=== PATIENT | male | born 1955 | race Caucasian/White ===

== ENCOUNTER 2023-12-28 18:17 | Inpatient (IN) | payer MEDICARE, MEDICAID, SELFPAY ==
[2023-12-28] VITALS (21 sets, daily range): BP systolic 104–121; BP diastolic 70–82; PULSE 76–136; TEMP 36.5–37.1; O2SAT 90–97; BMI 27.4
--- NOTE | 2023-12-28 18:20 | XR_ITS ---
The [address] [address] Patient Name: CARL REINOSO MRN: [id number] date: 1955 Sex: M Assigned Patient Location: ER Current Patient Location: ED.MAIN Accession/Order Number: [id number] Exam Date: 12/28/2023 18:35 Report Date: 12/28/2023 19:19 At the request of: VICKY PEREZ Procedure: XR chest 1V Exam: Radiographs: XR chest 1V Reason for exam: weakness Comparison: None XR/XR chest 1V IMPRESSION: Probable atelectasis and/or infiltrate in the lower lungs bilaterally. Interstitial opacities in the lower lungs bilaterally that likely represent edema. Pulmonary venous hypertension. Remainder of the chest is unremarkable. Electronically authenticated by: SELVIN CHUNG Date: 12/28/2023 19:19
--- NOTE | 2023-12-28 18:20 | ECG_ITS ---
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1955 Requested By: CALIN CLANCY Order Number: [id number] Reading MD: GURVINDER MONTANO Measurements Intervals [place] Rate: 137 P: -[id number] MS: -[id number] QRS: 185 QRSD: 94 T: -37 QT: 328 QTc: 408 Interpretive Statements 32333 Atrial fibrillation with rapid ventricular response with aberrant conduction, or ventricular premature complexes 2440 Incomplete right bundle branch block 3634 Inferior myocardial infarction, age undetermined 5120 Possible right ventricular hypertrophy 8003 Consistent with pulmonary disease 9150 abnormal ECG No previous ECG available for comparison Electronically Signed On 12-29-2023 13:01:14 EDT by GURVINDER MONTANO
--- NOTE | 2023-12-28 18:25 | ED.GENADUL1 ---
Documented by User: KENDRA Turpin 12/28/23 19:58 HPI HPI - General Adult General Chief complaint: Weakness Stated complaint: Weakness Time Seen by Provider: 12/28/23 18:19 Source: caregiver Mode of arrival: ambulance Limitations: altered mental status History of Present Illness HPI narrative: Patient is a 68-year-old male [facility] for concerns of weakness and change in skin color. Patient has a history of traumatic brain injury, decreased mentation. Patient was ambulating to dinner and required extra assistance, upon return he became hill in color and what they described as near syncopal but did not lose consciousness. Patient presents via EMS with no complaints. His personal history is limited by his mentation. His medical history review Notes he is on Eliquis ( for PE) and seizure medication. No report of head injury or trauma. EMS noting patient in A-fib with RVR. Related Data Home Medications ?Medication ?Instructions ?Recorded ?Confirmed apixaban 5 mg tablet (Eliquis) 5 mg PO BID 12/28/23 12/28/23 buspirone 5 mg tablet 5 mg PO BID 12/28/23 12/28/23 divalproex 250 mg tablet,delayed 250 mg PO Q12H 12/28/23 12/28/23 release (Depakote) lamotrigine 100 mg tablet 100 mg PO BID 12/28/23 12/28/23 (Lamictal) levetiracetam 750 mg tablet 750 mg PO BID 12/28/23 12/28/23 pantoprazole 40 mg tablet,delayed 40 mg PO DAILY 12/28/23 12/28/23 release sertraline 50 mg tablet (Zoloft) 50 mg PO DAILY 12/28/23 12/28/23 tamsulosin 0.4 mg capsule (Flomax) 0.4 mg PO DAILY 12/28/23 12/28/23 trazodone 50 mg tablet 25 mg PO BID PRN agitation 12/28/23 12/28/23 Allergies Allergy/AdvReac Type Severity Reaction Status Date / Time No Known Drug Allergies Allergy Verified 12/28/23 18:20 Opioid HPI Opioid Management Most Recent Opioid Data: Last Pain Assessment 12/28/23 22:05 Last ORT Total Score 2 12/28/23 20:56 Last ORT Risk Category Low Risk 12/28/23 20:56 Review of Systems ROS Status of ROS unobtainable due to mental status PFSH PFSH Social History Highest level of school completed/degree received: high school graduate Exam Narrative Exam Narrative: Nurses notes and vital signs reviewed and patient is not hypoxic. General: The patient appears well and in no apparent distress. Patient is resting comfortably on cart. Skin: Warm, dry, no pallor noted. Head: Normocephalic, atraumatic, remote scar to scalp noted. Neck: Supple, trachea mid-line, no tenderness, no lymphadenopathy Eye: Pupils are equal, round and reactive to light, EOMI Ears, Nose, Mouth, and Throat: TM are clear, normal light reflex, oral mucosa is moist, no posterior oropharynx erythema or hypertrophy, uvula is mid-line Cardiovascular: Irregularly irregular with tachycardia Respiratory: Patient is in no distress, no accessory muscle use, lungs are clear to auscultation, no wheezing, rales or rhonchi. Chest Wall: no tenderness Back: non-tender, no CVA tenderness Musculoskeletal: normal ROM, no tenderness, no swelling GI: Normal bowel sounds, no tenderness to palpation, no masses appreciated. No rebound, guarding, or rigidity noted. Neurological: A&O person. Psychiatric: Cooperative ( Staff reports pt can have bouts of violence/ excitability. ) Constitutional Vital Signs, click to edit/add: Last Vital Signs Temp 97.7 F 12/28/23 20:56 Pulse 94 H 12/28/23 22:00 Resp 20 12/28/23 20:56 BP 112/72 12/28/23 20:56 Pulse Ox 94 L 12/28/23 20:56 O2 Del Method Room Air 12/28/23 20:56 Course Vital Signs Vital signs: Vital Signs Temperature 98.7 F 12/28/23 18:20 Pulse Rate 136 H 12/28/23 18:20 Respiratory Rate 18 12/28/23 18:20 Blood Pressure 104/81 12/28/23 18:20 Pulse Oximetry 94 L 12/28/23 18:20 Oxygen Delivery Method Room Air 12/28/23 18:20 Temperature 97.7 F 12/28/23 20:56 Pulse Rate 94 H 12/28/23 22:00 Respiratory Rate 20 12/28/23 20:56 Blood Pressure 112/72 12/28/23 20:56 Pulse Oximetry 94 L 12/28/23 20:56 Oxygen Delivery Method Room Air 12/28/23 20:56 Medical Decision Making MDM Narrative Medical decision making narrative: Patient is Full Code presents in A-fib with RVR, he is currently on Eliquis but we do not see any prior history of A-fib and has medical diagnosis. Patient will be hydrated with 1 L IV fluids, 10 mg Iv Cardizem. Improved to mid 70s, remains in atrial fibrillation. Chest x-ray showing some pulmonary edema, however there is appearance of infiltrate in the bilateral lung bases, his white blood cell count was noted to be elevated with toxic granulation, Cultures are pending, will treat with Rocephin and Zithromax for Possible pneumonia pending reevaluation. Patient's blood pressure improved with fluid bolus and slowing of his heart rate from initial A-fib RVR. Patient has family at bedside. They report no further concerns or questions. I will speak with the hospitalist regarding need for admission. Patient resting comfortably with family, case was discussed with Trung hospitalist,Agreeable to admission, request [facility] telemetry inpatient. Lab Data Lab results reviewed: Yes I reviewed the patient's lab results Labs: Lab Results 12/28/23 Range/Units 18:29 WBC 12.1 H (4.0-11.0) 10^3/uL RBC 4.69 L (4.70-6.10) 10^6/uL Hgb 14.3 (14.0-18.0) g/dL Hct 43.0 (42.0-54.0) % MCV 91.7 (80.0-94.0) fL MCH 30.5 (25.9-34.0) pg MCHC 33.3 (29.9-35.2) g/dL RDW 13.4 (11.0-15.0) % Plt Count 295 (150-450) 10^3/uL MPV 9.2 L (9.5-13.5) fL Seg Neuts % (Manual) 60.0 Lymphocytes % (Manual) 15.0 L (20.5-60.0) % Atypical Lymphs % (Man) 16.0 % Monocytes % (Manual) 3.0 (1.7-12.0) % Eosinophils % (Manual) 4.0 (0.9-7.0) % Basophils % (Manual) 1.0 (0.2-2.0) % Neutrophils # (Manual) 7.26 H (1.4-6.5) 10^3/uL Lymphocytes # (Manual) 1.81 (1.20-3.80) 10^3/uL Abs Atypical Lymphs Man 1.93 Monocytes # (Manual) 0.36 (0.30-0.80) 10^3/uL Eosinophils # (Manual) 0.48 (0.00-0.70) 10^3/uL Basophils # (Manual) 0.12 H (0.00-0.10) 10^3/uL Toxic Granulation 4+ PT 10.8 (9.0-11.6) sec INR 1.02 APTT 28.2 (22.3-36.2) sec Sodium 140 (136-145) mmol/L Potassium 4.0 (3.5-5.1) mmol/L Chloride 104 (98-107) mmol/L Carbon Dioxide 28.3 (21.0-32.0) mmol/L Anion Gap 11.7 BUN 18.0 (7.0-18.0) mg/dL Creatinine 1.46 H (0.70-1.30) mg/dL Est GFR ( Amer) 58 L (>=60) Est GFR (Non-Af Amer) 48 L (>=60) BUN/Creatinine Ratio 12.3 Glucose 123 H (74-106) mg/dL Lactate 1.9 (0.4-2.0) mmol/L Calcium 9.2 (8.5-10.1) mg/dL Total Bilirubin 0.4 (0.2-1.0) mg/dL AST 8 L (15-37) U/L ALT 18 (16-63) U/L Alkaline Phosphatase 77 (46-116) U/L Troponin I High Sens 15.2 (4.0-76.1) pg/mL NT-Pro-B Natriuret Pep 2028.0 H* (<=900.0) pg/mL Total Protein 7.2 (6.4-8.2) g/dL Albumin 3.8 (3.4-5.0) g/dL Globulin 3.4 g/dL Albumin/Globulin Ratio 1.1 Procalcitonin <0.05 (0.00-0.50) ng/mL Valproic Acid 25.9 L (50.0-100.0) ug/mL Imaging Data Chest x-ray: Radiologist's impression: ITS Impressions Chest X-Ray 12/28/23 18:20 IMPRESSION: Probable atelectasis and/or infiltrate in the lower lungs bilaterally. Interstitial opacities in the lower lungs bilaterally that likely represent edema. Pulmonary venous hypertension. Remainder of the chest is unremarkable. Electronically authenticated by: SELVIN CHUNG Date: 12/28/2023 19:19 ECG Data Attestation: I personally reviewed and interpreted this ECG as follows: Interpretation: First EKG shows atrial fibrillation RVR at 1820 heart rate of 137 bpm, no ST elevation. Second EKG shows heart rate of 93 bpm at 1845 post Cardizem remains in atrial fibrillation, no acute ischemic changes noted. Discharge Plan Discharge Chief Complaint: Weakness Clinical Impression: Atrial fibrillation with rapid ventricular response, Pneumonia Patient Disposition: Admitted As Inpatient Time of Disposition Decision: 19:58 Condition: Good Discharge Date/Time: 12/28/23 20:42 Documented by User: Hao Landry MD 12/28/23 22:07 HPI HPI - General Adult General Chief complaint: Weakness Stated complaint: Weakness Time Seen by Provider: 12/28/23 18:19 Related Data Home Medications ?Medication ?Instructions ?Recorded ?Confirmed apixaban 5 mg tablet (Eliquis) 5 mg PO BID 12/28/23 12/28/23 buspirone 5 mg tablet 5 mg PO BID 12/28/23 12/28/23 divalproex 250 mg tablet,delayed 250 mg PO Q12H 12/28/23 12/28/23 release (Depakote) lamotrigine 100 mg tablet 100 mg PO BID 12/28/23 12/28/23 (Lamictal) levetiracetam 750 mg tablet 750 mg PO BID 12/28/23 12/28/23 pantoprazole 40 mg tablet,delayed 40 mg PO DAILY 12/28/23 12/28/23 release sertraline 50 mg tablet (Zoloft) 50 mg PO DAILY 12/28/23 12/28/23 tamsulosin 0.4 mg capsule (Flomax) 0.4 mg PO DAILY 12/28/23 12/28/23 trazodone 50 mg tablet 25 mg PO BID PRN agitation 12/28/23 12/28/23 Allergies Allergy/AdvReac Type Severity Reaction Status Date / Time No Known Drug Allergies Allergy Verified 12/28/23 18:20 Opioid HPI Opioid Management Most Recent Opioid Data: Last Pain Assessment 12/28/23 22:05 Last ORT Total Score 2 12/28/23 20:56 Last ORT Risk Category Low Risk 12/28/23 20:56 PFSH PFSH Social History Highest level of school completed/degree received: high school graduate Exam Constitutional Vital Signs, click to edit/add: Last Vital Signs Temp 97.7 F 12/28/23 20:56 Pulse 94 H 12/28/23 22:00 Resp 20 12/28/23 20:56 BP 112/72 12/28/23 20:56 Pulse Ox 94 L 12/28/23 20:56 O2 Del Method Room Air 12/28/23 20:56 Course Vital Signs Vital signs: Vital Signs Temperature 98.7 F 12/28/23 18:20 Pulse Rate 136 H 12/28/23 18:20 Respiratory Rate 18 12/28/23 18:20 Blood Pressure 104/81 12/28/23 18:20 Pulse Oximetry 94 L 12/28/23 18:20 Oxygen Delivery Method Room Air 12/28/23 18:20 Temperature 97.7 F 12/28/23 20:56 Pulse Rate 94 H 12/28/23 22:00 Respiratory Rate 20 12/28/23 20:56 Blood Pressure 112/72 12/28/23 20:56 Pulse Oximetry 94 L 12/28/23 20:56 Oxygen Delivery Method Room Air 12/28/23 20:56 Medical Decision Making [facility] Narrative Medical decision making narrative: Patient is Full Code presents in A-fib with RVR, he is currently on Eliquis but we do not see any prior history of A-fib and has medical diagnosis. Patient will be hydrated with 1 L IV fluids, 10 mg Iv Cardizem. Improved to mid 70s, remains in atrial fibrillation. Chest x-ray showing some pulmonary edema, however there is appearance of infiltrate in the bilateral lung bases, his white blood cell count was noted to be elevated with toxic granulation, Cultures are pending, will treat with Rocephin and Zithromax for Possible pneumonia pending reevaluation. Patient's blood pressure improved with fluid bolus and slowing of his heart rate from initial A-fib RVR. Patient has family at bedside. They report no further concerns or questions. I will speak with the hospitalist regarding need for admission. Patient resting comfortably with family, case was discussed with Trung hospitalist,Agreeable to admission, request [facility] telemetry inpatient. I, Dr Landry, have reviewed the above progress note and course of action in the ER; agree with the above. I have gone over history and physical, and discussed disposition and treatment plan with the patient. Lab Data Labs: Lab Results 12/28/23 Range/Units 18:29 WBC 12.1 H (4.0-11.0) 10^3/uL RBC 4.69 L (4.70-6.10) 10^6/uL Hgb 14.3 (14.0-18.0) g/dL Hct 43.0 (42.0-54.0) % MCV 91.7 (80.0-94.0) fL MCH 30.5 (25.9-34.0) pg MCHC 33.3 (29.9-35.2) g/dL RDW 13.4 (11.0-15.0) % Plt Count 295 (150-450) 10^3/uL MPV 9.2 L (9.5-13.5) fL Seg Neuts % (Manual) 60.0 Lymphocytes % (Manual) 15.0 L (20.5-60.0) % Atypical Lymphs % (Man) 16.0 % Monocytes % (Manual) 3.0 (1.7-12.0) % Eosinophils % (Manual) 4.0 (0.9-7.0) % Basophils % (Manual) 1.0 (0.2-2.0) % Neutrophils # (Manual) 7.26 H (1.4-6.5) 10^3/uL Lymphocytes # (Manual) 1.81 (1.20-3.80) 10^3/uL Abs Atypical Lymphs Man 1.93 Monocytes # (Manual) 0.36 (0.30-0.80) 10^3/uL Eosinophils # (Manual) 0.48 (0.00-0.70) 10^3/uL Basophils # (Manual) 0.12 H (0.00-0.10) 10^3/uL Toxic Granulation 4+ PT 10.8 (9.0-11.6) sec INR 1.02 APTT 28.2 (22.3-36.2) sec Sodium 140 (136-145) mmol/L Potassium 4.0 (3.5-5.1) mmol/L Chloride 104 (98-107) mmol/L Carbon Dioxide 28.3 (21.0-32.0) mmol/L Anion Gap 11.7 BUN 18.0 (7.0-18.0) mg/dL Creatinine 1.46 H (0.70-1.30) mg/dL Est GFR ( Amer) 58 L (>=60) Est GFR (Non-Af Amer) 48 L (>=60) BUN/Creatinine Ratio 12.3 Glucose 123 H (74-106) mg/dL Lactate 1.9 (0.4-2.0) mmol/L Calcium 9.2 (8.5-10.1) mg/dL Total Bilirubin 0.4 (0.2-1.0) mg/dL AST 8 L (15-37) U/L ALT 18 (16-63) U/L Alkaline Phosphatase 77 (46-116) U/L Troponin I High Sens 15.2 (4.0-76.1) pg/mL NT-Pro-B Natriuret Pep 2028.0 H* (<=900.0) pg/mL Total Protein 7.2 (6.4-8.2) g/dL Albumin 3.8 (3.4-5.0) g/dL Globulin 3.4 g/dL Albumin/Globulin Ratio 1.1 Procalcitonin <0.05 (0.00-0.50) ng/mL Valproic Acid 25.9 L (50.0-100.0) ug/mL Imaging Data Chest x-ray: Radiologist's impression: ITS Impressions Chest X-Ray 12/28/23 18:20 IMPRESSION: Probable atelectasis and/or infiltrate in the lower lungs bilaterally. Interstitial opacities in the lower lungs bilaterally that likely represent edema. Pulmonary venous hypertension. Remainder of the chest is unremarkable. Electronically authenticated by: SELVIN CHUNG Date: 12/28/2023 19:19 Discharge Plan Discharge Chief Complaint: Weakness Clinical Impression: Atrial fibrillation with rapid ventricular response, Pneumonia Patient Disposition: Admitted As Inpatient Time of Disposition Decision: 19:58 Condition: Good Discharge Date/Time: 12/28/23 20:42
[2023-12-28] MEDS: 0.9 % SODIUM CHLORIDE 1,000 ML 999 ML IV (18:37)
[2023-12-28 18:38] LABS: Hemoglobin 14.3 g/dL (14.0-18.0); Mean Corpuscular HGB Conc 33.3 g/dL (29.9-35.2); Mean Corpuscular Hemoglobin 30.5 pg (25.9-34.0); Mean Corpuscular Volume 91.7 fL (80.0-94.0); Mean Platelet Volume 9.2 fL (9.5-13.5); Platelet Count 295 10^3/uL (150-450); Red Blood Count 4.69 10^6/uL (4.70-6.10); Red Cell Distribution Width 13.4 % (11.0-15.0); White Blood Count 12.1 10^3/uL (4.0-11.0)
[2023-12-28] MEDS: ASPIRIN 81 MG TAB.CHEW 162 MG PO (18:38)
[2023-12-28] MEDS: DILTIAZEM HCL 25 MG/5 ML VIAL 10 MG IV (18:42)
--- NOTE | 2023-12-28 18:46 | ECG_ITS ---
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1955 Requested By: CALIN CLANCY Order Number: [id number] Reading MD: GURVINDER MONTANO Measurements Intervals [place] Rate: 93 P: -[id number] MD: -[id number] QRS: 186 QRSD: 92 T: -20 QT: 354 QTc: 405 Interpretive Statements 28108 Atrial fibrillation with aberrant conduction, or ventricular premature complexes 2440 Incomplete right bundle branch block 3634 Inferior myocardial infarction, age undetermined 5120 Possible right ventricular hypertrophy 8003 Consistent with pulmonary disease 9150 abnormal ECG Compared to ECG 12/28/2023 18:20:10 No significant changes Electronically Signed On 12-29-2023 13:01:36 EDT by GURVINDER MONTANO
[2023-12-28 18:55] LABS: INR 1.02; Partial Thromboplastin Time 28.2 sec (22.3-36.2); Prothrombin Time 10.8 sec (9.0-11.6)
[2023-12-28 18:57] LABS: Valproic Acid 25.9 ug/mL (50.0-100.0)
[2023-12-28 19:04] LABS: Segmented Neut Absolute Manual 7.26 10^3/uL (1.4-6.5)
[2023-12-28 19:05] LABS: Alanine Aminotransferase 18 U/L (16-63); Albumin Globulin Ratio 1.1; Albumin Level 3.8 g/dL (3.4-5.0); Alkaline Phosphatase 77 U/L (46-116); Anion Gap 11.7; Aspartate Amino Transferase 8 U/L (15-37); Atypical Lymphocytes Abs Man 1.93; BUN Creatinine Ratio 12.3; Basophils Abs Manual 0.12 10^3/uL (0.00-0.10); Bilirubin Total 0.4 mg/dL (0.2-1.0); Calcium 9.2 mg/dL (8.5-10.1); Carbon Dioxide 28.3 mmol/L (21.0-32.0); Chloride 104 mmol/L (98-107); Eosinophils Absolute Manual 0.48 10^3/uL (0.00-0.70); Estimated GFR (African America 58 (>=60); Estimated GFR (Non-African Ame 48 (>=60); Globulin 3.4 g/dL; Glucose 123 mg/dL (74-106); Lymphocytes Absolute Manual 1.81 10^3/uL (1.20-3.80); Monocytes Absolute Manual 0.36 10^3/uL (0.30-0.80); Sodium 140 mmol/L (136-145); Total Protein 7.2 g/dL (6.4-8.2); Toxic Granulation 4+; Troponin I High Sensitivity 15.2 pg/mL (4.0-76.1)
[2023-12-28] MEDS: CEFTRIAXONE 1,000 MG in 0.9 % SODIUM CHLORIDE 50 ML 100 MG IV (19:44)
[2023-12-28 19:53] LABS: Lactate/Lactic Acid 1.9 mmol/L (0.4-2.0)
[2023-12-28 20:02] LABS: PROCALCITONIN <0.05 ng/mL (0.00-0.50)
[2023-12-28] MEDS: AZITHROMYCIN 500 MG in 0.9 % SODIUM CHLORIDE 250 ML 250 MG IV (20:25)
[2023-12-28] MEDS: 0.9 % SODIUM CHLORIDE 1,000 ML 100 ML IV (21:57)
[2023-12-28] MEDS: LEVETIRACETAM 250 MG TABLET 750 MG PO (21:57)
[2023-12-28] MEDS: LAMOTRIGINE 100 MG TABLET PO (21:57)
[2023-12-28] MEDS: DIVALPROEX SODIUM 250 MG TABLET.DR PO (21:57)
[2023-12-28] MEDS: GUAIFENESIN 600 MG TAB.ER.12H PO (21:57)
[2023-12-28] MEDS: APIXABAN 5 MG TABLET PO (21:57)
[2023-12-28] MEDS: BUSPIRONE HCL 10 MG TABLET 5 MG PO (21:57)
[2023-12-29] VITALS (16 sets, daily range): BP systolic 110–123; BP diastolic 68–81; PULSE 64–124; TEMP 36.7–36.9; O2SAT 91–94
[2023-12-29 05:44] LABS: Basophils Absolute Auto 0.1 10^3/uL (0.0-0.1); Basophils Percent Auto 0.5 % (0.2-2.0); Eosinophils Absolute Auto 0.6 10^3/uL (0.0-0.7); Eosinophils Percent Auto 4.6 % (0.9-7.0); Hematocrit 37.9 % (42.0-54.0); Hemoglobin 12.2 g/dL (14.0-18.0); Immature Granulocytes Abs Auto 0.04 10^3/uL (0.00-0.03); Immature Granulocytes Pct Auto 0.3 % (0.0-0.5); Lymphocytes Absolute Auto 5.9 10^3/uL (1.2-3.8); Lymphocytes Percent Auto 49.9 % (20.5-60.0); Mean Corpuscular HGB Conc 32.2 g/dL (29.9-35.2); Mean Corpuscular Hemoglobin 30.3 pg (25.9-34.0); Mean Platelet Volume 9.8 fL (9.5-13.5); Monocytes Absolute Auto 0.8 10^3/uL (0.3-0.8); Monocytes Percent Auto 6.7 % (1.7-12.0); Neutrophils Absolute Auto 4.5 10^3/uL (1.4-6.5); Platelet Count 259 10^3/uL (150-450); Red Blood Count 4.03 10^6/uL (4.70-6.10); Red Cell Distribution Width 13.4 % (11.0-15.0); White Blood Count 11.9 10^3/uL (4.0-11.0)
[2023-12-29 05:56] LABS: INR 1.08; Prothrombin Time 11.4 sec (9.0-11.6)
[2023-12-29 06:11] LABS: Alanine Aminotransferase 11 U/L (16-63); Albumin Globulin Ratio 1.1; Albumin Level 3.1 g/dL (3.4-5.0); Alkaline Phosphatase 52 U/L (46-116); Anion Gap 11.5; Aspartate Amino Transferase 9 U/L (15-37); BUN Creatinine Ratio 15.3; Bilirubin Total 0.4 mg/dL (0.2-1.0); Calcium 8.3 mg/dL (8.5-10.1); Carbon Dioxide 24.5 mmol/L (21.0-32.0); Chloride 109 mmol/L (98-107); Estimated GFR (African America >60 (>=60); Estimated GFR (Non-African Ame 58 (>=60); Globulin 2.7 g/dL; Glucose 93 mg/dL (74-106); Sodium 141 mmol/L (136-145); Total Protein 5.8 g/dL (6.4-8.2)
--- NOTE | 2023-12-29 06:17 | ECG_ITS ---
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
[2023-12-29] MEDS: 0.9 % SODIUM CHLORIDE 1,000 ML 100 ML IV ×2 (06:52→15:32)
[2023-12-29] MEDS: LEVETIRACETAM 250 MG TABLET 750 MG PO ×2 (09:01→20:15)
[2023-12-29] MEDS: APIXABAN 5 MG TABLET PO ×2 (09:01→20:16)
[2023-12-29] MEDS: LAMOTRIGINE 100 MG TABLET PO ×2 (09:01→20:16)
[2023-12-29] MEDS: OMEPRAZOLE 40 MG CAPSULE.DR PO (09:01)
[2023-12-29] MEDS: BUSPIRONE HCL 10 MG TABLET 5 MG PO ×2 (09:01→20:16)
[2023-12-29] MEDS: TAMSULOSIN HCL 0.4 MG CAPSULE 0.400000000000000022 MG PO (09:01)
[2023-12-29] MEDS: GUAIFENESIN 600 MG TAB.ER.12H PO ×2 (09:01→20:16)
[2023-12-29] MEDS: DIVALPROEX SODIUM 250 MG TABLET.DR PO ×2 (09:01→20:16)
[2023-12-29] MEDS: SERTRALINE HCL 50 MG TABLET PO (09:02)
[2023-12-29] MEDS: METOPROLOL TARTRATE 25 MG TABLET PO ×2 (10:37→20:16)
--- NOTE | 2023-12-29 14:09 | P.HP_ITS ---
HPI H&P: HPI History of Present Illness Chief complaint: Weakness A fib c RVR Pneumonia Narrative: 68 y/o male from [place] with weakness. History of TBI causing decreased mentation and limited communication. Walking to dinner and staff noticed increased weakness. Thought color off and had near syncopal episode. To ER and found rapid afib. Gave IV cardizem and pulse improved. No history of afib in records. Chest x-ray showed pneumonia and admitted. Started zithromax and rocephin. Feels well this am and denies SOB or cough. Denies chest pain or palpitations. Remains in afib. Opioid HPI Opioid Management Most Recent Opioid Data: Last Pain Assessment 12/29/23 13:54 Last ORT Total Score 2 12/28/23 20:56 Last ORT Risk Category Low Risk 12/28/23 20:56 Review of Systems ROS Constitutional Reports: fatigue; Denies: fever or chills Cardiovascular Denies: chest pain, palpitations or edema Respiratory Denies: shortness of breath, cough or wheezing Gastrointestinal Denies: abdominal pain, nausea, vomiting or diarrhea Genitourinary Denies: painful urination PFSH PFS Medical History (Updated 12/29/23 @ 10:24 by Kiran Myles MD) Pulmonary embolus ?I26.99 - Other pulmonary embolism without acute cor pulmonale (ICD-10) Altered mental status ?R41.82 - Altered mental status, unspecified (ICD-10) UTI (urinary tract infection) ?N39.0 - Urinary tract infection, site not specified (ICD-10) New onset a-fib ?I48.91 - Unspecified atrial fibrillation (ICD-10) Epilepsy ?G40.909 - Epilepsy, unspecified, not intractable, without status epilepticus (ICD-10) Family History (Updated 12/28/23 @ 22:19 by Monica Galloway) Other Family history of myocardial infarction Social History (Updated 12/28/23 @ 22:20 by Monica Galloway) Within the past year, how often did you have a drink containing alcohol: never Score interpretation: A score less than 4 is consistent with normal alcohol consumption. Smoking status: Former smoker Non-prescribed substance use: denies use Previous occupational history: na Highest level of school completed/degree received: high school graduate Are you now , , , , never or living with a partner: don't know In a typical week, how many times do you talk on the telephone with family, friends, or neighbors: twice per week How often do you get together with friends or relatives: twice per week How often do you attend denominational or presybeterian services: never Little interest or pleasure in doing things: not at all Feeling down, depressed, or hopeless: not at all Feel stressed/tense/nervous/anxious/difficulty sleeping: not at all Do you think of yourself as: straight/heterosexual Gender Identity: male Meds Home Medications and Allergies Home Medications ?Medication ?Instructions ?Recorded ?Confirmed ?Type apixaban 5 mg tablet (Eliquis) 5 mg PO BID 12/28/23 12/28/23 History buspirone 5 mg tablet 5 mg PO BID 12/28/23 12/28/23 History divalproex 250 mg tablet,delayed 250 mg PO Q12H 12/28/23 12/28/23 History release (Depakote) lamotrigine 100 mg tablet 100 mg PO BID 12/28/23 12/28/23 History (Lamictal) levetiracetam 750 mg tablet 750 mg PO BID 12/28/23 12/28/23 History pantoprazole 40 mg tablet,delayed 40 mg PO DAILY 12/28/23 12/28/23 History release sertraline 50 mg tablet (Zoloft) 50 mg PO DAILY 12/28/23 12/28/23 History tamsulosin 0.4 mg capsule (Flomax) 0.4 mg PO DAILY 12/28/23 12/28/23 History trazodone 50 mg tablet 12.5 mg PO BID PRN agitation 12/28/23 12/29/23 History Allergies Allergy/AdvReac Type Severity Reaction Status Date / Time No Known Drug Allergies Allergy Verified 12/28/23 18:20 Exam Constitutional Vital Signs, click to edit/add: Last Vital Signs Temp 98.2 F 12/29/23 12:55 Pulse 92 H 12/29/23 12:55 Resp 18 12/29/23 12:55 BP 110/68 12/29/23 12:55 Pulse Ox 94 L 12/29/23 12:55 O2 Del Method Room Air 12/29/23 12:55 Documenting provider has reviewed patient's vital signs: yes Common normals: no apparent distress, oriented x3 and alert HENMT Common normals: normocephalic Eye Common normals: PERRL and EOMs intact bilaterally Respiratory Common normals: normal respiratory effort and clear to auscultation bilaterally Cardio Common normals: no gallops, no murmurs and no rub Rhythm: abnormal rhythm irregularly irregular GI Common normals: Normal to inspection, nondistended, normoactive bowel sounds present and non-tender Extremity Common normals: no pedal edema Results Labs Labs: Short CBC 12/28/23 12/29/23 Range/Units 18:29 04:21 WBC 12.1 H 11.9 H (4.0-11.0) 10^3/uL Hgb 14.3 12.2 L (14.0-18.0) g/dL Hct 43.0 37.9 L (42.0-54.0) % Plt Count 295 259 (150-450) 10^3/uL BMP 12/28/23 12/29/23 18:29 04:21 Sodium 140 141 Potassium 4.0 4.0 Chloride 104 109 H Carbon Dioxide 28.3 24.5 BUN 18.0 19.0 H Creatinine 1.46 H 1.24 Glucose 123 H 93 Calcium 9.2 8.3 L Liver Function 12/28/23 12/29/23 Range/Units 18:29 04:21 Total Bilirubin 0.4 0.4 (0.2-1.0) mg/dL AST 8 L 9 L (15-37) U/L ALT 18 11 L (16-63) U/L Alkaline Phosphatase 77 52 (46-116) U/L Albumin 3.8 3.1 L (3.4-5.0) g/dL Assessment and Plan Assessment and Plan (1) Atrial fibrillation with rapid ventricular response: (2) Pneumonia: (3) Traumatic brain injury: (4) History of pulmonary embolism: (5) Seizure disorder: Plan Remains in afib but rate controlled. Add oral metoprolol. Continue zithromax and rocephin for pneumonia. Resume home medication. Start PT. Monitor labs and vitals. Plan on at least a 2 midnight stay for inpatient medically necessary services.
[2023-12-29] MEDS: AZITHROMYCIN 500 MG in 0.9 % SODIUM CHLORIDE 250 ML 200 MG IV (19:27)
[2023-12-29] MEDS: CEFTRIAXONE 1,000 MG in 0.9 % SODIUM CHLORIDE 50 ML 100 MG IV (20:49)
[2023-12-30] VITALS (7 sets, daily range): BP systolic 106; BP diastolic 70; PULSE 71–83; TEMP 36.4; O2SAT 94
[2023-12-30] MEDS: 0.9 % SODIUM CHLORIDE 1,000 ML 100 ML IV (02:33)
[2023-12-30 05:47] LABS: Basophils Absolute Auto 0.1 10^3/uL (0.0-0.1); Basophils Percent Auto 0.6 % (0.2-2.0); Eosinophils Absolute Auto 0.5 10^3/uL (0.0-0.7); Eosinophils Percent Auto 4.2 % (0.9-7.0); Hematocrit 40.7 % (42.0-54.0); Hemoglobin 12.8 g/dL (14.0-18.0); Immature Granulocytes Abs Auto 0.03 10^3/uL (0.00-0.03); Immature Granulocytes Pct Auto 0.2 % (0.0-0.5); Lymphocytes Percent Auto 41.7 % (20.5-60.0); Mean Corpuscular HGB Conc 31.4 g/dL (29.9-35.2); Mean Corpuscular Hemoglobin 29.8 pg (25.9-34.0); Mean Corpuscular Volume 94.7 fL (80.0-94.0); Mean Platelet Volume 9.4 fL (9.5-13.5); Monocytes Absolute Auto 0.8 10^3/uL (0.3-0.8); Monocytes Percent Auto 6.4 % (1.7-12.0); Neutrophils Absolute Auto 5.7 10^3/uL (1.4-6.5); Neutrophils Percent Auto 46.9 % (43.0-75.0); Platelet Count 255 10^3/uL (150-450); Red Cell Distribution Width 13.7 % (11.0-15.0); White Blood Count 12.1 10^3/uL (4.0-11.0)
[2023-12-30 06:09] LABS: Alanine Aminotransferase 17 U/L (16-63); Albumin Globulin Ratio 1.1; Albumin Level 3.2 g/dL (3.4-5.0); Alkaline Phosphatase 49 U/L (46-116); Anion Gap 12.8; Aspartate Amino Transferase 11 U/L (15-37); BUN Creatinine Ratio 13.7; Bilirubin Total 0.5 mg/dL (0.2-1.0); Calcium 8.4 mg/dL (8.5-10.1); Carbon Dioxide 23.6 mmol/L (21.0-32.0); Chloride 109 mmol/L (98-107); Estimated GFR (African America >60 (>=60); Estimated GFR (Non-African Ame >60 (>=60); Globulin 2.9 g/dL; Glucose 98 mg/dL (74-106); Potassium 4.4 mmol/L (3.5-5.1); Sodium 141 mmol/L (136-145); Total Protein 6.1 g/dL (6.4-8.2)
[2023-12-30] MEDS: OMEPRAZOLE 40 MG CAPSULE.DR PO (09:21)
[2023-12-30] MEDS: APIXABAN 5 MG TABLET PO (09:21)
[2023-12-30] MEDS: BUSPIRONE HCL 10 MG TABLET 5 MG PO (09:21)
[2023-12-30] MEDS: GUAIFENESIN 600 MG TAB.ER.12H PO (09:21)
[2023-12-30] MEDS: TAMSULOSIN HCL 0.4 MG CAPSULE 0.400000000000000022 MG PO (09:22)
[2023-12-30] MEDS: LAMOTRIGINE 100 MG TABLET PO (09:22)
[2023-12-30] MEDS: LEVETIRACETAM 250 MG TABLET 750 MG PO (09:22)
[2023-12-30] MEDS: METOPROLOL TARTRATE 25 MG TABLET PO (09:22)
[2023-12-30] MEDS: SERTRALINE HCL 50 MG TABLET PO (09:22)
[2023-12-30] MEDS: DIVALPROEX SODIUM 250 MG TABLET.DR PO (09:24)
--- NOTE | 2023-12-30 11:51 | P.DS_ITS ---
DS: Providers Provider Date of admission: 12/28/23 20:42 Primary care physician: CALIN CLANCY DO Consults: 12/28/23 20:22 Occupational Therapy Eval and Treat Routine Reason for consultation: weakness Has provider been notified: No Physical Therapy Eval and Treat Routine Reason for consultation: weakness Has provider been notified: No DS: Diagnosis Discharge Diagnosis (1) Atrial fibrillation with rapid ventricular response: (2) Pneumonia: (3) Traumatic brain injury: (4) History of pulmonary embolism: (5) Seizure disorder: DS: Summary Hospital Course Hospital Course: Reason for admission: See H&P for details. 68 y/o male from [facility] with weakness. History of TBI causing decreased mentation and limited communication. Walking to dinner and staff noticed increased weakness. Thought color off and had near syncopal episode. To ER and found rapid afib. Gave IV cardizem and pulse improved. No history of afib in records. Chest x-ray showed pneumonia and admitted. Hospital course: Started zithromax and rocephin. Remained in afib and added metoprolol. Denies SOB or cough. No chest pain for palpitations. Did well in hospital. Afebrile. Normal SpO2 on room air. Pulse controlled. Discharged home in stable condition. Will take zithromax x 4 days and cefdinir x 10 days. Continue metoprolol and already on Eliquis. Resume other home medication as directed. Time Spent with Patient Time attestation: Total time spent providing and/or coordinating discharge services: Time spent: less than 30 minutes Exam Constitutional Vital Signs, click to edit/add: Last Vital Signs Temp 97.5 F L 12/30/23 05:00 Pulse 82 12/30/23 09:57 Resp 20 12/30/23 05:00 BP 106/70 12/30/23 05:00 Pulse Ox 94 L 12/30/23 05:00 O2 Del Method Room Air 12/30/23 05:00 Documenting provider has reviewed patient's vital signs: yes Common normals: no apparent distress and alert HENMT Common normals: normocephalic Eye Common normals: PERRL and EOMs intact bilaterally Respiratory Common normals: normal respiratory effort and clear to auscultation bilaterally Cardio Common normals: no gallops, no murmurs and no rub Rhythm: abnormal rhythm irregularly irregular GI Common normals: Normal to inspection, nondistended, normoactive bowel sounds present and non-tender Extremity Common normals: no pedal edema DS: Data Data Completed and Pending Labs on day of discharge: Labs from last 24 hours 12/30/23 05:31 WBC 12.1 H RBC 4.30 L Hgb 12.8 L Hct 40.7 L MCV 94.7 H MCH 29.8 MCHC 31.4 RDW 13.7 Plt Count 255 MPV 9.4 L Neut % (Auto) 46.9 Lymph % (Auto) 41.7 [place] % (Auto) 6.4 Eos % (Auto) 4.2 Baso % (Auto) 0.6 Neut # (Auto) 5.7 Lymph # (Auto) 5.0 H [place] # (Auto) 0.8 Eos # (Auto) 0.5 Baso # (Auto) 0.1 Abs Immat Gran (auto) 0.03 Imm/Tot Granulo (auto) 0.2 Sodium 141 Potassium 4.4 Chloride 109 H Carbon Dioxide 23.6 Anion Gap 12.8 BUN 16.0 Creatinine 1.17 Est GFR ( Amer) >60 Est GFR (Non-Af Amer) >60 BUN/Creatinine Ratio 13.7 Glucose 98 Calcium 8.4 L Total Bilirubin 0.5 AST 11 L ALT 17 Alkaline Phosphatase 49 Total Protein 6.1 L Albumin 3.2 L Globulin 2.9 Albumin/Globulin Ratio 1.1 Preliminary micro results at discharge 12/28/23 19:41 - Preliminary Blood NO GROWTH AT 36-48 HOURS. FINAL TO FOLLOW. 12/28/23 18:29 Blood Culture Result 1 - Preliminary Blood NO GROWTH AT 36-48 HOURS. FINAL TO FOLLOW. Discharge Plan Discharge Disposition: Home, Self-Care Condition: Good Discharge Medications: New metoprolol tartrate 25 mg Tablet 25 mg PO BID Qty: 60 0RF azithromycin [Zithromax] 250 mg tablet 250 mg PO DAILY 4 Days Qty: 4 0RF Rx Instructions: start on day 2 of therapy cefdinir 300 mg capsule 300 mg PO BID 10 Days Qty: 20 0RF Continued buspirone 5 mg tablet 5 mg PO BID divalproex [Depakote] 250 mg tablet,delayed release (DR/EC) 250 mg PO Q12H Eliquis 5 mg tablet 5 mg PO BID tamsulosin [Flomax] 0.4 mg capsule 0.4 mg PO DAILY lamotrigine [Lamictal] 100 mg tablet 100 mg PO BID levetiracetam 750 mg tablet 750 mg PO BID pantoprazole 40 mg tablet,delayed release (DR/EC) 40 mg PO DAILY trazodone 50 mg tablet 12.5 mg PO BID PRN (Reason: agitation) sertraline [Zoloft] 50 mg tablet 50 mg PO DAILY Activity: increase activity as tolerated Diet: advance to your usual diet Print Language: Korean Forms: Portal Instructions Follow Up Appointments: [place] staff doctor to follow
--- NOTE | 2023-12-30 12:14 | PC.NURSE ---
Report called to angélica sullivan
[2023-12-31 17:10] LABS: Levetiracetam (Keppra), S 25.3 ug/mL (10.0-40.0)
[2024-01-01 17:07] LABS: Lamotrigine (Lamictal), Serum 10.7 ug/mL (2.0-20.0)
== END 2023-12-30 12:21 | DRG 195 ==
LOC: ER 19:58 → MS 12-30 11:02
PROVIDERS: Nurse Practitioner Acute Care; Personal Emergency Response Attendant; Admitting Provider Family Medicine; Emergency Provider Internal Medicine; PCP Family Medicine; Visit Provider Family Medicine
DX: J18.9 Pneumonia, unspecified organism (principal); I48.91 Unspecified atrial fibrillation; Z79.01 Long term (current) use of anticoagulants; Z86.711 Personal history of pulmonary embolism; Z87.820 Personal history of traumatic brain injury; Z87.440 Personal history of urinary (tract) infections; G40.909 Epilepsy, unspecified, not intractable, without status epilepticus; Z87.891 Personal history of nicotine dependence
CPT/HCPCS: 36415; 71045; 80053; 80164; 80175; 80177; 83605; 83880; 84145; 84484; 85007; 85025; 85027; 85610; 85730; 87040; 93005; 96361; 96365; 96366; 96367; 96375; 97161; 99285; J0456

== ENCOUNTER 2025-06-05 12:43 | Emergency (ER) | payer MEDICARE, MEDICAID, SELFPAY ==
[2025-06-05] VITALS (43 sets, daily range): BP systolic 85–123; BP diastolic 49–97; PULSE 68–137; TEMP 37.1; O2SAT 87–97; BMI 26.6
--- NOTE | 2025-06-05 12:49 | ECG_ITS ---
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: : 1955 Requested By: [id number] Order Number: [id number] Reading MD: STAN WHATLEY Measurements Intervals [place] Rate: 130 P: -99327 FL: -14301 QRS: -81 QRSD: 140 T: 96 QT: 376 QTc: 453 Interpretive Statements 34912 Atrial fibrillation with rapid ventricular response 2450 Right bundle branch block 2630 Left anterior fascicular block 3114 Cannot rule out anterior myocardial infarction, age undetermined 9150 abnormal ECG Compared to ECG 12/29/2023 05:43:17 Right bundle-branch block now present Incomplete right bundle-branch block no longer present Myocardial infarct finding still present Electronically Signed On 06-05-2025 14:23:45 EST by STAN WHATLEY
--- NOTE | 2025-06-05 12:50 | XR_ITS ---
The [address] [address] Patient Name: CARL REINOSO MRN: [id number] date: 1955 Sex: M Assigned Patient Location: ED.MAIN Current Patient Location: ED.MAIN Accession/Order Number: [id number] Exam Date: 06/05/2025 13:12 Report Date: 06/05/2025 13:36 At the request of: ALEJANDRO CHILDRESS MD Procedure: XR chest 1V XR chest 1V 06/05/2025 1:17 PM SIGNS AND SYMPTOMS: ^sob PROTOCOL: Frontal radiograph of the chest COMPARISON: 12/28/2023 FINDINGS: The trachea is midline. There is cardiomegaly. Hazy perihilar airspace opacities are noted with vascular prominence. There is a small left-sided pleural effusion. Degenerative changes are noted in the shoulders. The bony thorax is intact. XR/XR chest 1V IMPRESSION: Findings suggest congestive heart failure, similar to the prior exam. Impression dictated by: Filemon Melendez M.D. 06/05/2025 1:36 PM Dictation Location: [place] [address] Electronically authenticated by: [id number] Y Date: 06/05/2025 13:36
--- OUTSIDE RECORDS SUMMARY | 2025-06-05 13:04 | XMS_ITS | CCD ---
Author Organization [facility] Care Team Providers Care Communications Intern Name Role Phone MD Sylvia Glover Primary Care Provider SIM Mathew Emergency Provider MD Mayelin Valera Admit Provider MD Mayelin Valera Attending Provider DO Emmett Aly Other Provider ANGEL Garcia Other Provider [phone] MD Phoenix Grant Attending Provider [phone] LUZ MARIA ROMERO Attending Unavailable Mayelin Valera Admitting Unavailable Sylvia Glover Primary Care Unavailable mEmett Aly Consulting Unavailable Phoenix Grant Attending Unavailable Lorraine Garcia Consulting Unavailable Unavailable Primary Care Provider UnavailSanto Martin MD Primary Care Provider SANTO VIERA Primary Care Unavailable JIAN POLLOCK Admitting Unavailable JIAN POLLOCK Attending Unavailable JOSE NICOLE Consulting Unavailable VLADIMIR THORNTON Consulting Unavailable Santo Viera DO Primary Care Provider JACOB GARCIA Attending Unavailable SANTO VIERA Primary Care Unavailab KYLE Chi Attending Unavailable DALLIN STRAZIOTA, MEREDITH Referring Unavail able YUNADEMIBRIANE Attending Unavailable DALLIN STRAZIOTA, MEREDITH Referring Unavail able JANEMIKYLE Attending Unavailable YUNADEMI, KYLE Admitting Unavailable DALLIN STRAZIOTA, MEREDITH Referring Unavail able DALLIN STRAZIOTA, MEREDITH Attending Unavail able DALLIN STRAZIOTA, MEREDITH Referring Unavail able KYLE BRADLEY Attending Unavailable KYLE BRADLEY Attending Unavailable Sylvia Glover MD Unavailable Unallocated , [place] Provider Primary Care Marci la Sylvia Glover MD Unavailable [phone] Unavailable Unavailable Unavailable Allergies Allergy ClassificationReported Allergen(s)Allergy TypeDate of OnsetReaction(s) Facility (1 source)ALLERGIES NOT ON FILE; Translations: [ALLERGIES NOT ON FILE]Propensity to adverse reactions (disorder)RUST 3 Repository Medications Current Medications MedicationDrug Class(es)DatesSig (Normalized)Sig (Original)Acetaminophen (1 source)Start: 16-52-6740telkuwjdrdrqz (TYLENOL) tablet 650 mgARIPiprazole 5 mg oral tablet (1 source)Atypical AntipsychoticStart: 0815mals 1 tablet by mouth once dailyARIPiprazole (Abilify) 5 MG tablet Take 5 mg by mouth Daily 08/15/2023 Activebenoxinate hydrochloride 4 mg/ml / fluorescein sodium 3 mg/ml ophthalmic solution (3 sources)Diagnostic DyeStart: 02-19-2025 End: 65-82-6282rhjpxrhctsu-benoxinate 0.3-0.4 % 1 drop (FLURESS)Start: 01-08-2025 End: 66-33-7965opelapfuoko-benoxinate 0.3-0.4 % 1 drop (FLURESS)Start: 01-08-2025 End: drop, BOTH EYES, DIRECTED, Starting on Kathy 01/08/25 at 1230, Until Sun01/09/25 at 0029, Administer for applanation tonometry. In the event of a Fluress shortage, administer Jade-Fluor 1 drop intoboth eyes as directed for applanation tonometrycefTRIAXone (ROCEPHIN) 1,000 mg in sterile water 10 mL IV syringe (1 source)Start: 07-30-2024 End: 19-85-9041xfhl 100 mg intravenously every twenty-four hours1,000 mg, IntraVENous, EVERY 24 HOURS, First dose (after last reorder) on Sun07/30/24 at 1800, For 4doses, Administer as slow IV Push over 5 mins Reconstitute 1 g vials with 9.6 mL of designated diluent to produce a 100 mg/mL solution.cephalexin 500 mg oral capsule (4 sources)Cephalosporin AntibacterialStart: 07-31-2024 End: 84-92-8078qdeu 1 capsule by mouth twice dailycephALEXin (KEFLEX) 500 MG capsule Take 1 capsule by mouth 2 times daily for 3 days 07/31/2024 08/03/2024 ActiveStart: 97-63-4530dfcq 1000 mg by mouth twice dailyCephalexin Active 1000 MG Oral Twice daily 16 02August 14, 2018 8:08pmStart: 08-14-2018 End: 10-03-2110jgdw 2 capsules by mouth twice dailyCephalexin (Keflex) 500 mg capsule Discontinued 1000 MG PO Twice daily 16 02August 14, 2018 1:00am September 09, 2021 1:39pmdifluprednate 0.5 mg/ml ophthalmic suspension (3 sources)Start: 09-51-4367igqe 1 drop(s) into the eye(s) four times daily difluprednate (DUREZOL) 0.05 % ophthalmic suspension Use 1 drop in both eyes four times daily. 5 mL4 02/05/2025 ActivehydrOXYzine pamoate 25 mg oral capsule (1 source)AntihistamineStart: 50-14-7918vska 1 capsule by mouth every eight hours as neededhydrOXYzine pamoate (Vistaril) 25 MG capsule Take 25 mg by mouth every 8 (eight) hours if needed 08/28/2023 Niutlo71 ml magnesium sulfate 40 mg/ml injection (2 sources)Start: ,000 mg, IntraVENous, at 25 mL/hr, Administer over 2 Hours, PRN, Other, Magnesium Replacement, Starting on Sun07/29/24 at 1901, Mag Lab Replacement Action 1.4-1.6 mg/dL 2,000 mg Total Dose Given as 1,000 mg IVPB x 2 doses or 2,000 mg IVPB x 1 dose 1.0-1.3 mg/dL 4,000 mg Total Dose Given as 1,000 mgIVPB x 4 doses or 2,000 mg IVPB x 2 doses Less than 1.0 mg/dL CALL PHYSICIAN and give 4,000 mg Total Dose Given as 1,000 mg IVPB x 4 doses or 2,000 mg IVPB x 2 doses Infuse at 1,000 mg/hr Repeat Mag level 1 hour after final administration Protocol not for use in Patients with CrCl less than 30ml/min Start: 07-29-2024 End: ,000 mg, IntraVENous, at 50 mL/hr, Administer over 1 Hours, ONCE, On Sun07/29/24 at 1425, For 1 dose, Recommended infusion rate not to exceed 1,000 mg (milligrams) per hour.24 hr metoprolol succinate 25 mg extended release oral tablet (19 sources)beta-Adrenergic BlockerStart: 53-91-2941rzhd 0.5 tablet by mouth twice dailymetoprolol succinate XL (Toprol-XL) 25 mg 24 hr tablet Take 0.5 tablets (12.5 mg) by mouth twice a day. 07/31/2024 ActiveStart: 96-72-3939dbes 1 tablet by mouth at bedtimemetoprolol succinate (TOPROL XL) 25 MG extended release tablet Take 1 tablet by mouth in the morning and at bedtime 07/31/2024 ActiveStart: 07-29-2024 End: 95-44-2759iert 25 mg by mouth once daily25 mg, Oral, DAILY, First dose on Sun07/29/24 at 2130, Until Discontinued, Hold for systolic BPStart: 07-21-2024 take 0.5 tablet by mouth twice dailymetoprolol tartrate, short acting, (LOPRESSOR) 50 mg tablet Take 0.5 tablets by mouth two times a day. 07/21/2024 Active End: 52-09-3204bdud 0.5 tablet by mouth twice dailymetoprolol tartrate (LOPRESSOR) 25 MG tablet Take 0.5 tablets by mouth 2 times daily 07/31/2024 Disc ontinued (Stop Taking at Discharge)moxifloxacin 5 mg/ml ophthalmic solution (4 sources)Quinolone AntimicrobialStart: 02-04-2025 End: 27-04-4144gqdn 1 drop(s) into the eye(s) four times dailymoxifloxacin (VIGAMOX) 0.5 % ophthalmic solution Use 1 drop in both eyes four times daily. 3 mL 2 02/04/2025 02/19/2025 Discontinued (Course of therapy completed)omeprazole 20 mg delayed release oral capsule (2 sources)Proton Pump InhibitorStart: 93-04-9609meuo 20 mg by mouth once daily Omeprazole Active 20 MG PO Daily September 09, 2021 1:00amondansetron (ZOFRAN-ODT) disintegrating tablet 4 mg (1 source)Start: 06-48-0199ojhklpgrqba (ZOFRAN-ODT) disintegrating tablet 4 mg pantoprazole 40 mg delayed release oral tablet (18 sources)Proton Pump InhibitorStart: 41-38-9505pqtn 1 tablet by mouth before mealtimepantoprazole (ProtoNix) 40 MG EC tablet Take 40 mg by mouth in the morning. Take before meals. 09/06/2023 Activephenylephrine hydrochloride 25 mg/ml ophthalmic solution (2 sources)alpha-1 Adrenergic AgonistStart: 01-08-2025 End: 91-10-2764CSIHDQkthlrrf 2.5 % 1 drop (AK-DILATE, IRAM-SYNEPHRINE)Start: 01-08-2025 End: drop, BOTH EYES, DIRECTED, Starting on Sun01/08/25 at 1230, Until Sun01/09/25 at 0029, Administer for dilation PROTECT FROM LIGHTPotassium Chloride (1 source)Start: 34-96-1634vmzczhacj chloride (KLOR-CON M) extended release tablet 40 mEqprednisoLONE acetate 10 mg/ml ophthalmic suspension (18 sources)CorticosteroidStart: 02-04-2025 End: 01-81-2638unhkuztrGTOR acetate (PRED FORTE) 1 % ophthalmic suspension Use 1 drop in both eyes every 2 hours while awake. 15 mL 5 02/04/2025 02/19/2025 Discontinued (Course of therapy completed)Start: 05-15-2024 End: 34-20-3551rbeslnwuKMEX acetate (PRED FORTE) 1 % ophthalmic suspension Apply one drop in surgical eye four times a day for 2 weeks, then twice a day for 2 weeks, then discontinue 10 mL 1 10/23/2024 02/05/2025 Discontinuedsacubitril 24 mg / valsartan 26 mg oral tablet (12 sources)Angiotensin 2 Receptor BlockerStart: 49-97-9374losy 24-26 mg by mouth oncesacubitril-valsartan (ENTRESTO) 24-26 MG per tablet Take 1 tablet by mouth 2 times daily 07/31/2024tiveStart: 29-56-6606rdfb 1 tablet by mouth twice dailysacubitriL-valsartan (Entresto) 24-26 mg tablet Take 1 tablet by mouth 2 times a day. 07/31/2024 Activesennosides, long-term 8.6 mg oral capsule (10 sources)Sennosides (SENNA) 8.6 mg cap Take by mouth two times a day. Active take 1 tablet by mouth once dailysennosides (Senokot) 8.6 mg tablet Take 1 tablet (8.6 mg) by mouth once daily. Activesertraline 50 mg oral tablet (18 sources)Serotonin Reuptake InhibitorStart: 64-57-1005pudh 1 tablet by mouth once dailysertraline (Zoloft) 50 MG tablet Take 50 mg by mouth Daily 08/28/2023 Activespironolactone 25 mg oral tablet (12 sources)Aldosterone AntagonistStart: 72-33-9480nolf 1 tablet by mouth once dailyspironolactone (ALDACTONE) 25 mg tablet Take 1 tablet by mouth once daily. 08/01/2024 Activetamsulosin hydrochloride 0.4 mg oral capsule (20 sources)alpha-Adrenergic BlockerStart: 60-30-7446rvkq 1 capsule by mouth once dailytamsulosin (Flomax) 0.4 MG 24 hr capsule Take 0.4 mg by mouth Daily 09/03/2023 Activetropicamide 10 mg/ml ophthalmic solution (2 sources)AnticholinergicStart: 01-08-2025 End: 16-41-3971svyosdgulth 1 % 1 drop (MYDRIACYL)Start: 01-08-2025 End: drop, BOTH EYES, DIRECTED, Starting on Sun01/08/25 at 1230, Until Sun01/09/25 at 0029, Administer for dilation Completed/Discontinued Medications MedicationDrug Class(es)DatesSig (Normalized)Sig (Original)apixaban 5 mg oral tablet (20 sources)Factor Xa InhibitorStart: 09-09-2021 End: 43-43-0735haax 5 mg by mouth twice daily5 mg, Oral, 2 TIMES DAILY, First dose on Sun07/30/24 at 0900, Until Discontinued, Indication of Use:A Fib/A Flutter, ANTICOAGULANTStart: 09-09-2021 End: 18-49-7186lpxh 2 tablets by mouth twice dailyApixaban (Eliquis) 5 mg Tablet Discontinued 10 MG PO Twice daily September 09, 2021 1:00am January 09, 2023 2:11pmtake 1 tablet by mouth once dailyEliquis 5 MG tablet Take 5 mg by mouth Daily ActivebusPIRone hydrochloride 10 mg oral tablet (18 sources)Start: 65-31-9720hakr 5 mg by mouth twice daily5 mg, Oral, 2 TIMES DAILY, First dose on Sun07/30/24 at 0930, Until DiscontinuedStart: 99-38-5631mapc 1 tablet by mouth in the morningbusPIRone (Buspar) 5 MG tablet Take 5 mg by mouth in the morning and 5 mg before bedtime. 09/01/2023 ActivecefTRIAXone (ROCEPHIN) 1,000 mg in sodium chloride 0.9 % 50 mL IVPB (mini-bag) (1 source)Start: 07-29-2024 End: ,000 mg, IntraVENous, at 100 mL/hr, Administer over 30 Minutes, ONCE, On Sun07/29/24 at 1822, For 1dose0.8 ml enoxaparin sodium 100 mg/ml prefilled syringe (2 sources)Low Molecular Weight HeparinStart: 07-29-2024 End: 79-01-252559 mg (rounded from 80.7 mg = 1 mg/kg 80.7 kg), SubCUTAneous, 2 TIMES DAILY, First dose on Sun07/30/24 at 2100, Until Discontinued, Indication of Use: A Fib/A Flutter, Administer by deep subCUTAneous injection with pt lying down. Alternate injection sites on abdominal wall. Do not rub site after inje ction. Check with provider prior to any invasive procedure.2 ml furosemide 10 mg/ml injection (1 source)Loop DiureticStart: 07-30-2024 End: 92-92-934015 mg, IntraVENous, ONCE, 1 dose, On Sun07/30/24 at 0700Start: 07-30-2024 End: 95-79-650708 mg, IntraVENous, ONCE, 1 dose, On Sun07/30/24 at 0700 lamoTRIgine 100 mg oral tablet (20 sources)Mood Stabilizer, Anti-epileptic AgentStart: 41-26-2092uogx 100 mg by mouth twice fsjxy818 mg, Oral, 2 TIMES DAILY, First dose on Sun07/30/24 at 0930, Until DiscontinuedlevETIRAcetam 750 mg oral tablet (20 sources)Start: 17-12-0285fkcr 750 mg by mouth twice idbpp401 mg, Oral, 2 TIMES DAILY, First dose on Sun07/30/24 at 0930, Until Discontinued, Do not crush or chew.Start: 65-98-4140cble 750 mg by mouth twice dailyLevetiracetam Active 750 MG PO Twice daily 60 September 09, 2021 1:00amStart: 08-30-2021 End: 83-29-9251pjhn 1000 mg by mouth three times dailyLevetiracetam Discontinued 1000 MG PO Three times daily August 30, 2021 1:00am September 09, 2021 1:39pmStart: 08-14-2018 End: 26-07-4172jhvj 1 tablet by mouth three times dailyLevetiracetam (Keppra) 250 mg Tablet Discontinued 250 MG PO Three times daily August 14, 2018 1:00am August 30, 2021 7:49pmmelatonin 3 mg oral tablet (1 source)Start: 64-95-3212ozco 3 mg by mouth once daily3 mg, Oral, NIGHTLY, First dose on Sun07/29/24 at 2100, Until Discontinuedpolyethylene glycol 3350 70739 mg powder for oral solution (1 source)Osmotic LaxativeStart: 37-34-051276 g, Oral, DAILY PRN, Starting on Sun07/29/24 at 1901, Until Discontinued, Constipation, First linetherapy for constipationprimidone 50 mg oral tablet (17 sources)Anti-epileptic AgentStart: 33-36-3214uptq 50 mg by mouth once daily 50 mg, Oral, NIGHTLY, First dose on Sun07/30/24 at 2100, Until Discontinuedsodium bicarbonate 650 mg oral tablet (2 sources)Start: 09-09-2021 End: 93-66-9412itqn 650 mg by mouth twice dailySodium Bicarbonate Discontinued 650 MG PO Twice daily 60 September 09, 2021 1:00am January 09:11pm5 ml sodium chloride 9 mg/ml injection (4 sources)Start: -40 mL, IntraVENous, EVERY 12 HOURS SCHEDULED (2 times per day), First dose on Sun07/29/24 at 2100,Until Discontinued, For Line Patency: Peripheral IV = 5 mL; Midline or Central Line = 10 mL/lumen. If following IV push medication, administer flush at same rate as the IV push. Flush volume is determined by type of infusion therapy being given. For non- viscous solutions use: Peripheral IV = 5 mL Midline or Central Line = 10 mL/lumen For viscous solutions (i.e. blood components, parenteral nutrition, contrast media, or after obtaining blood sample) use: Peripheral IV = 10 mL Midline or Central Line = 20 mL/lumenStart: 83-02-2018BtkqgGHLklj, at 5-250 mL/hr, PRN, if patient receiving piggyback infusions and maintenance fluids are not ordered, Starting on Sun07/29/24 at 1901, For piggyback infusion, administer at same rate as piggyback for a total of 25 mL. Enter 25 mL into dose field and piggyback rate into rate field of order. If piggyback is infusing at a rate less than 100 mL/hr, enter 25 mL into dose field and 100 mL/hr into rate field of order.Start: -40 mL, IntraVENous, PRN, Starting on Sun07/29/24 at 1901, Until Discontinued, Line Care, After every IV line use, For Line Patency: Peripheral IV = 5 mL; Midline or Central Line = 10 mL/lumen. If following IV push medication, administer flush at same rate as the IV push. Flush volume is determinedby type of infusion therapy being given. For non-viscous solutions use: Peripheral IV = 5 mL Midline or Central Line = 10 mL/lumen For viscous solutions (i.e. blood components, parenteral nutrition, contrast media, or after obtaining blood sample) use: Peripheral IV = 10 mL Midline or Central Line = 20 mL/lumenStart: 07-29-2024 End: 71-47-0228109 mL (6.2 mL/kg), IntraVENous, at 491.8 mL/hr, Administer over 61 Minutes, ONCE, On Sun07/29/24 [id number], For 1 dosetraZODone hydrochloride 50 mg oral tablet (18 sources)Serotonin Reuptake InhibitorStart: 28-51-3277dhzo 12.5 mg by mouth twice daily12.5 mg, Oral, 2 times daily, First dose on Sun07/30/24 at 0930, Until DiscontinuedStart: 65-55-0356ryeMQAwqd (DESYREL) 50 mg tablet 03/24/2024 Active take 0.25 tablet by mouth at bedtimetraZODone (DESYREL) 50 MG tablet Take 0.25 tablets by mouth in the morning and at bedtime Activedivalproex sodium 125 mg delayed release oral tablet (18 sources)Mood Stabilizer, Anti-epileptic AgentStart: 83-20-3788jopr 250 mg by mouth twice bqocj739 mg, Oral, 2 times daily, First dose on Sun07/30/24 at 0930, Until Discontinued, Do not crush or break.Start: 17-85-4553pfecjtuvhu DR (DEPAKOTE) 250 mg EC tablet 03/24/2024 Active Problems Active Problems Problem ClassificationProblemDateDocumented DateEpisodic/ChronicAcute and unspecified renal failure (3 sources)Acute renal failure syndrome; Translations: [Acute kidney failure, unspecified]Onset: 383128-12-9385UsqlihmuDkmejoi disorders (11 sources)Anxiety; Translations: [Anxiety disorder, unspecified]Onset: 763159-15-4030XzraadnHfugxkw dysrhythmias (20 sources)Supraventricular tachycardia; Translations: [Supraventricular tachycardia]Onset: 606091-75-6710NjytgqkZvulcmks (10 sources)Total, mature senile cataract; Translations: [Other age-related cataract]Onset: 068392-60-5776ZzxyqkbMnivatrclv heart failure; nonhypertensive (14 sources)Acute congestive heart failure; Translations: [Heart failure, unspecified]Onset: 387365-80-9802BbphhfwWhnmkvvk; convulsions (2 sources)Epilepsy; Translations: [Epilepsy, unspecified, not intractable, without status epilepticus]Onset: 680149-64-7895AelypolPcazaijfra disorders (11 sources)Gastroesophageal reflux disease without esophagitis; Translations: [Gastro-esophageal reflux disease without esophagitis]Onset: 11-26-2024 44-45-0406AcwejekRnqfvoadlvzqn symptoms and ill-defined conditions (2 sources)Hematuria, unspecified; Translations: [Hematuria, unspecified]Onset: 16-57-2181BljsxvafNhobk valve disorders (12 sources)Mitral valve regurgitation; Translations: [Nonrheumatic mitral (valve) insufficiency]Onset: 907561-36-0058EuvuggjEskwtzgvdwp of prostate (11 sources)Benign prostatic hyperplasia; Translations: [Benign prostatic hyperplasia without lower urinary tract symptoms]Onset: ChronicOther aftercare (3 sources)Long-term current use of anticoagulant; Translations: [terminal makeup operator (current) use of anticoagulants]Onset: 237308-23-9638FkmogadvWkfyd aftercare (1 source)terminal makeup operator (current) use of anticoagulants; Translations: [terminal makeup operator (current) use of anticoagulants]Onset: 76-13-6078VkfrmwghGibjw nervous system disorders (1 source)Disorder of brain; Translations: [Encephalopathy, unspecified]Onset: 312964-34-9515ZhohygaOywdh nutritional; endocrine; and metabolic disorders (2 sources)Developmental delay; Translations: [Unspecified lack of expected normal physiological development in childhood]Onset: EpisodicOther nutritional; endocrine; and metabolic disorders (2 sources)Unspecified lack of expected normal physiological development in childhood; Translations: [Unspecified lack of expected normal physiological development in childhood]Onset: 81-74-5257MaqqpmngEbzt-; endo-; and myocarditis; cardiomyopathy (except that caused by tuberculosis or sexually transmitted disease) (5 sources)Dilated cardiomyopathy; Translations: [Dilated cardiomyopathy]Onset: 710976-16-8749NngdxodFzlhyeqq codes; unclassified (2 sources)Dependence on wheelchair; Translations: [Dependence on wheelchair] Onset: 468649-52-4735JkzugucVaslarne codes; unclassified (2 sources)Dependence on wheelchair; Translations: [Dependence on wheelchair] Onset: 49-62-5537BhnzpbcFwuchinz codes; unclassified (1 source)Preoperative flxye95-97-1039PizldgqeItxkbryv codes; unclassified (2 sources)Lives in a chcf; Translations: [Other specified health status]Onset: 896223-86-3291EdfjkpwwWdikjgyg codes; unclassified (2 sources)Other specified health status; Translations: [Other specified health status]Onset: 44-38-4159QkzhfyrwNfjybtqpfvzn (2 sources)Permanent atrial fibrillation; Translations: [Permanent atrial fibrillation (Multi)]Onset: 36-66-8868Gzfrfxb tract infections (11 sources)Urinary tract infectious disease; Translations: [Urinary tract infection, site not specified]Onset: 559955-64-0679AoxlxaulVatfj infection (2 sources)Disease caused by 2019-nCoV; Translations: [COVID-19]08-31-2021 Episodic Past or Other Problems Problem ClassificationProblemDateDocumented DateEpisodic/Chronic Administrative/social admission (11 sources)Reduced mobility; Translations: [Other reduced mobility]Onset: 406614-86-6187BugpsmhkSjzictyq; convulsions (20 sources)Seizure; Translations: [Unspecified convulsions]Onset: 01-04-2023 95-74-7179EjgmjendGisgvex (1 source)Tinea unguium; Translations: [Tinea unguium]Onset: 53-63-2554Bmgoqctj Other circulatory disease (16 sources)History of cerebrovascular accident due to ischemia; Translations: [Personal history of transient ischemic attack (TIA), and cerebral infarction without residual deficits]Onset: 823622-90-5163FkjinplzJpzti circulatory disease (11 sources)Other specified symptoms and signs involving the circulatory and respiratory systems; Translations:[Other symptoms involving cardiovascular system]Onset: 606920-36-2125LszbzeayQmhkx circulatory disease (1 source)Personal history of transient ischemic attack (TIA), and cerebral infarction without residual deficits; Translations: [History of ischemic stroke] Onset: 07-26-2706AgfcsabkCslkl connective tissue disease (1 source)Pain in right foot; Translations: [Pain in right foot]Onset: 96-32-8616UwgaklhsAnruh connective tissue disease (1 source)Pain in left foot; Translations: [Pain in left foot]Onset: 01-04-2023 EpisodicPulmonary heart disease (20 sources)Pulmonary embolism; Translations: [Other pulmonary embolism without acute cor pulmonale]Onset: 896998-51-9750CayqowppSmvyboqm codes; unclassified (3 sources)Altered mental status; Translations: [Altered mental status, unspecified]Onset: 104280-16-4633LvlsevgiGdlvhkis codes; unclassified (3 sources)Altered mental status, unspecified; Translations: [Altered mental status]Onset: 477139-49-0702Ctkxgtov Results Test NameValueInterpretationReference RangeFacilityCNPNon 52-31-7604QKZT Telephone (OPHTCR) CARL REINOSO ([id number]) 1955 M Date Time Provider Department 02/17/25 KYLE BRADLEY [facility] During your visit today, we recorded the following information about you: David Busby 02/17/2025 1:14 PM Signed Received call from Jess at [facility] [place] to verify a stop date for the Moxifloxacin and Difluprednate medications. Please advise nursing facility at [phone] and ask for Jess. Thank you Kyle Bradley MD 02/17/2025 4:09 PM Signed Called the [facility] and verified the patient's drops. He is to continue durezol and moxifloxacin 4x/day in both eyes until he sees me this for his follow-up. Kyle Bradley MD [facility] [place] Allergies As of Date: 02/17/2025 (No Known Allergies) Date Reviewed: 02/05/2025 Reviewed by: Moncho Higuera OA - Fully Assessed Reason for Visit: Patient Question [2867] Prescriptions as of 02/24/2025 - difluprednate (DUREZOL) 0.05 % ophthalmic suspension Use 1 drop in both eyes four times daily. - sacubitril-valsartan (ENTRESTO) 24-26 mg tablet Take 1 tablet by mouth two times a day. - Sennosides (SENNA) 8.6 mg cap Take by mouth two times a day. - spironolactone (ALDACTONE) 25 mg tablet Take 1 tablet by mouth once daily. - pantoprazole DR (PROTONIX) 40 mg tablet Take 40 mg by mouth once daily. - busPIRone (BUSPAR) 5 mg tablet Take 5 mg by mouth two times a day. - LAMOTRIGINE ORAL Take 100 mg by mouth. - PRIMIDONE ORAL Take 50 mg by mouth daily at bedtime. - sertraline (ZOLOFT) 50 mg tablet Take 1 tablet by mouth once daily. - metoprolol tartrate, short acting, (LOPRESSOR) 50 mg tablet Take 0.5 tablets by mouth two times a day. - divalproex DR (DEPAKOTE) 250 mg EC tablet - ELIQUIS 5 mg tab(s) Take 5 mg by mouth. - levETIRAcetam (KEPPRA) 750 mg tablet Take 750 mg by mouth. - tamsulosin (FLOMAX) 0.4 mg Take 0.4 mg by mouth. - traZODone (DESYREL) 50 mg tablet Meds Comments as of 05/15/2024: Unsure of medications Problem List As Of Date 02/17/2025 Noted Resolved Seizures (HCC) [R56.9] 07/21/2024 History of ischemic stroke [Z86.73] 07/21/2024 Pulmonary embolism (HCC) [I26.99] 07/21/2024 Atrial fibrillation with rapid ventricular resp*07/29/2024 CHF (congestive heart failure) (HCC) [I50.9] 11/26/2024 Mitral regurgitation [I34.0] 11/26/2024 Suspected pulmonary hypertension [R09.89] 11/26/2024 GERD (gastroesophageal reflux disease) [K21.9] 11/26/2024 Limited mobility [Z74.09] 11/26/2024 Anxiety [F41.9] 11/26/2024 BPH (benign prostatic hyperplasia) [N40.0] 11/26/2024 Encounter Status:Closed by [facility]25[facility] 11-26-1277LMFOYizkzuvxf (OPHTCR) ARLETHCARL Brown ([id number]) 1955 M Date Time Provider Department 02/05/25 KYLE BRADLEY [facility] During your visit today, we recorded the following information about you: Sofía Mathew 02/05/2025 11:49 AM Signed AM spoke w/[facility] AND they would like to know if the patient should be using difluprednate AND prednisolone, since both of these are steroids ??? Please call [facility] AND advise their ph # [phone] Thanks Kyle Bradley MD 02/05/2025 12:46 PM Signed Spoke with pharmacist and explained the situation with the patient having difficulty getting their prednisolone drops as frequently as necessary, which is why we sent in the Durezol 4x/day instead to replace it. Pharmacist stated the Durezol is covered at no additional cost and stated they will hold off giving more prednisolone at this time and only use Durezol. Kyle Bradley MD [facility] [place] Allergies As of Date: 02/05/2025 (No Known Allergies) Date Reviewed: 02/05/2025 Reviewed by: Moncho Higuera, OA - Fully Assessed Reason for Visit: Medication Problem [65] Prescriptions as of 02/05/2025 - difluprednate (DUREZOL) 0.05 % ophthalmic suspension Use 1 drop in both eyes four times daily. - prednisoLONE acetate (PRED FORTE) 1 % ophthalmic suspension Use 1 drop in both eyes every 2 hours while awake. - moxifloxacin (VIGAMOX) 0.5 % ophthalmic solution Use 1 drop in both eyes four times daily. - sacubitril-valsartan (ENTRESTO) 24-26 mg tablet Take 1 tablet by mouth two times a day. - Sennosides (SENNA) 8.6 mg cap Take by mouth two times a day. - spironolactone (ALDACTONE) 25 mg tablet Take 1 tablet by mouth once daily. - pantoprazole DR (PROTONIX) 40 mg tablet Take 40 mg by mouth once daily. - busPIRone (BUSPAR) 5 mg tablet Take 5 mg by mouth two times a day. - LAMOTRIGINE ORAL Take 100 mg by mouth. - PRIMIDONE ORAL Take 50 mg by mouth daily at bedtime. - sertraline (ZOLOFT) 50 mg tablet Take 1 tablet by mouth once daily. - metoprolol tartrate, short acting, (LOPRESSOR) 50 mg tablet Take 0.5 tablets by mouth two times a day. - divalproex DR (DEPAKOTE) 250 mg EC tablet - ELIQUIS 5 mg tab(s) Take 5 mg by mouth. - levETIRAcetam (KEPPRA) 750 mg tablet Take 750 mg by mouth. - tamsulosin (FLOMAX) 0.4 mg Take 0.4 mg by mouth. - traZODone (DESYREL) 50 mg tablet Meds Comments as of 05/15/2024: Unsure of medications Problem List As Of Date 02/05/2025 Noted Resolved Seizures (HCC) [R56.9] 07/21/2024 History of ischemic stroke [Z86.73] 07/21/2024 Pulmonary embolism (HCC) [I26.99] 07/21/2024 Atrial fibrillation with rapid ventricular resp*07/29/2024 CHF (congestive heart failure) (HCC) [I50.9] 11/26/2024 Mitral regurgitation [I34.0] 11/26/2024 Suspected pulmonary hypertension [R09.89] 11/26/2024 GERD (gastroesophageal reflux disease) [K21.9] 11/26/2024 Limited mobility [Z74.09] 11/26/2024 Anxiety [F41.9] 11/26/2024 BPH (benign prostatic hyperplasia) [N40.0] 11/26/2024 Encounter Status:Closed by SOF[facility]A MATHEW [facility] EVALon [id number] POSTPROC EVALHNO ID: [id number] Author: VERO HERNANDES MD Service: ? Author Type: Anesthesiologist Type: Anesthesia Postprocedure Evaluation Filed: 02/04/2025 15:36 Note Text: POST ANESTHESIA EVALUATION NOTE : 1955 Procedure Summary Date: 02/04/25 Room / Location: [address] Anesthesia Start: 937 Anesthesia Stop: 120 Procedures: PHACOEMULSIFICATION CATARACT IMPLANT INTRAOCULAR LENS W/O ENDOSCOPIC CYCLOPHOTOCOAGULATION (Bilateral: Eye) OPHTHALMIC BIOMETRY BY PARTIAL COHERENCE INTERFEROMETRY W/INTRAOCULAR LENS POWER CALCULATION (Bilateral: Eye) Diagnosis: Total, mature senile cataract (Total, mature senile cataract [H25.89]) Surgeons: Kyle Bradley MD Responsible Provider: Vero Hernandes MD Anesthesia Type: general ASA Status: 4 Anesthesia Type: general Airway Type: LMA Last Vitals Vitals Value Taken Time BP 86/51 02/04/25 1301 Temp 36.5 ?C (97.7 ?F) 02/04/25 1233 Pulse 119 02/04/25 1305 Resp 23 02/04/25 1305 SpO2 96 % 02/04/25 1305 Vitals shown include unfiled device data. Post Anesthesia Patient Status Patient Evaluation: bedside. Anticipated Disposition: phase 2 then home. Neurological Status: aware and responsive. Pulmonary Status: breathing comfortably on room air Airway Control: returned to baseline unsupported. Cardiovascular Status: stable. Pain Management: satisfactory to patient - multimodal analgesia pain management approach Postoperative Hydration: acceptable. Intraoperative Events: no significant anesthesia events Post Operative Nausea/Vomiting Status: no significant post operative nausea or vomiting Recommendation: continue current plan of care. Anesthesia Observations No notable events were associated with this procedure. Documented by Luisa Garcia APRN.POLISHER HAND 02/04/2025 12:08 PM EDT SIGNATURE: Vero Hernandes MD PATIENT NAME: Carl Reinoso DATE: February 04, 2025 TIME: 3:36 PM CSN: [id number] PRE-OPon [id number] PRE-OPHNO ID: [id number] Author: VERO HERNANDES MD Service: ? Author Type: Anesthesiologist Type: Anesthesia Preprocedure Evaluation Filed: 02/04/2025 10:32 Note Text: ANESTHESIOLOGY DAY OF SURGERY NOTE : 1955 Procedure Information Date/Time: 02/04/25 0930 Procedures: PHACOEMULSIFICATION CATARACT IMPLANT INTRAOCULAR LENS W/O ENDOSCOPIC CYCLOPHOTOCOAGULATION (Bilateral: Eye) OPHTHALMIC BIOMETRY BY PARTIAL COHERENCE INTERFEROMETRY W/INTRAOCULAR LENS POWER CALCULATION (Bilateral: Eye) Location: [address] [facility] Surgeons: Kyle Bradley MD Estimated body mass index is 26.43 kg/m? as calculated from the following: Height as of 11/26/24: 175.3 cm (5' 9 ). Weight as of 11/26/24: 81.2 kg (179 lb). Most recent hematocrit and potassium results: No results found for this basename: HCT,HEMATOCRIT,K,POTASSIUM Relevant Problems CARDIO (+) Atrial fibrillation with rapid ventricular response (HCC) (+) CHF (congestive heart failure) (HCC) (+) Mitral regurgitation (+) Pulmonary embolism (HCC) GI (+) GERD (gastroesophageal reflux disease) NEURO-PSYCH (+) History of ischemic stroke (+) Seizures (HCC) I - PHYSICAL EVALUATION AIRWAY Patient intubated: No. Tracheostomy tube not present Mallampati: unable to assess. TM distance: >3 FB. Neck ROM: full ROM without neurological symptoms. Mouth opening: adequate. Short neck: no. Thick neck: no II - ANESTHESIA PLAN ASA Score: 4 Anesthetic Plan: general Airway type: LMA NPO Status: adequate Anesthetic plan additional comments: LVEF 20-25% moderate pulmonary htn, severe MR, guardian and family do not want invasive cardiac interventions done for his cardiac issues. Discussed with his legal guardian significant risks associated with GA including even Also, expressed that we would rescind DNR orders during anesthesia given anethesisa's likelihood of causing respiratory and hemodynamic perturbations, They agree and desire to proceed. . Beta Angelina Monitoring Plan Monitoring plan: standard ASA. Post Procedure Analgesic Plan Postoperative analgesic plan: multimodal analgesia. Informed Consent Anesthetic risks, benefits, alternatives, personnel and consent discussed: yes. Patient / Responsible Constitution Party agrees to proceed: yes Patient / Surrogate agrees to blood products: blood products not planned Significant changes in the patient condition since the History and Physical, not otherwise documented in primary service progress note: no. Potential Anesthesia issues that may suggest increased risk of complications or contraindication to planned procedure: none. Discussed the possibility of lip / dental damage: yes No vitals data found for the desired time range. No current facility-administered medications on file as of 02/04/2025. Outpatient Medications as of 02/04/2025 Medication Sig sacubitril-valsartan (ENTRESTO) 24-26 mg tablet Take 1 tablet by mouth two times a day. Sennosides (SENNA) 8.6 mg cap Take by mouth two times a day. spironolactone (ALDACTONE) 25 mg tablet Take 1 tablet by mouth once daily. prednisoLONE acetate (PRED FORTE) 1 % ophthalmic suspension Apply one drop in surgical eye four times a day for 2 weeks, then twice a day for 2 weeks, then discontinue (Patient not taking: Reported on 01/08/2025) pantoprazole DR (PROTONIX) 40 mg tablet Take 40 mg by mouth once daily. busPIRone (BUSPAR) 5 mg tablet Take 5 mg by mouth two times a day. LAMOTRIGINE ORAL Take 100 mg by mouth. PRIMIDONE ORAL Take 50 mg by mouth daily at bedtime. sertraline (ZOLOFT) 50 mg tablet Take 1 tablet by mouth once daily. metoprolol tartrate, short acting, (LOPRESSOR) 50 mg tablet Take 0.5 tablets by mouth two times a day. divalproex DR (DEPAKOTE) 250 mg EC tablet ELIQUIS 5 mg tab(s) Take 5 mg by mouth. levETIRAcetam (KEPPRA) 750 mg tablet Take 750 mg by mouth. tamsulosin (FLOMAX) 0.4 mg Take 0.4 mg by mouth. traZODone (DESYREL) 50 mg tablet I have interviewed and examined the patient. I have reviewed the medical record and/or the pre-anesthesia evaluation, pertinent labs, and test results. This contains updated information obtained within 48 hours of Surgery/Procedure. SIGNATURE: Vero Hernandes MD PATIENT NAME: Carl Reinoso DATE: February 04, 2025 TIME: 8:18 AM CSN: [id number] CNPNTelephone [facility] CARL REINOSO ([id number]) 1955 M Date Time Provider Department 02/04/25 KYLE BRADLEYLuis During your visit today, we recorded the following information about you: Rupal Davis 02/04/2025 12:50 PM Signed Pt pharmacy called and stated the Vigamox RX was given at 4 drops daily. Pharmacist shared that only 3 drops are to be used daily. I spoke with Anthony and she suggested to keep the RX at the given dosage. That is the information relayed to the pharmacy. The additional information given to the pharmacy was that if the dosage is to be adjusted we would reach out to the patient personally, either Anthony Bright or myself to make the adjustments. After review by Dr Naylor. Thank you. Allergies As of Date: 02/04/2025 (No Known Allergies) Date Reviewed: 02/04/2025 Reviewed by: Gauri Cordova, CATRINA - Fully Assessed Reason for Visit: Patient Update [1234] Medication Problem [65] Prescriptions as of 02/11/2025 - difluprednate (DUREZOL) 0.05 % ophthalmic suspension Use 1 drop in both eyes four times daily. - prednisoLONE acetate (PRED FORTE) 1 % ophthalmic suspension Use 1 drop in both eyes every 2 hours while awake. - moxifloxacin (VIGAMOX) 0.5 % ophthalmic solution Use 1 drop in both eyes four times daily. - sacubitril-valsartan (ENTRESTO) 24-26 mg tablet Take 1 tablet by mouth two times a day. - Sennosides (SENNA) 8.6 mg cap Take by mouth two times a day. - spironolactone (ALDACTONE) 25 mg tablet Take 1 tablet by mouth once daily. - pantoprazole DR (PROTONIX) 40 mg tablet Take 40 mg by mouth once daily. - busPIRone (BUSPAR) 5 mg tablet Take 5 mg by mouth two times a day. - LAMOTRIGINE ORAL Take 100 mg by mouth. - PRIMIDONE ORAL Take 50 mg by mouth daily at bedtime. - sertraline (ZOLOFT) 50 mg tablet Take 1 tablet by mouth once daily. - metoprolol tartrate, short acting, (LOPRESSOR) 50 mg tablet Take 0.5 tablets by mouth two times a day. - divalproex DR (DEPAKOTE) 250 mg EC tablet - ELIQUIS 5 mg tab(s) Take 5 mg by mouth. - levETIRAcetam (KEPPRA) 750 mg tablet Take 750 mg by mouth. - tamsulosin (FLOMAX) 0.4 mg Take 0.4 mg by mouth. - traZODone (DESYREL) 50 mg tablet Meds Comments as of 05/15/2024: Unsure of medications Problem List As Of Date 02/04/2025 Noted Resolved Seizures (HCC) [R56.9] 07/21/2024 History of ischemic stroke [Z86.73] 07/21/2024 Pulmonary embolism (HCC) [I26.99] 07/21/2024 Atrial fibrillation with rapid ventricular resp*07/29/2024 CHF (congestive heart failure) (HCC) [I50.9] 11/26/2024 Mitral regurgitation [I34.0] 11/26/2024 Suspected pulmonary hypertension [R09.89] 11/26/2024 GERD (gastroesophageal reflux disease) [K21.9] 11/26/2024 Limited mobility [Z74.09] 11/26/2024 Anxiety [F41.9] 11/26/2024 BPH (benign prostatic hyperplasia) [N40.0] 11/26/2024 Encounter Status:Closed by RUPAL DAVIS on 02/11/25NormalCst. anthony[facility] hospitaland [facility]IOL [facility] W/ IOL CALC OU (BOTH EYES)Ordered By: Magalys Beasley on [id number] [facility]/ IOL CALC OU (BOTH EYES)on 02-04-2025 Radiology Study observation (narrative)[facility]2025 OPERATIVE NOHNO ID: [id number] Author: KYLE BRADLEY MD Service: Ophthalmology Author Type: Physician Type: Operative Report Filed: 02/04/2025 11:58 Note Text: OPERATIVE REPORT NAME: Carl Reinoso LOG ID: [id number] SURGERY DATE: 02/04/2025 INCISION/PROCEDURE START TIME: 10:19 AM INCISION CLOSE/PROCEDURE END TIME: 11:52 AM Surgeons and Role: * Kyle Bradley MD - Primary OPERATION: 1) Complex phacoemulsification and intraocular lens implantation requiring trypan blue and malyugin ring for pupillary dilation, both eyes. ANESTHESIA: General anesthesia and intracameral filtered lidocaine PREOPERATIVE DIAGNOSIS: 1) Mature brunescent visually significant cataract, both eyes 2) Miosis, both eyes POSTOPERATIVE DIAGNOSIS: Same. OPERATIVE INDICATIONS: The patient has mature brunescent visually significant cataract in both eyes. Given the need for general anesthesia with the patient's psychiatric history, after long discussion with the patient and patient's power of state attorney, the decision was made to continue with bilateral cataract extraction at one time under general anesthesia. The risks, benefits, and alternatives of cataract extraction with intraocular lens implantation were discussed with the patient and patient's power of state attorney who agreed to have the procedures done. OPERATIVE FINDINGS: mature brunescent visually significant cataract in the both eyes; miosis, both eyes OPERATIVE PROCEDURE: The patient was identified in the preoperative area. The patient was taken to the operating room where general anesthesia was administered and the patient intubated. The left eye was first prepped with povidone-iodine and sterilely draped. Under the operating microscope, a paracentesis was created and the anterior chamber was injected with intracameral filtered lidocaine. The capsule could not be visualized in retroillumination, so trypan blue was injected into the anterior chamber for a poor red reflex to help safely perform the capsulorrhexis. Trypan was rinsed out moments later with BSS and the Anterior chamber was then deepened with Healon 5. A temporal biplanar clear corneal incision was created with a 2.4mm keratome. The pupil was not dilated well enough to allow safe phacoemulsification, so a 7mm Malyugin ring was injected into the anterior segment and each scroll was engaged at the pupillary margin to achieve dilation. A 27-gauge needle was used to first decompress the lens through the anterior capsule, and liquefied cortex was aspirated. A cystitome and Utrata forceps were used to fashion a continuous curvilinear capsulorrhexis. Balanced salt solution was used to hydrodissect and hydrodelineate the nucleus. Phacoemulsification was performed in a divide and conquer fashion with the Anderson spatula as the second instrument. CDE was 63.07. Irrigation and aspiration was used to remove residual cortex. The capsular bag was noted to be intact. The anterior chamber was deepened with Provisc, and the lens was injected into the capsular bag. The malyugin ring was removed from the eye. BSS was used to hydrate the incisions. The incisions were found to be water-tight and anterior chamber holding pressure, but to ensure the main incision stayed closed postoperatively, 10-0 vicryl suture was placed in the main incision. However, despite multiple attempts, the suture kept breaking and was unable to be successfully placed. Therefore, the incisions were further hydrated, and since they were all water-tight, no further suture attempt was made. Cefuroxime 1mg in 0.1ml was instilled into the anterior chamber, and the incisions were re-examined to ensure they were water-tight. The drapes were removed, and a shield placed over the left eye. The surgical equipment was then turned over to a new sterile set, and then attention was turned to the right eye which was then prepped with povidone-iodine and sterilely draped. Under the operating microscope, a paracentesis was created and the anterior chamber was injected with intracameral filtered lidocaine. The capsule could not be visualized in retroillumination, so trypan blue was injected into the anterior chamber for a poor red reflex to help safely perform the capsulorrhexis. Trypan was rinsed out moments later with BSS and the Anterior chamber was then deepened with Healon 5. A temporal biplanar clear corneal incision was created with a 2.4mm keratome. The pupil was not dilated well enough to allow safe phacoemulsification, so a 7mm Mayugin ring was injected into the anterior segment and each scroll was engaged at the pupillary margin to achieve dilation. A 27-gauge needle was used to first decompress the lens through the anterior capsule. A cystitome and Utrata forceps were used to fashion a continuous curvilinear capsulorrhexis. Balanced salt solution was used to hydrodissect and hydrodelineate the nucleus. Phacoemulsification (more content not included)...NormalCherrington HospitalCNPNon [id number] Telephone ([facility]) ARLETHCARL Kevin ([id number]) 1955 M Date Time Provider Department 12/01/24 JACINDA LEMONS [facility] During your visit today, we recorded the following information about you: Jacinda Leomns PA 12/01/2024 7:33 AM Signed Good morning Dr. Dallin Saenz, Patient was seen in [facility] for his upcoming cataract procedures at [facility]. I discussed his cardiac history with the anesthesiologist, Dr. Rodney, at [facility], and he states he is not a candidate for surgery at the [facility]. Thank you, KENDRA Herrera December 01, 2024 7:31 AM Allergies As of Date: 12/01/2024 (No Known Allergies) Date Reviewed: 11/26/2024 Reviewed by: Jacinda Lemons PA - Fully Assessed Reason for Visit: Pre-Op Exam [87] Prescriptions as of 12/01/2024 - sacubitril-valsartan (ENTRESTO) 24-26 mg tablet Take 1 tablet by mouth two times a day. - Sennosides (SENNA) 8.6 mg cap Take by mouth two times a day. - spironolactone (ALDACTONE) 25 mg tablet Take 1 tablet by mouth once daily. - prednisoLONE acetate (PRED FORTE) 1 % ophthalmic suspension Apply one drop in surgical eye four times a day for 2 weeks, then twice a day for 2 weeks, then discontinue - pantoprazole DR (PROTONIX) 40 mg tablet Take 40 mg by mouth once daily. - busPIRone (BUSPAR) 5 mg tablet Take 5 mg by mouth two times a day. - LAMOTRIGINE ORAL Take 100 mg by mouth. - PRIMIDONE ORAL Take 50 mg by mouth daily at bedtime. - sertraline (ZOLOFT) 50 mg tablet Take 1 tablet by mouth once daily. - metoprolol tartrate, short acting, (LOPRESSOR) 50 mg tablet Take 0.5 tablets by mouth two times a day. - divalproex DR (DEPAKOTE) 250 mg EC tablet - ELIQUIS 5 mg tab(s) Take 5 mg by mouth. - levETIRAcetam (KEPPRA) 750 mg tablet Take 750 mg by mouth. - tamsulosin (FLOMAX) 0.4 mg Take 0.4 mg by mouth. - traZODone (DESYREL) 50 mg tablet Meds Comments as of 05/15/2024: Unsure of medications Problem List As Of Date 12/01/2024 Noted Resolved Seizures (HCC) [R56.9] 07/21/2024 History of ischemic stroke [Z86.73] 07/21/2024 Pulmonary embolism (HCC) [I26.99] 07/21/2024 Atrial fibrillation with rapid ventricular resp*07/29/2024 CHF (congestive heart failure) (HCC) [I50.9] 11/26/2024 Mitral regurgitation [I34.0] 11/26/2024 Suspected pulmonary hypertension [R09.89] 11/26/2024 GERD (gastroesophageal reflux disease) [K21.9] 11/26/2024 Limited mobility [Z74.09] 11/26/2024 Anxiety [F41.9] 11/26/2024 BPH (benign prostatic hyperplasia) [N40.0] 11/26/2024 Encounter Status:Closed by JACINDA LEMONS on 12/01/24[facility] CARL REINOSO ([id number]) 1955 M Date Time Provider Department 12/01/24 MEREDITH GRIJALVA [facility] During your visit today, we recorded the following information about you: Mabel Cesar 12/01/2024 10:45 AM Signed Spoke with [facility] and the patient's brother an sister in law. in regards to Mr Reinoso Cataract /surgery for 5-27 and 6-3 has been cancelled Anesthesia feels due to comorbidity he will be a better candidate for a hospital setting. I will be in contact with the patient's family and the facility with further information in regards to rescheduling the patient. Maria E Cesar Allergies As of Date: 12/01/2024 (No Known Allergies) Date Reviewed: 11/26/2024 Reviewed by: Jacinda Lemons PA - Fully Assessed Reason for Visit: Cancel Cataract Surgery [Other] Prescriptions as of 12/01/2024 - sacubitril-valsartan (ENTRESTO) 24-26 mg tablet Take 1 tablet by mouth two times a day. - Sennosides (SENNA) 8.6 mg cap Take by mouth two times a day. - spironolactone (ALDACTONE) 25 mg tablet Take 1 tablet by mouth once daily. - prednisoLONE acetate (PRED FORTE) 1 % ophthalmic suspension Apply one drop in surgical eye four times a day for 2 weeks, then twice a day for 2 weeks, then discontinue - pantoprazole DR (PROTONIX) 40 mg tablet Take 40 mg by mouth once daily. - busPIRone (BUSPAR) 5 mg tablet Take 5 mg by mouth two times a day. - LAMOTRIGINE ORAL Take 100 mg by mouth. - PRIMIDONE ORAL Take 50 mg by mouth daily at bedtime. - sertraline (ZOLOFT) 50 mg tablet Take 1 tablet by mouth once daily. - metoprolol tartrate, short acting, (LOPRESSOR) 50 mg tablet Take 0.5 tablets by mouth two times a day. - divalproex DR (DEPAKOTE) 250 mg EC tablet - ELIQUIS 5 mg tab(s) Take 5 mg by mouth. - levETIRAcetam (KEPPRA) 750 mg tablet Take 750 mg by mouth. - tamsulosin (FLOMAX) 0.4 mg Take 0.4 mg by mouth. - traZODone (DESYREL) 50 mg tablet Meds Comments as of 05/15/2024: Unsure of medications Problem List As Of Date 12/01/2024 Noted Resolved Seizures (HCC) [R56.9] 07/21/2024 History of ischemic stroke [Z86.73] 07/21/2024 Pulmonary embolism (HCC) [I26.99] 07/21/2024 Atrial fibrillation with rapid ventricular resp*07/29/2024 CHF (congestive heart failure) (HCC) [I50.9] 11/26/2024 Mitral regurgitation [I34.0] 11/26/2024 Suspected pulmonary hypertension [R09.89] 11/26/2024 GERD (gastroesophageal reflux disease) [K21.9] 11/26/2024 Limited mobility [Z74.09] 11/26/2024 Anxiety [F41.9] 11/26/2024 BPH (benign prostatic hyperplasia) [N40.0] 11/26/2024 Encounter Status:Closed by MABEL CESAR on 12/01/24[facility] PHYSICALon [id number] PHYSICALHNO ID: [id number] Author: JACINDA LEMONS PA Service: ? Author Type: Physician Special Assets Officer Type: H&P Filed: 12/01/2024 12:59 Note Text: [facility] HISTORY AND PHYSICAL EXAMINATION SERVICE DATE: 11/26/2024 SERVICE TIME: 12:59 PM PRIMARY CARE PHYSICIAN: No primary care provider on file. Assessment Patient has the following medical conditions which may affect paula-operative course: Seizures (HCC) Assessment: Takes Keppra and Lamictal. 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 Patient's sister in law reports his last seizure was about 7-8 yrs ago. Follows with neurology, [facility] 12/04/23, and per note: 1. Routine EEG 09/2019 was normal. 2. 2 hour EEG 12/11/19 was normal. 3. Bill MRI 12/2022 was nonacute but did reveal diffuse atrophy and chronic small vessel ischemic changes. There is focal right frontal gliosis and encephalomalacia consistent with remote infarct or insult. 4. Chest CTA 12/2022 revealed large pulmonary embolus and mild right ventricular strain. Patient is on Eliquis. 5. MRA of the head was negative for focal stenosis, occlusion, or aneurysmal dilatation. 6. BMP 09/3033 was normal History of ischemic stroke Assessment: Follows with neurology, [facility] 12/04/23, and per note: Head CT from 07/10/2019 revealed suspected developing small lacunar infarct right basal ganglia but likely beyond hyperacute phase. CT scan of the brain 12/2022 was non acute. It again showed bifrontal and temporal lobe encephalomalacia. Pulmonary embolism (HCC) Assessment: h/o PE in 12/2022. Takes Eliquis. Atrial fibrillation with rapid ventricular response (HCC) Assessment: Hospitalized from 07/29-07/31/24 for afib. Takes Eliquis and metoprolol. Denies CP, SOB, palpitations, or lightheadedness. EKG 07/29/24: ATRIAL FLUTTER WITH VARIABLE A-V BLOCK LEFT AXIS DEVIATION COMPLETE RIGHT BUNDLE BRANCH BLOCK ABNORMAL ECG CHF (congestive heart failure) ([facility]) Assessment: Hospitalized from 07/29- with afib and mild CHF exacerbation. Does not follow with cardiology. I advised them to establish with cardiology. Takes Eliquis, Entresto, metoprolol, and spironolactone. Denies CP, SOB, palpitations, or lightheadedness. Euvolemic on exam. Echo 07/30/24: Left Ventricle: Severely reduced left ventricular systolic function with a visually estimated EF of 20 - 25%. Left ventricle is severely dilated. Normal wall thickness. Severe global hypokinesis present. Abnormal diastolic function. Right Ventricle: Normal systolic function. Left Atrium: Left atrium is severely dilated. Mitral regurgitation Assessment: severe MR on 07/2024 echo. 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 Severely thickened leaflets. The posterior leaflet of the mitral valve has abnormal mobility. Severe regurgitation with an anterior directed jet. No stenosis noted. Suspected pulmonary hypertension Assessment: Denies CP or SOB. Echo 07/30/24: Tricuspid Valve: Mild regurgitation. Moderately elevated RVSP, consistent with moderate pulmonary hypertension. GERD (gastroesophageal reflux disease) Assessment: Controlled with Protonix. Limited mobility Assessment: Lives in assisted living at [facility]. Uses a wheelchair mostly, but can walk to the bathroom with assistance. He is accompanied by his brother and selwsi-gw-ljl. Anxiety Assessment: Takes Buspar, Zoloft, and trazodone. H/o mild MRDD. BPH (benign prostatic hyperplasia) Assessment: Takes Flomax. ANESTHESIA FINDINGS: Intubation History: No history of difficult intubation Significant Anesthesia Considerations: none Airway History: No history of difficult airway Louis Activity Status Index: METS: Walk indoors, such as around the house (1.75 METs) Do light work around the house, such as dusting or washing dishes (2.70 METs) Take care of self; that is eating, dressing, bathing, using the toilet (2.75 METs) DASI Score: 7.2 Patient denies any chest pain or undue shortness of breath with the above physical activity. Patient is partially dependent. STOP-Bang Score: Has or is being treated for high blood pressure Patient over 50 years old Has a large neck Male patient Denies snoring loudly Denies feeling tired, fatigued, or sleepy during the daytime Has not been observed to stop breathing or choking/gasping during sleep BMI less than or equal to 35 kg/m2 STOP-Bang Score: 4 I - PHYSICAL EVALUATION AIRWAY Patient intubated: No. Tracheostomy tube not present Mallampati: IV. TM distance: >3 FB. Neck ROM: full ROM without neurological symptoms. Short neck: no. Additional comments: Small mouth opening. Thick neck: yes Peace present: no Lip Bite Test: II Microretrognathia/Micronagthia/Recessed Chin: No DENTAL Dental findings: missing tooth/teeth. II - ANESTHESIA (more content not included)...[facility]Park[facility] [id number] (OPHTCR) CARL REINOSO ([id number]) 1955 M Date Time Provider Department 10/28/24 MEREDITH GRIJALVA OPHTCR During your visit today, we recorded the following information about you: David Busby 10/28/2024 3:31 PM Signed Patient is currently in a nursing facility and will be having cataract surgery on 12/16. He states the facility needs authorization from Dr. Zamarripa in able for them to administer the eyedrops after surgery. Please advise, thank you. Allergies As of Date: 10/28/2024 (No Known Allergies) Date Reviewed: 10/23/2024 Reviewed by: Patricia Gomez COT - Fully Assessed Reason for Visit: Patient Question [7804] Prescriptions as of 11/10/2024 - prednisoLONE acetate (PRED FORTE) 1 % ophthalmic suspension Apply one drop in surgical eye four times a day for 2 weeks, then twice a day for 2 weeks, then discontinue - pantoprazole DR (PROTONIX) 40 mg tablet Take 40 mg by mouth once daily. - busPIRone (BUSPAR) 5 mg tablet Take 5 mg by mouth two times a day. - LAMOTRIGINE ORAL Take 100 mg by mouth. - PRIMIDONE ORAL Take 50 mg by mouth daily at bedtime. - sertraline (ZOLOFT) 50 mg tablet Take 1 tablet by mouth once daily. - metoprolol tartrate, short acting, (LOPRESSOR) 50 mg tablet Take 0.5 tablets by mouth two times a day. - divalproex DR (DEPAKOTE) 250 mg EC tablet - ELIQUIS 5 mg tab(s) Take 5 mg by mouth. - levETIRAcetam (KEPPRA) 750 mg tablet Take 750 mg by mouth. - tamsulosin (FLOMAX) 0.4 mg Take 0.4 mg by mouth. - traZODone (DESYREL) 50 mg tablet Meds Comments as of 05/15/2024: Unsure of medications Problem List As Of Date 10/28/2024 Noted Resolved Seizures (HCC) [R56.9] 07/21/2024 History of ischemic stroke [Z86.73] 07/21/2024 Pulmonary embolism (HCC) [I26.99] 07/21/2024 Encounter Status:Closed by DAVID BUSBY on 11/10/24NoSt[facility] Reflex Mgon [id number] gap [Moles/Vol]11 mmol/LNormal9-15[facility] DistrictComment on above:Performed By: #### TRP5 #### [facility] [address] [place] [address] Ktvmjmu [Mass/Vol]8.8 mg/dLNormal8.5-9.9[facility] DistrictComment on above:Performed By: #### TRP5 #### [facility] [address] [place] [address] Rnfgsffs [Moles/Vol]101 mmol/AQqqjxu50-493DbcnySt. Vincent General Hospital DistrictComment on above:Performed By: #### TRP5 #### [facility] [address] [place] [address] OT0 [Moles/Vol]27 mmol/RMnlhhx27-29HijgmSt. [facility] Comment on above:Performed By: #### TRP5 #### [facility] [address] [place] [address] Berzipwtwc [Mass/Vol]1.28 mg/dLCritically high0.70-1.20[facility] DistrictComment on above:Performed By: #### TRP5 #### [facility] [address] [place] [address] IXQ60.6Normal>60[facility] DistrictComment on above:Result Comment: Pediatric calculator link https://www.kidney.org/professionals/kdoqi/gfr_calculatorped Effective Apr 24, 2022 These results are not intended for use in patients <18 years of age. eGFR results are calculated without a race factor using the 2020 CKD-EPI equation. Careful clinical correlation is recommended, particularly when comparing to results calculated using previous equations. The CKD-EPI equation is less accurate in patients with extremes of muscle mass, extra-renal metabolism of creatinine, excessive creatinine ingestion, or following therapy that affects renal tubular secretion.Performed By: #### TRP5 #### [facility] [address] [place] [address] Exkayso [Mass/Vol]80 mg/rFMvgzli55-62UdoevHaxtun Hospital District Comment on above:Performed By: #### TRP5 #### [facility] [address] [place] [address] Koeotzfpx [Moles/Vol]4.1 mmol/LNormal3.4-4.9[facility] DistrictComment on above:Performed By: #### TRP5 #### [facility] [address] [place] [address] Vekypa [Moles/Vol]139 mmol/WAqnniw845-738NvpxkSt. [facility] General Hospital DistrictComment on above:Performed By: #### TRP5 #### [facility] [address] [place] [address] Eoex nitrogen [Mass/Vol]29 mg/dLCritically high8-23[facility] DistrictComment on above:Performed By: #### TRP5 #### [facility] [address] [place] [address] Xeyhh metabolic 2000 panelon [id number] gap [Moles/Vol]11 mmol/LBon Secours Mercy HealthCalcium [Mass/Vol]8.8 mg/dL8.5 - 9.9 mg/dLBon Secours Mercy HealthChloride [Moles/Vol]101 mmol/LBon Secours Mercy HealthCO2 [Moles/Vol]27 mmol/LBon Secours Mercy HealthCreatinine [Mass/Vol]1.28 mg/dLHigh 0.70 - 1.20 mg/dLBon Secours Mercy HealthGFR/1.73 sq M.predicted among non- blacks MDRD (S/P/Bld) [Vol rate/Area]60.6 mL/min/{1.73_m2}60 - PINFBon Secours Marietta Memorial Hospitaly HealthComment on above:Pediatric calculator link https://www.kidney.org/professionals/kdoqi/gfr_calculatorped Effective Apr 24, 2022 These results are not intended for use in patients <18 years of age. eGFR results are calculated without a race factor using the 2020 CKD-EPI equation. Careful clinical correlation is recommended, particularly when comparing to results calculated using previous equations. The CKD-EPI equation is less accurate in patients with extremes of muscle mass, extra-renal metabolism of creatinine, excessive creatinine ingestion, or following therapy that affects renal tubular secretion. Glucose [Mass/Vol]80 mg/dL70 - 99 mg/dLBon Brown Memorial HospitalInterpretation and review of laboratory resultsAbnormalBon Secours St. Francis Medical CenterPotassium [Moles/Vol]4.1 mmol/LBon SecTrumbull Memorial HospitalSodium [Moles/Vol]139 mmol/LBon Brown Memorial HospitalUrea nitrogen [Mass/Vol]29 mg/dLHigh8 - 23 mg/dLBon Secours Hospital [facility] HospitalCBC W Auto Differential panel (Bld)on [id number] (Bld) [#/Vol]0.1 10*3/uL0.0 - 0.2 K/uLBon Brown Memorial HospitalBasophils/100 WBC (Bld)0.4 %[facility] Medical CenterEosinophils (Bld) [#/Vol]0.4 10*3/uL0.0 - 0.7 K/uLBon [facility] Centerours Galion HospitalEosinophils/100 WBC (Bld)3.6 %[facility] Francis Medical CenterErythrocyte distribution width (RBC) [Ratio] 12.6 %11.5 - 14.5 %[facility] Francis Medical CenterHematocrit (Bld) [Volume fraction] 39.4 %Low42.0 - 52.0 %[facility] Medical CenterHemoglobin (Bld) [Mass/Vol]13.6 g/dLLow14.0 - 18.0 g/dLBon Brown Memorial HospitalInterpretation and review of laboratory resultsAbnormalBon Brown Memorial HospitalLymphocytes (Bld) [#/Vol]6.0 10*3/uLHigh1.0 - 4.8 K/uLBon Brown Memorial HospitalLymphocytes/100 WBC (Bld)49.3 % Bon [facility] Gal[facility] HospitalH (RBC) [Entitic mass]32.2 qyPoto34.0 - 31.3 pgBon [facility] Health System Galion HospitalHC (RBC) [Mass/Vol]34.5 %33.0 - 37.0 %Bon [facility] Gal[facility] HospitalV (RBC) [Entitic vol]93.1 yBTyns57.0 - 92.2 fLBon [facility] Monocytes (Bld) [#/Vol]0.9 10*3/uLHigh0.2 - 0.8 K/uLBon [facility] Health Monocytes/100 WBC (Bld)7.6 %Bon SecTrumbull Memorial HospitalNeutrophils (Bld) [#/Vol]4.7 10*3/uL1.4 - 6.5 K/uLBon Secours [facility] HealthPlatelets (Bld) [#/Vol]341 10*3/uL 130 - 400 K/uLBon Secours Marietta Memorial Hospitaly HealthPlatelets LM Ql (Bld)AdequateBon Secours [facility] HealthRBC (Bld) [#/Vol]4.23 10*6/uLLowBon Brown Memorial HospitalSegmented neutrophils/100 WBC (Bld)38.6 %Bon [facility] Memorial HospitalWBC (Bld) [#/Vol]12.1 10*3/uLHigh4.8 - 10.8 K/uLBon Secours [facility] HealthBon SecWillis-Knight[facility] & the Center for Women’s Health HealthCBC With Platelet and Differentialon 15-10-5391Qvgdaufs Slide ReviewAdequateNoChildren's Hospital Colorado, Colorado SpringsComment on above:Performed By: #### CBCWD #### [facility] [address] [facility] [address] ZYSXU REVIEWsee belowNormCarilion Stonewall Jackson HospitalComment on above: Slide review agrees with reported resultsResult Comment: Slide review agrees with reported resultsPerformed By: #### CBCWD #### [facility] [address] [address] Lcqgeovjw (Bld) [#/Vol]0.1 10*3/uLNormal0.0-0.2MHaxtun Hospital DistrictComment on above:Performed By: #### CBCWD #### [facility] [address] [place] [address] Fwapfnfio/100 WBC (Bld)0.4 %[facility] Comment on above:Performed By: #### CBCWD #### [facility] [address] [place] [address] Pwezqtzwojg (Bld) [#/Vol]0.4 10*3/uLNormal0.0-0.7St. [facility] DistrictComment on above:Performed By: #### CBCWD #### [facility] [address] [place] [address] Nmcwofacdtm/100 WBC (Bld)3.6 %[facility] Comment on above:Performed By: #### CBCWD #### [facility] [address] [place] [address] Visxcwwdoih distribution width (RBC) [Ratio]12.6 %Bsxduk31.5-14.5 [facility] DistrictComment on above:Performed By: #### CBCWD #### [facility] [address] [place] [address] Utvoawcape (Bld) [Volume fraction]39.4 %Low42.0-52.0[facility] DistrictComment on above:Performed By: #### CBCWD #### [facility] [address] [place] [address] Acitvmlafh (Bld) [Mass/Vol]13.6 g/dLLow14.0-18.0[facility] DistrictComment on above:Performed By: #### CBCWD #### [facility] [address] [place] [address] Qfiwhhyvymu (Bld) [#/Vol]6.0 10*3/uLCritically high1.0-4.8[facility] DistrictComment on above:Performed By: #### CBCWD #### [facility] [address] [place] [address] Lndhnsnyqei/100 WBC (Bld)49.3 %[facility] Comment on above:Performed By: #### CBCWD #### [facility] [address] [place] [address] RFX (RBC) [Entitic mass]32.2 pgCritically high27.0-31.3MHaxtun Hospital DistrictComment on above:Performed By: #### CBCWD #### [facility] [address] [place] [address] TWSI75.5 %Uivque19.0-37.0[facility] DistrictComment on above:Performed By: #### CBCWD #### [facility] [address] [place] [address] BGY (RBC) [Entitic vol]93.1 fLCritically high79.0-92.2MHaxtun Hospital DistrictComment on above:Performed By: #### CBCWD #### [facility] [address] [place] [address] Irrtsktjz (Bld) [#/Vol]0.9 10*3/uLCritically high0.2-0.8[facility] DistrictComment on above:Performed By: #### CBCWD #### [facility] [address] [place] [address] Kxzexduwy/100 WBC (Bld)7.6 %[facility] Comment on above:Performed By: #### CBCWD #### [facility] [address] [place] [address] Avgwfqjaily (Bld) [#/Vol]4.7 10*3/uLNormal1.4-6.5[facility] DistrictComment on above:Performed By: #### CBCWD #### [facility] [address] [place] [address] Pxjvhzknasa/100 WBC (Bld)38.6 %[facility] Comment on above:Performed By: #### CBCWD #### [facility] [address] [place] [address] Dmyftgwpf (Bld) [#/Vol]341 10*3/lQVsgtcz340-465LevrtSt. [facility] General Hospital DistrictComment on above:Performed By: #### CBCWD #### [facility] [address] [place] [address] JGH (Bld) [#/Vol]4.23 10*6/uLLow4.70-6.10[facility] DistrictComment on above:Performed By: #### CBCWD #### [facility] [address] [place] [address] JTH (Bld) [#/Vol]12.1 10*3/uLCritically high4.8-10.8[facility] DistrictComment on above:Performed By: #### CBCWD #### [facility] [address] [place] [address] UOLPnn 05-12-9209JOBOFbfywbiov (OPHTCR) CARL REINOSO ([id number]) 1955 M Date Time Provider Department 07/31/24 MEREDITH GRIJALVA During your visit today, we recorded the following information about you: Mabel Cesar 07/31/2024 1:10 PM Signed Spoke with Patient;s sister to check on jjhis status after Tao left the surgery center on 07-29 he went to the ER and was diagnosed with an enlarged heart with a leaky valve, The nursing consultant felt he was not strong enough to go through with Cataract surgery. He was transferred back to the [facility] and is scheduled for an ablation . His sister stated the nursing consultant is not sure if he is healthy enough for the procedure he has signed a DNR and is being kept comfortable with medication. She will call with updates. 08-19-24 Surgery has been cancelled Maria E Kezia Cardona 08/05/2024 3:35 PM Signed Nurse from [facility] was calling to ask why surgery had been cancelled Relayed below information No further questions or concerns Phone-[phone] Allergies As of Date: 07/31/2024 (No Known Allergies) Date Reviewed: 07/29/2024 Reviewed by: Marsha Carballo RN - Fully Assessed Reason for Visit: Appointment [186] Prescriptions as of 08/05/2024 - prednisoLONE acetate (PRED FORTE) 1 % ophthalmic suspension Apply one drop in surgical eye four times a day for 2 weeks, then twice a day for 2 weeks, then discontinue - pantoprazole DR (PROTONIX) 40 mg tablet Take 40 mg by mouth once daily. - busPIRone (BUSPAR) 5 mg tablet Take 5 mg by mouth two times a day. - LAMOTRIGINE ORAL Take 100 mg by mouth. - PRIMIDONE ORAL Take 50 mg by mouth daily at bedtime. - sertraline (ZOLOFT) 50 mg tablet Take 1 tablet by mouth once daily. - metoprolol tartrate, short acting, (LOPRESSOR) 50 mg tablet Take 0.5 tablets by mouth two times a day. - divalproex DR (DEPAKOTE) 250 mg EC tablet - ELIQUIS 5 mg tab(s) Take 5 mg by mouth. - levETIRAcetam (KEPPRA) 750 mg tablet Take 750 mg by mouth. - tamsulosin (FLOMAX) 0.4 mg Take 0.4 mg by mouth. - traZODone (DESYREL) 50 mg tablet Meds Comments as of 05/15/2024: Unsure of medications Problem List As Of Date 07/31/2024 Noted Resolved Seizures (HCC) [R56.9] 07/21/2024 History of ischemic stroke [Z86.73] 07/21/2024 Pulmonary embolism (HCC) [I26.99] 07/21/2024 Encounter Status:Closed by MABEL CESAR on 07/31/24NoSt. [facility] Rhythm Stripon [id number] [facility] Metabolic Panel Reflex Mgon [id number] gap [Moles/Vol]13 mmol/LNormal9-15[facility] DistrictComment on above: Performed By: #### TRP5 #### [facility] [address] [facility] [address] Wvbbsex [Mass/Vol]9.1 mg/dLNormal8.5-9.9[facility] DistrictComment on above:Performed By: #### TRP5 #### [facility] [address] [place] [address] Wplwouqb [Moles/Vol]104 mmol/EBgupxk21-193EfcnqSt. Vincent General Hospital DistrictComment on above:Performed By: #### TRP5 #### [facility] [address] [place] [address] TH0 [Moles/Vol]26 mmol/EXtbiuo99-56CjyhcSt. [facility] Comment on above:Performed By: #### TRP5 #### [facility] [address] [place] [address] Bohaiqicjs [Mass/Vol]1.22 mg/dLCritically high0.70-1.20[facility] DistrictComment on above:Performed By: #### TRP5 #### [facility] [address] [place] [address] CDG41.2Normal>60[facility] DistrictComment on above:Result Comment: Pediatric calculator link https://www.kidney.org/professionals/kdoqi/gfr_calculatorped Effective Apr 24, 2022 These results are not intended for use in patients <18 years of age. eGFR results are calculated without a race factor using the 2020 CKD-EPI equation. Careful clinical correlation is recommended, particularly when comparing to results calculated using previous equations. The CKD-EPI equation is less accurate in patients with extremes of muscle mass, extra-renal metabolism of creatinine, excessive creatinine ingestion, or following therapy that affects renal tubular secretion.Performed By: #### TRP5 #### [facility] [address] [place] [address] Gqepqco [Mass/Vol]85 mg/tWPabplo06-56BbnboHaxtun Hospital District Comment on above:Performed By: #### TRP5 #### [facility] [address] [place] [address] Qxgvxfkff [Moles/Vol]4.8 mmol/LNormal3.4-4.9[facility] DistrictComment on above:Performed By: #### TRP5 #### [facility] [address] [place] [address] Fxvzle [Moles/Vol]143 mmol/WTppidr506-785KaiwkSt. Vincent General Hospital DistrictComment on above:Performed By: #### TRP5 #### [facility] [address] [place] [address] Otoz nitrogen [Mass/Vol]24 mg/dLCritically high8-23[facility] DistrictComment on above:Performed By: #### TRP5 #### [facility] [address] [place] [address] Uricq metabolic 2000 panelon 72-98-8870Ldnbp gap [Moles/Vol]13 mmol/LBon Secours Mercy HealthCalcium [Mass/Vol]9.1 mg/dL8.5 - 9.9 mg/dLBon Secours Mercy HealthChloride [Moles/Vol]104 mmol/LBon Secours Mercy HealthCO2 [Moles/Vol]26 mmol/LBon Secours Mercy HealthCreatinine [Mass/Vol]1.22 mg/dLHigh 0.70 - 1.20 mg/dLBon Secours Mercy HealthGFR/1.73 sq M.predicted among non- blacks MDRD (S/P/Bld) [Vol rate/Area]64.2 mL/min/{1.73_m2}60 - PINFBon Secours YuMingley HealthComment on above:Pediatric calculator link https://www.kidney.org/professionals/kdoqi/gfr_calculatorped Effective Apr 24, 2022 These results are not intended for use in patients <18 years of age. eGFR results are calculated without a race factor using the 2020 CKD-EPI equation. Careful clinical correlation is recommended, particularly when comparing to results calculated using previous equations. The CKD-EPI equation is less accurate in patients with extremes of muscle mass, extra-renal metabolism of creatinine, excessive creatinine ingestion, or following therapy that affects renal tubular secretion. Glucose [Mass/Vol]85 mg/dL70 - 99 mg/dLBon SecHumagade HealthInterpretation and review of laboratory resultsAbnormalBon Secours St. Francis Medical CenterPotassium [Moles/Vol]4.8 mmol/LBon Brown Memorial HospitalSodium [Moles/Vol]143 mmol/LBon [facility] Memorial HospitalUrea nitrogen [Mass/Vol]24 mg/dLHigh8 - 23 mg/dLBon [facility] HospitalC W Auto Differential panel (Bld)on 26-33-0922Pnwtqndrknobsp and review of laboratory resultsAbnormalBon Secours St. Francis Medical CenterMCHC (RBC) [Mass/Vol]33.7 %33.0 - 37.0 %[facility] Segmented neutrophils/100 WBC (Bld)57.4 %[facility] With Platelet and Differentialon 36-30-5103Hzuuyizbg (Bld) [#/Vol]0.0 10*3/uLNormal0.0-0.2Bon [facility] on above: Performed By: #### CBCWD #### [facility] [address] [facility] [address] Zyejghcfo/100 WBC (Bld)0.3 %NormalBon [facility] on above:Performed By: #### CBCWD #### [facility] [address] [place] [address] Lxfjxqhqtyn (Bld) [#/Vol]0.2 10*3/uLNormal0.0-0.7Bon [facility] on above:Performed By: #### CBCWD #### [facility] [address] [place] [address] Oknlllzbxpw/100 WBC (Bld)1.5 %NormalBon [facility] on above:Performed By: #### CBCWD #### [facility] [address] [place] [address] Kgndcurltaa distribution width (RBC) [Ratio]12.9 %Yjcwpt98.5-14.5Bon [facility] on above:Performed By: #### CBCWD #### [facility] [address] [place] [address] Giowhcusgw (Bld) [Volume fraction]40.7 %Low42.0-52.0Bon SecTrumbull Memorial HospitalComment on above:Performed By: #### CBCWD #### [facility] [address] [place] [address] Xwcvgbcvkx (Bld) [Mass/Vol]13.7 g/dLLow14.0-18.0[facility] HealthComment on above:Performed By: #### CBCWD #### [facility] [address] [place] [address] Xwbgwvicieq (Bld) [#/Vol]4.0 10*3/uLNormal1.0-4.8Bon SecTrumbull Memorial HospitalComment on above:Performed By: #### CBCWD #### [facility] [address] [place] [address] Wcuigygsarh/100 WBC (Bld)32.9 %NormalBon SecTrumbull Memorial HospitalComment on above:Performed By: #### CBCWD #### [facility] [address] [place] [address] QVI (RBC) [Entitic mass]32.2 pgCritically high27.0-31.3Bon [facility] Galion HospitalComment on above:Performed By: #### CBCWD #### [facility] [address] [place] [address] SLFP13.7 %Xurxwt37.0-37.0[facility] DistrictComment on above:Performed By: #### CBCWD #### [facility] [facility] [address] [place] [address] NOC (RBC) [Entitic vol]95.8 fLCritically high79.0-92.2[facility] Galion HospitalComment on above:Performed By: #### CBCWD #### [facility] [address] [place] [address] Tuexpmogf (Bld) [#/Vol]0.9 10*3/uLCritically high0.2-0.8[facility] HospitalComment on above:Performed By: #### CBCWD #### [facility] [address] [place] [address] Wrtloammc/100 WBC (Bld)7.3 %NormalBon Martin Memorial Hospitalment on above:Performed By: #### CBCWD #### [facility] [address] [place] [address] Kjbxdpeniiw (Bld) [#/Vol]7.0 10*3/uLCritically high1.4-6.5Bon SecTrumbull Memorial HospitalComment on above:Performed By: #### CBCWD #### [facility] [address] [place] [address] Llpxowscxsg/100 WBC (Bld)57.4 %[facility] Comment on above:Performed By: #### CBCWD #### [facility] [address] [place] [address] Usgdditph (Bld) [#/Vol]370 10*3/uPYpmllo897-980Pxy Martin Memorial Hospitalment on above:Performed By: #### CBCWD #### [facility] [address] [place] [address] MAU (Bld) [#/Vol]4.25 10*6/uLLow4.70-6.10[facility] Comment on above:Performed By: #### CBCWD #### [facility] [address] [place] [address] UJM (Bld) [#/Vol]12.2 10*3/uLCritically high4.8-10.8Bon SecMercy Healthment on above:Performed By: #### CBCWD #### [facility] [address] [place] [address] Cuqraqc echo study Procedureon 39-52-9525MR Area by Peak Velocity1.9 cm2Bon [facility] Mercy HealthAV Area by VTI2.0 cm2Bon [facility] HealthAV Cusp Mmode1.5 cmBon Secours Mercy HealthAV Mean Xhacygnm2ndXrKhc [facility] HealthAV Mean Velocity0.8 m/sBon Secours Mercy HealthAV Peak Nmkuzthh0wuVeIfr [facility] HealthAV Peak Velocity1.4 m/sBon Secours Mercy HealthAV Peak Velocity1.3 m/sBon Secours Mercy HealthAV VTI22.5 cmBon [facility] Health NICOLE/BSA VTI1.0 cm2/m2[facility] HealthBody surface area Derived from formula1.97 m2[facility] Mercy HealthE/E' Katexsu27.68[facility] E/E' Ratio (Averaged)33.62[facility] HealthE/E' Bzorks05.57Bon [facility] Mercy HealthEF BP57 %55 - 100 %[facility] Mercy HealthEst. RA Xsprcshz5stVePtt [facility] Mercy HealthFractional Shortening 2D11 %28 - 44 %[facility] HealthInterpretation and review of laboratory resultsAbnormalBon Secours Mercy HealthIVSd1.2 cmAbnormal0.6 - 1.0 cmBon Secours Mercy HealthIVSs1.2 cmBon Secours Mercy HealthLA Diameter4.7 cmBon Secours Mercy HealthLA Size Index2.42 cm/m2Bon [facility] Mercy HealthLA Volume A-L A4C86 aQJkieqosq68 - 58 mLBon Secours Mercy HealthLA Volume A-L A4C79 qWUzqinjso53 - 58 mLBon Secours Mercy HealthLA Volume A/L88 mLBon Secours Mercy HealthLA Volume Index A-L A2C44 mL/j2Puktzmcy95 - 34 mL/m2Bon [facility] Mercy HealthLA Volume Index A-L A4C41 mL/l2Zxqgazay91 - 34 mL/m2Bon [facility] Mercy HealthLA Volume Index A/L45 mL/m216 - 34 mL/m2[facility] Mer[facility] HealthLA Volume Index MOD A2C43 ml/t8Qycsyxkt89 - 34 ml/m2[facility] Mercy HealthLA Volume Index MOD A4C40 ml/e4Whdzdhhr58 - 34 ml/m2[facility] Mer[facility] HealthLA Volume MOD A2C83 rKDnczzutg00 - 58 mLBon Secours Mercy HealthLA Volume MOD A4C77 kVUieqkjos24 - 58 mLBon Secours Mercy HealthLV E' Lateral Velocity5.90 cm/sBon Secours Mercy HealthLV E' Septal Velocity4.95 cm/s [facility] Mer[facility] HealthLV EDV A2C88 mLBon Secours Mercy HealthLV EDV A4C77 mL [facility] HealthLV EDV BP83 mL67 - 155 mLBon Secours Mercy HealthLV EDV Index A2C45 mL/m2Bon [facility] Mer[facility] HealthLV EDV Index A4C40 mL/m2Bon [facility] HealthLV EDV Index BP43 mL/m2Bon [facility] HealthLV Ejection Fraction A2C58 %[facility] HealthLV Ejection Fraction A4C55 %[facility] HealthLV ESV A2C37 mLBon Secours Mercy HealthLV ESV A4C35 mLBon Secours Mercy HealthLV ESV BP36 mL22 - 58 mLBon Secours Mercy HealthLV ESV Index A2C19 mL/m2 [facility] HealthLV ESV Index A4C18 mL/m2Bon [facility] HealthLV ESV Index BP19 mL/m2Bon [facility] Mer[facility] HealthLV Mass 2D222.6 g88 - 224 gBon Secours Mercy HealthLV Mass 2D Wilqz250.7 g/m249 - 115 g/m2Bon [facility] Mer[facility] HealthLV RWT Ratio0.62Bon [facility] Mer[facility] HealthLVIDd4.5 cm4.2 - 5.9 cmBon Secours Mercy HealthLVIDd Index2.32 cm/m2Bon [facility] Mercy HealthLVIDs4.0 cmBon Secours Mercy HealthLVIDs Index2.06 cm/m2[facility] HealthLVOT Area3.1 cm2Bon [facility] Mer[facility] HealthLVOT Diameter2.0 cmBon Secours Mercy HealthLVOT Mean Qfkgscjw6nqNe [facility] Mer[facility] HealthLVOT Peak Vhchkrcs0wkTfQme [facility]ours Mercy HealthLVOT Peak Vywwcuwj8xwUtFlo [facility] Mercy HealthLVOT Peak Velocity0.8 m/sBon Secours Mercy HealthLVOT Stroke Volume Index23.0 mL/m2[facility] HealthLVOT SV44.6 ml [facility] Hospitaly HealthLVOT VTI14.2 cmPhoenix [facility] Hospital Secours [facility] Hospitaly HealthLVOT:AV VTI Index 0.63[facility] Hospitaly HealthLVPWd1.4 cmAbnormal0.6 - 1.0 cmPhoenix [facility] Hospital Secours [facility] Hospitaly HealthLVPWs1.2 cmP[facility] Secours [facility] HospitalMR Radius PISA0.44 cmP[facility] SecTrumbull Memorial HospitalMR Regurg Volume PISA10.10 mLPhoenix Memorial Hospital Secours [facility] HospitalMR QBF550.6 cmP[facility] Secours [facility] HospitalFluxome Community Memorial HospitalMV A Velocity0.75 m/sBon Secours [facility] Hospitaly Community Memorial HospitalMV Area by PHT 2.4 cm2[facility] Secours [facility] HospitalFluxome Community Memorial HospitalMV Area by VTI1.0 cm2[facility] SecDoctors HospitalFluxome Community Memorial HospitalMV E Velocity1.81 m/sBon Secours [facility] Memorial HospitalFluxome Community Memorial HospitalMV E Wave Deceleration Dkrv988.7 msBon Secours Mary Immaculate HospitalFluxome Community Memorial HospitalMV E/A2.41[facility] SecDoctors HospitalFluxome Community Memorial HospitalMV EROA PISA0.1 cm2[facility] SecSagent Pharmaceuticals [facility] HospitalFluxome Community Memorial HospitalMV Max Velocity2.0 m/sBon Secours [facility] Memorial HospitalFluxome Community Memorial HospitalMV Mean Owznuvuz3xvUbFlg [facility] HospitalFluxome Community Memorial HospitalMV Mean Velocity1.2 m/sBon [facility]ours [facility] HospitalFluxome Community Memorial HospitalMV Nyquist Pglrjfud09 cm/sBon Secours [facility] Memorial HospitalFluxome Community Memorial HospitalMV Peak Cbpgwoiw18xqKx [facility] Secours [facility] HospitalFluxome Community Memorial HospitalMV PHT89.9 msPhoenix [facility] Hospital SecDoctors HospitalFluxome Community Memorial HospitalMV Regurg Velocity PISA4.5 m/sBon Secours [facility] HospitalFluxome Community Memorial HospitalMV VTI42.9 cmPho[facility] SecDoctors HospitalFluxome Community Memorial HospitalMV:LVOT VTI Index3.02[facility] Secours SOLO HealthPV Max Velocity0.8 m/sBon Secours [facility] Hospitaly HealthPV Peak Krhbqraf7ucZgOpp Secours SOLO HealthRVIDd2.9 cmPhoenix Memorial Hospital Secours [facility] HospitalFluxome LfdbrqVJJX37ajIzXdc Secours [facility] HospitalFluxome HealthTAPSE2.1 cm1.7 cmPhoenix Memorial Hospital Secours [facility] HospitalFluxome Community Memorial HospitalTR Max Velocity3.29 m/sBon Secours [facility] Hospitaly Community Memorial HospitalTR Peak Qfulxscx43woVvEcf Sec[facility] HospitalFluxome Community Memorial HospitalLeft Ventricle: Severely reduced left ventricular systolic function with a visually estimated EF of 20 - 25%. Left ventricle is severely dilated. Normal wall thickness. Severe global hypokinesis present. Abnormal diastolic function. Right Ventricle: Normal systolic function. 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 Severely thickened leaflets. Severe regurgitation with an anterior directed jet. Tricuspid Valve: Mild regurgitation. Moderately elevated RVSP, consistent with moderate pulmonary hypertension. Left Atrium: Left atrium is severely dilated. Pericardium: No pericardial effusion. Image quality is adequate. Left Ventricle Severely reduced left ventricular systolic function with a visually estimated EF of 20 - 25%. Left ventricle is severely dilated. Normal wall thickness. Severe global hypokinesis present. Abnormal diastolic function. Right Ventricle Right ventricle size is normal. Normal systolic function. Left Atrium Left atrium is severely dilated. Right Atrium Right atrium size is normal. IVC/SVC IVC diameter is less than or equal to 21 mm and decreases greater than 50% during inspiration; therefore the estimated right atrial pressure is normal (~3 mmHg). IVC size is normal. Mitral Valve Findings consistent with myxomatous degeneration. Severely thickened leaflets. The posterior leaflet of the mitral valve has abnormal mobility. Severe regurgitation with an anterior directed jet. No stenosis noted. Tricuspid Valve Valve structure is normal. Mild regurgitation. No stenosis noted. Moderately elevated RVSP, consistent with moderate pulmonary hypertension. Aortic Valve Trileaflet valve. Thickened cusps. Calcified cusps. No regurgitation. No stenosis. Pulmonic Valve The pulmonic valve visualization is suboptimal but appears to be functioning normally. Physiologically normal regurgitation. No stenosis noted. Ascending Aorta Normal sized aortic root and ascending aorta. Pericardium No pericardial effusion. Study Details Image quality: adequate. No contrast was given.[facility] CV [facility] WingzRadiology Study observation (narrative)[facility] WingzNOVANT [facility] 12 Lead Ordered By: on 24-66-9724Xxnxxd [id number] Whim Phone: P [id number] Whim Phone: Q-T [id number] [facility] Whim Phone: QRS [id number] [employer] Phone: QTc Calculation ([place])541 [facility] Whim Phone: R [place]-74degrinspira medical center mullica hillBitPass Phone: T Ybtd08tdxdypgIzvM_SOLUTION Phone: Ventricular [id number] [facility] Work Phone: [facility] Work Phone: ekg 12 Leadon 02-85-6274Fppdcy flutter with variable AV block Left axis deviation Right bundle branch block Abnormal ECG No previous ECGs available Confirmed by Vladimir Thornton ([id number]) on 07/30/2024 11:08:10 AMVladimir Rick, - 07/30/2024 Atrial flutter with variable AV block Left axis deviation Right bundle branch block Abnormal ECG No previous ECGs available Confirmed by Vladimir Thornton ([id number]) on 07/30/2024 11:08:10 AM Bon [facility] Memorial HospitalEK Rhythm Stripon 51-95-8637ZQOMVQOEast [facility] Regional HospitalMS - Premier HealthBacterial susceptibility panel by PARK SANITARIUMon 76-93-6376Faiqtojgc susceptibility panel LYNN (Isol)ORDER#: [id number] ORDERED BY: SOURCE: Urine Clean Catch COLLECTED: 07/29/24 18:13 ANTIBIOTICS AT DEBBIE.: RECEIVED : 07/29/24 18:13 Culture, Urine FINAL 08/01/24 09:03 Performed at [employer] [address] [place], [place] [address] ([phone] Pseudomonas aeruginosa >100,000 CFU/ML Ps. aerug ANTIBIOTICS LYNN Interp Cefepime 2 S Levofloxacin 1 S Meropenem 0.5 S Piperacillin/Tazobactam 8 S Tobramycin <=1 S S=SUSCEPTIBLE I=INTERMEDIATE R=RESISTANT NormalSt. Vincent General Hospital DistrictComment on above:Performed By: #### [id number] #### [facility] [address] [place] [address] Oerqk Natriuretic Peptideon 08-23-1773Mpjghmcqzka peptide B (Bld) [Mass/Vol]5037 pg/mLBon Secours St. Francis Medical CenterComment on above:NT-pro BNP ACUTE Interpretive Guidelines: Age Cutoff for Heart Failure Less than 50 yrs 450 pg/mL 50-75 yrs 900 pg/mL Greater than 75 yrs 1800 pg/mL NT-pro BNP NON-ACUTE Interpretive Guidelines: Age Reference Range Less than 74 yrs 0-125 pg/mL Greater than 74 yrs 0-450 pg/mL Other possible causes of an elevated NT-proBNP include: cardiac ischemia, acute coronary syndrome, COPD, pneumonia, atrial fibrillation, pulmonary emboli, pulmonary hypertension, pericarditis Reference: Mauri Mesa, et al. NT-proBNP testing for diagnosis and short-term prognosis in acute destabilized HF: an international pooled analysis of 1256 patients. Heart Journal. 2006;27:330-337 CBC W Auto Differential panel (Bld)on 32-66-4005Hcwxslbshvwywn and review of laboratory resultsAbnormalBon Secours St. Francis Medical CenterMCHC (RBC) [Mass/Vol]32.0 %Low 33.0 - 37.0 %[facility] Hospitalented neutrophils/100 WBC (Bld)56.1 % [facility] HealthBon Secours Galion HospitalCB With Platelet and Differentialon 40-95-1879Kwsayaqzx (Bld) [#/Vol]0.1 10*3/uLNormal0.0-0.2[facility] HospitalComment on above:Performed By: #### TRP5 #### [facility] [address] [place] [address] Akvdrurki/100 WBC (Bld)0.5 %NormalBon SecTrumbull Memorial HospitalComment on above:Performed By: #### TRP5 #### [facility] [address] [place] [address] Fjazxunsekn (Bld) [#/Vol]0.4 10*3/uLNormal0.0-0.7Bon SecTrumbull Memorial HospitalComment on above:Performed By: #### TRP5 #### [facility] [address] [place] [address] Rsvvdnqcdkv/100 WBC (Bld)3.3 %NormalBon SecTrumbull Memorial HospitalComment on above:Performed By: #### TRP5 #### [facility] [address] [place] [address] Wndjltryjuz distribution width (RBC) [Ratio]13.0 %Jqekvy19.5-14.5Bon [facility] Memorial HospitalComment on above:Performed By: #### TRP5 #### [facility] [address] [place] [address] Vlbvfpgcws (Bld) [Volume fraction]42.5 %Grsuns83.0-52.0Bon SecTrumbull Memorial HospitalComment on above:Performed By: #### TRP5 #### [facility] [address] [place] [address] Vmyhtuuhpp (Bld) [Mass/Vol]13.6 g/dLLow14.0-18.0Bon [facility] Memorial HospitalComment on above:Performed By: #### TRP5 #### [facility] [address] [place] [address] Qiyycuzsqvw (Bld) [#/Vol]3.8 10*3/uLNormal1.0-4.8[facility] HospitalComment on above:Performed By: #### TRP5 #### [facility] [address] [place] [address] Dsjoreexvnk/100 WBC (Bld)33.4 %NormalBon Secours Galion HospitalComment on above:Performed By: #### TRP5 #### [facility] [address] [place] [address] RZZ (RBC) [Entitic mass]30.8 aoBrkgqq74.0-31.3Bon [facility] Gal[facility] HospitalComment on above:Performed By: #### TRP5 #### [facility] [address] [place] [address] AEVG29.0 %Low33.0-37.0[facility] DistrictComment on above: Performed By: #### TRP5 #### [facility] [address] [place] [address] VJW (RBC) [Entitic vol]96.2 fLCritically high79.0-92.2[facility] HospitalComment on above:Performed By: #### TRP5 #### [facility] [address] [place] [address] Efadjbkre (Bld) [#/Vol]0.7 10*3/uLNormal0.2-0.8[facility] HospitalComment on above:Performed By: #### TRP5 #### [facility] [address] [place] [address] Ijuuqewde/100 WBC (Bld)6.2 %NormalBon Secours Galion HospitalComment on above:Performed By: #### TRP5 #### [facility] [address] [place] [address] Wmkdqqqabku (Bld) [#/Vol]6.3 10*3/uLNormal1.4-6.5Bon [facility] Memorial HospitalComment on above:Performed By: #### TRP5 #### [facility] [address] [place] [address] Fqgprwdvkyg/100 WBC (Bld)56.1 %NormalSt. [facility] General Hospital [facility] Comment on above:Performed By: #### TRP5 #### [facility] [address] [place] [address] Wyecppjov (Bld) [#/Vol]364 10*3/nOHkyoiy594-873All [facility] Memorial HospitalComment on above:Performed By: #### TRP5 #### [facility] [address] [place] [address] GLV (Bld) [#/Vol]4.42 10*6/uLLow4.70-6.10[facility] Comment on above:Performed By: #### TRP5 #### [facility] [address] [place] [address] XNY (Bld) [#/Vol]11.3 10*3/uLCritically high4.8-10.8Bon [facility] HospitalComment on above:Performed By: #### TRP5 #### [facility] [address] [place] [address] Chuitizonamtc Metabolic Panelon 42-12-9669Ixfqmmo [Mass/Vol]4.7 g/dL Critically high3.5-4.6MHaxtun Hospital DistrictComment on above:Performed By: #### CMP #### [facility] [address] [place] [address] ZLP [Catalytic activity/Vol]64 U/AXecbjy83-529OaawfSt. Vincent General Hospital DistrictComment on above:Performed By: #### CMP #### [facility] [address] [place] [address] PVJ [Catalytic activity/Vol]7 U/LNormal0-41St. [facility] DistrictComment on above:Performed By: #### CMP #### [facility] [address] [place] [address] Epdbm gap [Moles/Vol]12 mmol/LNormal9-15St. [facility] DistrictComment on above:Performed By: #### CMP #### [facility] [address] [place] [address] ZQW [Catalytic activity/Vol]9 U/LNormal0-40St[facility] DistrictComment on above:Performed By: #### CMP #### [facility] [address] [place] [address] Oiqcxshph [Mass/Vol]0.4 mg/dLNormal0.2-0.7St[facility] DistrictComment on above:Performed By: #### CMP #### [facility] [address] [place] [address] Zqmxykn [Mass/Vol]9.5 mg/dLNormal8.5-9.9St[facility] DistrictComment on above:Performed By: #### CMP #### [facility] [address] [place] [address] Hwkdbevk [Moles/Vol]100 mmol/JUdeqst06-356KhxsmSt. Vincent General Hospital DistrictComment on above:Performed By: #### CMP #### [facility] [address] [place] [address] MG0 [Moles/Vol]28 mmol/GSaapth42-59BszdgSt. [facility] General Hospital [facility] Comment on above:Performed By: #### CMP #### [facility] [address] [place] [address] Ntoezpkpyh [Mass/Vol]1.32 mg/dLCritically high0.70-1.20[facility] DistrictComment on above:Performed By: #### CMP #### [facility] [address] [place] [address] OUR66.4Low>60St[facility] Hospital DistrictComment on above:Result Comment: Pediatric calculator link https://www.kidney.org/professionals/kdoqi/gfr_calculatorped Effective Apr 24, 2022 These results are not intended for use in patients <18 years of age. eGFR results are calculated without a race factor using the 2020 CKD-EPI equation. Careful clinical correlation is recommended, particularly when comparing to results calculated using previous equations. The CKD-EPI equation is less accurate in patients with extremes of muscle mass, extra-renal metabolism of creatinine, excessive creatinine ingestion, or following therapy that affects renal tubular secretion.Performed By: #### CMP #### [facility] [address] [place] [address] Wexjxvcw (S) [Mass/Vol]2.4 g/dLNormal2.3-3.5St. [facility] DistrictComment on above:Performed By: #### CMP #### [facility] [address] [place] [address] Rwnukxv [Mass/Vol]103 mg/dLCritically unil11-86BkvvwHaxtun Hospital DistrictComment on above:Performed By: #### CMP #### [facility] [address] [place] [address] Tgjtfzrhi [Moles/Vol]5.5 mmol/LCritically high3.4-4.9St[facility] DistrictComment on above:Performed By: #### CMP #### [facility] [address] [place] [address] Trmwhos [Mass/Vol]7.1 g/dLNormal6.3-8.0[facility] Comment on above:Performed By: #### CMP #### [facility] [address] [place] [address] Tlzelr [Moles/Vol]140 mmol/WOrbcxo866-181VkedaSt. Vincent General Hospital DistrictComment on above:Performed By: #### CMP #### [facility] [address] [place] [address] Npeu nitrogen [Mass/Vol]22 mg/dLNormal8-23St. [facility] DistrictComment on above:Performed By: #### CMP #### [facility] [address] [place] [address] Vuzhrnytghurt metabolic 2000 panelon 88-79-7246Najyjaz [Mass/Vol]4.7 g/dLHigh3.5 - 4.6 g/dLBon Secours Mercy HealthALP [Catalytic activity/Vol]64 U/L35 - 104 U/LBon Secours Mercy HealthALT [Catalytic activity/Vol]7 U/L0 - 41 U/LBon Secours Mercy HealthAnion gap [Moles/Vol]12 mmol/LBon Secours Mercy HealthAST [Catalytic activity/Vol]9 U/L0 - 40 U/LBon Secours Mercy Health Bilirubin [Mass/Vol]0.4 mg/dL0.2 - 0.7 mg/dLBon Secours Mercy HealthCalcium [Mass/Vol]9.5 mg/dL8.5 - 9.9 mg/dLBon Secours Mercy HealthChloride [Moles/Vol] 100 mmol/LBon Secours Mercy HealthCO2 [Moles/Vol]28 mmol/LBon Secours Mercy HealthCreatinine [Mass/Vol]1.32 mg/dLHigh0.70 - 1.20 mg/dLBon Secours Mercy HealthGFR/1.73 sq M.predicted among non-blacks MDRD (S/P/Bld) [Vol rate/Area] 58.4 mL/min/{1.73_m2}Low60 - PINFBon Secours Galion HospitalComment on above: Pediatric calculator link https://www.kidney.org/professionals/kdoqi/gfr_calculatorped Effective Apr 24, 2022 These results are not intended for use in patients <18 years of age. eGFR results are calculated without a race factor using the 2020 CKD-EPI equation. Careful clinical correlation is recommended, particularly when comparing to results calculated using previous equations. The CKD-EPI equation is less accurate in patients with extremes of muscle mass, extra-renal metabolism of creatinine, excessive creatinine ingestion, or following therapy that affects renal tubular secretion. Globulin (S) [Mass/Vol]2.4 g/dL2.3 - 3.5 g/dLBon Secours Mercy HealthGlucose [Mass/Vol]103 mg/aNDmlf31 - 99 mg/dLBon Secours Mercy HealthPotassium [Moles/Vol]5.5 mmol/LHighBon Secours Mercy HealthProtein [Mass/Vol]7.1 g/dL6.3 - 8.0 g/dLBon Brown Memorial HospitalSodium [Moles/Vol]140 mmol/LBon Brown Memorial HospitalUrea nitrogen [Mass/Vol]22 mg/dL8 - 23 mg/dLBon [facility] Hospital Culture, Bloodon [id number] examination of blood, cultureORDER#: [id number] ORDERED BY: SOURCE: Blood COLLECTED: 07/29/24 14:41 ANTIBIOTICS AT DEBBIE.: RECEIVED : 07/29/24 14:41 Culture, Blood FINAL 08/03/24 18:15 No growth after 5 days of incubation.[facility] County Memorial HospitalComment on above:Performed By: #### TRP5 #### [facility] [address] [place] [address] Xmincoh, Blood 2on [id number], Blood 2ORDER#: [id number] ORDERED BY: SOURCE: Blood COLLECTED: 07/29/24 15:15 ANTIBIOTICS AT DEBBIE.: RECEIVED : 07/29/24 15:19 Culture, Blood 2 FINAL 08/03/24 18:15 No growth after 5 days of incubation.[facility] County Memorial HospitalComment on above:Performed By: #### CXBL2 #### [facility] [address] [place] [address] Cskdz[place], Urineon [id number], UrineORDER#: [id number] ORDERED BY: SOURCE: Urine Clean Catch COLLECTED: 07/29/24 18:13 ANTIBIOTICS AT DEBBIE.: RECEIVED : 07/29/24 18:13 Culture, Urine PRELIM 07/31/24 12:44 Cult,Urine: GRAM NEGATIVE RODS Cult,Urine: >100,000 CFU/ML Performed at [address] [address] ([phone] Health Community Hospital - NorthglennComment on above:Performed By: #### CXURN #### [facility] [address] [place] [address] RCP70pk [id number] Rate : 120 BPM Atrial Rate : 300 BPM QRS Duration : 138 ms Q-T Interval : 368 ms QTC Calculation(Bazett) : 520 ms Calculated R [place] : -80 degrees Calculated T [place] : 72 degrees ATRIAL FLUTTER WITH VARIABLE A-V BLOCK LEFT AXIS DEVIATION COMPLETE RIGHT BUNDLE BRANCH BLOCK ABNORMAL ECG Confirmed by LEANN PECK MD ([id number]) on 07/29/2024 4:51:22 PM NAME : CARL REINOSO PID : [id number] : 1955 Gender : Male Race : ORD : Procedure Date : Jul 29 2024 13:38:18 Edit Date : Jul 29 2024 16:51:23 Diagnosis: ATRIAL FLUTTER WITH VARIABLE A-V BLOCK LEFT AXIS DEVIATION COMPLETE RIGHT BUNDLE BRANCH BLOCK ABNORMAL ECG Confirmed by LEANN PECK MD ([id number]) on 07/29/2024 4:51:22 PM Test Reason : Location : 145 : [place] [address] Overread By : LEANN PECK MD Edited By : LEANN PECK MD Referred By : MEREDITH GRIJALVA Acquired by : ,NormalCherrington HospitalHigh Sensitivity Troponin Ton 41-47-0179Nwty Sensitivity Troponin T15 ng/LNormal0-19[facility] DistrictComment on above:Result Comment: High Sensitivity Troponin values cannot be compared with other Troponin methodologies.Performed By: #### TRP5 #### [facility] [address] [facility] [address] Ykfs Sensitivity Troponin T13 ng/LNormal0-19[facility] DistrictComment on above:Result Comment: High Sensitivity Troponin values cannot be compared with other Troponin methodologies.Performed By: #### PT #### [facility] [address] [place] [address] Lzgw Sensitivity Troponin T16 ng/LNormal0-19[facility] DistrictComment on above:Result Comment: High Sensitivity Troponin values cannot be compared with other Troponin methodologies.Performed By: #### TRP5 #### [facility] [address] [place] [address] Trdqjyw, Sepsison 37-27-8785Dsgbcvwwevirew and review of laboratory resultsAbnormalBon Secours [facility] HealthLactic Acid, Sepsis2.1 mmol/LHigh0.5 - 1.9 mmol/LBon Secours [facility] Secours Galion HospitalLactate, Sepsis2.1 mmol/LCritically high0.5-1.9[facility] DistrictComment on above: Performed By: #### PT #### [facility] [address] [place] [address] Fcukre Acid, Sepsis1.8 mmol/L0.5 - 1.9 mmol/LBon Secours St. [facility] Secours Galion HospitalLactate, Sepsis1.8 mmol/LNormal0.5-1.9[facility] DistrictComment on above:Performed By: #### TRP5 #### [facility] [address] [facility] [address] Lvarokkg 81-80-3393Wymaku [Catalytic activity/Vol]15 U/L12 - 95 U/L Bon SecTrumbull Memorial HospitalLipase [Catalytic activity/Vol]15 U/KTdwqos33-35GthhrSt. Vincent General Hospital DistrictComment on above:Performed By: #### LIPAS #### [facility] [address] [facility] [address] Woigynkvdmh 79-47-0219Desmuuxut [Mass/Vol]2.6 mg/dLHigh1.7 - 2.4 mg/dLBon Brown Memorial HospitalMagnesium [Mass/Vol]2.6 mg/dLCritically high1.7-2.4 [facility] DistrictComment on above:Performed By: #### MG #### [facility] [address] [facility] [address] Vkggjqvhopr Urinalysison 80-87-2442Rxkcbmle LM Ql (Urine sed)RARE AbnormalNegative /HPFBon Secours Galion HospitalEpithelial cells Auto (Urine sed) [#/Area]0-2[facility] HospitalHyaline casts Auto (Urine sed) [#/Area]0-1[facility] Gal[facility] HospitalRBC Auto (Urine sed) [#/Area]3-5AbnormalBon Secours Galion HospitalWBC Auto (Urine sed) [#/Area]>100HighBon Secours [facility] HealthNatriuretic peptide B (Bld) [Mass/Vol]on 37-63-2154O[facility] Memorial HospitalNo Panel Informationon 29-42-1758Lneksmrbqkcwsz and review of laboratory resultsAbnormal Carilion ClinicInterpretation and review of laboratory resultsAbnormalBon [facility] Portable XR Chest AP single viewon 03-63-0577Ndsesytiajag. I cannot exclude mild pulmonary vascular congestion There are no findings to suggest pneumonia. JOHANNY PRIETO RADIOLOGYEXAMINATION: ONE XRAY VIEW OF THE CHEST 07/29/2024 2:32 pm COMPARISON: None. HISTORY: ORDERING SYSTEM PROVIDED HISTORY: tachycardia TECHNOLOGIST PROVIDED HISTORY: Reason for exam:->tachycardia What reading provider will be dictating this exam?->CRC FINDINGS: The heart is enlarged. There is no mediastinal widening. There is no focal consolidation seen within the right or left lungs to suggest pneumonia. No gross pleural effusion is noted. Mild vascular congestion cannot be completely excluded. Vinicio Avilez MD - 07/29/2024 EXAMINATION: ONE XRAY VIEW OF THE CHEST 07/29/2024 2:32 pm COMPARISON: None. HISTORY: ORDERING SYSTEM PROVIDED HISTORY: tachycardia TECHNOLOGIST PROVIDED HISTORY: Reason for exam:->tachycardia What reading provider will be dictating this exam?->CRC FINDINGS: The heart is enlarged. There is no mediastinal widening. There is no focal consolidation seen within the right or left lungs to suggest pneumonia. No gross pleural effusion is noted. Mild vascular congestion cannot be completely excluded. IMPRESSION: Cardiomegaly. I cannot exclude mild pulmonary vascular congestion There are no findings to suggest pneumonia. [facility] Medical CenterRadiology Study observation (narrative)[facility] Francis Medical CenterPortable XR Chest AP single viewOrdered By: Vinicio Maldonado on 75-34-5311RmcBuchanan General Hospital Work Phone: Prothrombin Timeon 27-60-4483OAJ Coag (PPP) [Relative time]1.2 {INR}[facility] County Memorial HospitalComment on above:Performed By: #### PT #### [facility] [address] [place] [address] QJ Coag (PPP) [Time]15.8 sCritically high12.3-14.9St[facility] DistrictComment on above:Performed By: #### PT #### [facility] [address] [place] [address] Ctsretj-INRon 12-16-4279XDD Coag (PPP) [Relative time]1.2 {INR}Bon SecSagent Pharmaceuticals [facility] Memorial Hospitaly HealthInterpretation and review of laboratory resultsAbnormalBon Secours [facility] Memorial Hospitaly HealthPT Coag (PPP) [Time]15.8 sHighBon Secours Marietta Memorial Hospitaly HealthBon Secours [facility] Hospitaly HealthTroponinon 80-01-6468Zevihmsv, High Qjjdljsfdyf93 ng/L0 - 19 ng/LBon SecSagent Pharmaceuticals Marietta Memorial HospitalFluxome Community Memorial HospitalComment on above:High Sensitivity Troponin values cannot be compared with other Troponin methodologies. [facility] HealthTroponin Now and Q 1 Hour x 2on 89-88-6380Djufcknf, High Uxkpfztpgze09 ng/L0 - 19 ng/LBon Ka[facility] Delta Medical CenterFluxome Community Memorial HospitalComment on above:High Sensitivity Troponin values cannot be compared with other Troponin methodologies. [facility] YuMingley HealthTroponin, High Bgdzxkojdge01 ng/L0 - 19 ng/LBon SecSagent Pharmaceuticals Marietta Memorial HospitalFluxome Community Memorial HospitalComment on above:High Sensitivity Troponin values cannot be compared with other Troponin methodologies. [facility] HealthUrinalysis with Reflex to Cultureon 42-60-4659Puxqcdohi Ql (U)NegativeNegativeBon Secours Mercy HealthClarity (U)CLOUDYAbnormalClearBon Secours Mercy HealthColor (U)YellowStraw/YellowBon Secours Mercy HealthGlucose Test strip (U) [Mass/Vol]NegativeNegative mg/dLBon Secours [facility] Health Hemoglobin Ql (U)TRACEAbnormalNegativeBon Secours Mercy HealthKetones (U) [Mass/Vol]NegativeNegative mg/dLBon Secours Mercy HealthLeukocyte esterase Test strip Ql (U)LARGEAbnormalNegativeBon Secours Mercy HealthNitrite Ql (U)Positive AbnormalNegativeBon Secours Mercy HealthpH (U)6.0 [pH]5.0 - 9.0Bon [facility] Memorial HospitalProtein (U) [Mass/Vol]TRACEAbnormalNegative mg/dLBon SecTrumbull Memorial Hospital Specific gravity (U) [Rel density]1.0161.005 - 1.030[facility] Urine Reflex to CultureYesBon Secours St. Francis Medical CenterUrobilinogen Qn (U)0.2NINFBon SecTrumbull Memorial HospitalUrinalysis, reflex to cultureon 12-30-9519Tpqyj Reflexed to Memorial Hospital NorthComment on above:Performed By: #### TRP5 #### [facility] [address] [address] Vusimivez Ql (U)[facility] Comment on above:Performed By: #### TRP5 #### [facility] [address] [place] [address] Vdasevo (U)CLOUDYAbnormalClearMHaxtun Hospital DistrictComment on above:Performed By: #### TRP5 #### [facility] [address] [place] [address] Grugk (U)YellowNoalSmountain states health alliancew/YellSt. Vincent General Hospital DistrictComment on above:Performed By: #### TRP5 #### [facility] [address] [place] [address] Hfuxnat Ql (U)[facility] Comment on above:Performed By: #### TRP5 #### [facility] [address] [place] [address] Nszdrstrec Ql (U)TRACEAbnoPeak View Behavioral Health Comment on above:Performed By: #### TRP5 #### [facility] [address] [place] [address] Ihfdank Ql (U)NegativeStrong Memorial Hospital Comment on above:Performed By: #### TRP5 #### [facility] [address] [place] [address] Ipstrglfd esterase Test strip Ql (U)LARGEAbnormalNegativeSt. Vincent General Hospital DistrictComment on above:Performed By: #### TRP5 #### [facility] [address] [place] [address] Upzvnsu Ql (U)PositiveAbnormalNegativeSt. [facility] Comment on above:Performed By: #### TRP5 #### [facility] [address] [place] [address] sG (U)6.0 [pH]Normal5.0-9.0[facility] DistrictComment on above:Performed By: #### TRP5 #### [facility] [address] [place] [address] Bexykax Ql (U)TRACEAbnormalNegativeSt. [facility] Comment on above:Performed By: #### TRP5 #### [facility] [address] [place] [address] Dugpvjnd gravity (U) [Rel density]1.368Ubwpls4.005-1.03[facility] DistrictComment on above:Performed By: #### TRP5 #### [facility] [address] [place] [address] Czhfdhuqxybu Qn (U)0.2 {Adrianna'U}/dLNormal< 2.0St[facility] DistrictComment on above:Performed By: #### TRP5 #### [facility] [address] [place] [address] Hbslr Microscopicon 59-64-5859Kajxn BacteriaRAREAbnormalNegative St. [facility] Hospital DistrictComment on above:Performed By: #### TRP5 #### [facility] [address] [place] [address] Bwslz Epithelial Cells Fqts2-5Hppbjq6-5Kgqor[address] Comment on above:Performed By: #### TRP5 #### [facility] [address] [place] [address] Sygxe Hyaline Casts Isfj3-1Yzlpoi1-8Gmmft[address] Comment on above:Performed By: #### TRP5 #### [facility] [address] [place] [address] Ocviz RBC Pyvu2-9Iibhlaay5-8Fkv[address] [place], [place] [address]Comment on above:Performed By: #### TRP5 #### [facility] [address] [place] [address] Oheiz WBC Auto>100Critically high[address] Comment on above:Performed By: #### TRP5 #### [facility] [address] [place] [address] RF CHEST PORTABLEon 04-60-7853FJ CHEST PORTABLEEXAMINATION: ONE XRAY VIEW OF THE CHEST 07/29/2024 2:32 pm COMPARISON: None. HISTORY: ORDERING SYSTEM PROVIDED HISTORY: tachycardia TECHNOLOGIST PROVIDED HISTORY: Reason for exam:->tachycardia What reading provider will be dictating this exam?->CRC FINDINGS: The heart is enlarged. There is no mediastinal widening. There is no focal consolidation seen within the right or left lungs to suggest pneumonia. No gross pleural effusion is noted. Mild vascular congestion cannot be completely excluded. IMPRESSION: Cardiomegaly. I cannot exclude mild pulmonary vascular congestion There are no findings to suggest pneumonia. Interpreted by: Vinicio Maldonado MD Signed by: Vinicio Maldonado MD 07/29/24 Final resultNoSCL Health Community Hospital - NorthglennproBNPon 83-48-8706Zuondnqsbzm peptide B (Bld) [Mass/Vol]5037 pg/mLNSt. Francis HospitalComment on above:Result Comment: NT-pro BNP ACUTE Interpretive Guidelines: Age Cutoff for Heart Failure Less than 50 yrs 450 pg/mL 50-75 yrs 900 pg/mL Greater than 75 yrs 1800 pg/mL NT-pro BNP NON-ACUTE Interpretive Guidelines: Age Reference Range Less than 74 yrs 0-125 pg/mL Greater than 74 yrs 0-450 pg/mL Other possible causes of an elevated NT-proBNP include: cardiac ischemia, acute coronary syndrome, COPD, pneumonia, atrial fibrillation, pulmonary emboli, pulmonary hypertension, pericarditis Reference: Mauri Mesa et al. NT-proBNP testing for diagnosis and short-term prognosis in acute destabilized HF: an international pooled analysis of 1256 patients. Heart Journal. 2006;27:330-337Performed By: #### TRP5 #### [facility] [address] [place] [address] CJRTbj 38-09-2621CNOASnlatpeur (OPHTCR) CARL REINOSO ([id number]) 1955 M Date Time Provider Department 07/28/24 MEREDITH GRIJALVA [facility] During your visit today, we recorded the following information about you: Mabel Cesar 07/28/2024 9:17 AM Signed Patient's sister called and requested the Prednisolone acetate drop be sent to [facility] on [address], Cataract Surgery is 07-29-24 at [place] [facility] Meredith Ivan MD 07/29/2024 10:51 AM Signed Sent Allergies As of Date: 07/28/2024 (No Known Allergies) Date Reviewed: 07/21/2024 Reviewed by: Odette Amezcua APRN.PROGRAM RESEARCH SPECIALIST - Fully Assessed Reason for Visit: Catararact Surgery drop RX [Other] Order(s):prednisoLONE acetate (PRED FORTE) 1 % ophthalmic suspensionApply one drop in surgical eye four times a day for 2 weeks, then twice a day for 2 weeks, then discontinueDisp: 10 mLRfl: 1 Prescriptions as of 07/29/2024 - prednisoLONE acetate (PRED FORTE) 1 % ophthalmic suspension Apply one drop in surgical eye four times a day for 2 weeks, then twice a day for 2 weeks, then discontinue - pantoprazole DR (PROTONIX) 40 mg tablet Take 40 mg by mouth once daily. - busPIRone (BUSPAR) 5 mg tablet Take 5 mg by mouth two times a day. - LAMOTRIGINE ORAL Take 100 mg by mouth. - PRIMIDONE ORAL Take 50 mg by mouth daily at bedtime. - sertraline (ZOLOFT) 50 mg tablet Take 1 tablet by mouth once daily. - metoprolol tartrate, short acting, (LOPRESSOR) 50 mg tablet Take 0.5 tablets by mouth two times a day. - divalproex DR (DEPAKOTE) 250 mg EC tablet - ELIQUIS 5 mg tab(s) Take 5 mg by mouth. - levETIRAcetam (KEPPRA) 750 mg tablet Take 750 mg by mouth. - tamsulosin (FLOMAX) 0.4 mg Take 0.4 mg by mouth. - traZODone (DESYREL) 50 mg tablet Meds Comments as of 05/15/2024: Unsure of medications Problem List As Of Date 07/28/2024 Noted Resolved Seizures (HCC) [R56.9] 07/21/2024 History of ischemic stroke [Z86.73] 07/21/2024 Pulmonary embolism (HCC) [I26.99] 07/21/2024 Prescriptions ordered this encounter Disp Refills Start End PREDNISOLONE ACETATE 1 % EYE DROPS,S* 10 mL 1 07/29/2024 Sig: Apply one drop in surgical eye four times a day for 2 weeks, then twice a day for 2 weeks, then discontinue Medications Discontinued During This Encounter Prescriptions - prednisoLONE acetate (PRED FORTE) 1 % ophthalmic suspension (Discontinued) Apply one drop in surgical eye four times a day for 2 weeks, then twice a day for 2 weeks, then discontinue Encounter Status:Closed by MEREDITH GRIJALVA on 07/29/24NoSheltering Arms HospitalTORY PHYSICALon 57-19-7114LOCPBZB PHYSICALHNO ID: [id number] Author: ODETTE AMEZCUA APRN.PROGRAM RESEARCH SPECIALIST Service: ? Author Type: Nurse Practitioner Type: H&P Filed: 07/21/2024 17:18 Note Text: [facility] HISTORY AND PHYSICAL EXAMINATION SERVICE DATE: 07/21/2024 SERVICE TIME: 4:00 PM PRIMARY CARE PHYSICIAN: No primary care provider on file. 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 Brother reports last seizure 2 years ago. History of ischemic stroke Assessment: Per Neurology Office visit (Care Everywhere) : Head CT from 07/10/2019 revealed suspected developing small lacunar infarct right basal ganglia but likely beyond hyperacute phase. CT scan of the brain 12/2022 was non acute. It again showed bifrontal and temporal lobe encephalomalacia. No residual motor deficits, ambulates with a walker Pulmonary embolism (HCC) Assessment: Per neurology office visit (Care Everywhere) : Chest CTA in 12/2022 revealed large pulmonary embolus and mild right ventricular strain. Patient is on Eliquis. Follows with PCP. Currently denies any CP, SOB RA 07/21/24 1603 SpO2: 98% Louis Activity Status Index: METS: Walk indoors, such as around the house (1.75 METs) Take care of self; that is eating, dressing, bathing, using the toilet (2.75 METs) DASI Score: 4.5 Patient denies any chest pain or undue shortness of breath with the above physical activity. Patient is partially dependent. Clinical Frailty Scale: 4. Apparently vulnerable STOP-Bang Score: Has or is being treated for high blood pressure Patient over 50 years old Male patient Denies snoring loudly Denies feeling tired, fatigued, or sleepy during the daytime Has not been observed to stop breathing or choking/gasping during sleep BMI less than or equal to 35 kg/m2 Does not have a large neck STOP-Bang Score: 3 ANESTHESIA FINDINGS: Intubation History: No history of difficult intubation Significant Anesthesia Considerations: none Airway History: No history of difficult airway I - PHYSICAL EVALUATION AIRWAY Patient intubated: No. Mallampati: III. TM distance: >3 FB. Neck ROM: full ROM without neurological symptoms. Mouth opening: adequate. Short neck: no. Thick neck: no Peace present: yes (mustache/peace) Lip Bite Test: II Microretrognathia/Micronagthia/Recessed Chin: No DENTAL Dental findings: teeth intact. II - ANESTHESIA PLAN Anesthetic plan additional comments: *PACC/TCI - anesthesia choice. Beta Angelina Monitoring Plan Post Procedure Analgesic Plan Prepared for Surgery: optimally prepared for surgery. CONSULTS: Patient does not require consults for optimization at this time Planned Anesthetic: anesthesia choice The Following Tests/Procedures Have Been Initiated: Labs not indicated per PACC protocol, EKG not indicated per PACC protocol Cataract Protocol REASON FOR VISIT: Carl Reinoso is a 69 year old male who is scheduled for PHACOEMULSIFICATION CATARACT IMPLANT INTRAOCULAR LENS W/O ENDOSCOPIC CYCLOPHOTOCOAGULATION at the request of Dr. Meredith Saenz for consultation. My final recommendation will be communicated back to the requesting physician by way of shared medical record or letter. Subjective COVID-19 Immunization Status Overdue - Covid-19 Vaccine ( season) Never done No completion, postpone, frequency change, or communication history exists for this topic. CHIEF COMPLAINT: surgery HPI: Patient is a 69 year old male with bilateral cataracts that is recommended for surgery. Pt. currently denies any pain or is in any apparent distress. Hx TBI, mild MRDD; oriented to self , facility for place, 2025 . He is a resident at [facility]. His Brother and Ryormj-hu-wqn are present. They report Pt. is able to lay supine 30 minutes without any difficulty. REVIEW OF SYSTEMS: General: No weight loss, malaise or fevers. Neurological: (+) mild MRDD Positive for: seizures and strokes. Patient's stroke is without residual deficits. Negative for: dementia, Parkinson's disease, quadriplegia and TIA. Respiratory: Positive for: tobacco use (former cigar smoker). Negative for: asthma, current cough, bronchodilator used daily for the last 3 months, dyspnea, home oxygen, orthopnea, pneumonia within 6 weeks, URI < 2 weeks and obstructive sleep apnea. Cardiovascular: Positive for: anticoagulation therapy, atrial fibrillation (? Pt. and family poor historian, noted on EKG in CareEverywhere) and DVT/PE (Hx PE 2022, Eliquis) Negative for: AICD/PPM, angina, CAD, chest pain, CHF, hyperlipidemia, hypertension and murmur/valvular heart disease. GI: No history of GI symptoms or problems. No history of e (more content not included)...NormalGalion HospitalvelandIOL BIOMETRY W/ IOL CALC OU (BOTH EYES)on 98-58-2034Babgphgtt ClinicRadiology Study observation (narrative) Summa HealthIOL BIOMETRY W/ IOL CALC OU (BOTH EYES)Ordered By: Sierra Pimentel on 69-25-6552Iyzrzqdme ClinicBLOOD CULTURE 1on 37-69-2612RQJIA CULTURE 1 Blood Culture 1 NG5D NO GROWTH AT 5 DAYS.^NO GROWTH AT 5 DAYS. NOM[facility] HealthcareBLOOD CULTURE 2on 33-03-5531JBNFV CULTURE 2 Blood Culture 2 NG5D NO GROWTH AT 5 DAYS.^NO GROWTH AT 5 DAYS. [facility] HealthcareNo Panel Informationon 75-06-2669APUWPTEEPSXAL HealthcareTBH LAMOTRIGINEon 74-15-0443VJNZMOWQRVF (LAMICTAL), SERUM10.7 ug/mL2.0 - 20.0 ug/mL [facility] HealthcareComment on above:Detection Limit = 1.0 Performed at: [facility] Lab[address] [id number] Senior Copywriter: Avinash Funk MD, Phone: [phone] CLINMetropolitan Saint Louis Psychiatric CenterCC LEVETIRACETAMon 41-32-9780CLHWZYZSDYVYY (KEPPRA), S 25.3 ug/mL10.0 - 40.0 ug/mLNCURAHEALTH HOSPITAL [place] [facility] [place] HealthcareComment on above:Performed at: [facility] [id number] Senior Copywriter: Avinash Funk MD, Phone: [phone] [facility] CenterECG 12-LEADon 00-51-8759PdqWilson, [place] [address] Electrocardiograph Report Signed Patient: CARL REINOSO MR#: [id number] : 1955 Acct:[id number] Age/Sex: 68 / M ADM Date: 12/28/23 Loc: MS 232-[address]: Shaikh Salvatore Merino Ordering Physician: Martir Antonio Date of Service: 12/28/23 Procedure(s): ECG 12 lead Accession Number(s): [id number] cc: [facility] Test Date: 2023-12-28 Pat Name: CARL REINOSO Department: Room: - 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1955 Requested By: SANTO VIERA Order Number: [id number] Erica MD: ADDISON MONTANO Measurements Intervals [place] Rate: 137 P: -51646 NM: -[id number] QRS: 185 QRSD: 94 T: -37 QT: 328 QTc: 408 Interpretive Statements 89867 Atrial fibrillation with rapid ventricular response with aberrant conduction, or ventricular premature complexes 2440 Incomplete right bundle branch block 3634 Inferior myocardial infarction, age undetermined 5120 Possible right ventricular hypertrophy 8003 Consistent with pulmonary disease 9150 abnormal ECG No previous ECG available for comparison Electronically Signed On 12-29-2023 13:01:14 EDT by ADDISON MONTANO Dictated By: Addison Montano D.O. 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1955 Requested By: SANTO VIERA Order Number: [id number] Reading MD: ADDISON MONTANO Measurements Intervals [place] Rate: 137 P: -43046 NM: -[id number] QRS: 185 QRSD: 94 T: -37 QT: 328 QTc: 408 Interpretive Statements 56737 Atrial fibrillation with rapid ventricular response with aberrant conduction, or ventricular premature complexes 2440 Incomplete right bundle branch block 3634 Inferior myocardial infarction, age undetermined 5120 Possible right ventricular hypertrophy 8003 Consistent with pulmonary disease 9150 abnormal ECG No previous ECG available for comparison Electronically Signed On 12-29-2023 13:01:14 EDT by ADDISON MONTANO Dictated By: Addison Montano D.O. Signed By: 12/29/23 1301 DD/ 1820 TD/TT: Wet End Operator: YURI Fuentes 12-LEADOrdered By: Radiologist Radiology on 96-21-7017Z[facility] Work Phone: ECG 12-LEADon 12-00-0082Wflnwbrwm Study observation (narrative)YURI HealthcareCalcium [Mass/volume] in Serum or PlasmaOrdered By: Mayelin Valera on 75-55-6111Ydlxzpp [Mass/Vol]8.8 mg/dL8.6-10.3FPeoples HospitalCarbon dioxide, total [Moles/volume] in Serum or Plasma Ordered By: Mayelin Valera on 97-56-6866SC8 [Moles/Vol]27.3 mmol/L21.0-31.0 Cherrington HospitalChloride [Moles/volume] in Serum or Plasma Ordered By: Mayelin Valera on 92-94-8547Yfnuxhnp [Moles/Vol]105 mmol/L98-107 [facility] HospitalCreatinine [Mass/volume] in Serum or Plasma Ordered By: Mayelin Valera on 72-54-1704Aojjurfmav [Mass/Vol]1.27 mg/dL0.70-1.30 [facility] HospitalErythrocyte distribution width Auto (RBC) [Ratio]Ordered By: Mayelin Valera on 89-65-8096Yimnbcrrepv distribution width (RBC) [Ratio]13.6 %12.0-14.8[facility] HospitalGlucose [Mass/volume] in Serum or PlasmaOrdered By: Mayelin Valera on 21-44-3126Cykodlt [Mass/Vol]87 mg/rS59-200SekiircxcCherrington HospitalComment on above:ADA recommended reference rangeRandom Glucose Reference Range is dependent on time and content of last meal. Glucose of more than 200 mg/dL in a nonstressed, ambulatory subject supports the diagnosisof Diabetes Mellitus.Hematocrit Auto (Bld) [Volume fraction]Ordered By: Mayelin Valera on 00-76-8116Ecxxjlommk (Bld) [Volume fraction]31.3 %38.8-50.0[facility] HospitalHemoglobin [Mass/volume] in BloodOrdered By: Mayelin Valera on 00-04-7925Hrtjxfnsve (Bld) [Mass/Vol]10.8 g/dL13.0-17.0[facility] HospitalLeukocytes [#/volume] corrected for nucleated erythrocytes in Blood by Automated coun Ordered By: Mayelin Tiffanymick on 91-33-7512RGY corrected for nucl RBC Auto (Bld) [#/Vol]7.4 10*3/uL4.1-10.5FPeoples HospitalMCH Auto (RBC) [Entitic mass]Ordered By: Mayelin Tiffanymick on 04-68-1741ZTW (RBC) [Entitic mass] 31.2 pg27.5-35.2FPeoples HospitalMCHC Auto (RBC) [Mass/Vol] Ordered By: Mayelin Valera on 69-41-7159PDWJ (RBC) [Mass/Vol]34.5 g/dL32.5-35.6 [facility] HospitalMCV Auto (RBC) [Entitic vol]Ordered By: Mayelin Valera on 95-60-0864UTC (RBC) [Entitic vol]90.4 fL83.5-101[facility] HospitalNo Panel InformationOrdered By: Mayelin Valera on 01-08-2023 Estimated GFR (CKD-EPI)> 60.0 mL/MinCherrington HospitalPharmacy Creatinine Clearance (Chem51.89[facility] HospitalPlatelet mean volume Auto (Bld) [Entitic vol]Ordered By: Mayelin Tiffanymick on 41-78-6563Ebekqsmx mean volume (Bld) [Entitic vol]8.3 fL6.6-10.1FPeoples Hospital Platelets Auto (Bld) [#/Vol]Ordered By: Mayelin Valera on 09-97-5996Jrxzirsxc (Bld) [#/Vol]238 10*3/wA069-783KwhfxggzcCherrington HospitalPotassium [Moles/volume] in Serum or PlasmaOrdered By: Mayelin Valera on 01-08-2023 Potassium [Moles/Vol]4.0 mmol/L3.5-5.1FPeoples HospitalRBC Auto (Bld) [#/Vol]Ordered By: Mayelin Valera on 25-57-5932APR (Bld) [#/Vol]3.46 10*6/uL3.90-5.60[facility] Centererum or plasma anion gap determinationOrdered By: Mayelin Valera on 74-65-0681Tmfqy gap [Moles/Vol]9.7 mmol/L6.0-15.0[facility] Centerodium [Moles/volume] in Serum or PlasmaOrdered By: Mayelin Valera on 15-10-5867Huipek [Moles/Vol]138 mmol/L 136-145[facility] HospitalUrea nitrogen [Mass/volume] in Serum or PlasmaOrdered By: Mayelin Valera on 72-44-2677Amej nitrogen [Mass/Vol]12 mg/dL 7-25C[facility] HospitalActivated partial thromboplastin time (aPTT) in platelet poor plasma by coagulation aOrdered By: Misael Mathew on 31-73-0672fCVM Coag (PPP) [Time]27.1 s25.1-36.5FPeoples Hospital Alanine aminotransferase [Enzymatic activity/volume] in Serum or PlasmaOrdered By: Misael Mathew on 24-09-7154KHF [Catalytic activity/Vol]16 U/L7-52C[facility] HospitalAlbumin [Mass/volume] in Serum or Plasma by Bromocresol green (BCG) dye binding methoOrdered By: Misael Mathew on 08-50-1544Neuudur BCG dye [Mass/Vol]4.1 g/dL3.5-5.7FPeoples HospitalAlkaline phosphatase [Enzymatic activity/volume] in Serum or PlasmaOrdered By: Misael Mathew on 07-17-5798LJY [Catalytic activity/Vol]62 U/Y25-217ZesrajjljCherrington HospitalAmmonia [Moles/volume] in PlasmaOrdered By: Misael Mathew on 72-74-6174Qlzgvsc (P) [Moles/Vol]20 umol/E11-60OhwbdakinCherrington Hospital Amphetamine Screen Ql (U)Ordered By: Misael Mathew on 32-44-9193Flbaghczidsh Ql (U)NegativeNegativeCherrington HospitalAspartate aminotransferase [Enzymatic activity/volume] in Serum or PlasmaOrdered By: Misael Mathew on 13-09-3752TRY [Catalytic activity/Vol]22 U/I88-92GucsipidmCherrington HospitalAutomated erythrocytes count in urine sediment (number/area)Ordered By: Misael Mathew on 79-98-3281RXI Auto (Urine sed) [#/Area]1-2 [HPF]0-4FPeoples HospitalAutomated leukocytes count in urine sediment (number/area)Ordered By: Misael Mathew on 99-14-3762BAS Auto (Urine sed) [#/Area] 50-100 [HPF]0-4FPeoples HospitalBarbiturates [Presence] in Urine by Screen methodOrdered By: Misael Mathew on 53-78-1313Jpokwbycwhqj Screen Ql (U)NegativeNegAshtabula County Medical CenterBasophils Auto (Bld) [#/Vol] Ordered By: Misael Mathew on 20-85-8305Tpcidarev (Bld) [#/Vol]0.1 10*3/uL0.0-0.2 [facility] HospitalBasophils/100 WBC Auto (Bld)Ordered By: Misael Mathew on 37-54-7059Ueqtlwobx/100 WBC (Bld)0.6 %.[facility] HospitalBenzodiazepines Screen Ql (U)Ordered By: Misael Mathew on 01-04-2023 Benzodiazepines Ql (U)NegativeNegAshtabula County Medical Center Benzoylecgonine [Presence] in Urine by Screen methodOrdered By: Misael Mathew on 19-39-3854Aishhaxfzpwpcsl Screen Ql (U)NegativeNegAshtabula County Medical CenterBilirubin Test strip Ql (U)Ordered By: Misael Mathew on 01-04-2023 Bilirubin Ql (U)NegativeNegAshtabula County Medical CenterBilirubin.total [Mass/volume] in Serum or PlasmaOrdered By: Misael Mathew on 87-55-6402Pasvfzmre [Mass/Vol]1.0 mg/dL0.3-1.0[facility] HospitalBlood thiamine measurement (moles/volume)Ordered By: Mayelin Valera on 79-58-1670Eeqwhthz (Bld) [Moles/Vol]127.4 nmol/L66.5-200.0[facility] HospitalComment on above:This test was developed and its performance characteristicsdetermined by [facility]. It has not been cleared orapproved by the Food and Drug Administration.Performed at: [address] [id number] Director: Avinash Funk MD, Phone: [phone] [Mass/volume] in Serum or PlasmaOrdered By: Misael Mathew on 12-51-8387Qamwoly [Mass/Vol]9.0 mg/dL8.6-10.3FPeoples HospitalCannabinoids [Presence] in Urine by Screen methodOrdered By: Misael Mathew on 01-04-2023 Cannabinoids Screen Ql (U)NegativeNegativeCherrington Hospital Comment on above:These are unconfirmed results and should not be used for legal purposes. Drug Cut-Off Concentration: AMPH 1000 ng/mL THOM 200 ng/mL LOLIS 200 ng/mL COCM 300 ng/mL OP 300 ng/mL PCP 25 ng/mL THC 20 ng/mLCarbon dioxide, total [Moles/volume] in Serum or PlasmaOrdered By: Misael Mathew 70-84-3467FN1 [Moles/Vol]23.1 mmol/L21.0-31.0[facility] HospitalChloride [Moles/volume] in Serum or PlasmaOrdered By: Misael Mathew 65-52-5849Ipqwopsi [Moles/Vol]104 mmol/M10-766AlddxkjueCherrington HospitalColor Auto (U) Ordered By: Misael Mathew 44-50-1473Qeged (U)YellowYellowCherrington HospitalCreatine kinase [Enzymatic activity/volume] in Serum or Plasma Ordered By: Misael Mathew 00-79-0323VK [Catalytic activity/Vol]208 U/L30-223 [facility] HospitalCreatinine [Mass/volume] in Serum or Plasma Ordered By: Misael Mathew 16-69-7420Aqdweiwrtj [Mass/Vol]1.12 mg/dL0.70-1.30 [facility] HospitalEosinophils Auto (Bld) [#/Vol]Ordered By: Misael Mathew on 00-33-1201Xokllvtfeis (Bld) [#/Vol]0.0 10*3/uL0.0-0.45[facility] HospitalEosinophils/100 WBC Auto (Bld)Ordered By: Misael Mathew on 00-12-0988Qxdlncdmfwb/100 WBC (Bld)0.1 %.[facility] Erythrocyte distribution width Auto (RBC) [Ratio]Ordered By: Misael Mathew on 45-32-0733Hqhpzwnsbqw distribution width (RBC) [Ratio]13.5 %12.0-14.8[facility] HospitalEthanol [Mass/volume] in Serum or PlasmaOrdered By: Misael Mathew on 02-13-4399Wacnoir [Mass/Vol]mg/dLCherrington HospitalEthanol [Mass/Vol]TNPCherrington HospitalComment on above: Test not performedFolate [Mass/volume] in Serum or PlasmaOrdered By: Mayelin Valera on 93-96-3121Mtvxxp [Mass/Vol]20.6 ng/mL>5.9[facility] HospitalComment on above:Folate reference range: >5.9 ng/mlThe WHO technical consultation on folate and vitamin x15mtwnzxbsoaid has determined that folate concentrations lessthan 4 ng/ml are considered deficient.Globulin Calc (S) [Mass/Vol]Ordered By: Misael Mathew on 04-90-2774Czwoyykq (S) [Mass/Vol]2.1 g/dL [facility] HospitalGlucose [Mass/volume] in Serum or PlasmaOrdered By: Misael Mathew on 76-91-8996Bbhtxsk [Mass/Vol]116 mg/uF97-957BtmgaafkwCherrington HospitalComment on above:ADA recommended reference rangeRandom Glucose Reference Range is dependent on time and content of last meal. Glucose of more than 200 mg/dL in a nonstressed, ambulatory subject supports the diagnosisof Diabetes Mellitus.Glucose mean value [Mass/volume] in Blood Estimated from glycated hemoglobinOrdered By: Mayelin Valera on 01-04-2023 Average glucose Estimated from glycated hemoglobin (Bld) [Mass/Vol]111 mg/dL [facility] HospitalHematocrit Auto (Bld) [Volume fraction]Ordered By: Misael Mathew on 92-25-8672Qmskhunary (Bld) [Volume fraction]35.9 %38.8-50.0 [facility] HospitalHemoglobin A1c percentageOrdered By: Mayelin Valera on 24-15-6254DzZ5f (Bld) [Mass fraction]5.5 %4.3-5.6FPeoples HospitalComment on above:Increased risk for diabetes: 5.7 - 6.4diabetes: >6.4glycemic control for adults with diabetes: <7.0Hemoglobin [Mass/volume] in BloodOrdered By: Misael Mathew on 79-86-8502Ujhqkfjmsm (Bld) [Mass/Vol]12.1 g/dL13.0-17.0[facility] HospitalKetones Auto test strip (U) [Mass/Vol]Ordered By: Misael Mathew on 95-33-8100Qcqdiye (U) [Mass/Vol]Negative NegativeCherrington HospitalLaboratory - CoagulationOrdered By: Misael Mathew on 35-69-4364XK Coag (PPP) [Time]12.0 s9.0-12.9[facility] HospitalLaboratory - UrinalysisOrdered By: Misael aMthew on 01-04-2023 Hyaline casts LM Ql (Urine sed)0-8 [LPF]0-8[facility] Leukocytes [#/volume] corrected for nucleated erythrocytes in Blood by Automated counOrdered By: Misael Mathew on 77-83-0294DXA corrected for nucl RBC Auto (Bld) [#/Vol]10.2 10*3/uL4.1-10.5FPeoples HospitalLymphocytes Auto (Bld) [#/Vol]Ordered By: Misael Mathew on 82-21-6676Bubbhlmmxzh (Bld) [#/Vol]1.4 10*3/uL1.00-4.8[facility] HospitalLymphocytes/100 WBC Auto (Bld) Ordered By: Misael Mathew on 75-61-3269Vohtfoowwfo/100 WBC (Bld)13.6 %.[facility] HospitalMCH Auto (RBC) [Entitic mass]Ordered By: Misael Mathew on 51-53-9589CLY (RBC) [Entitic mass]30.8 pg27.5-35.2FPeoples HospitalMCHC Auto (RBC) [Mass/Vol]Ordered By: Misael Mathew on 24-06-0205IWLI (RBC) [Mass/Vol]33.8 g/dL32.5-35.6FPeoples HospitalMCV Auto (RBC) [Entitic vol]Ordered By: Misael Mathew on 10-73-6795FIZ (RBC) [Entitic vol]91.4 fL83.5-101[facility] HospitalMonocyte distribution width [Entitic volume] in Blood by AutomatedOrdered By: Misael Mathew on 48-46-1179Uckckhsf distribution width Auto (Bld) [Entitic vol]22.30 %0.00-20.00[facility] HospitalComment on above:For adults in ED, MDW > 20.0 may be associated with a higher risk of sepsis during the first 12 hrs of hospital admission Monocytes Auto (Bld) [#/Vol]Ordered By: Misael Mathew on 62-60-5109Cczlioktk (Bld) [#/Vol]0.9 10*3/uL0.0-0.8[facility] HospitalMonocytes/100 WBC Auto (Bld)Ordered By: Misael Mathew on 21-06-5234Foielwpcj/100 WBC (Bld)8.9 % .[facility] HospitalNeutrophils Auto (Bld) [#/Vol]Ordered By: Misael Mathew on 65-22-1028Rbddzzeyueb (Bld) [#/Vol]7.8 10*3/uL1.8-7.7FPeoples HospitalNeutrophils/100 WBC Auto (Bld)Ordered By: Misael Mathew on 63-71-6467Oxnygiosbjx/100 WBC (Bld)76.8 %.[facility] Nitrite Test strip Ql (U)Ordered By: Misael Mathew on 16-04-4170Xfavmmm Ql (U) NegativeNegativeCherrington HospitalNo Panel InformationOrdered By: Misael Mathew on 59-61-3302Yclbbromy GFR (CKD-EPI)> 60.0 mL/MinCherrington HospitalPharmacy Creatinine Clearance (Chem58.66[facility] HospitalNucleated erythrocytes [Presence] in Blood by Automated countOrdered By: Misael Mathew on 22-15-4058Uxsnwsxya RBC Auto Ql (Bld)0.1 /100{WBC}0-0.5FPeoples HospitalOpiates [Presence] in Urine by Screen methodOrdered By: Misael Mathew on 55-32-5151Mqlowwb Screen Ql (U)Negative NegativeCherrington HospitalPhencyclidine Screen Ql (U)Ordered By: Misael Mathew on 35-43-3047Gubemjmbocizx Ql (U)NegativeNegativeCherrington HospitalPlatelet mean volume Auto (Bld) [Entitic vol]Ordered By: Misael Mathew on 82-54-9638Pvndaupn mean volume (Bld) [Entitic vol]9.1 fL6.6-10.1 [facility] HospitalPlatelet poor plasma international normalized ratio (INR) by coagulation assay (relatOrdered By: Misael Mathew on 86-05-1048SEP Coag (PPP) [Relative time]1.0 {INR}[facility] HospitalComment on above:INR Therapeutic Range A) Pre- and Peroperative OAT started two weeks before surgery. NOT HIP SURGERY: 1.5 - 2.5 HIP SURGERY: 2 - 3B) Primary and secondary prevention of venous THROMBOSIS: 2 - 3C) Active venous thrombosis, pulmonary embolismand prevention of recurrent venous thrombosis: 2 - 3D) Preve ntion of arterial thromboembolismincluding patients with mechanical heart valves: 3 - 4.5Platelets Auto (Bld) [#/Vol]Ordered By: Misael Mathew on 24-78-1958Gmljkaajn (Bld) [#/Vol]242 10*3/yY961-877MwmlmpjrlCherrington HospitalPotassium [Moles/volume] in Serum or PlasmaOrdered By: Misael Mathew on 77-82-2037Xsrgcojxc [Moles/Vol]3.9 mmol/L3.5-5.1FPeoples HospitalComment on above:Hemolysis is present at a level that could interfere with the result.Protein Auto test strip (U) [Mass/Vol]Ordered By: Misael Mathew on 45-59-6994Exnaqxk (U) [Mass/Vol]NegativeNegativeCherrington HospitalProtein [Mass/volume] in Serum or PlasmaOrdered By: Misael Mathew on 29-39-6837Hvnpsbo [Mass/Vol]6.2 g/dL6.4-8.9[facility] HospitalRBC Auto (Bld) [#/Vol]Ordered By: Misael Mathew on 96-79-7068BWG (Bld) [#/Vol]3.93 10*6/uL3.90-5.60[facility] Centererum or plasma albumin/globulin mass ratioOrdered By: Misael Mathew on 01-04-2023 Albumin/Globulin [Mass ratio]2.0 {ratio}[facility] Centererum or plasma anion gap determinationOrdered By: Misael Mathew on 88-73-4905Dypyr gap [Moles/Vol]15.8 mmol/L6.0-15.0[facility] Centerodium [Moles/volume] in Serum or PlasmaOrdered By: Misael Mathew on 17-64-4775Qxkxnh [Moles/Vol]139 mmol/L381-571GdfrweqlnCoshocton Regional Medical Centerpecific gravity Auto test strip (U) [Rel density]Ordered By: Misael Mathew on 14-58-0822Oabbwgkl gravity (U) [Rel density]1.0061.001-1.030[facility] Squamous epithelial cells detection in urine sediment by light microscopyOrdered By: Misael Mathew on 12-81-7690Sgthgkgvay cells.squamous LM Ql (Urine sed)None seen [HPF]0-2FPeoples HospitalThyrotropin [Units/volume] in Serum or PlasmaOrdered By: Mayelin Valera on 98-54-4212CYO Qn2.52 m[IU]/L 0.45-5.33[facility] HospitalTroponin I.cardiac [Mass/volume] in Serum or Plasma by Detection limit <= 0.01 ng/Ordered By: Misael Mathew on 47-55-8960Vtvjqclh I.cardiac DL <= 0.01 ng/mL [Mass/Vol]12.3 pg/mL0.0-20.0 [facility] HospitalUrea nitrogen [Mass/volume] in Serum or Plasma Ordered By: Misael Mathew on 57-80-9531Xqzi nitrogen [Mass/Vol]11 mg/dL7-25 [facility] HospitalUrine bacteria detection by automated method Ordered By: Misael Mathew on 15-53-5481Hyzhspjp Auto Ql (U)1+None SeenCherrington HospitalUrine clarity by refractometry automatedOrdered By: Misael Mathew on 07-35-8904Qngcbbx Refractometry automated (U)CloudyClear [facility] HospitalUrine culture routineOrdered By: Misael Mathew on 18-00-0103Irbvmplt identified Cx Nom (U)Enterobacter cloacae complexCherrington HospitalUrine glucose measurement by automated test strip (mass/volume)Ordered By: Misael Mathew on 76-06-6590Dofvwhr Auto test strip (U) [Mass/Vol]Normal mg/dLNoSalem Regional Medical CenterUrine hemoglobin detection by automated test stripOrdered By: Misael Mathew on 01-04-2023 Hemoglobin Auto test strip Ql (U)TraceNegativeC[facility] Hospital Urine leukocyte esterase detection by automated test stripOrdered By: Misael Mathew on 80-83-6093Fkmsxmqek esterase Auto test strip Ql (U)4+NegativeCherrington HospitalUrobilinogen Auto test strip (U) [Mass/Vol]Ordered By: Misael Mathew on 68-57-4981Mpkzixpvgqnb (U) [Mass/Vol]Normal mg/dLNoSalem Regional Medical CenterVitamin B12 ser/plasOrdered By: Mayelin Valera on 98-86-9715Cjgzotvev (Vitamin B12) [Mass/Vol]319 pg/uI173-221KlpbktughCherrington HospitalWBC Auto (Bld) [#/Vol]Ordered By: Misael Mathew on 49-32-3438XSZ (Bld) [#/Vol]10.2 10*3/uL4.1-10.5FPeoples HospitalpH Auto test strip (U)Ordered By: Misael Mathew on 80-74-5915zJ (U)6.5 [pH]5.0-9.0[facility] HospitalCoding Summary.on 32-28-9972Oarkgj Summary.CODING DATE: 09/06/2018 FINAL [facility] STATUS: Home (Routine DC) PAYOR: Medicare APC DESCRIPTION 5372 Level 2 Urology and Related Services ADMIT DX: REASON FOR VISIT DX: N40.1 Benign prostatic hyperplasia with lower urinary tract symptoms FINAL DX: PRINCIPAL: N40.1 Benign prostatic hyperplasia with lower urinary tract symptoms SECONDARY: R33.9 Retention of urine, unspecified R35.0 Frequency of micturition R39.15 Urgency of urination N32.0 Bladder-neck obstruction 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 However, the narrative phrase printed from the coding software may appear abbreviated, or result in slightly different terminology. Coded By: Emily Auguste Date Saved: 09/06/2018 09:11 [facility] Recordon 87-38-0597Kkhq OR Intraoperative RecordIntraOp Document Type FTURO Summary Primary Physician: Jose Garcia Jr., MD Finalized Date/Time: 09/05/18 16:25:49 Pt. Name: CARL REINOSO/Sex: 1955 Male Med Rec #: [id number] Physician: Jose Garcia Jr., MD Financial #: [id number] Pt. Type: O Room/Bed: / Admit/Disch: 09/05/18 15:20:22 - Institution: Case Times FTURO Entry 1 Patient Times In Room 09/05/18 16:14:00 Out Room 09/05/18 16:20:00 Procedure Times Start 09/05/18 16:15:00 Stop 09/05/18 16:17:00 Anesthesia Times Last Modified By: Madiha CALDWELL, Antoinette FRITZ 09/05/18 16:24:04 Case Attendance FTURO Entry 1 Entry 2 Entry 3 Case Attendee Jose Younger MD, Jose CALDWELL, RN, Valerie GILLIAM, Sabrina Curry Role Performed Surgeon - Primary Drop Press Hand - Primary Scrub - Primary Time In 09/05/18 16:14:00 09/05/18 16:14:00 09/05/18 16:14:00 Time Out 09/05/18 16:20:00 09/05/18 16:20:00 09/05/18 16:20:00 Procedure CYSTOSCOPY LOCAL(.) CYSTOSCOPY LOCAL(.) CYSTOSCOPY LOCAL(.) Comments Last Modified By: Madiha CALDWELL, CATRINA, Madiha CALDWELL, RN, Madiha CALDWELL, RN, Antoinette 09/05/18 16:24:07 Antoinette 09/05/18 16:24:07 Antoinette 09/05/18 16:24:07 Surgical Procedures FTURO Entry 1 Procedure Description Procedure CYSTOSCOPY LOCAL Modifiers . Surgeon Description CYSTO Primary Procedure Yes Primary Surgeon Jose Garcia Jr., MD Start 09/05/18 16:15:00 Stop 09/05/18 16:17:00 Anesthesia Type Local Surgical Service Urology Wound Class 2 - Clean-Contaminated Last Modified By: Madiha CALDWELL, CATRINA, Antoinette 09/05/18 16:24:11 General Case Data FTURO Pre-Care Text: Classifies surgical wound, implements aseptic technique, initiates traffic control Entry 1 Case Information OR URO 1 FT Case Level None Wound Class 2 - Clean-Contaminated Specialty Urology Preop Diagnosis URINARY RETENTION , BPH Postop Same As Preop Yes Postop Diagnosis URINARY RETENTION , BPH Outcomes Met? Yes Last Modified By: Madiha CALDWELL, CATRINA, Antoinette 09/05/18 16:13:55 Post-Care Text: The patient is free from signs and symptoms of infection EU IntraOp - FTURO Pre-Care Text: Implements protective measures prior to operative or invasive procedure, confirms identity before the operative or invasive procedure, verifies operative procedure, surgical site, and laterality Entry 1 EU Perioperative Protocols Procedure(s) CYSTOSCOPY LOCAL(.) Patient Identity Birthday, ID Band Verified (select at Check, Patient least 2): Participation Consents / H and P HandP, Surgery/Procedure Operative Site N/A Verified Consent Marking Verified Surgical Site Yes Laterality Verified n/a Verified Procedure Verified Yes Correct Patient Yes Position Verified Availability Equipment, Medication Time Out Jose Younger MD, Jose Mckeon, Verified (If Participants Madiha CALDWELL, CATRINA, Applicable) Valerie Curry CST, Amber Time Out Complete 09/05/18 16:14:00 Allergies Reviewed? Yes Allergies Reviewed Self/Patient With Body Position Supine Prep Area penis Prep Agents Betadine Solution Skin. Condition Unable to Visualize Additional None Specimens Collected Vitals - EU Blood Pressure 117/77 Pulse 87 bpm Respirations 16 br/min SPO2 96 % EBL 0 IandO - EU Total Intake 0 mL Total Output 0 mL Outcomes Met? Yes Last Modified By: Madiha CALDWELL RN, Kelly 09/05/18 16:25:21 Post-Care Text: The patient is free from signs and symptoms of injury caused by extraneous objects Case Comments Finalized By: Madiha CALDWELL RN, Kelly Document Signatures Signed By: Madiha CALDWELL RN, Kelly 09/05/18 16:25[facility]Main OR Preoperative Recordon 10-60-7908Mtwl OR Preoperative RecordHolding Area Document Type FTURO Summary Primary Physician: Jose Garcia Jr., MD Finalized Date/Time: 09/05/18 16:26:13 Pt. Name: CARL REINOSO/Sex: 1955 Male Med Rec #: [id number] Physician: Jose Garcia Jr., MD Financial #: [id number] Pt. Type: O Room/Bed: / Admit/Disch: 09/05/18 15:20:22 - Institution: Case Times Holding FTURO Pre-Care Text: Verifies consent for planned procedure, identifies individual values and wishes concerning care, includes family members in perioperative teaching Secures patient's records' belongings, and valuables, maintains patient's dignity and privacy, and maintains patient confidentiality Entry 1 In Holding 09/05/18 15:38:00 Outcomes Met? Yes Last Modified By: Sabrina Colon 09/05/18 15:38:32 Post-Care Text: The patient participates in decisions affecting his or her perioperative plan of care The patient'sright to privacy is maintained Surgery Checklist FTURO Entry 1 Patient Birthday, ID Band Check Procedure Surgical Consent, With Identification: Verification: Patient Complaints of Pain: No Skin Integrity Intact, [place], Warm, & Dry Vitals - EU Blood Pressure 120/82 Pulse 81 bpm Respirations 16 br/min SPO2 RN Reviewed Yes Last Modified By: Madiha CALDWELL RN, Kelly 09/05/18 16:12:56 Finalized By: Madiha CALDWELL RN, Kelly Document Signatures Signed By: Sabrina Colon 09/05/18 15:42 Madiha CALDWELL RN, Kelly 09/05/18 16:13 Madiha CALDWELL RN, Kelly 09/05/18 16:26NormPrem[facility] Operative Reporton [id number] ReportPatient: CARL REINOSO Age: 63 years Sex: Male : 1955 Associated Diagnoses: None Author: Jose Garcia Jr., MD Procedure Operative Information Details: Date/ Time: 09/05/18 16:24:00. Pre-Op Dx: BPH w/ LUTS - N40.1, Urinary Retention - R33.9, Frequency - R35.0, Urgency - R39.15. Post-Op Dx: Same. Anesthesia Type: Local. Procedure: Local Cystoscopy. Complications: None. Risks/Benefits/Informed Consent: Surgical risks, benefits, details of the procedure have been explained to the patient, Full informed consent has been obtained. Intraoperative Information Prepped: Patient is brought back to the endoscopy suite, Patient is placed in supine position, Patient prepped in the usual fashion with Betadine solution, 2% Xylocaine Jelly is placed per Urethra, After waiting several minutes the Cystoscope is introduced. The Urethra is: Normal. The Prostatic Urethra is: Obstructed. The Bladder is: Abnormal, Trabeculated Severe (3), Large bladder diverticulum noted on the left side.. The ureteral orifices: Show efflux of clear urine. Devices Implanted: None. Removal: Cystoscope is removed, The patient tolerated it well, We'll discuss further treatment of his prostatic hyperplasia and bladder outlet obstruction in the office. He'll likely require surgicalmanagement. Outlet obstruction. The large bladder diverticulum was unremarkable but large.. Postoperative Information Discharge: Patient is discharged home with antibiotic coverage, Follow up arranged.[facility] HospitalComment on above:Result Comment: Electronically Signed By: Jose Garcia Jr., MD\.br\Date and Time Signed: 09/05/1915:32 EST Vital Signs Date TimeVital SignValuePerforming HxbrnlcubEavewztv97-30-4117 09:05-0400 Diastolic blood mm[Hg]Jacob Garcia SCREENER PERFUMER-PROGRAM RESEARCH SPECIALIST Work Phone: [facility]05-14-2025 09:05-0400 Systolic blood uekzhkxe475 mm[Hg]Jacob Garcia SCREENER PERFUMER-PROGRAM RESEARCH SPECIALIST Work Phone: [facility]05-14-2025 09:04-0400 Heart rate85 /minDcarmela Garcia SCREENER PERFUMER-PROGRAM RESEARCH SPECIALIST Work Phone: [facility]05-07-2025 11:08-0400 Body kunsdg622.3 cmPacc 1 Work Phone: [facility]05-07-2025 11:08-0400Body mass index (BMI) [Ratio]26.43 kg/m2Pacc 1 Work Phone: [facility]05-07-2025 11:08-0400Body temperature 73.99 [degF]Pacc 1 Work Phone: [facility]05-07-2025 11:08-0400Body bbbone68.19 kgPacc 1 Work Phone: [facility]05-07-2025 11:08-0400Diastolic blood fqsgomwy77 mm[Hg]Pacc 1 Work Phone: [facility]05-07-2025 11:08-0400Heart rate52 /min Pacc 1 Work Phone: [facility]05-07-2025 11:08-0400Respiratory rate 16 /minPacc 1 Work Phone: [facility]05-07-2025 11:08-3582GzU5% (BldA) [Mass fraction]97 %Pacc 1 Work Phone: [facility]05-07-2025 11:08-0400Systolic blood ihhzbvzi269 mm[Hg]Pacc 1 Work Phone: [facility]01-09-2025 20:42-0500Body temperature 97.81 [degF]Ned Maurer MD Work Phone: [facility]01-09-2025 20:42-0500Diastolic blood mm[Hg]Ned Maurer MD Work Phone: [facility]01-09-2025 20:42-0500Heart rate88 /Tomy Maurer MD Work Phone: [facility]01-09-2025 20:42-0500 Respiratory rate16 /Tomy Maurer MD Work Phone: [facility]01-09-2025 20:42-0278FfZ0% (BldA) [Mass fraction]95 %Ned Maurer MD Work Phone: [facility]01-09-2025 20:42-0500Systolic blood okeqdglx535 mm[Hg]Ned Maurer MD Work Phone: [facility]01-08-2025 10:11-0500Body usljdq361.7 cmNed Maurer MD Work Phone: [facility]01-08-2025 10:11-0500Body mass index (BMI) [Ratio]27.07 kg/p8AznaiNed Maurer MD Work Phone: [facility]01-08-2025 10:11-0500Body xselqt30.74 kgNed Maurer MD Work Phone: [facility]12-30-2024 16:31-0500Diastolic blood mm[Hg]Pacc 4 Work Phone: [facility]12-30-2024 16:31-0500Systolic blood rugmtvbr644 mm[Hg]Pacc 4 Work Phone: [facility]12-30-2024 16:03-0500Body lpjyio098.3 cmPacc 4 Work Phone: [phone]12-30-2024 16:03-0500Body mass index (BMI) [Ratio]25.84 kg/m2Pacc 4 Work Phone: [phone]12-30-2024 16:03-0500Body temperature 97.7 [degF]Pacc 4 Work Phone: [phone]12-30-2024 16:03-0500Body vhhvka27.38 kgPacc 4 Work Phone: [phone]12-30-2024 16:03-0500Heart rate49 /min Pacc 4 Work Phone: [phone]12-30-2024 16:03-0500Respiratory rate 17 /minMdcc 4 Work Phone: [phone]12-30-2024 16:03-6522TbD7% (BldA) [Mass fraction]98 %Pac 4 Work Phone: [phone]06-20-2023 15:10-0400Diastolic blood jcdtyyet06 mm[Hg]MD Sylvia Glover Work Phone: [facility]06-20-2023 15:10-0400 Heart rate82 /minMD Sylvia Glover Work Phone: [facility]06-20-2023 15:10-0400 Respiratory rate16 /minMD Sylvia Glover Work Phone: [facility]06-20-2023 15:10-0400 SaO2% (BldA) [Mass fraction]95 %MD Sylvia Glover Work Phone: [facility]06-20-2023 15:10-0400 Systolic blood ujpjxuha090 mm[Hg]MD Sylvia Glover Work Phone: [facility]06-20-2023 07:17-0400 Body jvjgicnjukz92.6 [degF]MD Sylvia Glover Work Phone: [phone] [place], [place] 6446106-20-2023 06:00-0400 Body yciulj39.7 kgMD ySlvia Glover Work Phone: [phone] [place], [place] 6446106-16-2023 11:58-0400 Body .88 cmMD Sylvia Glover Work Phone: [phone] [place], [place] 6446106-15-2023 17:06-0400 Body avrnhrygslp31.8 [degF]MD Sylvia Glover Work Phone: [phone] [place], [place] 6446106-15-2023 17:06-0400 Diastolic blood chyofyxp98 mm[Hg]MD Sylvia Glover Work Phone: [phone] [place], [place] 6446106-15-2023 17:06-0400 Heart zohh502 /minMD Sylvia Glover Work Phone: [phone] [place], [place] 6446106-15-2023 17:06-0400 Respiratory rate16 /minMD Sylvia Glover Work Phone: [phone] [place], [place] 6446106-15-2023 17:06-0400 SaO2% (BldA) [Mass fraction]96 %MD Sylvia Glover Work Phone: [phone] [place], [place] 6446106-15-2023 17:06-0400 Systolic blood begnieqs403 mm[Hg]MD Sylvia Glover Work Phone: [phone] [place], [place] 6446106-15-2023 13:23-0400 Body zcufcz565.88 cmMD Sylvia Glover Work Phone: [phone] [place], [place] 6446106-15-2023 13:23-0400 Body agsubr65.8 kgMD Sylvia Glover Work Phone: [phone] [place] [address] Encounters Encounter DateEncounter TypeCare ProviderFacilityStart: 05-14-2025 End: 45-16-1213tucoigztnkLAPN KHADEMIFacility:[facility]: 02-19-2025 End: 85-96-9713Xxhldv follow up visit related to original Jose Bradley MD Work Phone: OphthalmologyComment on above:Pseudophakia (Primary Dx)Start: 02-19-2025 End: 28-51-6266fkokvsxmmvXFTK KHADEMIFacility:[facility]: 02-05-2025 End: 60-29-3239Cjfismdio Zhao Bradley MD Work Phone: OphthalmologyComment on above:Medication ProblemStart: 02-05-2025 End: 37-41-0040Patugg follow up visit related to original Jose Bradley MD Work Phone: OphthalmologyComment on above:Pseudophakia (Primary Dx)Start: 02-05-2025 End: 90-41-4937owibfsfxdhZGKN KHADEMIFacility:[facility]: 02-04-2025 End: 89-65-3175Golwwimxs Zhao Bradley MD Work Phone: OphthalmologyComment on above:Patient Update; Medication ProblemStart: 02-04-2025 End: 59-66-9417Dufvpdh encounter procedureUltrasound Opht Main Work Phone: OphthalmologyComment on above:Nuclear sclerotic cataract of both eyes (Primary Dx)Start: 02-04-2025 End: 35-57-0145yfejteytchJXLB KHADEMIFacility:[facility]: 01-08-2025 End: 08-49-9546Ndamlp consultation new/estab patient 80 Yulia Bradley MD Work Phone: OphthalmologyComment on above:Total, mature senile cataract (Primary Dx)Start: 01-08-2025 End: 90-82-6286qyeporktvvKSEEBCJ PEREZ STRAZIOTAFacility:[facility]: 12-03-2024 End: 61-71-7152Xlnbtu consultation new/estab patient 60 Yuli Garcia SCREENER PERFUMER-PROGRAM RESEARCH SPECIALIST Work Phone: FirelandsComment on above:Permanent atrial fibrillation (Multi) (Primary Dx); Dilated cardiomyopathy (Multi); senior care (current) use of anticoagulants; Pre-operative clearance; Developmental delay; Wheelchair dependence; penitentiary residentStart: 12-03-2024 End: 82-38-9923Lmbjptiisylw Ronald Garcia SCREENER PERFUMER-PROGRAM RESEARCH SPECIALIST Work Phone: [facility] Work Phone: Start: 12-03-2024 End: 60-34-0990fzmfzumhycMQNQCFormerly [facility], [facility] AmbulatoryStart: 12-03-2024 End: 88-71-8738Swkjczybn for other preprocedural examinationMatteawan State Hospital for the [facility]inally Ins[facility] AmbulatoryStart: 12-01-2024 End: 87-75-1082Rjtilofgz encounterColleen Cristo GARDNER Work Phone: pre AnesthesiaComment on above:Pre-Op ExamCancel Cataract SurgeryStart: 11-26-2024 End: 97-81-8540Nkqszezvp to [facility] 1 Work Phone: Pre AnesthesiaStart: 11-26-2024 End: 19-32-5325Lyyrpemrpp consultationLifepoint Health Work Phone: Pre AnesthesiaComment on above:Pre-op evaluation (Primary Dx); Seizures (HCC); History of ischemic stroke; Pulmonary embolism, unspecified chronicity, unspecified pulmonary embolism type, unspecified whether acute cor pulmonale present (HCC); Atrial fibrillation with rapid ventricular response (HCC); Congestive heart failure, unspecified HF chronicity, unspecified heart failure type ([facility]); Mitral valve insufficiency, unspecified etiology; Suspected pulmonary hypertension; Gastroesophageal reflux disease without esophagitis; Limited mobility; Anxiety; Benign prostatic hyperplasia, unspecified whether lower urinary tract symptoms presentStart: 11-26-2024 End: 23-61-0564Doymcjohfpsuz examination doneLifepoint Health Work Phone: [facility] Work Phone: Start: 11-26-2024 End: 86-05-1786qdqeuozlssFSGZJBZPraveen SAENZFacility:[facility] HospitalStart: 18-16-5380Nwtfgxflv for other preprocedural examinationBRIAUniversity Hospitals Cleveland Medical CenterStart: 10-28-2024 End: 23-08-9184Gucuifktz encounterMeredith Saenz MD Work Phone: OphthalmologyComment on above:Patient QuestionStart: 10-23-2024 End: 45-83-5206lbyflrxfykCTLEWOCPraveen SAENZFacility:[facility] HospitalStart: 10-23-2024 End: 88-93-7268Avgrzsm encounter procedureMeredith Saenz MD Work Phone: OphthalmologyComment on above:Total, mature senile cataract (Primary Dx); Combined forms of age-related cataract of both eyesStart: 07-31-2024 End: 51-39-6490Zgknxbxma encounterMeredith Saenz MD Work Phone: OphthalmologyComment on above:AppointmentStart: 07-29-2024 End: 33-73-5729Odwuckurjg and management of Emilie Maurer MD Work Phone: MLOZ 1W TelemetryComment on above:Atrial fibrillation with RVR (HCC) (Primary Dx); Urinary tract infection with hematuria, site unspecified; ROYAL (acute kidney injury) (HCC); Acute congestive heart failure, unspecified heart failure type (HCC)Start: 07-28-2024 End: 40-49-2442Wmuobhujd encounterMeredith Saenz MD Work Phone: OphthalmologyComment on above:Catararact Surgery drop RXStart: 07-21-2024 End: 57-29-8417Jsexulkjv to [facility] 4 Work Phone: Pre AnesthesiaStart: 07-21-2024 End: 89-91-8284leokwheuicESHSGFAPraveen SAENZFacility:[facility] HospitalStart: 07-21-2024 End: 45-82-4546Srcybtvrsc consultationTrios Health 4 Work Phone: Pre AnesthesiaComment on above:Pre-op evaluation (Primary Dx); Seizures (HCC); History of ischemic stroke; Pulmonary embolism, unspecified chronicity, unspecified pulmonary embolism type, unspecified whether acute cor pulmonale present (HCC)Start: 07-21-2024 End: 21-67-2864Sjidqrrrulepn examination doneDoctors Hospital Work Phone: [facility] Work Phone: Start: 05-15-2024 End: 82-24-6708Vngzfnc encounter procedureClkristina Saenz MD Work Phone: OphthalmologyComment on above:Total, mature senile cataract (Primary Dx)Start: 05-13-2024 End: 51-60-3641Zeslcpnwx encounterClkristina Saenz MD Work Phone: OphthalmologyComment on above:Cataract Evaluation (Pre visit cat eval questions./)Start: 12-28-2023 End: 51-40-2615Kmigcnhdi Result EncounterMatttorsten GARDNER Work Phone: noms External Department UnsolicitedStart: 12-28-2023 End: 75-03-6344Lvcvadwsr Result EncounterMarona GARDNER Work Phone: noms External Department UnsolicitedStart: 12-04-2023 End: 34-17-6975ynmdbvytjcFVFROQI Owen Mendoza AvailableStart: 01-04-2023 End: 63-85-9118Msujentyct and management of inpatientMD Sylvia Glover Work Phone: [facility] [place] [facility] Work Phone: Procedures DateProcedureProcedure DetailPerforming ClinicianStart: 49-52-7325SVN BIOMETRY W/ IOL CALC OU (BOTH EYES)Kyle Bradley MD Work Phone: Start: 75-03-3340Jjuzlj ecg 1-3 leads w/interpretation & reportUnknown Provider ResultStart: 95-44-9510Faiwl metabolic 1999 panel - Serum or PlasmaJian Pollock MD Work Phone: Start: 32-50-0040Leckb count complete auto&auto difrntl wbcJian Pollock MD Work Phone: Start: 68-50-5790Jdabep ecg 1-3 leads w/interpretation & reportUnknown Provider ResultStart: 74-46-5632Jbaj tthrc r-t 2d w/wom-mode compl spec&colr dJordan Micheal Pollock MD Work Phone: Start: 67-29-4968Lkrcba ecg 1-3 leads w/interpretation & reportUnknown Provider ResultStart: 12-41-9480Msief metabolic 1999 panel - Serum or PlasmaJian Pollock MD Work Phone: Start: 30-39-9824Dccpb count complete auto&auto difrntl wbcJian Pollock MD Work Phone: Start: 76-49-2858Bvdpk of troponin quantitativeJomariah Noland Rima PA-C Work Phone: Start: 07-29-2024 End: 27-80-9358Gkhvwhu bacterial quanttative colony count urineUnknown Provider ResultStart: 10-60-2811Yrdkt dip stick/tablet rgnt auto w/o microscopyJordan Nuzhat Rima PA-C Work Phone: Start: 88-82-8934NUZJWYY, SEPSISJordan Nuzhat Rima PA-C Work Phone: Start: 07-29-2024 End: 62-38-4498Vlfpcntapuh peptideJordan Nuzhat Rima PA-C Work Phone: Start: 59-39-0242Gfextkf bacterial blood aerobic w/id isolatesJordsouth Noland Rima PA-C Work Phone: Start: 89-20-7318Zowwopnzpd exam chest single view Jian M Rima MONTEMAYOR Work Phone: Start: 88-46-8036Pvbphuqe identified in Blood by CultureJian Noland Rima MONTEMAYOR Work Phone: Start: 51-98-2967Iqedfkuoaosar metabolic panelJomariah Noland Rima MONTEMAYOR Work Phone: Start: 76-96-6115KBWNCLD, SEPSISJomariah Noland Rima SEYMOURC Work Phone: Start: 86-51-8212Mzr routine ecg w/least 12 lds i&r Tacos Maurer MD Work Phone: Start: 46-28-1232WBW BIOMETRY W/ IOL CALC OU (BOTH EYES)Meredith Saenz MD Work Phone: Start: 94-89-4963NMNIZ CULTURE 2Matttorsten GARDNER Work Phone: Start: 22-26-3414JXJYU CULTURE 1Matttorsten Antonio PA Work Phone: Start: 61-67-2096TGB LEVETIRACETAMMatttorsten GARDNER Work Phone: Start: 87-40-5492QNV LAMOTRIGINEMattheildefonso GARDNER Work Phone: Start: 99-29-7738TRZ 12-LEADMattheildefonso GARDNER Work Phone: Start: 05-87-1290Arqodrkt resonance angiography of head without contrast Sylvia Adalberto Work Phone: start: 57-68-6447Fetjv cultureMD Sylvia Glover Work Phone: start: 60-09-1736VO of head without contrast Sylvia Glover Work Phone: start: 64-93-1416Mgkca chest X-ray Sylvia Adalberto Work Phone: Plan of Treatment DateCare ActivityDetailAutrStart: 81-72-9992Ardkkgvaatm Syncytial Virus (RSV) or age 60 yrs+ (1 - 1-dose 75+ series)Respiratory Syncytial Virus (RSV) or age 60 yrs+ (1 - 1-dose 75+ series)[facility] Campusart: 94-01-6957CVK Vaccine (1 - 1-dose 75+ series)RSV Vaccine (1 - 1-dose 75+ series) [facility]: 36-59-4899Pnoatdyv ScreeningDiabetes ScreeningSumma Healthtart: 72-75-7947Vtseqlxz ScreeningDiabetes ScreeningSumma Health Start: 66-27-5129Mimdkgykuc measurementCreatinine LevelOhioHealth Grove City Methodist Hospital: 11-18-1335Qmzifsqve measurementPotassium LevelOhioHealth Grove City Methodist Hospital: 19-87-3309LyddcuberxmptzysBsgornfhxwfbjgXsihzimdus Hospitals [facility] ClevelandStart: 06-25-2025 End: 98-05-4890Lrwfusm encounter ukewxuzxo34/04/2025 3:20 PM EST Office Visit [address] [place] [address] Alicia Forbes MD [address] [facility] [place] [address] [facility]: 05-15-2025 End: 01-56-2157SPIVK ONLY - DIAGNOSTIC OU (BOTH EYES)ASCAN ONLY - DIAGNOSTIC OU (BOTH EYES) OPHT Imaging Routine Total, mature senile cataract Expected: 05/15/2025, Expires: 11/06/2025leveland ClinicComment on above:Expected: 05/15/2025, Expires: 11/06/2025Start: 87-26-1928Vuxdtyxbw vaccinationSumma Healthtart: 03-05-2025 End: 34-66-2479Qcriifc encounter vcpaluknv75/14/2025 1:15 PM EDT Office Visit OPHT Ophthalmology [address] [facility] [address] [place] [id number] Kyle Bradley MD [address] [place] [address] 1 month POST OPOphthalmologyComment on above:1 month POST OP Start: 02-12-2025 End: 86-33-0675Vedlecf encounter gszgqhqet05/24/2025 11:00 AM EDT Office Visit OPHT Ophthalmology [address] [place] [address] Kyle Bradley MD [address] [place] [address] 1 week POST OPOphthalmologyComment on above:1 week POST OP Start: 02-05-2025 End: 44-29-3438Rnrnbdd encounter jcyqhsdnm33/17/2025 11:00 AM EDT Office Visit OPHT Ophthalmology [address] [facility] [address] [place] [address] Kyle Bradley MD [address] [place] [address] 1 day POST OPOphthalmologyComment on above:1 day POST OP Start: 02-04-2025 End: 43-18-0750Xkf bmtry prtl coher intrfrmtry io lens pwr calOPHTHALMIC BIOMETRY BY PARTIAL COHERENCE INTERFEROMETRY W/INTRAOCULAR LENS POWER CALCULATION Total,mature senile cataract 02/04/2025 9:32 AM [facility]: 02-04-2025 End: 28-81-1552Yuvfvx ctrc rmvl insj io lens prosth w/o ecpPHACOEMULSIFICATION CATARACT IMPLANT INTRAOCULAR LENS W/O ENDOSCOPIC CYCLOPHOTOCOAGULATION Total, ma ture senile cataract 02/04/2025 9:32 AM [facility]Start: 01-19-2025 End: 95-71-2917Llgnfzu encounter /30/2025 2:15 PM EDT Office Visit OPHT Ophthalmology [address] [place] [address] Natasha Shelby, OD [address] [place] [address] 1 Month Post OPOphthalmologyComment on above:1 Month Post OP Start: 01-01-2025 End: 46-50-5663Gyeqodn encounter procedureOphthalmologyComment on above:1 Week Post OPStart: 12-24-2024 End: 68-58-0811Ogbhuon encounter procedureOphthalmologyComment on above:1 Day Post OPStart: 12-23-2024 End: 07-95-1831Kbgylhnob to same day surgery tsifrv4812/23/2024 12:50 PM EDT - 12/23/2024 1:20 PM EDT Surgery Ambulatory Surgery [address] [place] [address] Meredith Grijalva MD [address] [place] [address] PHACOEMULSIFICATION CATARACT IMPLANT INTRAOCULAR LENS W/O ENDOSCOPIC CYCLOPHOTOCOAGULATIONAmbulatory Surgery Comment on above:PHACOEMULSIFICATION CATARACT IMPLANT INTRAOCULAR LENS W/O ENDOSCOPIC CYCLOPHOTOCOAGULATIONStart: 12-23-2024 End: 42-76-3559Vbh bmtry prtl coher intrfrmtry io lens pwr calOPHTHALMIC BIOMETRY BY PARTIAL COHERENCE INTERFEROMETRY W/INTRAOCULAR LENS POWER CALCULATION Combined forms of age-related cataract of both eyes 12/23/2024 12:50 PM EDTMC [facility]ORAINStart: 94-18-4590Yfsdpkqxeg hospital visit by physician 12/23/2024 12:50 PM EDT Hospital Encounter Ambulatory Surgery [address] [place] [address] Meredith Grijalva MD [address] [place] [address] 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 [H25.813]Ambulatory SurgeryComment on above: Combined forms of age-related cataract of both eyes [H25.813]Start: 12-23-2024 End: 89-47-8824Kchilh ctrc rmvl insj io lens prosth w/o ecpPHACOEMULSIFICATION CATARACT IMPLANT INTRAOCULAR LENS W/O ENDOSCOPIC CYCLOPHOTOCOAGULATION Combined forms of age-related cataract of both eyes 12/23/2024 12:50 PM [facility] [place] Start: 12-17-2024 End: 36-62-4387Uczysly encounter procedureOphthalmologyComment on above:1 Day Post OPStart: 12-16-2024 End: 35-32-5361Equlxgtwd to same day surgery ptrucd2112/16/2024 7:50 AM EDT - 12/16/2024 8:20 AM EDT Surgery Ambulatory Surgery [address] [facility] [place] [address] Meredith Grijalva MD [address] [place] [address] PHACOEMULSIFICATION CATARACT IMPLANT INTRAOCULAR LENS W/O ENDOSCOPIC CYCLOPHOTOCOAGULATIONAmbulatory SurgeryComment on above:PHACOEMULSIFICATION CATARACT IMPLANT INTRAOCULAR LENS W/O ENDOSCOPIC CYCLOPHOTOCOAGULATIONStart: 12-16-2024 End: 51-28-5579Uqg bmtry prtl coher intrfrmtry io lens pwr calOPHTHALMIC BIOMETRY BY PARTIAL COHERENCE INTERFEROMETRY W/INTRAOCULAR LENS POWER CALCULATION Combined forms of age-related cataract of both eyes 12/16/2024 7:50 AM [facility] [place]Start: 54-93-1888Ermxmlmqzu hospital visit by physician 12/16/2024 7:50 AM EDT Hospital Encounter Ambulatory Surgery [address] [place] [place] [address] Meredith Grijalva MD [address] [place] [address] 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 [H25.813]Ambulatory SurgeryComment on above: Combined forms of age-related cataract of both eyes [H25.813]Start: 12-16-2024 End: 27-84-5254Ymxzpt ctrc rmvl insj io lens prosth w/o ecpPHACOEMULSIFICATION CATARACT IMPLANT INTRAOCULAR LENS W/O ENDOSCOPIC CYCLOPHOTOCOAGULATION Combined forms of age-related cataract of both eyes 12/16/2024 7:50 AM [facility] [place] Start: 11-26-2024 End: 30-97-7143Uakrscldf to same day surgery irfzgr6311/26/2024 11:00 AM EDT PAT Pre Anesthesia [address] [place] [address] PACC // Prior to cataract surgeryPre AnesthesiaComment on above:PACC // Prior to cataract surgeryStart: 11-25-2024 End: 43-04-2219Zyhchlf encounter cyypagzkq68/06/2025 8:15 AM EDT Office [place] [id number] Pre registration // Prior to cataract surgeryFinancial Clearance Phone ScreeningComment on above:Pre registration // Prior to cataract surgeryStart: 09-23-2024 End: 55-58-6283Kflmrij encounter /04/2025 2:00 PM EST Office Visit OPHT Ophthalmology [address] [place] [place] [address] Salbador Altamirano, OD [address] [place] [address] 1 Month Post OPOphthalmologyComment on above:1 Month Post OP Start: 08-26-2024 End: 83-52-0493Dpcthuh encounter gwuceznya70/04/2025 2:00 PM EST Office Visit OPHT Ophthalmology [address] [place] [place] [address] Salbador Altamirano, OD [address] [place] [address] 1 Week Post OPOphthalmologyComment on above:1 Week Post OP Start: 08-20-2024 End: 62-84-7583Lzvqwva encounter oriodjedf10/29/2025 8:00 AM EST Office Visit OPHT Ophthalmology [address] [facility] [address] [place] [address] Meredith Grijalva MD [address] [place] [address] 1 Day Post OPOphthalmologyComment on above:1 Day Post OP Start: 08-19-2024 End: 71-01-2873Swfylkkvf to same day surgery qvpjhu5008/19/2024 11:30 AM EST - 08/19/2024 12:00 PM EST Surgery Ambulatory Surgery [address] [place] [address] Meredith Grijalva MD [address] [place] [address] PHACOEMULSIFICATION CATARACT IMPLANT INTRAOCULAR LENS W/O ENDOSCOPIC CYCLOPHOTOCOAGULATIONAmbulatory SurgeryComment on above:PHACOEMULSIFICATION CATARACT IMPLANT INTRAOCULAR LENS W/O ENDOSCOPIC CYCLOPHOTOCOAGULATIONStart: 08-19-2024 End: 17-93-4774Vxj bmtry prtl coher intrfrmtry io lens pwr calOPHTHALMIC BIOMETRY BY PARTIAL COHERENCE INTERFEROMETRY W/INTRAOCULAR LENS POWER CALCULATION Combined forms of age-related cataract of both eyes 08/19/2024 11:30 AM [facility] [place]Start: 64-87-3241Bmyjeprwnf hospital visit by physician 08/19/2024 11:30 AM EST Hospital Encounter Ambulatory Surgery [address] [place] [address] Meredith Grijalva MD [address] [place] [address] 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: 07-29[facility]2024 End: 54-45-8235Uecxbiijf to same day surgery oirpvr8107/29/2024 11:50 AM EST - 07/29/2024 12:20 PM EST Surgery Ambulatory Surgery [address] [place] [address] Meredith Grijalva MD [address] [place] [address] PHACOEMULSIFICATION CATARACT IMPLANT INTRAOCULAR LENS W/O ENDOSCOPIC CYCLOPHOTOCOAGULATIONAmbulatory SurgeryComment on above:PHACOEMULSIFICATION CATARACT IMPLANT INTRAOCULAR LENS W/O ENDOSCOPIC CYCLOPHOTOCOAGULATIONStart: 07-29-2024 End: 38-05-4777Alr bmtry prtl coher intrfrmtry io lens pwr calOPHTHALMIC BIOMETRY BY PARTIAL COHERENCE INTERFEROMETRY W/INTRAOCULAR LENS POWER CALCULATION Combined forms of age-related cataract of both eyes 07/29/2024 11:50 AM [facility] [place]Start: 88-17-3519Bhjwqcmutw hospital visit by physician 07/29/2024 11:50 AM [facility] Encounter Ambulatory Surgery [address] [place] [address] Meredith Grijalva MD [address] [place] [address] 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 [H25.813]Ambulatory SurgeryComment on above: Combined forms of age-related cataract of both eyes [H25.813]Start: 07-29-2024 End: 66-74-6007Rnetop ctrc rmvl insj io lens prosth w/o ecpPHACOEMULSIFICATION CATARACT IMPLANT INTRAOCULAR LENS W/O ENDOSCOPIC CYCLOPHOTOCOAGULATION Combined forms of age-related cataract of both eyes 07/29/2024 11:50 AM [facility] I[facility] Start: 24-82-9536Fdijpby Directive DiscussionAdvance Directive Discussion [facility]: 05-[facility]24 End: 72-87-7293Fcdxheq encounter procedureOphthalmologyComment on above:NEW Cataract evaluationDrMiranda ZamarripaStart: 69-61-1869YPNFW-19 Vaccine ()COVID-19 Vaccine ( season)[facility]: 73-92-9984Bnqmo-19 Vaccine ( season)Covid-19 Vaccine ( season)[facility]: 74-80-7107Cjzbeebwe vaccinationInfluenza Vaccine (#1)[facility]: 73-16-0092Syvetvpbl vaccinationFlu vaccine (#1)[facility]art: 81-87-8719Kcjtpqy Directive DiscussionAdvance Directive DiscussionSumma Healthtart: 08-05-2023Medicare Annual Wellness (AWV)Medicare Annual Wellness (AWV)[facility]: 01-23-2900PmfxzjeyfCoshocton Regional Medical Centertart: 48-70-3247Laljutqwtirhbq of prophylactic treatment [facility]: 59-65-0634Sndixgxi to rehabilitation aide [facility]: 92-59-6266Rcbetgpt to Portable Sawmill Operator [facility]: 52-72-7609Ddtiqrlm to neurologist [facility]: 90-35-4455Kenxmopw admissionCoshocton Regional Medical Centertart: 01-28-8233Gyjcopxl identified in Urine by Culture Urine CultureCoshocton Regional Medical Centertart: 06-56-1934Ihilzkrjrqep Vaccine: 65+ Years (2 of 2 - PCV20 or PCV21)Pneumococcal Vaccine: 65+ Years (2 of 2 - PCV20 or PCV21)[facility]: 68-68-6101Hmnokivvmfkc 65+ years Vaccine (2 of 2 - PPSV23 or PCV20)Pneumococcal 65+ years Vaccine (2 of 2 - PPSV23 or PCV20)[facility]: 48-81-6999Mhrlzgcbu aortic aneurysm screeningBon [facility]ours De[facility]: 40-12-5373Hrhqvqugypfo Vaccine: 65+ (1 of 1 - PCV)Pneumococcal Vaccine: 65+ (1 of 1 - PCV)[facility] Start: 58-87-0528QGG High Risk: (Elderly (60+) or Population) (1 - Risk 60-74 years 1-dose series)RSV High Risk: (Elderly (60+) or Population) (1 - Risk 60-74 years 1-dose series)[facility]: 82-16-8846XPF Vaccine (1 - Risk 60-74 years 1-dose series)RSV Vaccine (1 - Risk 60-74 years 1-dose series)[facility]: 61-42-2799Glrdkuaj specific antigen measurementProstate Cancer Screening DiscussionSumma Healthtart: 06-01-2007Medicare Annual Wellness VisitMedicare Annual Wellness VisitSumma Healthtart: 93-89-5928Eonzhqxbdnsy Vaccine: 50+ (1 of 1 - PCV)Pneumococcal Vaccine: 50+ (1 of 1 - PCV)[facility]: 95-31-5888Bclzhjye vaccine (1 of 2)Shingles vaccine (1 of 2)[facility]: 54-08-7230Whrmxydx Vaccine (1 of 2)Shingrix Vaccine (1 of 2)[facility]: 81-61-8599Dalmmp Vaccines (1 of 2)Zoster Vaccines (1 of 2)[facility] Start: 46-59-7354Tcsvaxrj ScreeningDiabetes ScreeningSumma Healthtart: 12-47-6499Wpfbzxauq for malignant neoplasm of colonSumma Healthtart: 18-62-0407Yonxv panelLipidsBon [facility]: 37-86-2623Lxhyc panel Lipid ScreeningSumma Healthtart: 06-56-5741CFdE/Tdap/Td Vaccines (1 - Tdap) DTaP/Tdap/Td Vaccines (1 - Tdap)[facility]: 56-17-3404ODdY/Tdap/Td vaccine (1 - Tdap)DTaP/Tdap/Td vaccine (1 - Tdap)[facility]: 93-01-2612Pulwovepskno vaccinationPneumococcal Vaccine (1 of 2 - PCV)[facility]: 1974 Pneumococcal Vaccine: 50+ (1 of 2 - PCV)Pneumococcal Vaccine: 50+ (1 of 2 - PCV) [facility]: 95-46-3945Vnspo microalbumin profileDTaP,Tdap,Td Vaccine (1 - Tdap)[facility]: 66-64-6531Szweog PCP Team Chronic Disease Visit Annual PCP Team Chronic Disease VisitSumma Healthtart: 65-98-8943Gocoyxc ScreeningAnxiety ScreeningSumma Healthtart: 02-55-1889Knlslfydkw Screening Depression ScreeningSumma Healthtart: 96-81-1691Hfcdmpem mellitus screening Diabetes ScreeningOhioHealth [facility] City [facility]: 31-92-6712Xhmgzhikx C screeningSumma Healthtart: 64-99-2244Vknxygccwe ScreenDepression ScreenBon Secours DePaul [facility]: 69-97-2732Pbmsazoaf aortic aneurysm screening Abdominal Aortic Aneurysm ScreeningSumma Healthtart: 94-31-7768Pszyh panel Lipid PanelOhioHealth Grove City [facility]: 1955Medicare Annual Wellness VisitMedicare Annual Wellness Visit (AWV)[facility]: 55-92-7151Njrvnybao for malignant neoplasm of [facility] HospitalBacteria # 2 identified in Blood by CultureCulture, Blood 2 Microbiology STAT 07/29/2024 3:15 PM [facility]Hum[facility] HospitalBacteria identified in Blood by CultureCulture, Blood 1 Microbiology STAT 07/29/2024 2:41 PM [facility] Work Phone: bacteria identified in Urine by CultureCulture, Urine Microbiology STAT 07/29/2024 6:13 PM [facility] End: 55-21-7478Nyfqh Metabolic Panel w/ Reflex to MGBasic Metabolic Panel w/ Reflex to MG Lab Routine Tomorrow AM for 7 Occurrences starting 07/30/2024until 08/05/2024, 2 [facility] on above:Tomorrow AM for 7 Occurrences starting 07/30/2024 until 08/05/2024, 2 completedBSCAN OU (BOTH EYES)BSCAN OU (BOTH EYES) OPHT Imaging Routine Total, mature senile cataract 05/15/2024 1:16 PM [facility] End: 86-52-0632KVU W Auto Differential panel - BloodCBC with Auto Differential Lab Routine Tomorrow AM for 7 Occurrences starting 07/30/2024 until 08/05/2024, 2 [facility] on above:Tomorrow AM for 7 Occurrences starting 07/30/2024 until 08/05/2024, 2 completedCORNEAL TOPOGRAPHY PENTACAM OU (BOTH EYES)CORNEAL TOPOGRAPHY PENTACAM OU (BOTH EYES) OPHT Imaging Routine Total, mature senile cataract 05/15/2024 12:54 PM EDTCleveland ClinicECG 12 LeadECG 12 Lead ECG Routine Pre-operative clearance 12/03/2024 9:00 AM EDT [facility] Service Area Work Phone: OCT MACULA CIRRUS OU (BOTH EYES)OCT MACULA CIRRUS OU (BOTH EYES) OPHT Imaging Routine Total, mature senile cataract Ordered[facility]24[facility] Work Phone: Comment on above:Ordered: 05/15/2024Oph bmtry prtl coher intrfrmtry io lens pwr calOPHTHALMIC BIOMETRY BY PARTIAL COHERENCE INTERFEROMETRY W/INTRAOCULAR LENS POWER CALCULATION 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 ASC LORAINOph bmtry prtl coher intrfrmtry io lens pwr calOPHTHALMIC BIOMETRY BY PARTIAL COHERENCE INTERFEROMETRY W/INTRAOCULAR LENS POWER CALCULATION Total,mature senile cataractTRINITY HEALTH ANN ARBOR HOSPITALOxygen therapy [Minimum Data Set]Initiate Oxygen Therapy Protocol Respiratory Care Routine As Needed until discontinued starting 07/29/2024on [facility] HospitalComment on above:As Needed until discontinued starting 07/29/2024Patient [facility] Work Phone: Thiamine [Moles/volume] in [facility] CenterXcapsl [facility] cancer centerc rmvl insj io lens prosth w/o ecpPHACOEMULSIFICATION CATARACT IMPLANT INTRAOCULAR LENS W/O ENDOSCOPIC CYCLOPHOTOCOAGULATION Combined forms of age-related cataract of both eyesHAWARDEN REGIONAL HEALTHCARE LORAINXcapsl ctrc rmvl insj io lens prosth w/o ecpPHACOEMULSIFICATION CATARACT IMPLANT INTRAOCULAR LENS W/O ENDOSCOPIC CYCLOPHOTOCOAGULATION Total, mature senile cataractTRINITY HEALTH ANN ARBOR [facility]OSPITAL Immunizations Immunization DateImmunizationNotesCare HfafpzacUmluwklg57-23-3547zooihhwna virus vaccine, unspecified formulationMatteduardow Paco GARNDER Work Phone: [facility] Payers DatePayer CategoryPayerPolicy [id number] 2021Medicaid [id number] [id number] 2007Medicare [id number] [id number] 2..[id number] [id number] Care Center [id number] [id number] Social History DateTypeDetailFacilityTobacco smoking status NHISUnknown if ever smokedUc Medical Center CtrStart: 19-28-0564Dfa Assigned At BirthMercy Health Anderson Hospitaltart: 01-04-2023 End: 21-04-2397Ijngget smoking status NHISEx-smoker (finding)[facility]art: 01-09-2023 End: 70-72-2649Qeamnup smoking status NHISSmoker (finding)[facility] HospitalTobamemorial hospital [facility] smoking status NHISTobacco smoking consumption unknown [facility]: 35-30-5597Hxp assigned at birthNot on fileSumma Healthtart: 12-04-2023 End: 57-83-4731Atfdwz identityNot on fileBitPass Phone: Start: 19-23-7441Sgzxuby smoking status NHISNever smoked tobaccoSumma Healthtart: 12-04-2023 End: 64-62-1445Lxujcyp use and exposureSmokeless tobacco non-userSumma Health End: 07-29-3840Aqkvtak of tobacco useCigarette SmokerSumma HealthHistory of tobacco useCigar SmokerSumma Healthtart: 07-21-2024 End: 82-62-9079Hsgbuvwmo beverage intakeEx-drinker (finding)[facility] Start: 12-04-2023 End: 25-69-7534Wbtpgdd of Social functionPhoenix Memorial Hospital Whim Phone: Start: 03-80-8592Uwmxcyxi Score (1-100), lower number is lower tvvh42JyifrrkmcSumma HealthHistory of tobacco usePassive smokerPhoenix Memorial Hospital WingzHas the [employer] gas, oil, or water ScaleMP threatened to shut off services in your home in past 12MoNoBon Wingz Work Phone: How often to you have a drink containing alcohol?Never Bon Wingz(I/We) worried whether (my/our) food would run out before (I/we) got money to buy more.Never trueBon WingzStart: 37-93-9110Uzqndps CommentQuit daily cigars 3 years agoSum[facility]althtart: 11-23-2024 End: 40-50-4235Iqwtxzhj to SARS-CoV-2 (event)Not sureBluffton HospitalStart: 75-18-9987Dkmxww identityIdentifies as male gender (finding)[facility] Medical [facility] Procedure CodeEquipment CodeEquipment Original TextEquipment IdentifierDates [id number] [facility] - [id number]: [id number].185 [facility] [id number]_zjzZlsxg: 02-04-2025 Goals DatePatient GoalDesired Activity/State Functional Status XrstVqlbhikkmuJmgckjOvoxhzng12-78-1825Cjxyuaedln statusPatient is Progressing Toward BaselineFirelands Regional Medical Ctr Work Phone: Mental Status IiogIiadullwdqXdckvxSxpbkxty45-21-0326Sfyzjxhjc functionCognitive Status [facility] Work Phone: Clinical Notes 01-05-2023 to 05-14-2025 Note Date & ShxtLshxVfccpekq88-17-6858 NoteHNO ID: [id number] Author: KYLE BRADLEY MD Service: ? Author Type: Physician Type: Progress Notes Filed: 05/14/2025 10:31 Note Text: Referred on 01/08/[address] Zamarripa for cataracts Lasers and Surgeries: OD: Phaco 01/2025 OS: Phaco 01/2025 Ocular Medication Intol and Non-efficacy: Pulm HTN Blood Thinners: Eliquis Now on None Oral BB #Pseudophakia, both eyes s/p phaco OU 02/04/25 - Brunescent OU, general - Doing well, VA great OU - Off drops now - Incisions healed, no edema. DFE unremarkable. OCT unremarkable OU - Offered refraction, patient declines. Distance vision is good w/o glasses. Recommend OTC readers PRN. - 1 year with general/comprehensive/optometry - this can be closer to their home Live in [facility] follow-up easiest RTC: 1 year general/comprehensive ophthalmology/optometry - VA/IOP, Dilate If lost to follow up or returning after > 1 year, perform full workup including refraction I, Kyle Bradley MD, have confirmed and edited as necessary the relevant ophthalmic history, ROS, and the neuro exam findings as obtained by others. I have seen and examined Carl Reinoso. I have discussed the case and the management of this patient's care with the Resident, if applicable. I also have reviewed and agree with the assessment and plan as stated above and agree with all of its relevant components. Kyle Bradley MD [facility] InstituteC[facility]07-31-2025 Instructions* Patient Instructions* Kyle Bradley MD - 02/19/2025 8:15 AM EDT Medication Eye # times daily Difluprednate/Durezol (pink) BOTH 3x daily for 1 week then 2x daily for 1 week then 1x daily for 1 week Then stop Stop the moxifloxacin drops (hay cap). He may return to normal activities Please remember to use your drops as instructed every day. Please also remember to use your drops as instructed the day before and day of your next appointment. Contact our clinic if any issues or questions: [phone], documented in this encounterSumma Health07-31-2025 NoteHNO ID: [id number] Author: KYLE BRADLEY MD Service: ? Author Type: Physician Type: Progress Notes Filed: 02/19/2025 08:27 Note Text: s/p phaco OU 02/04/25 - Brunescent OU, general - Doing well, VA significantly improved (though likely somewhat limited by mentation). OD with still mild DMF and AC cell, OS no edema AND AC quiet. - Difficulty tolerating PF q2hrs, started Durezol 4x/day to lower drop burden - Taper Durezol 3-2-1-0 weekly OU - Stop Moxi OU - Return to activities - Written instructions provided - Return precautions Notes prior to Sx --- Referred on 01/08/[address] Zamarripa for cataracts Lasers and Surgeries: OD: None OS: None Ocular Medication Intol and Non-efficacy: Pulm HTN Blood Thinners: Eliquis Now on None Oral BB #Cataracts, both eyes - Previously scheduled with Dr. Zamarripa but due to multiple medical issues including seizure hx, recommended hospital setting for Sx rather than at [facility] 01/08/2025 - Current Visual Acuity Right Eye Distance SC 20/LP Left Eye Distance SC 20/HM PMH: Pulm HTN, afib, cardiomyopathy, seizures - VS OU AND interested in Sx - Will proceed with CEIOL OU (both eyes same day given multiple comordibities and need for general anesthesia) - Needs GENERAL anesthesia Lens type: monofocal, discussed residual astigmatism and presbyopia Aim: Standard OU Glaucoma procedure: none - Dilates 6 mm, prior head trauma, yes alpha angelina use, no zonular instability - LASIK: No - Diabetic: No - Allergy to Fluoroquinolone: No - Significant gutatta: No - Pseudoexfoliation: No - Trypan yes, Malyugin yes (7mm ring) - Complex: yes (healon 5, decompress lens, capsule hooks, 10-0 vicryl for main incisions) Prior B scan 04/[address]masses Last IOL calcs from 04/2024 but since > 6 months recommend repeating prior to Sx Patient here with family today. Extensive discussion regarding risks and benefits of procedure with them, especially given a complex case in both eyes. Consent signed in-person by patient's power of state attorney (brother Oliverio Reinoso: [phone]). Two forms of consent discussed, one includes possible retina surgery, both eyes in case patient has surgical complications given very complex case requiring vitrectomy with retina team. DOCUMENTATION FOR LEVEL 5 EANDM: The patient has a chronic illness (cataract) with that poses a threat to bodily function (vision) and will be having elective major surgery with identified risk factors, and the risk factors are as follows: eye with history of trauma comorbid cardiovascular disease and comorbid neuro-psych disease Consultation requested by Dr. Zamarripa for an opinion regarding cataracts. My final recommendations will be communicated back to the requesting physician by way of shared Medical record or letter to requesting physician. Live in [facility] follow-up easiest RTC: POM1 Phaco OU - VA/IOP, Mrx (if able), Dilate, OCT Macula OU (if able) If lost to follow up or returning after > 1 year, perform full workup including refraction I, Kyle Bradley MD, have confirmed and edited as necessary the relevant ophthalmic history, ROS, and the neuro exam findings as obtained by others. I have seen and examined Carl Reinoso. I have discussed the case and the management of this patient's care with the Resident, if applicable. I also have reviewed and agree with the assessment and plan as stated above and agree with all of its relevant components. Kyle Bradley MD [facility]07-31-2025 History of Present illness Narrative* Kyle Bradley MD - 02/19/2025 7:59 AM EDT s/p phaco OU 02/04/25 - Brunescent OU, general - Doing well, VA significantly improved (though likely somewhat limited by mentation). OD with still mild DMF and AC cell, OS no edema & AC quiet. - Difficulty tolerating PF q2hrs, started Durezol 4x/day to lower drop burden - Taper Durezol 3-2-1-0 weekly OU - Stop Moxi OU - Return to activities - Written instructions provided - Return precautions Notes prior to Sx --- Referred on 01/08/[address] Zamarripa for cataracts Lasers and Surgeries: OD: None OS: None Ocular Medication Intol and Non-efficacy: Pulm HTN Blood Thinners: Eliquis Now on None Oral BB #Cataracts, both eyes - Previously scheduled with Dr. Zamarripa but due to multiple medical issues including seizure hx, recommended hospital setting for Sx rather than at [facility] 01/08/2025 - Current Visual Acuity Right Eye Distance SC 20/LP Left Eye Distance SC 20/HM PMH: Pulm HTN, afib, cardiomyopathy, seizures - VS OU & interested in Sx - Will proceed with CEIOL OU (both eyes same day given multiple comordibities and need for general anesthesia) - Needs GENERAL anesthesia Lens type: monofocal, discussed residual astigmatism and presbyopia Aim: Standard OU Glaucoma procedure: none - Dilates 6 mm, prior head trauma, yes alpha angelina use, no zonular instability - LASIK: No - Diabetic: No - Allergy to Fluoroquinolone: No - Significant gutatta: No - Pseudoexfoliation: No - Trypan yes, Malyugin yes (7mm ring) - Complex: yes (healon 5, decompress lens, capsule hooks, 10-0 vicryl for main incisions) Prior B scan 04/[address]/masses Last IOL calcs from 04/2024 but since > 6 months recommend repeating prior to Sx Patient here with family today. Extensive discussion regarding risks and benefits of procedure withthem, especially given a complex case in both eyes. Consent signed in-person by patient's power of state attorney (brother Oliverio Reinoso: [phone]). Two forms of consent discussed, one includes possible retina surgery, both eyes in case patient has surgical complications given very complex case requiring vitrectomy with retina team. DOCUMENTATION FOR LEVEL 5 E&M: The patient has a chronic illness (cataract) with that poses a threat to bodily function (vision) and will be having elective major surgery with identified risk factors, and the risk factors are as follows: eye with history of trauma comorbid cardiovascular disease and comorbid neuro- psych disease Consultation requested by Dr. Zamarripa for an opinion regarding cataracts. My final recommendations will be communicated back to the requesting physician by way of shared Medical record or letter to requesting physician. Live in [facility] follow-up easiest RTC: POM1 Phaco OU - VA/IOP, Mrx (if able), Dilate, OCT Macula OU (if able) If lost to follow up or returning after > 1 year, perform full workup including refraction I, Kyle Bradley MD, have confirmed and edited as necessary the relevant ophthalmic history, ROS, and the neuro exam findings as obtained by others. I have seen and examined Carl Reinoso. I have discussed the case and the management of this patient's care with the Resident, if applicable. I also have reviewed and agree with the assessment and plan as stated above and agree with all ofits relevant components. Kyle Bradley MD [facility] [place] documented in this encounterSumma Health07-17-2025 Telephone encounter Note * Telephone Encounter - Kyle Bradley MD - 02/05/2025 12:45 PM EDT Spoke with pharmacist and explained the situation with the patient having difficulty getting their prednisolone drops as frequently as necessary, which is why we sent in the Durezol 4x/day instead toreplace it. Pharmacist stated the Durezol is covered at no additional cost and stated they will hold off giving more prednisolone at this time and only use Durezol. Kyle Bradley MD [facility]07-17-2025 Miscellaneous Notes* Telephone Encounter - Kyle Bradley MD - 02/05/2025 12:45 PM EDT Spoke with pharmacist and explained the situation with the patient having difficulty getting their prednisolone drops as frequently as necessary, which is why we sent in the Durezol 4x/day instead toreplace it. Pharmacist stated the Durezol is covered at no additional cost and stated they will hold off giving more prednisolone at this time and only use Durezol. Kyle Bradley MD [facility] [place] * Telephone Encounter - Sofía Mathew - 02/05/2025 11:42 AM EDT AM spoke w/[facility] & they would like to know if the patient should be using difluprednate & prednisolone, since both of these are steroids ??? Please call [facility] & advisetheir # [phone] Thanks documented in this encounterSumma Health07-17-2025 Telephone encounter Note * Telephone Encounter - Sofía Mathew - 02/05/2025 11:42 AM EDT AM spoke w/[facility] & they would like to know if the patient should be using difluprednate & prednisolone, since both of these are steroids ??? Please call [facility] & advisetheir # [phone] Thanks [facility]07-17-2025 Instructions* Patient Instructions* Kyle Bradley MD - 02/05/2025 11:38 AM EDT Medication Eye # times daily Moxifloxacin (hay cap) Both 4x daily (breakfast, lunch, dinner, bedtime) Difluprednate/Durezol (pink) If you are unable to obtain this drop or it is too expensive, then please use prednisolone (pink orwhite cap; shake well), about 8x/day for both eyes (as much as they are able to get in) BOTH 4x daily (breakfast, lunch, dinner, bedtime) Please remember to wait at least 2-3 minutes between different drops in the same eye Please remember to use your drops as instructed every day. Please also remember to use your drops as instructed the day before and day of your next appointment. All restrictions until your next eye visit: No heavy lifting, bending, straining. No water in the eye or swimming. No eye rubbing. Wear shield over the operative eye when sleeping at nighttime. Contact our clinic if any issues or questions: [phone], documented in this encounterSumma Health07-17-2025 NoteHNO ID: [id number] Author: KYLE BRADLEY MD Service: ? Author Type: Physician Type: Progress Notes Filed: 02/05/2025 11:42 Note Text: s/p phaco OU 02/04/25 - Brunescent OU, general - Doing well, VA improved but still with significant K edema as expected, IOP reasonable, AC mild cell, incisions sealed - Difficulty tolerating PF q2hrs, will try for Durezol 4x/day instead - Start Durezol 10/24. If unable to obtain Durezol, then use PF ~8x/day OU. - Start Moxi 10/24 - No L/B/S. No water in the eye or swimming. No eye rubbing or makeup. Shield at nighttime. - Return precautions Notes prior to Sx --- Referred on 01/08/[address] Zamarripa for cataracts Lasers and Surgeries: OD: None OS: None Ocular Medication Intol and Non-efficacy: Pulm HTN Blood Thinners: Eliquis Now on None Oral BB #Cataracts, both eyes - Previously scheduled with Dr. Zamarripa but due to multiple medical issues including seizure hx, recommended hospital setting for Sx rather than at [facility] 01/08/2025 - Current Visual Acuity Right Eye Distance SC 20/LP Left Eye Distance SC 20/HM PMH: Pulm HTN, afib, cardiomyopathy, seizures - VS OU AND interested in Sx - Will proceed with CEIOL OU (both eyes same day given multiple comordibities and need for general anesthesia) - Needs GENERAL anesthesia Lens type: monofocal, discussed residual astigmatism and presbyopia Aim: Standard OU Glaucoma procedure: none - Dilates 6 mm, prior head trauma, yes alpha angelina use, no zonular instability - LASIK: No - Diabetic: No - Allergy to Fluoroquinolone: No - Significant gutatta: No - Pseudoexfoliation: No - Trypan yes, Malyugin yes (7mm ring) - Complex: yes (healon 5, decompress lens, capsule hooks, 10-0 vicryl for main incisions) Prior B scan 04/[address]/masses Last IOL calcs from 04/2024 but since > 6 months recommend repeating prior to Sx Patient here with family today. Extensive discussion regarding risks and benefits of procedure with them, especially given a complex case in both eyes. Consent signed in-person by patient's power of state attorney (brother Oliverio Reinoso: [phone]). Two forms of consent discussed, one includes possible retina surgery, both eyes in case patient has surgical complications given very complex case requiring vitrectomy with retina team. DOCUMENTATION FOR LEVEL 5 EANDM: The patient has a chronic illness (cataract) with that poses a threat to bodily function (vision) and will be having elective major surgery with identified risk factors, and the risk factors are as follows: eye with history of trauma comorbid cardiovascular disease and comorbid neuro-psych disease Consultation requested by Dr. Zamarripa for an opinion regarding cataracts. My final recommendations will be communicated back to the requesting physician by way of shared Medical record or letter to requesting physician. Live in [facility] follow-up easiest RTC: POW1 Phaco OU - VA/IOP OU If lost to follow up or returning after > 1 year, perform full workup including refraction I, Kyle Bradley MD, have confirmed and edited as necessary the relevant ophthalmic history, ROS, and the neuro exam findings as obtained by others. I have seen and examined Carl Brown Arleth. I have discussed the case and the management of this patient's care with the Resident, if applicable. I also have reviewed and agree with the assessment and plan as stated above and agree with all of its relevant components. Kyle Bradley MD [facility]07-17-2025 History of Present illness Narrative* Kyle Bradley MD - 02/05/2025 11:35 AM EDT s/p phaco OU 02/04/25 - Brunescent OU, general - Doing well, VA improved but still with significant K edema as expected, IOP reasonable, AC mild cell, incisions sealed - Difficulty tolerating PF q2hrs, will try for Durezol 4x/day instead - Start Durezol 10/24. If unable to obtain Durezol, then use PF ~8x/day OU. - Start Moxi 10/24 - No L/B/S. No water in the eye or swimming. No eye rubbing or makeup. Shield at nighttime. - Return precautions Notes prior to Sx --- Referred on 01/08/[address] Zamarripa for cataracts Lasers and Surgeries: OD: None OS: None Ocular Medication Intol and Non-efficacy: Pulm HTN Blood Thinners: Eliquis Now on None Oral BB #Cataracts, both eyes - Previously scheduled with Dr. Zamarripa but due to multiple medical issues including seizure hx, recommended hospital setting for Sx rather than at [facility] 01/08/2025 - Current Visual Acuity Right Eye Distance SC 20/LP Left Eye Distance SC 20/HM PMH: Pulm HTN, afib, cardiomyopathy, seizures - VS OU & interested in Sx - Will proceed with CEIOL OU (both eyes same day given multiple comordibities and need for general anesthesia) - Needs GENERAL anesthesia Lens type: monofocal, discussed residual astigmatism and presbyopia Aim: Standard OU Glaucoma procedure: none - Dilates 6 mm, prior head trauma, yes alpha angelina use, no zonular instability - LASIK: No - Diabetic: No - Allergy to Fluoroquinolone: No - Significant gutatta: No - Pseudoexfoliation: No - Trypan yes, Malyugin yes (7mm ring) - Complex: yes (healon 5, decompress lens, capsule hooks, 10-0 vicryl for main incisions) Prior B scan 04/[address]/masses Last IOL calcs from 04/2024 but since > 6 months recommend repeating prior to Sx Patient here with family today. Extensive discussion regarding risks and benefits of procedure withthem, especially given a complex case in both eyes. Consent signed in-person by patient's power of state attorney (brother Oliverio Reinoso: [phone]). Two forms of consent discussed, one includes possible retina surgery, both eyes in case patient has surgical complications given very complex case requiring vitrectomy with retina team. DOCUMENTATION FOR LEVEL 5 E&M: The patient has a chronic illness (cataract) with that poses a threat to bodily function (vision) and will be having elective major surgery with identified risk factors, and the risk factors are as follows: eye with history of trauma comorbid cardiovascular disease and comorbid neuro- psych disease Consultation requested by Dr. Zamarripa for an opinion regarding cataracts. My final recommendations will be communicated back to the requesting physician by way of shared Medical record or letter to requesting physician. [facility]: POW1 Phaco OU - VA/IOP OU If lost to follow up or returning after > 1 year, perform full workup including refraction I, Kyle Bradley MD, have confirmed and edited as necessary the relevant ophthalmic history, ROS, and the neuro exam findings as obtained by others. I have seen and examined Carl Reinoso. I have discussed the case and the management of this patient's care with the Resident, if applicable. I also have reviewed and agree with the assessment and plan as stated above and agree with all ofits relevant components. Kyle Bradley MD [facility] [place] documented in this encounterSumma Health2025 Telephone encounter Note * Telephone Encounter - Rupal Davis - 02/04/2025 12:45 PM EDT Pt pharmacy called and stated the Vigamox RX was given at 4 drops daily. Pharmacist shared that only 3 drops are to be used daily. I spoke with Anthony and she suggested to keep the RX at the given dosage. That is the information relayed to the pharmacy. The additional information given to the pharmacy was that if the dosage is to be adjusted we would reach out to the patient personally, either Anthony Bright or myself to make the adjustments. After review by Dr Naylor. Thank you. [facility]2025 Miscellaneous Notes* Telephone Encounter - Rupal Davis - 02/04/2025 12:45 PM EDT Pt pharmacy called and stated the Vigamox RX was given at 4 drops daily. Pharmacist shared that only 3 drops are to be used daily. I spoke with Anthony and she suggested to keep the RX at the given dosage. That is the information relayed to the pharmacy. The additional information given to the pharmacy was that if the dosage is to be adjusted we would reach out to the patient personally, either Anthony Bright or myself to make the adjustments. After review by Dr Naylor. Thank you. documented in this encounterSumma Health2025 NoteHNO ID: [id number] Author: LUISA GARCIA APRN.POLISHER HAND Service: ? Author Type: Nurse Assistant Coach Type: Anesthesia Procedure Notes Filed: 02/04/2025 10:29 Note Text: ANESTHESIOLOGY PROCEDURE NOTE Airway General Information Procedure Start Time/Medication Administration: 02/04/2025 9:48 AM Procedure End Time: 02/04/2025 9:55 AM Patient location during procedure: OR Patient identity confirmed: family, care engineer steam and arm band Staffing Performed by: anesthesiologist Indications and Patient Condition Indications for airway management: anesthesia Preoxygenated: yes anesthesia circuit Patient position: sniffing Method: asleep Final Airway Details Final airway type: supraglottic airway Number of attempts at approach: 2 Final Supraglottic Airway: i-gel Size 4 Seal Adequate: yes Airway not difficult Comments Intially intubate with ambu auraonce 4, inadequate TV, changed to igel 4 SIGNATURE: Luisa Garica APRN.POLISHER HAND PATIENT NAME: Carl Reinoso DATE: February 04, 2025 TIME: 10:27 AM [facility]: [id number] NoteDate of Procedure 02/04/2025. Shoe Repairer Apprentice Information ANTONIO Ervin 02/04/2025 9:14 AM Aim plano OU. AEL OU obtained by immersion biometry. Historical questions prior to cataract surgery measurements: Has the patient ever had surgery in their eyes before that will directly influence the IOL calculation (including but not limited to a scleral buckle or corneal transplant)? No Has the patient ever had a refractive procedure performed on their eyes (including but not limited to Lasik, PRK, RK, AK)? No Has the patient worn contact lenses in the last 3 months? No . Notes Measurements only - see Procedure Record under Scanned Documents for signed results.[id number] Instructions* Patient Instructions* Kyle Bradley MD - 01/08/2025 1:49 PM EDT Cataract Surgery I have requested that you be scheduled for eye surgery. My certified ophthalmic surgical assistant will call you to coordinate. What is a cataract? A cataract is a clouding of the lens in the eye that affects vision. The lens is a clear part of the eye that helps to focus light, or an image, on the retina at the back of the eye. The lens must be clear for the retina to receive a sharp image. If the lens is cloudy from a cataract, the image you see will be blurred. Most cataracts are related to aging. Cataracts are very common in older people. By age 80, more than half of all Americans either have a cataract or have had cataract surgery. Cataracts also can develop in people who have other health problems, such as diabetes or alcoholism. Cataracts are sometimes linked to steroid use and to long-term exposure to sunlight. Cataracts can develop after an eye injury, sometimes years later. Some babies are born with cataracts or develop them in childhood. A cataract can occur in either or both eyes. It cannot spread from one eye to the other. How are cataracts diagnosed? Cataracts are detected by a thorough eye exam that includes: Visual acuity test: This eye chart test measures how well you see at various distances. Dilated eye exam: Drops are placed in your eyes to widen, or dilate, the pupils. Your operations support professionals uses a special magnifying lens to examine your retina and optic nerve for signs of damage and other eye problems. After the exam, your close-up vision may remain blurred for several hours. Tonometry: An instrument measures the pressure inside the eye. Numbing drops may be applied to your eye for this test. How are cataracts treated? The symptoms of early cataracts may be improved with new eyeglasses, brighter lighting, anti-glare sunglasses, or magnifying lenses. If these measures do not help, then surgery may be the only effective treatment. Surgery involves removing the cloudy lens and replacing it with an artificial lens. A cataract needs to be removed only when vision loss interferes with your everyday activities, such as driving, reading, or watching TV. You and your operations support professionals can make this decision together. Once you understand the benefits and risks of surgery, you can make an informed decision about whether cataract surgery is right for you. In most cases, delaying cataract surgery will not cause long-term damage to your eye or make the surgery more difficult. You do not have to daniels into surgery. Sometimes a cataract should be removed even if it does not cause problems with your vision. For example, a cataract should be removed if it prevents examination or treatment of another eye problem, such as age-related macular degeneration or diabetic retinopathy. If your operations support professionals finds a cataract, you may not need cataract surgery for several years. In fact, you might never need cataract surgery. By having your vision tested regularly, you and your operations support professionals can discuss if and when you might need treatment. If you have cataracts in both eyes that require surgery, the surgery will be performed on each eye at separate times, usually four to eight weeks apart. What is cataract surgery? In cataract surgery a small incision is made in the eye and the cloudy lens is removed. After the natural lens has been removed, it often is replaced by an artificial lens, called an intraocular lens (IOL). An IOL is a clear, plastic lens that requires no care and becomes a permanent part of your eye. Light is focused clearly by the IOL onto the retina, improving your vision. You will not feel or see the new lens. Some people cannot have an IOL. They may have another eye disease or have problems during surgery. For these patients, a soft contact lens, or glasses that provide high magnification, may be suggested. Where is it done? How long does it take? This surgery is usually done as an outpatient. The surgery itself may last about thirty minutes. This time does not include the waiting time before surgery or the time in the recovery area afterwards. On the day of surgery you will go to the surgical suite on the 3rd floor of the [facility] (through the Main Entrance off [address]). What should I do before surgery? Do not eat or drink anything after midnight the night before surgery. If you take medicine for your heart, blood pressure, or asthma, you may take your medicine with a sip of water the morning of your surgery. If you have diabetes, please check with your doctor about whether to take your medicine before surgery. Bring your medicine that you are taking with you the morning of surgery. Your doctor may have you use some prescribed eye drops for several days before the surgery. Follow his or her instructions on how to use them. Lab tests may be done before your surgery. Your doctor will order these tests if needed. Wash your hair and face the morning of the surgery. You can brush your teeth that morning, but do not swallow any water. Do not wear makeup, jewelry, nail belgian, lotions, or perfumes. Wear comfortable clothes. You must have a responsible adult to drive you home after your surgery. What should I expect the day of surgery? After you check in, you may be taken to a room or the pre-anesthesia unit. This area is where the nurse gets you ready for surgery. You will change into a hospital gown for your surgery. A nurse may write down your medical history. Your nurse will start an IV in your arm (a needle in your vein). You may be given some medicine through your IV to help you relax. You will be taken to surgery. Your family will be asked to go to the waiting room. Most people are not put to sleep for this surgery; however, your doctor will decide what medicine is needed. If you are awake for your surgery, your doctor will numb your eye. Surgery staff will clean the eye with a surgical cleansing agent. You will be asked to close both eyes during this process. A plastic drape will be placed over your face. Air will be blowing under this drape. The doctor will place a lid speculum under the lids of the eye. You will not be able to close the eye until this speculum is removed after surgery. You will see a bright light come over your eye. This is the microscope light. At this point you will need to remain as still as possible. Tell your doctor if you need to cough or sneeze. Your doctor will tell you when your surgery is beginning. You will feel touch around your face and eye. You may feel eye pressure. You should not feel pain. If you do start to feel pain, let the doctor know. Numbing drops are available immediately. Your doctor will use a microscope and some small instruments to remove the cloudy lens and, if needed, insert the artificial lens. If an artificial lens is inserted, the natural muscles of the eye hold it in place. After surgery, you will go to the Recovery Room or straight to your own room. What should I expect after surgery? After surgery, you will usually stay at the facility for a least one hour. You may have to stay longer if you were put to sleep for your surgery. Your nurse will watch your blood pressure, heart rate, breathing, and oxygen level. Your family can stay with you in your room while you recover. You will be given something to drink. You may be able to eat a regular meal if your doctor allows. Let your nurse know if you have any nausea or pain. The numbness in your eye will diminish over the next few hours. You will receive more information on the day of surgery about the postoperative period. For Surgery Patients who are taking Medications for Diabetes and/or Weight Loss The two types of medications, GLP-1 agonists and SGLT2 inhibitors, can cause probles with surgery and anesthesia. If you take these medications, you will need to stop them before surgery. Please discuss this with your surgeon or with Romy Ojeda in the Pre-anesthesia Consultation Clinic ([phone]) to get instructions on their use before stopping them. GLP-1 agonists can cause your stomach to empty more slowly. If you stomach is not empty at the time of surgery, it increases the risk of vomiting during anesthesia and surgery can be dangerous. Usually, injectable GLP-1 agonists that are used weekly should be stopped at least 7 days prior to surgery. GLP-1 agonists that are taken orally should be stopped the day before surgery. If you do not stop taking these medications as directed, your surgery may be cancelled or delayed. Example of these medications include (but not limited to) the following: GLP-1 agonists Injectable Oral Dulaglutide (Trulicity ) Semaglutide (Rybelsus ) Exenatide (Byeta , Bydureon ) Liraglutide (Victoza , Saxenda ) Semaglutide (Ozempic , Wegovy ) Tirzepatide (Mounjaro , Zepbound ) SGLT-2 inhibitors can cause blood chemistry problems in patients who stop eating. Because surgery patients are asked to stop eating before surgery, you will need to stop taking these medications 3-4 days before surgery. SGLT2 Inhibitors include: Oral Bexagliflozin (Benzavvy ) Canagliflozin (Invokana ) Dapagliflozin (Farziga ) Empagliflozin (Jardiance ) Ertugliflozin (Steglatro ) If you have any questions regarding these presurgical instructions on how to take these medications, please call your surgeon's office or call Romy Ojeda or a Pre-Anesthesia Testing engineer steam at [phone]. documented in this encounterSumma Health06-19-2025 NoteHNO ID: [id number] Author: KYLE BRADLEY MD Service: ? Author Type: Physician Type: Progress Notes Filed: 01/17/2025 12:52 Note Text: Referred on 01/08/[address] Zamarripa for cataracts Lasers and Surgeries: OD: None OS: None Ocular Medication Intol and Non-efficacy: Pulm HTN Blood Thinners: Eliquis Now on None Oral BB #Cataracts, both eyes - Previously scheduled with Dr. Zamarripa but due to multiple medical issues including seizure hx, recommended hospital setting for Sx rather than at [facility] 01/08/2025 - Current Visual Acuity Right Eye Distance SC 20/LP Left Eye Distance SC 20/HM PMH: Pulm HTN, afib, cardiomyopathy, seizures - VS OU AND interested in Sx - Will proceed with CEIOL OU (both eyes same day given multiple comordibities and need for general anesthesia) - Needs GENERAL anesthesia Lens type: monofocal, discussed residual astigmatism and presbyopia Aim: Standard OU Glaucoma procedure: none - Dilates 6 mm, prior head trauma, yes alpha angelina use, no zonular instability - LASIK: No - Diabetic: No - Allergy to Fluoroquinolone: No - Significant gutatta: No - Pseudoexfoliation: No - Trypan yes, Malyugin yes (7mm ring) - Complex: yes (healon 5, decompress lens, capsule hooks, 10-0 vicryl for main incisions) Prior B scan 04/[address]/masses Last IOL calcs from 04/2024 but since > 6 months recommend repeating prior to Sx Patient here with family today. Extensive discussion regarding risks and benefits of procedure with them, especially given a complex case in both eyes. Consent signed in-person by patient's power of state attorney (brother Oliverio Reinoso: [phone]). Two forms of consent discussed, one includes possible retina surgery, both eyes in case patient has surgical complications given very complex case requiring vitrectomy with retina team. DOCUMENTATION FOR LEVEL 5 EANDM: The patient has a chronic illness (cataract) with that poses a threat to bodily function (vision) and will be having elective major surgery with identified risk factors, and the risk factors are as follows: eye with history of trauma comorbid cardiovascular disease and comorbid neuro-psych disease Consultation requested by Dr. Zamarripa for an opinion regarding cataracts. My final recommendations will be communicated back to the requesting physician by way of shared Medical record or letter to requesting physician. Live in [facility] follow-up easiest RTC: POD1 Phaco OU - VA/IOP OU If lost to follow up or returning after > 1 year, perform full workup including refraction I, Kyle Bradley MD, have confirmed and edited as necessary the relevant ophthalmic history, ROS, and the neuro exam findings as obtained by others. I have seen and examined Carl Reinoso. I have discussed the case and the management of this patient's care with the Resident, if applicable. I also have reviewed and agree with the assessment and plan as stated above and agree with all of its relevant components. Kyle Bradley MD [facility]06-19-2025 History of Present illness Narrative* Kyle Bradley MD - 01/08/2025 12:57 PM EDT Referred on 01/08/[address] Zamarripa for cataracts Lasers and Surgeries: OD: None OS: None Ocular Medication Intol and Non-efficacy: Pulm HTN Blood Thinners: None Now on None Oral BB #Cataracts, both eyes - Previously scheduled with Dr. Zamarripa but due to multiple medical issues including seizure hx, recommended hospital setting for Sx rather than at [facility] 01/08/2025 - Current Visual Acuity Right Eye Distance SC 20/LP Left Eye Distance SC 20/HM PMH: Pulm HTN, afib, cardiomyopathy, seizures - VS OU & interested in Sx - Will proceed with CEIOL OU (both eyes same day given multiple comordibities and need for general anesthesia) - Needs GENERAL anesthesia Lens type: monofocal, discussed residual astigmatism and presbyopia Aim: Standard OU Glaucoma procedure: none - Dilates 6 mm, prior head trauma, yes alpha angelina use, no zonular instability - LASIK: No - Diabetic: No - Allergy to Fluoroquinolone: No - Significant gutatta: No - Pseudoexfoliation: No - Trypan yes, Malyugin yes (7mm ring) - Complex: yes (healon 5, decompress lens, capsule hooks, 10-0 vicryl for main incisions) Prior B scan 04/[address]masses Last IOL calcs from 04/2024 but since > 6 months recommend repeating prior to Sx Patient here with family today. Extensive discussion regarding risks and benefits of procedure withthem, especially given a complex case in both eyes. Consent signed in-person by patient's power of state attorney (brother Oliverio Reinoso: [phone]). Two forms of consent discussed, one includes possible retina surgery, both eyes in case patient has surgical complications given very complex case requiring vitrectomy with retina team. DOCUMENTATION FOR LEVEL 5 E&M: The patient has a chronic illness (glaucoma) with that poses a threat to bodily function (vision) and will be having elective major surgery with identified risk factors, and the risk factors are as follows: eye with history of trauma comorbid cardiovascular disease and comorbid neuro- psych disease Consultation requested by Dr. Zamarripa for an opinion regarding cataracts. My final recommendations will be communicated back to the requesting physician by way of shared Medical record or letter to requesting physician. [facility] in [facility] follow-up easiest RTC: POD1 Phaco OU - VA/IOP OU If lost to follow up or returning after > 1 year, perform full workup including refraction I, Kyle Bradley MD, have confirmed and edited as necessary the relevant ophthalmic history, ROS, and the neuro exam findings as obtained by others. I have seen and examined Carl Reinoso. I have discussed the case and the management of this patient's care with the Resident, if applicable. I also have reviewed and agree with the assessment and plan as stated above and agree with all ofits relevant components. Kyle Bradley MD [facility] [place] documented in this encounterSumma Health05-14-2025 History of Present illness Narrative* Jacob Garcia, SCREENER PERFUMER-PROGRAM RESEARCH SPECIALIST - 12/03/2024 9:00 AM EDT Referred by Dr. Zamarripa for Pre-op Clearance (Cataract surgery not scheduled yet) and New Patient Visit History Of Present Illness: Carl Reinoso is a 69 y.o. male. He is a [facility] resident with [employer] and is wheelchair bound.He is extremely pleasant in no acute distress in the office, medical history was obtained by his brother Oliverio (POA) and [id number]. Recently noted to have vision loss and 'legally blind', when he saw Dr. Zamarripa decision was made forcataract surgery. He originally present for procedure in July 2024 and at the time was noted to be in atrial fib with RVR. He was transferred and admitted to [facility] Jul 2024. He was seen by Cardiology (Dr. Rosas). Significant events: Presented with A-fib with RVR heart rates up to 130s. Treatment strategy rate control and he was placed on Toprol 12.5 mg twice daily. CHADS VASc 5 (CVA) placed on full dose Eliquis age 69, weight 182 pounds. July 2024 TTE: Severely dilated LVEF 20-25% with global hypokinesis. He was diuresed and placed on Entresto, Aldactone, Toprol. 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 Pulmonary hypertension and severely dilated left atrium. After discussion with Dr. Rosas, the POA Oliverio requested conservative medical management. Today in office he is once again declining additional cardiovascular testing/procedures and requesting conservative medical management. Code status: DNR-CCA Records from [facility] reviewed. Heart rates 60-90, Weight 179-182. Denies orthopnea, no PND. He is wheelchair bound with daily activity < 4 METs. ECG in office today atrial fibrillation at 85 bpm. RBBB In a wheelchair, is extremely pleasant and in no acute distress. He overall reports simply feeling alright . Does not exert daily activity to generate shortness of breath, he does sleep in the bed and denies any change in orthopnea. Appears euvolemic on exam. Denies prior syncopal episode. Past Medical History: He has no past medical history on file. Past Surgical History: He has a past surgical history that includes Nose surgery. Social History: He reports that he quit smoking about 3 years ago. His smoking use included cigarettes. He has never used smokeless tobacco. He reports that he does not currently use alcohol. He reports that he doesnot use drugs. Family History: Family History[1] Allergies: Patient has no allergy information on record. Outpatient Medications: Current Outpatient Medications Medication Instructions apixaban (ELIQUIS) 5 mg, 2 times daily busPIRone (BUSPAR) 5 mg, 2 times daily divalproex (DEPAKOTE) 250 mg, 2 times daily lamoTRIgine (LaMICtal) 100 mg tablet 1 tablet, 2 times daily levETIRAcetam (KEPPRA) 750 mg, 2 times daily metoprolol succinate XL (Toprol-XL) 25 mg 24 hr tablet 0.5 tablets, oral, 2 times daily pantoprazole (PROTONIX) 40 mg, Daily primidone (MYSOLINE) 50 mg, oral, Nightly sacubitriL-valsartan (Entresto) 24-26 mg tablet 1 tablet, 2 times daily sennosides (Senokot) 8.6 mg tablet 1 tablet, Daily sertraline (ZOLOFT) 50 mg, Daily spironolactone (ALDACTONE) 25 mg, Daily tamsulosin (FLOMAX) 0.4 mg, Daily RT traZODone (DESYREL) 50 mg, 2 times daily Last Recorded Vitals: Vitals: 12/03/24 0904 12/03/24 09 BP: 104/80 100/74 BP Location: Left arm Right arm Patient Position: Sitting Sitting Pulse: 85 Review of Systems Unable to perform ROS: Other Cardiovascular: Negative for chest pain, dyspnea on exertion, irregular heartbeat, leg swelling, near-syncope, orthopnea, palpitations, paroxysmal nocturnal dyspnea and syncope. MRDD Physical Exam Vitals and nursing note reviewed. Constitutional: Appearance: Normal appearance. Cardiovascular: Rate and Rhythm: Normal rate. Rhythm irregularly irregular. Heart sounds: Murmur heard. Systolic murmur is present with a grade of 3/6. Pulmonary: Effort: Pulmonary effort is normal. Breath sounds: Normal breath sounds. Musculoskeletal: Cervical back: Full passive range of motion without pain. Right lower leg: No edema. Left lower leg: No edema. Skin: General: Skin is cool. Neurological: Mental Status: He is alert and oriented to person, place, and time. Psychiatric: Attention and Perception: Attention normal. Mood and Affect: Mood normal. Behavior: Behavior is cooperative. Assessment: 69 y/o [facility] resident, wheelchair bound with MRDD. DNR-CCA. POA requests conservative medical management. Chronic atrial fibrillation with treatment strategy rate control on toprol. Incidental finding at time of Jul 2024 cataract procedure. Jul 2024 TTE: LA severe dilated, MR severe. Optimal rate controldocumented at [facility]. CHADS VASc 5 coagulated full dose Eliquis age 69, weight 182 pounds. Denies bleeding diatheses. Wheelchair-bound, no falls. 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 FC: wheelchair bound, daily activity < 4 METS Stage C GDMT: Toprol, Entresto & aldactone started Jul 2024 Need to review records to see why SGLT2i not started QRS 140: RBBB POA request conservative medical management. No prior ischemic work-up Aug 2021 TTE: LVEF 60-65%, LA mild, MR mod/severe 5. Severe MR with anterior directed jet Jul 2024 TTE (2021 TTE mod/severe MR) 6. Jul 2024 inpatient creatinine 1.2- 1.3 Plan: In regards to cardiac risk stratification prior to low risk cataract surgery. In office today patient is euvolemic, well-compensated and no evidence ADHF, atrial fibrillation with optimal rate control. The ADHF admit was > 30 days and no evidence ACS during admit. Due to CHF & CVA his JOYCE Revised Cardiac Risk Index is moderate with 6.6% MACE. Would recommendno interruption in beta-angelina to maintain adequate heart rate control. Discussion with POA today that ideally would proceed with stress testing, attempts at restoring NSR, mitral clips, ICD, etc... as in past conversations with [facility] In Home Caregiver, request conservative medical management. In regards to GDMT will need to review records as to why SGLT2i was not started (POA not aware of frequent UTI/infections) [facility] and [facility] signs [facility] at [facility]. To notify of weight gain (3 pounds overnight, 5 pounds in a week). JANESSA Duron is an established patient of Dr. Forbes and is requesting patient to follow with him. Will arrange follow up in 4 months or sooner for symptoms or decision to proceed with invasive testing. Jacob Garcia MSN, SCREENER PERFUMER-PROGRAM RESEARCH SPECIALIST, PMHNP-[facility] [place], [place] Please excuse any errors in grammar or translation related to this dictation. Voice recognition software was utilized to prepare this document. [1] No family history on file. documented in this [facility] Work Phone: [phone] 754-445305-14-2025 Instructions* Patient Instructions* VITOR Flores - 12/03/2024 9:00 AM EDT Please bring all medicines, vitamins, and herbal supplements with you when you come to the office. Prescriptions will not be filled unless you are compliant with your follow up appointments or have a follow up appointment scheduled as per instruction of your physician. Refills should be requested at the time of your visit. EKG done in office today PLAN: Through informed decision making process incorporating patients unique circumstances, the followingtreatment plan will be initiated: 1. Prescription drug management of cardiovascular medication for efficacy, adherence to treatment, side effect assessment and polypharmacy. Current treatment clinically warranted and to continue without modifications. 2. Return for follow-up; in the interim, contact the office if new symptoms arise. Dr. Forbes 4 months (Dr. Forbes cares for his Brother Oliverio the JANESSA) [facility]: [phone]) 924-709505-12-2025 Telephone encounter Note* Telephone Encounter - Mabel Cesar - 12/01/2024 10:36 AM EDT Spoke with [facility] and the patient's brother an sister in law. in regards to Mr Reinoso Cataract /surgery for 5-27 and 6-3 has been cancelled Anesthesia feels due to comorbidity he will be a better candidate for a hospital setting. I will be in contact with the patient's family and the facility with further information in regards to rescheduling the patient. Maria E Cesar [facility]05-12-2025 Miscellaneous Notes* Telephone Encounter - Mabel Cesar - 12/01/2024 10:36 AM EDT Spoke with [facility] and the patient's brother an sister in law. in regards to Mr Reinoso Cataract /surgery for 5-27 and 6-3 has been cancelled Anesthesia feels due to comorbidity he will be a better candidate for a hospital setting. I will be in contact with the patient's family and the facility with further information in regards to rescheduling the patient. Maria E Cesar [facility] Telephone encounter Note * Telephone Encounter - Jacinda Lemons PA - 12/01/2024 7:30 AM EDT Good morning Dr. Dallin Saenz, Patient was seen in [facility] for his upcoming cataract procedures at [facility]. I discussed his cardiac history with the anesthesiologist, Dr. Rodney, at [facility], and he states he isnot a candidate for surgery at the [facility]. Thank you, KENDRA Herrera December 01, 2024 7:31 AM [facility]05-12-2025 Miscellaneous Notes* Telephone Encounter - Jacinda Lemons PA - 12/01/2024 7:[address]T Good morning Dr. Dallin Saenz, Patient was seen in [facility] for his upcoming cataract procedures at [facility]. I discussed his cardiac history with the anesthesiologist, Dr. Rodney, at [facility], and he states he isnot a candidate for surgery at the [facility]. Thank you, KENDRA Herrera December 01, 2024 7:31 AM documented in this [facility]-07-[facility]25 Instructions* Patient Instructions* Jacinda Lemons PA - 11/26/2024 11:24 AM EDT [facility] PATIENT PREOPERATIVE INSTRUCTIONS Hood Grijalva* has scheduled you for your procedure at this surgery center: [facility]: [phone] --[address] [place] [address]. Please read below carefully for your personalized instructions. Dietary Restrictions: - No solid food after midnight. - You may have 12 ounces of clear liquids (water, clear juices such as apple juice or gatorade, carbonated beverages, clear tea, black coffee, jello) until 2 hours before scheduled arrival at facility. Medications: Unless instructed differently below, stay on all of your medications until your surgery. If you start any new medications after today's visit, please contact your surgeon. Continue all medications as usual. If you take any medications for erectile dysfunction-Cialis (Tadalafil), Levitra, Staxyn (Vardenafil) Viagra (Sildenenafil please do not take these for 48 hours before surgery. If you start any new medications after today's visit, please contact the surgeon's office. If you are currently using a [id number] injectable or oral medication for diabetes or weight loss such as Dulaglutide (Trulicity), Exenatide (Byetta, Bydureon), Liraglutide (Victoza, Saxenda), Semaglutide (Ozempic, Wegovy, Rybelsus), or Tirzepatide (Mounjaro), the medicine should be stopped at least 7 days before surgery. These medicines can cause food to remain in your stomach for a very longtime and increase the risks from surgery and anesthesia. Not stopping the medication for a long enough time may result in your surgery being rescheduled. Important Reminders: - If you use CPAP/BIPAP, bring the machine with you to the surgery center. - Candy, mints, and tobacco products are NOT permitted the morning of surgery. - Hearing aids, dentures and glasses may be worn the morning of surgery. - NO jewelry, body piercings, makeup, hairpins or contacts are to be worn the day of surgery. If you develop symptoms such as a fever, cold, or flu, or have other changes to your health within TWO DAYS of scheduled surgery or the morning of surgery, please contact the surgery center above. Personal Belongings: -Please have photo ID and insurance cards. -If you do not have a copy of advance directives on file with us, please bring a copy with you on the day of surgery. - Leave ALL valuables and money at home or with family members. - Please bring high-quality footwear, such as sneakers, to the hospital for ambulating post-surgery. For Outpatient Procedures: - YOU MUST HAVE A RESPONSIBLE LITERACY EDUCATION PROFESSOR TAKE YOU HOME. A DERRICK HELPER OR ELECTRIC TRACK SWITCH MAINTAINER CANNOT BE MADE A RESPONSIBLE LITERACY EDUCATION PROFESSOR. - We recommend that a responsible person stays with you overnight to take care of you. - You cannot stay in a hotel alone after outpatient surgery. You will not be permitted to have yoursurgery, if you do not have someone to take care of you. Arrival Time for Surgery: - The Surgery Center or hospital where you are having surgery will call the afternoon before surgery (or Sunday for Sunday surgery) with a scheduled arrival time. - If you have not heard by 4 pm, please contact the surgery center above. Please be aware that emergency situations arise, which may delay or change your surgical time. If this happens, we will notify you as soon as possible and regret any inconvenience. If you already have an Advance Directive, please fax a copy to [phone] or email to for it to be added to your chart. If you do not have an Advance Directive, you can find the appropriate form and more information at [email or web address]. We recommend that youcomplete the Advance Directive form found on the website and bring it with you the day of your surgery. It can be witnessed and scanned into your chart that day. KENDRA Herrera documented in this encounterSum[facility]05-07-2025 History and physical note * Jacinda Lemons PA - 11/26/2024 11:00 AM EDT Images from the original note were not included. [facility] HISTORY AND PHYSICAL EXAMINATION SERVICE DATE: 11/26/2024 SERVICE TIME: 11:42 AM PRIMARY CARE PHYSICIAN: No primary care provider on file. Assessment Patient has the following medical conditions which may affect paula-operative course: Seizures (HCC) Assessment: Takes Keppra and Lamictal. 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 Patient's sister in law reports his last seizure was about 7-8 yrs ago. Follows with neurology, JENNIFER 12/04/23, and per note: 1. Routine EEG 09/2019 was normal. 2. 2 hour EEG 12/11/19 was normal. 3. Bill MRI 12/2022 was nonacute but did reveal diffuse atrophy and chronic small vessel ischemic changes. There is focal right frontal gliosis and encephalomalacia consistent with remote infarct or insult. 4. Chest CTA 12/2022 revealed large pulmonary embolus and mild right ventricular strain. Patient is on Eliquis. 5. MRA of the head was negative for focal stenosis, occlusion, or aneurysmal dilatation. 6. BMP 09/3033 was normal History of ischemic stroke Assessment: Follows with neurology, JENNIFER 12/04/23, and per note: Head CT from 07/10/2019 revealed suspected developing small lacunar infarct right basal ganglia but likely beyond hyperacute phase. CT scan of the brain 12/2022 was non acute. It again showed bifrontal and temporal lobe encephalomalacia. Pulmonary embolism (HCC) Assessment: h/o PE in 12/2022. Takes Eliquis. Atrial fibrillation with rapid ventricular response (HCC) Assessment: Hospitalized from 07/29-07/31/24 for afib. Takes Eliquis and metoprolol. Denies CP, SOB, palpitations, or lightheadedness. EKG 07/29/24: ATRIAL FLUTTER WITH VARIABLE A-V BLOCK LEFT AXIS DEVIATION COMPLETE RIGHT BUNDLE BRANCH BLOCK ABNORMAL ECG CHF (congestive heart failure) ([facility]) Assessment: Hospitalized from 07/29- with afib and mild CHF exacerbation. Does not follow with cardiology. I advised them to establish with cardiology. Takes Eliquis, Entresto, metoprolol, and spironolactone. Denies CP, SOB, palpitations, or lightheadedness. Euvolemic on exam. Echo 07/30/24: Left Ventricle: Severely reduced left ventricular systolic function with a visually estimated EF of 20 - 25%. Left ventricle is severely dilated. Normal wall thickness. Severe global hypokinesis present. Abnormal diastolic function. Right Ventricle: Normal systolic function. Left Atrium: Left atrium is severely dilated. Mitral regurgitation Assessment: severe MR on 07/2024 echo. 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 Severely thickened leaflets. The posterior leaflet of the mitral valve has abnormal mobility. Severe regurgitation with an anterior directed jet. No stenosis noted. Suspected pulmonary hypertension Assessment: Denies CP or SOB. Echo 07/30/24: Tricuspid Valve: Mild regurgitation. Moderately elevated RVSP, consistent with moderate pulmonary hypertension. GERD (gastroesophageal reflux disease) Assessment: Controlled with Protonix. Limited mobility Assessment: Lives in assisted living at [facility]. Uses a wheelchair mostly, but can walk to the bathroom with assistance. He is accompanied by his brother and [id number]. Anxiety Assessment: Takes Buspar, Zoloft, and trazodone. H/o mild MRDD. BPH (benign prostatic hyperplasia) Assessment: Takes Flomax. ANESTHESIA FINDINGS: Intubation History: No history of difficult intubation Significant Anesthesia Considerations: none Airway History: No history of difficult airway Louis Activity Status Index: METS: Walk indoors, such as around the house (1.75 METs) Do light work around the house, such as dusting or washing dishes (2.70 METs) Take care of self; that is eating, dressing, bathing, using the toilet (2.75 METs) DASI Score: 7.2 Patient denies any chest pain or undue shortness of breath with the above physical activity. Patient is partially dependent. STOP-Bang Score: Has or is being treated for high blood pressure Patient over 50 years old Has a large neck Male patient Denies snoring loudly Denies feeling tired, fatigued, or sleepy during the daytime Has not been observed to stop breathing or choking/gasping during sleep BMI less than or equal to 35 kg/m^2 STOP-Bang Score: 4 I - PHYSICAL EVALUATION AIRWAY Patient intubated: No. Tracheostomy tube not present Mallampati: IV. TM distance: >3 FB. Neck ROM: full ROM without neurological symptoms. Short neck: no. Additional comments: Small mouth opening. Thick neck: yes Peace present: no Lip Bite Test: II Microretrognathia/Micronagthia/Recessed Chin: No DENTAL Dental findings: missing tooth/teeth. II - ANESTHESIA PLAN Anesthetic plan additional comments: *[facility]I - anesthesia choice. Beta Angelina Monitoring Plan Post Procedure Analgesic Plan Prepared for Surgery: optimally prepared for surgery, pending [see comment]. EKG & LABS not indicated per [facility] protocol. Consulted anesthesiologist, Dr. Umaña, for OK to proceed with surgeries at [facility]. CONSULTS: The following consults have been initiated at this time: anesthesia. Planned Anesthetic: anesthesia choice The Following Tests/Procedures Have Been Initiated: Orders Placed This Encounter sacubitril-valsartan (ENTRESTO) 24-26 mg tablet Sig: Take 1 tablet by mouth two times a day. Sennosides (SENNA) 8.6 mg cap Sig: Take by mouth two times a day. spironolactone (ALDACTONE) 25 mg tablet Sig: Take 1 tablet by mouth once daily. REASON FOR VISIT: Carl Reinoso is a 69 year old male who is scheduled for cataract surgeries at the request of Dr. Meredith Saenz for consultation. My final recommendation will be communicated back to the requesting physician by way of shared medical record or letter. Subjective The patient has the following: COVID-19 Immunization Status Current Care Gaps Covid-19 Vaccine ( season) Never done No completion, postpone, frequency change, or communication history exists for this topic. CHIEF COMPLAINT: Pre-anesthesia consultation HPI: 69 year old year old male presents today for a pre-anesthesia consultation for the above procedure. Patient was diagnosed with cataracts and is scheduled for surgeries. Denies fever, chills, wounds, or rashes. He is accompanied by his brother and [id number]. REVIEW OF SYSTEMS: General: No weight loss, malaise or fevers. Neurological: Positive for: seizures and strokes. Patient's stroke is without residual deficits. Respiratory: No history of current cough or dyspnea, or pneumonia in the past 6 weeks. No history of respiratory/pulmonary symptoms or problems. Cardiovascular: Positive for: atrial fibrillation and CHF GI: Positive for: GERD : No history of dysuria, frequency or incontinence, stones or chronic kidney disease. No difficulty urinating, nocturia > 1 time per night or hematuria. Endocrine: No history of diabetes. Has not taken steroids within the past 30 days. No history of endocrinological symptoms or problems. Hematology: Positive for: chronic anti-coagulation/platelet meds. Patient is on anti- coagulation/platelet medication(s): DOAC. Oncology: No history of CA metastasis, chemo within 30 days, or radiotherapy within 90 days. No history of oncological symptoms or problems. Psych: Positive for: anxiety. Musculoskeletal: Negative for joint pain or swelling, back pain or muscle pain. Skin: Negative for lesions, rash and itching. Implanted Devices: No implanted devices. PAST MEDICAL HISTORY Diagnosis Date Cataracts, bilateral History of ischemic stroke 07/21/2024 Ischemic stroke (HCC) Pulmonary embolism (HCC) 07/21/2024 Seizures (HCC) 07/21/2024 TBI (traumatic brain injury) ([facility]) PAST SURGICAL HISTORY Procedure Laterality Date PAST SURGICAL HISTORY OF nose surgery age 13 years FAMILY HISTORY Problem Relation Age of Onset Glaucoma Father Glaucoma Brother Anesthesia Problems No Family History Malig Hyperthermia No Family History Social History Tobacco Use Smoking status: Former Types: Cigars Smokeless tobacco: Never Tobacco comments: Quit daily cigars 3 years ago Vaping Use Vaping status: Never Used Substance Use Topics Alcohol use: Not Currently Drug use: Not Currently Prior to Admission medications as of 11/26/24 1140 Medication Sig Last Dose Taking sacubitril-valsartan (ENTRESTO) 24-26 mg tablet Take 1 tablet by mouth two times a day. Yes Sennosides (SENNA) 8.6 mg cap Take by mouth two times a day. Yes spironolactone (ALDACTONE) 25 mg tablet Take 1 tablet by mouth once daily. Yes pantoprazole DR (PROTONIX) 40 mg tablet Take 40 mg by mouth once daily. Yes busPIRone (BUSPAR) 5 mg tablet Take 5 mg by mouth two times a day. Yes LAMOTRIGINE ORAL Take 100 mg by mouth. Yes PRIMIDONE ORAL Take 50 mg by mouth daily at bedtime. Yes sertraline (ZOLOFT) 50 mg tablet Take 1 tablet by mouth once daily. Yes metoprolol tartrate, short acting, (LOPRESSOR) 50 mg tablet Take 0.5 tablets by mouth two times a day. Yes divalproex DR (DEPAKOTE) 250 mg EC tablet Yes ELIQUIS 5 mg tab(s) Take 5 mg by mouth. Yes levETIRAcetam (KEPPRA) 750 mg tablet Take 750 mg by mouth. Yes tamsulosin (FLOMAX) 0.4 mg Take 0.4 mg by mouth. Yes traZODone (DESYREL) 50 mg tablet Yes prednisoLONE acetate (PRED FORTE) 1 % ophthalmic suspension Apply one drop in surgical eye four times a day for 2 weeks, then twice a day for 2 weeks, then discontinue Medication Comments documented by Nadya Rodriguez Tech on 05/15/2024 at 1235. Unsure of medications ALLERGIES No Known Allergies Objective PHYSICAL EXAM: General: alert and oriented and healthy appearance. Pertinent negatives noted - not distressed. Skin: normal color, no rash or lesions. HEENT: EOM intact. Pertinent negatives noted - no carotid bruit. Cardiovascular: Pulse characterized as irregular. Respiratory: normal breath sounds, no wheezes or crackles. Abdomen: bowel sounds present and soft. Pertinent negatives noted - not tender. Extremities: no deformity, no edema or tenderness, no joint swelling or clubbing. Neurological: normal cognition and motor skills. PAIN ASSESSMENT: VITALS: BP 114/69 Pulse 52 Temp (Src) 74 (Temporal) Resp 16 Ht 5' 9 (1.75m) Wt 179 lb (81.2kg) SpO2 97% BMI 26.42 kg/(m^2). Diagnostic tests reviewed for today's visit: Lab Value Units Date High Low HB No results within date range. HCT No results within date range. WBC No results within date range. PLT No results within date range. NA No results within date range. K No results within date range. GLUC No results within date range. BUN No results within date range. CREAT No results within date range. PTSEC No results within date range. INR No results within date range. APTT No results within date range. ALT No results within date range. AST No results within date range. TBILI No results within date range. TSH No results within date range. Lab Value Units Date High Low HCGQT No results within date range. UHCG No results within date range. HCG, BODY* No results within date range. Lab Value Units Date High Low ABORHD No results within date range. ABSCREEN No results within date range. No results found for: HBA1C Recent Results (from the past 8760 hours) ECG COMPLETE Collection Time: 07/29/24 1:38 PM Result Value Ventricular Rate 120 Atrial Rate 300 QRS Duration 138 QT Interval 368 QTC Calculation (Bazett) 520 Calculated R [place] -80 Calculated T [place] 72 Impression ATRIAL FLUTTER WITH VARIABLE A-V BLOCK LEFT AXIS DEVIATION COMPLETE RIGHT BUNDLE BRANCH BLOCK ABNORMAL ECG Confirmed by LEANN PECK MD ([id number]) on 07/29/2024 4:51:22 PM No results found for this or any previous visit (from the past 96626 hours). Instructions Given to Patient: Instructions located in the after visit summary. Patient given verbal and written preop instructions and voices comprehension and compliance. SIGNATURE: KENDRA Herrera PATIENT NAME: Carl Reinoso DATE: November 26, 2024 TIME: 8:37 AM PAGER/CONTACT #: [facility]05-07-2025 History and physical note* Jacinda Lemons PA - 11/26/2024 11:00 AM EDT Images from the original note were not included. [facility] HISTORY AND PHYSICAL EXAMINATION SERVICE DATE: 11/26/2024 SERVICE TIME: 11:42 AM PRIMARY CARE PHYSICIAN: No primary care provider on file. Assessment Patient has the following medical conditions which may affect paula-operative course: Seizures (HCC) Assessment: Takes Keppra and Lamictal. 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 Patient's sister in law reports his last seizure was about 7-8 yrs ago. Follows with neurology, [facility] 12/04/23, and per note: 1. Routine EEG 09/2019 was normal. 2. 2 hour EEG 12/11/19 was normal. 3. Bill MRI 12/2022 was nonacute but did reveal diffuse atrophy and chronic small vessel ischemic changes. There is focal right frontal gliosis and encephalomalacia consistent with remote infarct or insult. 4. Chest CTA 12/2022 revealed large pulmonary embolus and mild right ventricular strain. Patient is on Eliquis. 5. MRA of the head was negative for focal stenosis, occlusion, or aneurysmal dilatation. 6. BMP 09/3033 was normal History of ischemic stroke Assessment: Follows with neurology, [facility] 12/04/23, and per note: Head CT from 07/10/2019 revealed suspected developing small lacunar infarct right basal ganglia but likely beyond hyperacute phase. CT scan of the brain 12/2022 was non acute. It again showed bifrontal and temporal lobe encephalomalacia. Pulmonary embolism (HCC) Assessment: h/o PE in 12/2022. Takes Eliquis. Atrial fibrillation with rapid ventricular response (HCC) Assessment: Hospitalized from 07/29-07/31/24 for afib. Takes Eliquis and metoprolol. Denies CP, SOB, palpitations, or lightheadedness. EKG 07/29/24: ATRIAL FLUTTER WITH VARIABLE A-V BLOCK LEFT AXIS DEVIATION COMPLETE RIGHT BUNDLE BRANCH BLOCK ABNORMAL ECG CHF (congestive heart failure) (HCC) Assessment: Hospitalized from 07/29- with afib and mild CHF exacerbation. Does not follow with cardiology. I advised them to establish with cardiology. Takes Eliquis, Entresto, metoprolol, and spironolactone. Denies CP, SOB, palpitations, or lightheadedness. Euvolemic on exam. Echo 07/30/24: Left Ventricle: Severely reduced left ventricular systolic function with a visually estimated EF of 20 - 25%. Left ventricle is severely dilated. Normal wall thickness. Severe global hypokinesis present. Abnormal diastolic function. Right Ventricle: Normal systolic function. Left Atrium: Left atrium is severely dilated. Mitral regurgitation Assessment: severe MR on 07/2024 echo. 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 Severely thickened leaflets. The posterior leaflet of the mitral valve has abnormal mobility. Severe regurgitation with an anterior directed jet. No stenosis noted. Suspected pulmonary hypertension Assessment: Denies CP or SOB. Echo 07/30/24: Tricuspid Valve: Mild regurgitation. Moderately elevated RVSP, consistent with moderate pulmonary hypertension. GERD (gastroesophageal reflux disease) Assessment: Controlled with Protonix. Limited mobility Assessment: Lives in assisted living at [facility]. Uses a wheelchair mostly, but can walk to the bathroom with assistance. He is accompanied by his brother and [id number]. Anxiety Assessment: Takes Buspar, Zoloft, and trazodone. H/o mild MRDD. BPH (benign prostatic hyperplasia) Assessment: Takes Flomax. ANESTHESIA FINDINGS: Intubation History: No history of difficult intubation Significant Anesthesia Considerations: none Airway History: No history of difficult airway Louis Activity Status Index: METS: Walk indoors, such as around the house (1.75 METs) Do light work around the house, such as dusting or washing dishes (2.70 METs) Take care of self; that is eating, dressing, bathing, using the toilet (2.75 METs) DASI Score: 7.2 Patient denies any chest pain or undue shortness of breath with the above physical activity. Patient is partially dependent. STOP-Bang Score: Has or is being treated for high blood pressure Patient over 50 years old Has a large neck Male patient Denies snoring loudly Denies feeling tired, fatigued, or sleepy during the daytime Has not been observed to stop breathing or choking/gasping during sleep BMI less than or equal to 35 kg/m^2 STOP-Bang Score: 4 I - PHYSICAL EVALUATION AIRWAY Patient intubated: No. Tracheostomy tube not present Mallampati: IV. TM distance: >3 FB. Neck ROM: full ROM without neurological symptoms. Short neck: no. Additional comments: Small mouth opening. Thick neck: yes Peace present: no Lip Bite Test: II Microretrognathia/Micronagthia/Recessed Chin: No DENTAL Dental findings: missing tooth/teeth. II - ANESTHESIA PLAN Anesthetic plan additional comments: *PACC/TCI - anesthesia choice. Beta Angelina Monitoring Plan Post Procedure Analgesic Plan Prepared for Surgery: optimally prepared for surgery, pending [see comment]. EKG & LABS not indicated per PACC protocol. Consulted anesthesiologist, Dr. Umaña, for OK to proceed with surgeries at [facility]. CONSULTS: The following consults have been initiated at this time: anesthesia. Planned Anesthetic: anesthesia choice The Following Tests/Procedures Have Been Initiated: Orders Placed This Encounter sacubitril-valsartan (ENTRESTO) 24-26 mg tablet Sig: Take 1 tablet by mouth two times a day. Sennosides (SENNA) 8.6 mg cap Sig: Take by mouth two times a day. spironolactone (ALDACTONE) 25 mg tablet Sig: Take 1 tablet by mouth once daily. REASON FOR VISIT: Carl Reinoso is a 69 year old male who is scheduled for cataract surgeries at the request of Dr. Meredith Saenz for consultation. My final recommendation will be communicated back to the requesting physician by way of shared medical record or letter. Subjective The patient has the following: COVID-19 Immunization Status Current Care Gaps Covid-19 Vaccine ( season) Never done No completion, postpone, frequency change, or communication history exists for this topic. CHIEF COMPLAINT: Pre-anesthesia consultation HPI: 69 year old year old male presents today for a pre-anesthesia consultation for the above procedure. Patient was diagnosed with cataracts and is scheduled for surgeries. Denies fever, chills, wounds, or rashes. He is accompanied by his brother and [id number]. REVIEW OF SYSTEMS: General: No weight loss, malaise or fevers. Neurological: Positive for: seizures and strokes. Patient's stroke is without residual deficits. Respiratory: No history of current cough or dyspnea, or pneumonia in the past 6 weeks. No history of respiratory/pulmonary symptoms or problems. Cardiovascular: Positive for: atrial fibrillation and CHF GI: Positive for: GERD : No history of dysuria, frequency or incontinence, stones or chronic kidney disease. No difficulty urinating, nocturia > 1 time per night or hematuria. Endocrine: No history of diabetes. Has not taken steroids within the past 30 days. No history of endocrinological symptoms or problems. Hematology: Positive for: chronic anti-coagulation/platelet meds. Patient is on anti- coagulation/platelet medication(s): DOAC. Oncology: No history of CA metastasis, chemo within 30 days, or radiotherapy within 90 days. No history of oncological symptoms or problems. Psych: Positive for: anxiety. Musculoskeletal: Negative for joint pain or swelling, back pain or muscle pain. Skin: Negative for lesions, rash and itching. Implanted Devices: No implanted devices. PAST MEDICAL HISTORY Diagnosis Date Cataracts, bilateral History of ischemic stroke 07/21/2024 Ischemic stroke (HCC) Pulmonary embolism (HCC) 07/21/2024 Seizures (HCC) 07/21/2024 TBI (traumatic brain injury) (HCC) PAST SURGICAL HISTORY Procedure Laterality Date PAST SURGICAL HISTORY OF nose surgery age 13 years FAMILY HISTORY Problem Relation Age of Onset Glaucoma Father Glaucoma Brother Anesthesia Problems No Family History Malig Hyperthermia No Family History Social History Tobacco Use Smoking status: Former Types: Cigars Smokeless tobacco: Never Tobacco comments: Quit daily cigars 3 years ago Vaping Use Vaping status: Never Used Substance Use Topics Alcohol use: Not Currently Drug use: Not Currently Prior to Admission medications as of 11/26/24 1140 Medication Sig Last Dose Taking sacubitril-valsartan (ENTRESTO) 24-26 mg tablet Take 1 tablet by mouth two times a day. Yes Sennosides (SENNA) 8.6 mg cap Take by mouth two times a day. Yes spironolactone (ALDACTONE) 25 mg tablet Take 1 tablet by mouth once daily. Yes pantoprazole DR (PROTONIX) 40 mg tablet Take 40 mg by mouth once daily. Yes busPIRone (BUSPAR) 5 mg tablet Take 5 mg by mouth two times a day. Yes LAMOTRIGINE ORAL Take 100 mg by mouth. Yes PRIMIDONE ORAL Take 50 mg by mouth daily at bedtime. Yes sertraline (ZOLOFT) 50 mg tablet Take 1 tablet by mouth once daily. Yes metoprolol tartrate, short acting, (LOPRESSOR) 50 mg tablet Take 0.5 tablets by mouth two times a day. Yes divalproex DR (DEPAKOTE) 250 mg EC tablet Yes ELIQUIS 5 mg tab(s) Take 5 mg by mouth. Yes levETIRAcetam (KEPPRA) 750 mg tablet Take 750 mg by mouth. Yes tamsulosin (FLOMAX) 0.4 mg Take 0.4 mg by mouth. Yes traZODone (DESYREL) 50 mg tablet Yes prednisoLONE acetate (PRED FORTE) 1 % ophthalmic suspension Apply one drop in surgical eye four times a day for 2 weeks, then twice a day for 2 weeks, then discontinue Medication Comments documented by Nadya Rodriguez Tech on 05/15/2024 at 1235. Unsure of medications ALLERGIES No Known Allergies Objective PHYSICAL EXAM: General: alert and oriented and healthy appearance. Pertinent negatives noted - not distressed. Skin: normal color, no rash or lesions. HEENT: EOM intact. Pertinent negatives noted - no carotid bruit. Cardiovascular: Pulse characterized as irregular. Respiratory: normal breath sounds, no wheezes or crackles. Abdomen: bowel sounds present and soft. Pertinent negatives noted - not tender. Extremities: no deformity, no edema or tenderness, no joint swelling or clubbing. Neurological: normal cognition and motor skills. PAIN ASSESSMENT: VITALS: BP 114/69 Pulse 52 Temp (Src) 74 (Temporal) Resp 16 Ht 5' 9 (1.75m) Wt 179 lb (81.2kg) SpO2 97% BMI 26.42 kg/(m^2). Diagnostic tests reviewed for today's visit: Lab Value Units Date High Low HB No results within date range. HCT No results within date range. WBC No results within date range. PLT No results within date range. NA No results within date range. K No results within date range. GLUC No results within date range. BUN No results within date range. CREAT No results within date range. PTSEC No results within date range. INR No results within date range. APTT No results within date range. ALT No results within date range. AST No results within date range. TBILI No results within date range. TSH No results within date range. Lab Value Units Date High Low HCGQT No results within date range. UHCG No results within date range. HCG, BODY* No results within date range. Lab Value Units Date High Low ABORHD No results within date range. ABSCREEN No results within date range. No results found for: HBA1C Recent Results (from the past 8760 hours) ECG COMPLETE Collection Time: 07/29/24 1:38 PM Result Value Ventricular Rate 120 Atrial Rate 300 QRS Duration 138 QT Interval 368 QTC Calculation (Bazett) 520 Calculated R [place] -80 Calculated T [place] 72 Impression ATRIAL FLUTTER WITH VARIABLE A-V BLOCK LEFT AXIS DEVIATION COMPLETE RIGHT BUNDLE BRANCH BLOCK ABNORMAL ECG Confirmed by LEANN PECK MD ([id number]) on 07/29/2024 4:51:22 PM No results found for this or any previous visit (from the past 29158 hours). Instructions Given to Patient: Instructions located in the after visit summary. Patient given verbal and written preop instructions and voices comprehension and compliance. SIGNATURE: KENDRA Herrera PATIENT NAME: Carl Reinoso DATE: November 26, 2024 TIME: 8:37 AM PAGER/CONTACT #: [facility] encounter[facility] Telephone encounter Note * Telephone Encounter - David Busby - 10/28/2024 3:27 PM EDT Patient is currently in a nursing facility and will be having cataract surgery on 12/16. He states the facility needs authorization from Dr. Zamarripa in able for them to administer the eyedrops after surgery. Please advise, thank you. [facility]04-08-2025 Miscellaneous Notes* Telephone Encounter - David Busby - 10/28/2024 3:27 PM EDT Patient is currently in a nursing facility and will be having cataract surgery on 12/16. He states the facility needs authorization from Dr. Zamarripa in able for them to administer the eyedrops after surgery. Please advise, thank you. documented in this encounterSumma Health04-03-2025 NoteHNO ID: [id number] Author: MEREDITH GRIJALVA MD Service: ? Author Type: Physician Type: Progress Notes Filed: 12/01/2024 10:19 Note Text: Summary: Cataract Checklist 1 FINAL CATARACT SURGERY PLAN: Blended Vision: No Premium intraocular lens: No Special surgical needs: iris hooks, trpan blue, possible anterior vitrectomy FIRST EYE: right, Monofocal Non Toric clear Aiming Standard SECOND EYE: left, Monofocal Non Toric clear Aiming Standard CATARACT DATA COLLECTION Access Manager: Any Access Manager of patient's preference History History of Flomax or alpha angelina: Yes History of ocular trauma: No Post refractive: No Not interested in Premium IOLs Not interested in Monovision Imaging Patient does not wear contact lenses Intraocular Lens Options Multifocal: Is not interested Toric Right Eye: Is not interested Toric Left Eye: Is not interested Monovision: Is not interested Surgical Location Preference: Soonest available Intraocular lens calculations: Preoperative Refraction: No OD data entered. No OS data entered. Biometry Done Done 05/15/2025. Denser cataract will not be able to repeat Axial length symmetric Yes Post refractive calculations not needed Pentacam Toric IOL calculations not needed B Scan ustrasound not needed SURGEON: Informed consent and forms signed Done Postop drops prescribed Done Medication orders placed this encounter prednisoLONE acetate (PRED FORTE) 1 % ophthalmic suspension Sig: Apply one drop in surgical eye four times a day for 2 weeks, then twice a day for 2 weeks, then discontinue Dispense: 10 mL Refill: 1 Surgical orders Done SCHEDULING: Per Dr Rodney anethesiologist at [facility] Patient needs a hospital setting. Surgical site preference: [facility] FIRST EYE SECOND EYE Surgical Registration appointment Pending Pre Anesthesia appointment Pending Postop appointments with No specific flaring machine operator Pending Week prior to surgery: Intraocular lens selection by surgeon Done Pre and Postop orders Pending Payments not needed Consent up to date Pending Confirm patient has ride Pending Confirm Postoperative week 1 (flaring machine operator) and Postoperative month 1 (surgeon) [facility] History of Present illness Narrative* Meredith Grijalva MD - 10/23/2024 1:23 PM EDTSummary: Cataract Checklist 1 Images from the original note were not included. FINAL CATARACT SURGERY PLAN: Blended Vision: No Premium intraocular lens: No Special surgical needs: iris hooks, trpan blue, possible anterior vitrectomy FIRST EYE: right, Monofocal Non Toric clear Aiming Standard SECOND EYE: left, Monofocal Non Toric clear Aiming Standard CATARACT DATA COLLECTION Access Manager: Any Access Manager of patient's preference History History of Flomax or alpha angelina: Yes History of ocular trauma: No Post refractive: No Not interested in Premium IOLs Not interested in Monovision Imaging Patient does not wear contact lenses Intraocular Lens Options Multifocal: Is not interested Toric Right Eye: Is not interested Toric Left Eye: Is not interested Monovision: Is not interested Surgical Location Preference: Soonest available Intraocular lens calculations: Preoperative Refraction: No OD data entered. No OS data entered. Biometry Done Done 05/15/2025. Denser cataract will not be able to repeat Axial length symmetric Yes Post refractive calculations not needed Pentacam Toric IOL calculations not needed B Scan ustrasound not needed SURGEON: Informed consent and forms signed Done Postop drops prescribed Done Medication orders placed this encounter prednisoLONE acetate (PRED FORTE) 1 % ophthalmic suspension Sig: Apply one drop in surgical eye four times a day for 2 weeks, then twice a day for 2 weeks, then discontinue Dispense: 10 mL Refill: 1 Surgical orders Done SCHEDULING: Surgical site preference: [facility] FIRST EYE SECOND EYE Surgical Registration appointment Pending Pre Anesthesia appointment Pending Postop appointments with No specific flaring machine operator Pending Week prior to surgery: Intraocular lens selection by surgeon Done Pre and Postop orders Pending Payments not needed Consent up to date Pending Confirm patient has ride Pending Confirm Postoperative week 1 (flaring machine operator) and Postoperative month 1 (surgeon) appointments Pending documented in this encounterSumma Health01-09-2025 History of Present illness Narrative* Lorin Cespedes RN - 07/31/2024 10:57 PM EST RN called facility to and inform them of patient discharge via transport. * Lorin Cespedes RN - 07/31/2024 9:36 PM EST RN informed Dr Velázquez of patients late discharge and request the remain off monitor to which provider stated was okay. * Vinicio Flores OTR/Linda - 07/31/2024 9:30 AM EST [facility] OCCUPATIONAL THERAPY EVALUATION - ACUTE NAME: Carl Reinoso : 1955 (69 y.o.) CODE STATUS: DNR-CCA Room: [place] [address] Date of Service: 07/31/2024 Patient Diagnosis(es): ROYAL (acute kidney injury) (HCC) [N17.9] Atrial fibrillation with rapid ventricular response (HCC) [I48.91] Atrial fibrillation with RVR (HCC) [I48.91] Urinary tract infection with hematuria, site unspecified [N39.0, R31.9] Acute congestive heart failure, unspecified heart failure type (HCC) [I50.9] Patient Active Problem List Diagnosis Date Noted Atrial fibrillation with rapid ventricular response (HCC) 07/29/2024 Past Medical History: Diagnosis Date Seizures (HCC) History reviewed. No pertinent surgical history. Restrictions Restrictions/Precautions: Fall Risk Safety Devices: Safety Devices Type of Devices: All fall risk precautions in place;Call light within reach;Left in bed Patient's date of confirmed: Yes General: Patient assessed for rehabilitation services?: Yes Subjective: You've been brainwashed to believe that. (Date) Pain at start of treatment: No Pain at end of treatment: No Location: N/A Description: N/A Nursing notified: No RN: N/A Intervention: Repositioned Prior Level of Function: Social/Functional History Lives With: Other (Comment) Type of Home: Facility Home Layout: One level Home Access: Level entry Bathroom Shower/Tub: Walk-in shower Bathroom Toilet: Handicap height Bathroom Equipment: Grab bars in shower, Toilet raiser, Shower chair, Hand-held shower, Grab bars around toilet Bathroom Accessibility: Wheelchair accessible Home Equipment: Walker - Standard, Wheelchair - Manual Has the patient had two or more falls in the past year or any fall with injury in the past year?: No Receives Help From: ([facility] Prior Level of Assist for ADLs: Needs assistance Toileting: Needs assistance Prior Level of Assist for Homemaking: Needs assistance Homemaking Responsibilities: No Prior Level of Assist for Ambulation: (pt states he amb) Prior Level of Assist for Transfers: Needs assistance Active Strip Feeder: No Patient's Strip Feeder Info: FAMILY OR FACILITY Mode of Transportation: Van Occupation: On disability Additional Comments: pt is questionable historian OBJECTIVE: Orientation Status: Orientation Orientation Level: Oriented to person;Oriented to place Observation: Observation/Palpation Posture: Fair Observation: Fair posture Cognition Status: Cognition Cognition Comment: follows simlple one step commands consistently Perception Status: Perception Overall Perceptual Status: WFL Vision and Hearing Status: Vision Vision: Impaired (can only see outlines) Hearing Hearing: Within functional limits GROSS ASSESSMENT AROM/PROM: AROM: Within functional limits ROM: LUE AROM (degrees) LUE AROM : WFL Left Hand AROM (degrees) Left Hand AROM: WFL RUE AROM (degrees) RUE AROM : WFL Right Hand AROM (degrees) Right Hand AROM: WFL UE STRENGTH: Strength: Within functional limits (4/5 bilateral UE strength) UE COORDINATION: Coordination: Generally decreased, functional UE TONE: Tone: Normal UE SENSATION: Sensation: Intact Hand Dominance: Hand Dominance Hand Dominance: Right ADL Status: ADL Grooming: Stand by assistance;Increased time to complete UE Bathing: Stand by assistance;Increased time to complete LE Bathing: Stand by assistance;Increased time to complete LE Dressing: Stand by assistance;Increased time to complete Putting On/Taking Off Footwear: Stand by assistance;Increased time to complete Toileting: Unable to assess (Comment) Functional Mobility: Transfers Sit to stand: Stand by assistance Stand to sit: Stand by assistance Patient ambulated household distance in hallway with No device at Supervision level. Bed Mobility Bed mobility Supine to Sit: Stand by assistance Sit to Supine: Stand by assistance Seated and Standing Balance: Balance Sitting: Intact Standing: (Supervision) Functional Endurance: Activity Tolerance Activity Tolerance: Treatment limited secondary to decreased cognition;Patient Tolerated treatment well D/C Recommendations: OT D/C RECOMMENDATIONS REQUIRES OT FOLLOW-UP: No Equipment Recommendations: OT Education: OT Follow Up: OT D/C RECOMMENDATIONS REQUIRES OT FOLLOW-UP: No Assessment/Discharge Disposition: Performance deficits / Impairments: Decreased cognition, Decreased posture Prognosis: Fair Discharge Recommendations: Continue to assess pending progress No Skilled OT: At baseline function, No OT goals identified Decision Making: Low Complexity History: moderate Exam: 2 deficits Assistance / Modification: SBA [facility] ([employer]) Self care Score How much help is needed for putting on and taking off regular lower body clothing?: None How much help is needed for bathing (which includes washing, rinsing, drying)?: None How much help is needed for toileting (which includes using toilet, bedpan, or urinal)?: None How much help is needed for putting on and taking off regular upper body clothing?: None How much help is needed for taking care of personal grooming?: None How much help for eating meals?: None [facility] Inpatient Daily Activity Raw Score: 24 [facility] Inpatient ADL T-Scale Score : 57.54 ADL Inpatient CMS 0-100% Score: 0 Therapy mcgowan for assistance levels - Independent/Mod I = Pt. is able to perform task with no assistance but may require a device Stand by assistance = Pt. does not perform task at an independent level but does not need physical assistance, requires verbal cues Minimal, Moderate, Maximal Assistance = Pt. requires physical assistance (25%, 50%, 75% assist fromhelper) for task but is able to actively participate in task Dependent = Pt. requires total assistance with task and is not able to actively participate with task completion Plan: Occupational Therapy Plan Times Per Week: N/A Goals: Patient will: Patient Goal: Patient goals : Not stated at this time Discussed and agreed upon: Yes Comments: Therapy Time: Individual Time In 0837 Time Out 0846 Minutes 9 Eval: 9 minutes Electronically signed by: CANDI Roca/Linda, 07/31/2024, 9:30 AM * Marley Álvarez, PT - 07/31/2024 9:29 AM EST Physical Therapy Med Surg Initial Assessment Facility/Department: [address] TELEMETRY Room: [place] [address] NAME: Carl Reinoso : 1955 (69 y.o.) CODE STATUS: DNR-CCA Date of Service: 07/31/2024 Patient Diagnosis(es): ROYAL (acute kidney injury) (HCC) [N17.9] Atrial fibrillation with rapid ventricular response (HCC) [I48.91] Atrial fibrillation with RVR (HCC) [I48.91] Urinary tract infection with hematuria, site unspecified [N39.0, R31.9] Acute congestive heart failure, unspecified heart failure type (HCC) [I50.9] Chief Complaint Patient presents with Tachycardia Pt was sent to the ER from [facility] for tachycardia prior to cataract surgery Patient Active Problem List Diagnosis Date Noted Atrial fibrillation with rapid ventricular response (HCC) 07/29/2024 Past Medical History: Diagnosis Date Seizures (HCC) History reviewed. No pertinent surgical history. Patient assessed for rehabilitation services?: Yes Family/Caregiver Present: No Restrictions: Restrictions/Precautions: Fall Risk SUBJECTIVE: Pain Denies pain Prior Level of Function: Social/Functional History Lives With: Other (Comment) Type of Home: Facility Home Layout: One level Home Access: Level entry Bathroom Shower/Tub: Walk-in shower Has the patient had two or more falls in the past year or any fall with injury in the past year?: No Prior Level of Assist for ADLs: Needs assistance Prior Level of Assist for Ambulation: (pt states he amb) Additional Comments: pt is questionable historian OBJECTIVE: Vision Vision: Impaired (states can see outlines) Vision Exceptions: Legally blind Hearing: Within functional limits Cognition: Overall Orientation Status: Impaired Orientation Level: Oriented to person, Oriented to place Cognition Comment: follows simlple one step commands consistently Observation/Palpation Posture: Fair Observation: pt agreeable to OOB activity ROM: RLE AROM: WFL LLE AROM : WFL Strength: Strength RLE Strength RLE: WFL Strength LLE Strength LLE: WFL Neuro: Balance Sitting - Static: Good Sitting - Dynamic: Good Standing - Static: Good;- Standing - Dynamic: Fair;+ (mild unsteadiness most likely due to blindness) Bed mobility Supine to Sit: Stand by assistance Sit to Supine: Stand by assistance Transfers Sit to Stand: Stand by assistance Stand to Sit: Stand by assistance Comment: no c/o dizziness; no AD used Ambulation Surface: Level tile Device: Hand-Held Assist (AUDIOVISUAL EQUIPMENT OPERATOR only for pathfinding due to pt is blind) Assistance: Stand by assistance Distance: 50ft Stairs/Curb Stairs?: No Activity Tolerance Activity Tolerance: Patient tolerated evaluation without incident Patient Education Education Given To: Patient Education Provided: Role of Therapy;Plan of Care Education Method: Verbal Education Outcome: Verbalized understanding ASSESSMENT: Decision Making: Low Complexity History: med Exam: low Clinical Presentation: low Therapy Prognosis: Good DISCHARGE RECOMMENDATIONS: No Skilled PT: At baseline function Assessment: Pt is 69 y.o. male to hospital due to tachycardia. Pt lives a facility at baseline. Pt demonstrates mobility at baseline and requires assistance only due to blindness and need for assistance with pathfinding. Pt only mildly unsteadiness and demonstrates good LE strength. No continued PT indicated at this time. Requires PT Follow-Up: No PLAN OF CARE: Physical Therapy Plan Additional Comments: pt at baseline; no continued PT indicated Safety Devices Type of Devices: All fall risk precautions in place, Bed alarm in place, Call light within reach, Left in bed Restraints Restraints Initially in Place: No Goals: Cushion Mat Maker Goals Intermediate Goal 1: none indicated [facility] (6 CLICK) BASIC MOBILITY AM-PAC Inpatient Mobility Raw Score : 19 Therapy Time: Individual Time In 39 Time Out 0846 Minutes 7 Eval x 7 min Marley Álvarez PT, 07/31/24 at 9:29 AM Definitions for assistance levels Independent = pt does not require any physical supervision or assistance from another person for activity completion. Device may be needed. Stand by assistance = pt requires verbal cues or instructions from another person, close to but nottouching, to perform the activity Minimal assistance= pt performs 75% or more of the activity; assistance is required to complete theactivity Moderate assistance= pt performs 50% of the activity; assistance is required to complete the activity Maximal assistance = pt performs 25% of the activity; assistance is required to complete the activity Dependent = pt requires total physical assistance to accomplish the task * Jose Rosas MD - 07/31/2024 7:55 AM EST PROGRESS NOTE Patient Name: Carl Reinoso Admit Date: 07/29/2024 2:06 PM MR #: [id number] : 1955 Attending Physician: Jian Pollock MD Reason for consult: AF History of Presenting Illness: Carl Reinoso is a 69 y.o. male on hospital day 2 with a history of . History Obtained From: patient, electronic medical record 69 yo male [place] resident w [facility] CVA Seizure AF and wheel chair bound was sent form [facility] Preop Cataractsurgery for Tachycardia. He was in AF 150-160s. He is in AF now on Tele 93. ECG AF 105. He is already on Eliquis at the [place]. HS Troponin are normal. Pt in confused and combative. Gets easily agitated. Unable to assist with HPI or PMH. 07/31/24 Tele AFL 82. Pt is more awake today and states that he is at a 'hospital.' He does not know why he is here. He has no complaints. He does not want to talk much. He asked me to go talk to myself if want to talk. History: EKG: Past Medical History: Diagnosis Date Seizures (HCC) History reviewed. No pertinent surgical history. Family History History reviewed. No pertinent family history. [] Unable to obtain due to ventilated and/ or neurologic status Social History Socioeconomic History Marital status: Single Spouse name: Not on file Number of children: Not on file Years of education: Not on file Highest education level: Not on file Occupational History Not on file Tobacco Use Smoking status: Former Types: Cigarettes Passive exposure: Past Smokeless tobacco: Never Vaping Use Vaping status: Never Used Substance and Sexual Activity Alcohol use: Not Currently Drug use: Never Sexual activity: Not on file Other Topics Concern Not on file Social History Narrative Not on file Social Determinants of Health Financial Resource Strain: Not on file Food Insecurity: No Food Insecurity (07/29/2024) Hunger Vital Sign Worried About Running Out of Food in the Last Year: Never true Ran Out of Food in the Last Year: Never true Transportation Needs: No Transportation Needs (07/29/2024) PRAPARE - Transportation Lack of Transportation (Medical): No Lack of Transportation (Non-Medical): No Physical Activity: Not on file Stress: Not on file Social Connections: Not on file Intimate Partner Violence: Not on file Housing Stability: Low Risk (07/29/2024) Housing Stability Vital Sign Unable to Pay for Housing in the Last Year: No Number of Times Moved in the Last Year: 1 Homeless in the Last Year: No [] Unable to obtain due to ventilated and/ or neurologic status Home Medications: Medications Prior to Admission: busPIRone (BUSPAR) 5 MG tablet, Take 1 tablet by mouth 2 times daily divalproex (DEPAKOTE) [address] tablet, Take 1 tablet by mouth in the morning and at bedtime apixaban (ELIQUIS) 5 MG TABS tablet, Take 1 tablet by mouth 2 times daily lamoTRIgine (LAMICTAL) 100 MG tablet, Take 1 tablet by mouth 2 times daily levETIRAcetam (KEPPRA) 750 MG tablet, Take 1 tablet by mouth 2 times daily primidone (MYSOLINE) 50 MG tablet, Take 1 tablet by mouth nightly traZODone (DESYREL) 50 MG tablet, Take 0.25 tablets by mouth in the morning and at bedtime sertraline (ZOLOFT) 50 MG tablet, Take 1 tablet by mouth daily pantoprazole (PROTONIX) 40 MG tablet, Take 1 tablet by mouth daily metoprolol tartrate (LOPRESSOR) 25 MG tablet, Take 0.5 tablets by mouth 2 times daily tamsulosin (FLOMAX) 0.4 MG capsule, Take 1 capsule by mouth at bedtime Current Hospital Medications: Scheduled Meds: metoprolol succinate 25 mg Oral BID busPIRone 5 mg Oral BID divalproex 250 mg Oral BID lamoTRIgine 100 mg Oral BID levETIRAcetam 750 mg Oral BID pantoprazole 40 mg Oral Daily primidone 50 mg Oral Nightly sertraline 50 mg Oral Daily tamsulosin 0.4 mg Oral Nightly traZODone 12.5 mg Oral BID enoxaparin 1 mg/kg SubCUTAneous BID spironolactone 25 mg Oral Daily sodium chloride flush 5-40 mL IntraVENous 2 times per day melatonin 3 mg Oral Nightly cefTRIAXone (ROCEPHIN) IV 1,000 mg IntraVENous Q24H Continuous Infusions: sodium chloride PRN Meds:.sodium chloride flush, sodium chloride, potassium chloride OR potassium alternative oral replacement OR potassium chloride, magnesium sulfate, ondansetron OR ondansetron, polyethylene glycol, acetaminophen OR acetaminophen . sodium chloride Allergies: No Known Allergies Review of Systems: Review of Systems Not obtainable/Reliable Objective Findings: Vitals:BP 95/66 Pulse 91 Temp 97.3 F (36.3 C) (Oral) Resp 17 Ht 1.727 m (5' 7.99 ) Wt 80.7 kg (178 lb) SpO2 97% BMI 27.07 kg/m Physical Examination: Physical Exam Constitutional: No distress. He appears chronically ill. HENT: Normal cephalic and Atraumatic Eyes: Pupils are equal, round, and reactive to light. Neck: Thyroid normal. No JVD present. No neck adenopathy. No thyromegaly present. Cardiovascular: Normal heart sounds, intact distal pulses and normal pulses. An irregularly irregular rhythm present. Tachycardia present. Pulmonary/Chest: Effort normal and breath sounds normal. He has no wheezes. He has no rales. He exhibits no tenderness. Abdominal: Soft. Bowel sounds are normal. There is no abdominal tenderness. Musculoskeletal: General: No tenderness or edema. Normal range of motion. Cervical back: Normal range of motion and neck supple. Neurological: He is alert. He exhibits altered mental status and a cognitive deficit. Skin: Skin is warm. No cyanosis. Nails show no clubbing. Results/ Medications reviewed 07/31/2024, 7:55 AM Laboratory, Microbiology, Pathology, Radiology, Cardiology, Medications and Transcriptions reviewed Scheduled Meds: metoprolol succinate 25 mg Oral BID busPIRone 5 mg Oral BID divalproex 250 mg Oral BID lamoTRIgine 100 mg Oral BID levETIRAcetam 750 mg Oral BID pantoprazole 40 mg Oral Daily primidone 50 mg Oral Nightly sertraline 50 mg Oral Daily tamsulosin 0.4 mg Oral Nightly traZODone 12.5 mg Oral BID enoxaparin 1 mg/kg SubCUTAneous BID spironolactone 25 mg Oral Daily sodium chloride flush 5-40 mL IntraVENous 2 times per day melatonin 3 mg Oral Nightly cefTRIAXone (ROCEPHIN) IV 1,000 mg IntraVENous Q24H Continuous Infusions: sodium chloride Recent Labs 07/29/24 1441 07/30/24 0524 07/31/24 0512 WBC 11.3* 12.2* 12.1* HGB 13.6* 13.7* 13.6* HCT 42.5 40.7* 39.4* MCV 96.2* 95.8* 93.1* PLT 364 370 341 Recent Labs 07/29/24 1441 07/30/24 0524 07/31/24 0512 NA 140 143 139 K 5.5* 4.8 4.1 CL 100 104 101 CO2 28 26 27 BUN 22 24* 29* CREATININE 1.32* 1.22* 1.28* Recent Labs 07/29/24 1441 AST 9 ALT 7 BILITOT 0.4 ALKPHOS 64 Recent Labs 07/29/24 1441 LIPASE 15 Recent Labs 07/29/24 1441 INR 1.2 XR CHEST PORTABLE Result Date: 07/29/2024 EXAMINATION: ONE XRAY VIEW OF THE CHEST 07/29/2024 2:32 pm COMPARISON: None. HISTORY: ORDERING SYSTEMPROVIDED HISTORY: tachycardia TECHNOLOGIST PROVIDED HISTORY: Reason for exam:->tachycardia What reading provider will be dictating this exam?->CRC FINDINGS: The heart is enlarged. There is no mediastinal widening. There is no focal consolidation seen within the right or left lungs to suggest pneumonia. No gross pleural effusion is noted. Mild vascular congestion cannot be completely excluded. Cardiomegaly. I cannot exclude mild pulmonary vascular congestion There are no findings to suggest pneumonia. Active Hospital Problems Diagnosis Date Noted Atrial fibrillation with rapid ventricular response (HCC) [I48.91] 07/29/2024 Priority: Low Impression/Plan: AF controlled rate. advanced BB to BID. Change back to Eiquis. No plans for invasive CV testings. May add Dig for trever control if needed. Transistion back to Eliquis anytime. 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 I called and spoke with his Brother, Oliverio, regarding Echo findings. He does not wish to see his brother undergo invasive CV testings nor surgery. He will come in this AM to take care of POA paper work. Oliverio states that he has been making Decisions are his Brother's behal for a long time. We will add Low dose Entresto. CVA SZ MRDD Non Ambulatory Thank you for allowing us to participate in the care of this patient. Will continue to follow. Please call if questions or concerns arise. * Jian Pollock MD - 07/30/2024 4:12 PM EST Images from the original note were not included. [facility] Hospitalist Progress Note Admitting Date and Time: 07/29/2024 2:06 PM Subjective: No acute events overnight. No concerns from patient. No concerns from bedside RN ROS: denies fever, chills, cp, sob, n/v, HINSON unless stated above. metoprolol succinate 25 mg Oral BID busPIRone 5 mg Oral BID divalproex 250 mg Oral BID lamoTRIgine 100 mg Oral BID levETIRAcetam 750 mg Oral BID pantoprazole 40 mg Oral Daily primidone 50 mg Oral Nightly sertraline 50 mg Oral Daily tamsulosin 0.4 mg Oral Nightly traZODone 12.5 mg Oral BID enoxaparin 1 mg/kg SubCUTAneous BID sodium chloride flush 5-40 mL IntraVENous 2 times per day melatonin 3 mg Oral Nightly cefTRIAXone (ROCEPHIN) IV 1,000 mg IntraVENous Q24H sodium chloride flush, 5-40 mL, PRN sodium chloride, , PRN potassium chloride, 40 mEq, PRN Or potassium alternative oral replacement, 40 mEq, PRN Or potassium chloride, 10 mEq, PRN magnesium sulfate, 2,000 mg, PRN ondansetron, 4 mg, Q8H PRN Or ondansetron, 4 mg, Q6H PRN polyethylene glycol, 17 g, Daily PRN acetaminophen, 650 mg, Q6H PRN Or acetaminophen, 650 mg, Q6H PRN Objective: BP 111/82 Pulse 89 Temp 98.5 F (36.9 C) (Axillary) Resp 16 Ht 1.727 m (5' 7.99 ) Wt 80.7 kg (178 lb) SpO2 97% BMI 27.07 kg/m General Appearance: alert and oriented to person only. Baseline intellectual disability present Skin: warm and dry Head: normocephalic and atraumatic Eyes: pupils equal, round, and reactive to light, extraocular eye movements intact, conjunctivae normal Neck: neck supple and non tender without mass Pulmonary/Chest: clear to auscultation bilaterally- no wheezes, rales or rhonchi, normal air movement, no respiratory distress Cardiovascular: normal rate, normal S1 and S2 and no carotid bruits Abdomen: soft, non-tender, non-distended, normal bowel sounds, no masses or organomegaly Extremities: no cyanosis, no clubbing and no edema. Scratches on bilateral anterior shins Neurologic: no cranial nerve deficit and speech normal Recent Labs 07/29/24 1441 07/30/24 0524 NA 140 143 K 5.5* 4.8 CL 100 104 CO2 28 26 BUN 22 24* CREATININE 1.32* 1.22* GLUCOSE 103* 85 CALCIUM 9.5 9.1 Recent Labs 07/29/24 1441 07/30/24 0524 WBC 11.3* 12.2* RBC 4.42* 4.25* HGB 13.6* 13.7* HCT 42.5 40.7* MCV 96.2* 95.8* MCH 30.8 32.2* MCHC 32.0* 33.7 RDW 13.0 12.9 PLT 364 370 Radiology: XR CHEST PORTABLE Final Result Cardiomegaly. I cannot exclude mild pulmonary vascular congestion There are no findings to suggest pneumonia. Assessment/Plan: Acute Illnesses Atrial fibrillation -HR in 120s-130s preceding admission prompting ED visit from ophthalmology office. -Start Toprol 25 mg BID w/ hold parameters -Lovenox, transition to DOAC if no planned cardiac intervention. I suspect he may need LHC given new HFrEF but will defer to nursing consultant -Monitor on telemetry -TTE showing new HFrEF w/ EF 20-25% -Cardiology consult Acute systolic HF exacerbation -Pulmonary congestion on CXR, mild crackles on exam -Pro-BNP > 5k (in setting of kidney dysfunction) -s/p Lasix 20 mg IV. Appears euvolomic today so will defer further diuresis for now -last TTE 08/2021 showing normal EF, moderate-severe tricuspid regurgitation -TTE w/ results as above -Starting BB, aldactone. If BP tolerates would be good candidate to start Entresto and Jardiance -Salt restricted diet -cardiology following ROYAL (?) : Cr on admission 1.3, unclear baseline -Trend Cr daily -Avoid nephrotoxins UTI -rocephin -f/u urine cx Chronic Illnesses Seizure disorder (?) -Resume home Keppra Anxiety -Resume Zoloft, Buspar BPH -Flomax VTE Prophylaxis: low molecular weight heparin - start * Patricia Perez, PT - 07/30/2024 8:56 AM EST Physical Therapy Missed Treatment Facility/Department: [facility] SURG [id number] NAME: Carl Reinoso : 1955 (69 y.o.) Account: [id number] Gender: male PT evaluation and treatment orders received. Chart reviewed. PT evaluation attempted. Educated pt on role of PT in hospital setting. Pt avoiding interaction and turning away from therapist, closing eyes. When asking pt if he would participate in therapy assessment, pt replies, I am kicking you out because I need sleep. Nursing staff notified. Will follow and attempt PT evaluation again at earliest availability. Patricia Perez, PT, 07/30/24 at 8:56 AM * Rachele Dougherty OTR/Linda - 07/30/2024 8:56 AM EST [facility] Occupational Therapy NAME: Carl Reinoso ROOM: W170/W170-01 : 1955 DATE: 07/30/2024 Attempted to see Carl Reinoso at 0840 on this date for: [x] Initial Evaluation [] Treatment Patient was unable to be seen due to: [] Off unit for testing/procedure [] Patient refused, stating [] Therapy on hold due to [] Nursing deferred due to [x] Other: Pt resting in bed on therapist arrival. Initially closes his eyes and does not attend totherapist despite appearing awake initially. When he does open his eyes pt states I don't need to tell you when asked his name and date of . Explained purpose of therapy assessment, pt rolls on side and closes eyes away from therapist, then rolls to other side when therapist comes to bedsideto speak to him. When therapist asks directly are you willing to work with us or not pt states I'm kicking you out and not doing it. Case management notified. [facility] Discharge instructions* Discharge Instr - [place]* Amada Ledesma RN - 07/31/2024 5:04 PM EST Continuity of Care Form Patient Name: Carl Reinoso : 1955 Admit date: 07/29/2024 Discharge date: Code Status Order: DNR-CCA Advance Directives: Advance Care Flowsheet Documentation Admitting Physician: Jian Pollock MD PCP: Santo Viera MD Discharging Nurse: Amada Chawla Discharging Hospital Unit/Room#: W170/W170-01 Discharging Unit Emergency Contact: Extended Emergency Contact Information Primary Emergency Contact: Oliverio Reinoso Relation: Brother/Sister Manager Enterprise Content Management needed? No Secondary Emergency Contact: Justina Reinoso Relation: Other Relative Manager Enterprise Content Management needed? No Past Surgical History: History reviewed. No pertinent surgical history. Immunization History: There is no immunization history on file for this patient. Active Problems: Patient Active Problem List Diagnosis Code Atrial fibrillation with rapid ventricular response (HCC) I48.91 Isolation/Infection: Isolation No Isolation Patient Infection Status None to display Nurse Assessment: Last Vital Signs: BP 93/64 Pulse 93 Temp 98 F (36.7 C) (Oral) Resp 20 Ht 1.727 m (5' 7.99 ) Wt 80.7 kg (178 lb) SpO2 93% BMI 27.07 kg/m Last documented pain score (0-10 scale): Pain Level: 0 Last Weight: Wt Readings from Last 1 Encounters: 07/30/24 80.7 kg (178 lb) Mental Status: oriented, alert, coherent, and logical IV Access: - None Nursing Mobility/ADLs: Walking Dependent Transfer Dependent Bathing Dependent Dressing Dependent Toileting Dependent Feeding Dependent Analysis Intern Dependent Med Delivery whole Wound Care Documentation and Therapy: Elimination: Continence: Bowel: Yes Bladder: Yes Urinary Catheter: None Colostomy/Ileostomy/Ileal Conduit: No Date of Last BM: Intake/Output Summary (Last 24 hours) at 07/31/2024 1702 Last data filed at 07/31/2024 0814 Gross per 24 hour Intake 627 ml Output 1100 ml Net -473 ml I/O last 3 completed shifts: In: 822 [P.O.:822] Out: 1100 [Urine:1100] Safety Concerns: At Risk for Falls and History of Seizures Impairments/Disabilities: Vision Nutrition Therapy: Current Nutrition Therapy: - Oral Diet: General Routes of Feeding: Oral Liquids: Thin Liquids Daily Fluid Restriction: no Last Modified Barium Swallow with Video (Video Swallowing Test): not done Treatments at the Time of Hospital Discharge: Respiratory Treatments: Oxygen Therapy: is not on home oxygen therapy. Ventilator: - No ventilator support Rehab Therapies: Physical Therapy and Occupational Therapy Weight Bearing Status/Restrictions: No weight bearing restrictions Other Medical Equipment (for information only, NOT a DME order): wheelchair Other Treatments: Patient's personal belongings (please select all that are sent with patient): None RN SIGNATURE: CASE MANAGEMENT/SOCIAL WORK SECTION Inpatient Status Date: Readmission Risk Assessment Score: [facility] RISK OF UNPLANNED READMISSION 2.0 12.2 Total Score Discharging to Facility/ Agency Name: Address: Phone: Fax: Dialysis Facility (if applicable) Name: Address: Dialysis Schedule: Phone: Fax: Busperson/Furnace Caretaker signature: {Roxannegnature:[id number]} PHYSICIAN SECTION Prognosis: {Prognosis:6487771065} Condition at Discharge: { Patient Condition:[id number]} Rehab Potential (if transferring to Rehab): {Prognosis:2378797863} Recommended Labs or Other Treatments After Discharge: Physician Certification: I certify the above information and transfer of Carl Reinoso is necessary for the continuing treatment of the diagnosis listed and that he requires {Admit to Appropriate Level of Care:71182} for {GREATER/LESS:075645386} 30 days. Update Admission H&P: {CHP DME Changes in HandP:349685012} PHYSICIAN SIGNATURE: {Esignature:[id number]} * Attachments The following attachments cannot be sent through Care Everywhere. * cephalexin (Syrian) * metoprolol (oral/injection) (Syrian) * sacubitril and valsartan (Syrian) * spironolactone (Syrian) documented in [facility] Telephone encounter Note* Telephone Encounter - Mabel Cesar - 07/31/2024 1:01 PM EST Spoke with Patient;s sister to check on jjhis status after Tao left the surgery center on 07-29 he went to the ER and was diagnosed with an enlarged heart with a leaky valve, The nursing consultant felt he was not strong enough to go through with Cataract surgery. He was transferred back to the [facility] and is scheduled for an ablation . His sister stated the nursing consultant is not sure if he is healthy enough for the procedure he has signed a DNR and is being kept comfortable with medication. She will call with updates. 08-19-24 Surgery has been cancelled Maria E [facility]01-09[facility] Miscellaneous Notes* Telephone Encounter - Mabel Cesar - 07/31/2024 1:01 PM EST Spoke with Patient;s sister to check on jjhis status after Tao left the surgery center on 07-29 he went to the ER and was diagnosed with an enlarged heart with a leaky valve, The nursing consultant felt he was not strong enough to go through with Cataract surgery. He was transferred back to [facility] and is scheduled for an ablation . His sister stated the nursing consultant is not sure if he is healthy enough for the procedure he has signed a DNR and is being kept comfortable with medication. She will call with updates. 08-19-24 Surgery has been cancelled Maria E Cesar documented [facility] Hospital course Narrative * Jian Pollock MD - 07/31/2024 11:43 AM EST Hospital Medicine Discharge Summary Carl Reinoso : 1955 Admit date: 07/29/2024 Discharge date: 07/31/2024 Admitting Physician: Jian Pollock MD Primary Care Physician: Santo Viera MD Chief Complaint Patient presents with Tachycardia Pt was sent to the ER from [facility] for tachycardia prior to cataract surgery Hospital Course: 69 y.o., male with PMH MRDD, afib, CVA, seizure disorder who presented from an ophthalmology appointment for cataract surgery where he was found to be in afib in 120-130s. Mild CHF exacerbation notedbased on elevated pro-BNP and vascular congestion on CXR that was treated with IV diuresis. He remained on RA throughout hospitalization. Also found to have UTI. 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 In Home Caregiver called and spoke with his Brother, Oliverio, regarding Echo findings. He did not wish to see his brother undergo invasive CV testings nor surgery. He was started on Entresto, aldactone, and BID Toprol with improvement in rate control Will discharge on Eliquis and short course of Keflex for UTI back to assisted living. Exam on discharge: BP 95/66 Pulse 91 Temp 97.3 F (36.3 C) (Oral) Resp 17 Ht 1.727 m (5' 7.99 ) Wt 80.7 kg (178 lb) SpO2 97% BMI 27.07 kg/m Constitutional: No distress. He appears chronically ill. HENT: Normal cephalic and Atraumatic Eyes: Pupils are equal, round, and reactive to light. Neck: Thyroid normal. No JVD present. No neck adenopathy. No thyromegaly present. Cardiovascular: Normal heart sounds, intact distal pulses and normal pulses. An irregularly irregular rhythm present. Normal rate Pulmonary/Chest: Effort normal and breath sounds normal. He has no wheezes. He has no rales. He exhibits no tenderness. Abdominal: Soft. Bowel sounds are normal. There is no abdominal tenderness. Musculoskeletal: General: No tenderness or edema. Normal range of motion. Cervical back: Normal range of motion and neck supple. Neurological: He is alert. He exhibits altered mental status and a cognitive deficit. Skin: Skin is warm. No cyanosis. Nails show no clubbing. Patient was seen by the following consultants Consults: IP CONSULT TO CARDIOLOGY IP CONSULT TO SPIRITUAL SERVICES Significant Diagnostic Studies: Refer to chart Please refer to chart if no studies are shown here Echo (TTE) complete (PRN contrast/bubble/strain/3D) Result Date: 07/30/2024 Left Ventricle: Severely reduced left ventricular systolic function with a visually estimated EF of20 - 25%. Left ventricle is severely dilated. Normal wall thickness. Severe global hypokinesis present. Abnormal diastolic function. Right Ventricle: Normal systolic function. 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 Severely thickened leaflets. Severe regurgitation with an anterior directed jet. Tricuspid Valve: Mild regurgitation. Moderately elevated RVSP, consistent withmoderate pulmonary hypertension. Left Atrium: Left atrium is severely dilated. Pericardium: No pericardial effusion. Image quality is adequate. XR CHEST PORTABLE Result Date: 07/29/2024 EXAMINATION: ONE XRAY VIEW OF THE CHEST 07/29/2024 2:32 pm COMPARISON: None. HISTORY: ORDERING SYSTEMPROVIDED HISTORY: tachycardia TECHNOLOGIST PROVIDED HISTORY: Reason for exam:->tachycardia What reading provider will be dictating this exam?->CRC FINDINGS: The heart is enlarged. There is no mediastinal widening. There is no focal consolidation seen within the right or left lungs to suggest pneumonia. No gross pleural effusion is noted. Mild vascular congestion cannot be completely excluded. Cardiomegaly. I cannot exclude mild pulmonary vascular congestion There are no findings to suggest pneumonia. Discharge Medications: Medication List START taking these medications cephALEXin 500 MG capsule Commonly known as: KEFLEX Take 1 capsule by mouth 2 times daily for 3 days metoprolol succinate 25 MG extended release tablet Commonly known as: TOPROL XL Take 1 tablet by mouth in the morning and at bedtime sacubitril-valsartan 24-26 MG per tablet Commonly known as: ENTRESTO Take 1 tablet by mouth 2 times daily spironolactone 25 MG tablet Commonly known as: ALDACTONE Take 1 tablet by mouth daily Start taking on: August 01, 2024 CONTINUE taking these medications busPIRone 5 MG tablet Commonly known as: BUSPAR divalproex [address] tablet Commonly known as: DEPAKOTE Eliquis 5 MG Tabs tablet Generic drug: apixaban lamoTRIgine 100 MG tablet Commonly known as: LAMICTAL levETIRAcetam 750 MG tablet Commonly known as: KEPPRA pantoprazole 40 MG tablet Commonly known as: PROTONIX primidone 50 MG tablet Commonly known as: MYSOLINE sertraline 50 MG tablet Commonly known as: ZOLOFT tamsulosin 0.4 MG capsule Commonly known as: FLOMAX traZODone 50 MG tablet Commonly known as: DESYREL STOP taking these medications metoprolol tartrate 25 MG tablet Commonly known as: LOPRESSOR Where to Get Your Medications Information about where to get these medications is not yet available Ask your nurse or doctor about these medications cephALEXin 500 MG capsule metoprolol succinate 25 MG extended release tablet sacubitril-valsartan 24-26 MG per tablet spironolactone 25 MG tablet Disposition: If discharged to Home, Any [facility] needs that were indicated and/or required as been addressed and set up by Social Work. Condition at discharge: good Activity: activity as tolerated Total time taken for discharging this patient: 40 minutes. Greater than 70% of time was spent focused exclusively on this patient. Time was taken to review chart, discuss plans with consultants, reconciling medications, discussing plan answering questions with patient. Signed: Jian Pollock MD 07/31/2024, 11:55 AM Carl Reinoso, [facility] Tele[facility] encounter Note* Telephone Encounter - Meredith Grijalva MD - 07/29/2024 10:51 AM EST Sent [facility]01-07-2025 Miscellaneous Notes* Telephone Encounter - Meredith Grijalva MD - 07/29/2024 10:51 AM EST Sent * Telephone Encounter - Mabel Cesar - 07/28/2024 9:16 AM EST Patient's sister called and requested the Prednisolone acetate drop be sent to [facility] in [facility], Cataract Surgery is 07-29-24 at [place] / [place] [facility]esar [facility] Telephone encounter Note * Telephone Encounter - Mabel Cesar - 07/28/2024 9:16 AM EST Patient's sister called and requested the Prednisolone acetate drop be sent to [facility] in [facility], Cataract Surgery is 07-29-24 at [place] / J[place] Cesar [facility]12-30-2024 Instructions* Patient Instructions* Odette Amezcua APRN.[facility] - 07/21/2024 4:52 PM EST PATIENT PREOPERATIVE INSTRUCTIONS Hood Grijalva* has scheduled you for your procedure at this surgery center: [facility]: [phone] --[phone] [place] [address]. Please read below carefully for your personalized instructions. Dietary Restrictions: - No solid food after midnight. - You may have 12 ounces of clear liquids (water, clear juices such as apple juice or gatorade) until 2 hours before scheduled arrival at facility. Medications: Unless instructed differently below, stay on all of your prescription medications until your surgery. Approved medications to take the morning of surgery ( If take in the morning) with a sip of water: METOPROLOL , busPIRone (BUSPAR) , divalproex (DEPAKOTE) , lamoTRIgine (LAMICTAL) , levETIRAcetam (KEPPRA) , pantoprazole (PROTONIX) , sertraline (ZOLOFT) If you start any new medications after today's visit, please contact the surgeon's office. Blood Thinning Medications: Cataract Protocol- Do not need to hold blood thinning medications. Continue apixaban (ELIQUIS) perioperatively Important Reminders: - Candy, mints, and tobacco products are NOT permitted the morning of surgery. - Hearing aids, dentures and glasses may be worn the morning of surgery. - NO jewelry, body piercings, makeup, hairpins or contacts are to be worn the day of surgery. If you develop symptoms such as a fever, cold, or flu, or have other changes to your health within TWO DAYS of scheduled surgery or the morning of surgery, please contact the surgery center above. Personal Belongings: -Please have photo ID and insurance cards. -If you do not have a copy of advance directives on file with us, please bring a copy with you on the day of surgery. - Leave ALL valuables and money at home or with family members. For Outpatient Procedures: - YOU MUST HAVE A RESPONSIBLE LITERACY EDUCATION PROFESSOR TAKE YOU HOME. A DERRICK HELPER OR ELECTRIC TRACK SWITCH MAINTAINER CANNOT BE MADE A RESPONSIBLE LITERACY EDUCATION PROFESSOR. - We recommend that a responsible person stays with you overnight to take care of you. - You cannot stay in a hotel alone after outpatient surgery. You will not be permitted to have yoursurgery, if you do not have someone to take care of you. Arrival Time for Surgery: - The Surgery Center or hospital where you are having surgery will call the afternoon before surgery (or Sunday for Sunday surgery) with a scheduled arrival time. - If you have not heard by 4 pm, please contact the surgery center above. Please be aware that emergency situations arise, which may delay or change your surgical time. If this happens, we will notify you as soon as possible and regret any inconvenience. If you already have an Advance Directive, please fax a copy to [phone] or email to for it to be added to your chart. If you do not have an Advance Directive, you can find the appropriate form and more information at [email or web address]. We recommend that youcomplete the Advance Directive form found on the website and bring it with you the day of your surgery. It can be witnessed and scanned into your chart that day. documented in this encounterSumma Health12-30-2024 History and physical note * Odette Amezcua APRN.CNP - 07/21/2024 4:00 PM EST Images from the original note were not included. [facility] HISTORY AND PHYSICAL EXAMINATION SERVICE DATE: 07/21/2024 SERVICE TIME: 4:00 PM PRIMARY CARE PHYSICIAN: No primary care provider on file. 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 Brother reports last seizure 2 years ago. History of ischemic stroke Assessment: Per Neurology Office visit (Care Everywhere) : Head CT from 07/10/2019 revealed suspected developing small lacunar infarct right basal ganglia but likely beyond hyperacute phase. CT scan of the brain 12/2022 was non acute. It again showed bifrontal and temporal lobe encephalomalacia. No residual motor deficits, ambulates with a walker Pulmonary embolism (HCC) Assessment: Per neurology office visit (Care Everywhere) : Chest CTA in 12/2022 revealed large pulmonary embolus and mild right ventricular strain. Patient is on Eliquis. Follows with PCP. Currently denies any CP, SOB RA 07/21/24 1603 SpO2: 98% Louis Activity Status Index: METS: Walk indoors, such as around the house (1.75 METs) Take care of self; that is eating, dressing, bathing, using the toilet (2.75 METs) DASI Score: 4.5 Patient denies any chest pain or undue shortness of breath with the above physical activity. Patient is partially dependent. Clinical Frailty Scale: 4. Apparently vulnerable STOP-Bang Score: Has or is being treated for high blood pressure Patient over 50 years old Male patient Denies snoring loudly Denies feeling tired, fatigued, or sleepy during the daytime Has not been observed to stop breathing or choking/gasping during sleep BMI less than or equal to 35 kg/m^2 Does not have a large neck STOP-Bang Score: 3 ANESTHESIA FINDINGS: Intubation History: No history of difficult intubation Significant Anesthesia Considerations: none Airway History: No history of difficult airway I - PHYSICAL EVALUATION AIRWAY Patient intubated: No. Mallampati: III. TM distance: >3 FB. Neck ROM: full ROM without neurological symptoms. Mouth opening: adequate. Short neck: no. Thick neck: no Peace present: yes (mustache/peace) Lip Bite Test: II Microretrognathia/Micronagthia/Recessed Chin: No DENTAL Dental findings: teeth intact. II - ANESTHESIA PLAN Anesthetic plan additional comments: *PACC/TCI - anesthesia choice. Beta Angelina Monitoring Plan Post Procedure Analgesic Plan Prepared for Surgery: optimally prepared for surgery. CONSULTS: Patient does not require consults for optimization at this time Planned Anesthetic: anesthesia choice The Following Tests/Procedures Have Been Initiated: Labs not indicated per PACC protocol, EKG not indicated per PACC protocol Cataract Protocol REASON FOR VISIT: Carl Reinoso is a 69 year old male who is scheduled for PHACOEMULSIFICATION CATARACT IMPLANT INTRAOCULAR LENS W/O ENDOSCOPIC CYCLOPHOTOCOAGULATION at the request of Dr. Skylar Saenz for consultation. My final recommendation will be communicated back to the requestin g physician by way of shared medical record or letter. Subjective COVID-19 Immunization Status Overdue - Covid-19 Vaccine ( season) Never done No completion, postpone, frequency change, or communication history exists for this topic. CHIEF COMPLAINT: surgery HPI: Patient is a 69 year old male with bilateral cataracts that is recommended for surgery. Pt. currently denies any pain or is in any apparent distress. Hx TBI, mild MRDD; oriented to self , facility for place, 2025 . He is a resident at [facility] [place]. His Brother and Lyxc[employer]-fg-woe are present. They report Pt. is able to lay supine 30 minutes without any difficulty. REVIEW OF SYSTEMS: General: No weight loss, malaise or fevers. Neurological: (+) mild MRDD Positive for: seizures and strokes. Patient's stroke is without residual deficits. Negative for: dementia, Parkinson's disease, quadriplegia and TIA. Respiratory: Positive for: tobacco use (former cigar smoker). Negative for: asthma, current cough, bronchodilator used daily for the last 3 months, dyspnea, homeoxygen, orthopnea, pneumonia within 6 weeks, URI < 2 weeks and obstructive sleep apnea. Cardiovascular: Positive for: anticoagulation therapy, atrial fibrillation (? Pt. and family poor historian, noted on EKG in [facility]) and DVT/PE (Hx PE 2022, Eliquis) Negative for: AICD/PPM, angina, CAD, chest pain, CHF, hyperlipidemia, hypertension and murmur/valvular heart disease. GI: No history of GI symptoms or problems. No history of esophageal varices, recent ascites, or ETOH greater than 2 drinks per day. : No history of dysuria, frequency or incontinence, stones or chronic kidney disease. No difficulty urinating, nocturia > 1 time per night or hematuria. Endocrine: No history of diabetes. Has not taken steroids within the past 30 days. No history of endocrinological symptoms or problems. Hematology: Positive for: chronic anti-coagulation/platelet meds. Patient is on anti- coagulation/platelet medication(s): DOAC. Negative for: anemia and thrombocytopenia. Oncology: No history of CA metastasis, chemo within 30 days, or radiotherapy within 90 days. No history of oncological symptoms or problems. Psych: No history of psychiatric symptoms or problems. Musculoskeletal: Negative for joint pain or swelling, back pain or muscle pain. Skin: Negative for lesions, rash and itching. Implanted Devices: No implanted devices. PAST MEDICAL HISTORY Diagnosis Date Cataracts, bilateral History of ischemic stroke 07/21/2024 Ischemic stroke (HCC) Pulmonary embolism (HCC) 07/21/2024 Seizures (HCC) 07/21/2024 TBI (traumatic brain injury) (HCC) PAST SURGICAL HISTORY Procedure Laterality Date PAST SURGICAL HISTORY OF nose surgery age 13 years FAMILY HISTORY Problem Relation Age of Onset Glaucoma Father Glaucoma Brother Social History Tobacco Use Smoking status: Former Types: Cigarettes, Cigars Smokeless tobacco: Never Vaping Use Vaping status: Never Used Substance Use Topics Alcohol use: Not Currently Drug use: Not Currently Prior to Admission medications as of 07/21/24 1650 Medication Sig Last Dose Taking pantoprazole DR (PROTONIX) 40 mg tablet Take 40 mg by mouth once daily. Taking Yes busPIRone (BUSPAR) 5 mg tablet Take 5 mg by mouth two times a day. Taking Yes LAMOTRIGINE ORAL Take 100 mg by mouth. Taking Yes PRIMIDONE ORAL Take 50 mg by mouth daily at bedtime. Taking Yes sertraline (ZOLOFT) 50 mg tablet Take 1 tablet by mouth once daily. Taking Yes metoprolol tartrate, short acting, (LOPRESSOR) 50 mg tablet Take 0.5 tablets by mouth two times a day. Yes divalproex DR (DEPAKOTE) 250 mg EC tablet Taking Yes ELIQUIS 5 mg tab(s) Take 5 mg by mouth. Taking Yes levETIRAcetam (KEPPRA) 750 mg tablet Take 750 mg by mouth. Taking Yes tamsulosin (FLOMAX) 0.4 mg Take 0.4 mg by mouth. Taking Yes traZODone (DESYREL) 50 mg tablet Taking Yes prednisoLONE acetate (PRED FORTE) 1 % ophthalmic suspension Apply one drop in surgical eye four times a day for 2 weeks, then twice a day for 2 weeks, then discontinue Taking Yes Medication Comments documented by Nadya Rodriguez Tech on 05/15/2024 at 1235. Unsure of medications ALLERGIES No Known Allergies Objective PHYSICAL EXAM: General: alert and oriented (x oriented to self , facility for place, 2025 ) and healthy appearance. Pertinent negatives noted - not distressed. Follows commands. Skin: normal color, no rash or lesions. HEENT: EOM intact, pupils equal round and pupils reactive to light. Pertinent negatives noted - no carotid bruit. Cardiovascular: regular rate and rhythm, normal S1 and S2, no rub, murmurs, or gallop. Pulse characterized as regular. Respiratory: normal breath sounds, no wheezes or crackles. No chest wall deformity or tenderness. Abdomen: bowel sounds present and soft. Pertinent negatives noted - not tender. Extremities: no deformity, no edema or tenderness, no joint swelling or clubbing. Neurological: normal cognition and motor skills. MOLINA 5/5, in WC. PAIN ASSESSMENT: VITALS: BP 102/82 Pulse 49 Temp (Src) 97.7 (Temporal) Resp 17 Ht 5' 9 (1.75m) Wt 175 lb (79.4kg) SpO2 98% BMI 25.83 kg/(m^2). Diagnostic tests reviewed for today's visit: Lab Value Units Date High Low HB No results within date range. HCT No results within date range. WBC No results within date range. PLT No results within date range. NA No results within date range. K No results within date range. GLUC No results within date range. BUN No results within date range. CREAT No results within date range. PTSEC No results within date range. INR No results within date range. APTT No results within date range. ALT No results within date range. AST No results within date range. TBILI No results within date range. TSH No results within date range. Lab Value Units Date High Low HCGQT No results within date range. UHCG No results within date range. HCG, BODY* No results within date range. Lab Value Units Date High Low ABORHD No results within date range. ABSCREEN No results within date range. No results found for: HBA1C 12/28/2023 EKG (Care Everywhere) 27224 Atrial fibrillation with rapid ventricular response with aberrant conduction, or ventricular premature complexes 2440 Incomplete right bundle branch block 3634 Inferior myocardial infarction, age undetermined 5120 Possible right ventricular hypertrophy 8003 Consistent with pulmonary disease 9150 abnormal ECG No previous ECG available for comparison Electronically Signed On 12-29-2023 13:01:14 EDT by ADDISON MONTANO Instructions Given to Patient: Instructions located in the after visit summary. Patient given verbal and written preop instructions and voices comprehension and compliance. SIGNATURE: Odette Amezcua APRN.JAGDISH PATIENT NAME: Carl Reinoso DATE: 07/21/2024 TIME: 4:00 PM [facility]12-30-2024 History and physical note* Odette Amezcua APRN.CNP - 07/21/2024 4:00 PM EST Images from the original note were not included. [facility] Pre[facility] HISTORY AND PHYSICAL EXAMINATION SERVICE DATE: 07/21/2024 SERVICE TIME: 4:00 PM PRIMARY CARE PHYSICIAN: No primary care provider on file. 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 Brother reports last seizure 2 years ago. History of ischemic stroke Assessment: Per Neurology Office visit (Care Everywhere) : Head CT from 07/10/2019 revealed suspected developing small lacunar infarct right basal ganglia but likely beyond hyperacute phase. CT scan of the brain 12/2022 was non acute. It again showed bifrontal and temporal lobe encephalomalacia. No residual motor deficits, ambulates with a walker Pulmonary embolism (HCC) Assessment: Per neurology office visit (Care Everywhere) : Chest CTA in 12/2022 revealed large pulmonary embolus and mild right ventricular strain. Patient is on Eliquis. Follows with PCP. Currently denies any CP, SOB RA 07/21/24 1603 SpO2: 98% Louis Activity Status Index: METS: Walk indoors, such as around the house (1.75 METs) Take care of self; that is eating, dressing, bathing, using the toilet (2.75 METs) DASI Score: 4.5 Patient denies any chest pain or undue shortness of breath with the above physical activity. Patient is partially dependent. Clinical Frailty Scale: 4. Apparently vulnerable STOP-Bang Score: Has or is being treated for high blood pressure Patient over 50 years old Male patient Denies snoring loudly Denies feeling tired, fatigued, or sleepy during the daytime Has not been observed to stop breathing or choking/gasping during sleep BMI less than or equal to 35 kg/m^2 Does not have a large neck STOP-Bang Score: 3 ANESTHESIA FINDINGS: Intubation History: No history of difficult intubation Significant Anesthesia Considerations: none Airway History: No history of difficult airway I - PHYSICAL EVALUATION AIRWAY Patient intubated: No. Mallampati: III. TM distance: >3 FB. Neck ROM: full ROM without neurological symptoms. Mouth opening: adequate. Short neck: no. Thick neck: no Peace present: yes (mustache/peace) Lip Bite Test: II Microretrognathia/Micronagthia/Recessed Chin: No DENTAL Dental findings: teeth intact. II - ANESTHESIA PLAN Anesthetic plan additional comments: *PACC/TCI - anesthesia choice. Beta Angelina Monitoring Plan Post Procedure Analgesic Plan Prepared for Surgery: optimally prepared for surgery. CONSULTS: Patient does not require consults for optimization at this time Planned Anesthetic: anesthesia choice The Following Tests/Procedures Have Been Initiated: Labs not indicated per PACC protocol, EKG not indicated per [facility] protocol Cataract Protocol REASON FOR VISIT: Carl Reinoso is a 69 year old male who is scheduled for PHACOEMULSIFICATION CATARACT IMPLANT INTRAOCULAR LENS W/O ENDOSCOPIC CYCLOPHOTOCOAGULATION at the request of Dr. Skylar Saenz for consultation. My final recommendation will be communicated back to the requestin g physician by way of shared medical record or letter. Subjective COVID-19 Immunization Status Overdue - Covid-19 Vaccine ( season) Never done No completion, postpone, frequency change, or communication history exists for this topic. CHIEF COMPLAINT: surgery HPI: Patient is a 69 year old male with bilateral cataracts that is recommended for surgery. Pt. currently denies any pain or is in any apparent distress. Hx TBI, mild MRDD; oriented to self , facility for place, 2025 . He is a resident at [facility]. His Brother and [employer] are present. They report Pt. is able to lay supine 30 minutes without any difficulty. REVIEW OF SYSTEMS: General: No weight loss, malaise or fevers. Neurological: (+) mild MRDD Positive for: seizures and strokes. Patient's stroke is without residual deficits. Negative for: dementia, Parkinson's disease, quadriplegia and TIA. Respiratory: Positive for: tobacco use (former cigar smoker). Negative for: asthma, current cough, bronchodilator used daily for the last 3 months, dyspnea, homeoxygen, orthopnea, pneumonia within 6 weeks, URI < 2 weeks and obstructive sleep apnea. Cardiovascular: Positive for: anticoagulation therapy, atrial fibrillation (? Pt. and family poor historian, noted [facility] and DVT/PE (Hx PE 2022, Eliquis) Negative for: AICD/PPM, angina, CAD, chest pain, CHF, hyperlipidemia, hypertension and murmur/valvular heart disease. GI: No history of GI symptoms or problems. No history of esophageal varices, recent ascites, or ETOH greater than 2 drinks per day. : No history of dysuria, frequency or incontinence, stones or chronic kidney disease. No difficulty urinating, nocturia > 1 time per night or hematuria. Endocrine: No history of diabetes. Has not taken steroids within the past 30 days. No history of endocrinological symptoms or problems. Hematology: Positive for: chronic anti-coagulation/platelet meds. Patient is on anti- coagulation/platelet medication(s): DOAC. Negative for: anemia and thrombocytopenia. Oncology: No history of CA metastasis, chemo within 30 days, or radiotherapy within 90 days. No history of oncological symptoms or problems. Psych: No history of psychiatric symptoms or problems. Musculoskeletal: Negative for joint pain or swelling, back pain or muscle pain. Skin: Negative for lesions, rash and itching. Implanted Devices: No implanted devices. PAST MEDICAL HISTORY Diagnosis Date Cataracts, bilateral History of ischemic stroke 07/21/2024 Ischemic stroke (HCC) Pulmonary embolism (HCC) 07/21/2024 Seizures (HCC) 07/21/2024 TBI (traumatic brain injury) (HCC) PAST SURGICAL HISTORY Procedure Laterality Date PAST SURGICAL HISTORY OF nose surgery age 13 years FAMILY HISTORY Problem Relation Age of Onset Glaucoma Father Glaucoma Brother Social History Tobacco Use Smoking status: Former Types: Cigarettes, Cigars Smokeless tobacco: Never Vaping Use Vaping status: Never Used Substance Use Topics Alcohol use: Not Currently Drug use: Not Currently Prior to Admission medications as of 07/21/24 1650 Medication Sig Last Dose Taking pantoprazole DR (PROTONIX) 40 mg tablet Take 40 mg by mouth once daily. Taking Yes busPIRone (BUSPAR) 5 mg tablet Take 5 mg by mouth two times a day. Taking Yes LAMOTRIGINE ORAL Take 100 mg by mouth. Taking Yes PRIMIDONE ORAL Take 50 mg by mouth daily at bedtime. Taking Yes sertraline (ZOLOFT) 50 mg tablet Take 1 tablet by mouth once daily. Taking Yes metoprolol tartrate, short acting, (LOPRESSOR) 50 mg tablet Take 0.5 tablets by mouth two times a day. Yes divalproex DR (DEPAKOTE) 250 mg EC tablet Taking Yes ELIQUIS 5 mg tab(s) Take 5 mg by mouth. Taking Yes levETIRAcetam (KEPPRA) 750 mg tablet Take 750 mg by mouth. Taking Yes tamsulosin (FLOMAX) 0.4 mg Take 0.4 mg by mouth. Taking Yes traZODone (DESYREL) 50 mg tablet Taking Yes prednisoLONE acetate (PRED FORTE) 1 % ophthalmic suspension Apply one drop in surgical eye four times a day for 2 weeks, then twice a day for 2 weeks, then discontinue Taking Yes Medication Comments documented by Nadya Rodriguez Tech on 05/15/2024 at 1235. Unsure of medications ALLERGIES No Known Allergies Objective PHYSICAL EXAM: General: alert and oriented (x oriented to self , facility for place, 2025 ) and healthy appearance. Pertinent negatives noted - not distressed. Follows commands. Skin: normal color, no rash or lesions. HEENT: EOM intact, pupils equal round and pupils reactive to light. Pertinent negatives noted - no carotid bruit. Cardiovascular: regular rate and rhythm, normal S1 and S2, no rub, murmurs, or gallop. Pulse characterized as regular. Respiratory: normal breath sounds, no wheezes or crackles. No chest wall deformity or tenderness. Abdomen: bowel sounds present and soft. Pertinent negatives noted - not tender. Extremities: no deformity, no edema or tenderness, no joint swelling or clubbing. Neurological: normal cognition and motor skills. MOLINA 5/5, in WC. PAIN ASSESSMENT: VITALS: BP 102/82 Pulse 49 Temp (Src) 97.7 (Temporal) Resp 17 Ht 5' 9 (1.75m) Wt 175 lb (79.4kg) SpO2 98% BMI 25.83 kg/(m^2). Diagnostic tests reviewed for today's visit: Lab Value Units Date High Low HB No results within date range. HCT No results within date range. WBC No results within date range. PLT No results within date range. NA No results within date range. K No results within date range. GLUC No results within date range. BUN No results within date range. CREAT No results within date range. PTSEC No results within date range. INR No results within date range. APTT No results within date range. ALT No results within date range. AST No results within date range. TBILI No results within date range. TSH No results within date range. Lab Value Units Date High Low HCGQT No results within date range. UHCG No results within date range. HCG, BODY* No results within date range. Lab Value Units Date High Low ABORHD No results within date range. ABSCREEN No results within date range. No results found for: HBA1C 12/28/2023 EKG ([facility]) 63463 Atrial fibrillation with rapid ventricular response with aberrant conduction, or ventricular premature complexes 2440 Incomplete right bundle branch block 3634 Inferior myocardial infarction, age undetermined 5120 Possible right ventricular hypertrophy 8003 Consistent with pulmonary disease 9150 abnormal ECG No previous ECG available for comparison Electronically Signed On 12-29-2023 13:01:14 EDT by ADDISON MONTANO Instructions Given to Patient: Instructions located in the after visit summary. Patient given verbal and written preop instructions and voices comprehension and compliance. SIGNATURE: Odette Amezcua APRN.CNP PATIENT NAME: Carl Reinoso DATE: 07/21/2024 TIME: 4:00 PM documented in this encounterSum[facility] Health10-24-2024 History of Present illness Narrative* Meredith Grijalva MD - 05/15/2024 2:17 PM EDT ASSESSMENT & PLAN Total Mature Senile Cataract both eyes (primary encounter diagnosis) Cataract Presurgical Documentation Cataract: both eyes Current Visual Acuity Right Eye Distance SC LP Left Eye Distance SC LP Glare Testing: Right Eye High UTO due toLP Left Eye High UTO due to LP Visual Function: Carl Reinoso states that the decline in vision from the cataract impedes his abilities as listed in the HPI, as well as other activities of daily living. Carl Reinoso has confirmed that he is no longer able to function adequately on a day-to-day basis because of his current visual condition. Further, it is my medical opinion that the cataract is the primary cause, or at least a significantly contributory cause of his visual dysfunction. With uncomplicated cataract surgery and lens implantation, it is my expectation that his visual function and quality of life will improve, significantly. The risks, benefits, alternatives, personnel and complications of cataract surgery with lens implantation were discussed with Carl Reinoso in detail. he appeared to understand and elected to proceed with cataract extraction by phacoemulsification with intraocular lens implantation, Right eye (OD) then Left eye (OS) eyes, by Dr. Dallin Saenz. Carl Reinoso understands possible need for glasses after procedure even in the event of Premium IOL selection and/or in Blended vision target. Informed consent form signed by physician and patient. Discussed blended vision with patient, discussed slight anisometropia and potentially decline in depth perception after surgery. Patient Is not a candidate due to Balance FOLLOW UP: Schedule Cataract extraction and intraocular lens implantation Right eye (OD) then Left eye (OS) I have confirmed and edited as necessary the relevant ophthalmic history, ROS, and the neuro exam findings as obtained by others. I have seen and examined Carl Reinoso. I have discussed the case and the management of this patient's care with the Resident/Fellow, if applicable. I also have reviewed and agree with the assessment and plan as stated above and agree withall of its relevant components. Meredith Saenz MD May 15, 2024 * Meredith Grijalva MD - 05/15/2024 2:03 PM EDTSummary: Cataract Checklist 2 Images from the original note were not included. CATARACT PREOPERATIVE FLOWSHEET Access Manager: No specific flaring machine operator FINAL SURGICAL PLAN: Blended Vision: No Premium intraocular lens: No Special surgical needs: [place], [place], and Possible anterior vitrectomy FIRST EYE: right, Monofocal Non Toric clear Aiming Standard SECOND EYE: left, Monofocal Non Toric clear Aiming Standard HISTORY: Flomax or alpha angelina: Yes History of ocular trauma No Post refractive:No Other eye conditions: UNABLE TO ASSESS ASTIGMATSIM (H25.813) Combined forms of age-related cataract of both eyes (primary encounter diagnosis) IMAGING: Patient does not wear contact lenses Topography Unable to obtain Macula OCT No view both eyes Intraocular lens options: Multifocal: Is not a candidate due to Uncertain status of posterior pole of both eyes Toric: Right eye: Is not a candidate due to no topography Left eye: Is not a candidate due to No topography Blended vision Is not a candidate due to Balance Intraocular lens calculations: Preoperative Refraction Biometry Done Axial length symmetric unable to measure with biometer. Used A Scan Post refractive calculations not needed Toric IOL calculations Biometry calculations not needed Pentacam calculations not needed B Scan ustrasound Done within normal limits both eyes SURGEON: Examination confirms presence of visually significant cataracts Done Informed consent and forms signed Done Postop drops prescribed Done Medication orders placed this encounter prednisoLONE acetate (PRED FORTE) 1 % ophthalmic suspension Sig: Apply one drop in surgical eye four times a day for 2 weeks, then twice a day for 2 weeks, then discontinue Dispense: 10 mL Refill: 1 Surgical orders Done SCHEDULING: Surgical site preference: Soonest available FIRST EYE SECOND EYE Surgical Registration appointment Pending Pre Anesthesia appointment Pending Postop appointments with No specific flaring machine operator Pending Week prior to surgery: Intraocular lens selection by surgeon Done Pre and Postop orders Pending Payments not needed Consent up to date Pending Confirm patient has ride Pending Confirm Postoperative week 1 (flaring machine operator) and Postoperative month 1 (surgeon) appointments Pending documented in this encounterSumma Health10-24-2024 Instructions* Patient Instructions* Meredith Grijalva MD - 05/15/2024 2:12 PM EDT Images from the original note were not included. Meredith Saenz MD PREOPERATIVE INSTRUCTIONS CATARACT EXTRATION AND INTRAOCULAR LENS IMPLANTATION You are scheduled to have Cataract surgery in Right eye (OD) then Left eye (OS), and after a thorough discussion with your doctor, you have chosen the following intraocular lenses: First Eye right, Monofocal Non Toric intraocular lens Aiming Distance Second Eye left, Monofocal Non Toric intraocular lens Aiming Distance needing spectacles for near and needing spectacles for distance tasks Your surgery will be performed by Dr. Longoria in either of these locations: [facility], located at: [address] [place], [place] [address], [facility], located at: [address] [place] [address] Today you will discuss your appointments for pre-admission testing visit, surgeries, and postoperative visits with Mabel, our planner/scheduler. If you need to discuss scheduling changes with roseline solitario, you can reach her at: . One day before your surgery, you will receive another phone call to confirm your appointment, and to inform you of your required time of arrival. If you do not hear from us by 2:00 pm the day before your surgery, please call Mabel. Day of Surgery Please remember that you will not be able to drive yourself or take public transportation to go home after your surgery. Make arrangements for transportation on the day of your surgery and your firstpostoperative appointment. Please do not arrange shared ride services. You will need to return for follow up with Dr. Zamarripa or her colleagues. The certified ophthalmic surgical assistant willinform you the location and time during your phone conversation. MOST IMPORTANTLY: DO NOT EAT OR DRINK ANYTHING AFTER MIDNIGHT THE NIGHT BEFORE YOUR SURGERY OR THE MORNING OF THE DAYOF YOUR SURGERY. If you do, your surgery will be cancelled. There are no exceptions as this is for YOUR safety. You may have clear liquids up tp 2 hours prior to your surgery, including water for your regular medications. On the day of your surgery, wear loose fitting, comfortable clothes (preferably button front shirt). Do not wear any facial makeup and please leave all valuables at home (jewelry, money, etc.) PREOPERATIVE AND POSTOPERATIVE DROPS: You will receive a prescription for two medications on your preoperative visit. PLEASE BRING THEM WITH YOU ON THE DAY OF SURGERY AND TO YOUR FIRST POSTOPERATIVE VISIT. PredForte (Prednisolone Acetate), which is a steroid to prevent inflammation After having surgery, you will start applying PredForte (Please remember to shake the bottle beforeapplying the drops): one drop FOUR times daily in the operated eye for two weeks, then TWICE daily for two more weeks and then discontinue. Should you have any questions or concerns, do not hesitate to call us to our office: , or the [facility] at [facility] or [facility] If you need to get in touch with us after hours for maters that cannot wait until the next businesshour, please call and you will be directed to the provider astronautical engineer. If it is a medical emergency, please dial [phone] SOME INFORMATION ABOUT CATARACTS AND CATARACT SURGERY FOR YOUR REVIEW: WHAT IS A CATARACT AND HOW IS IT TREATED? ? The lens in the eye can become cloudy and hard, a condition known as a cataract. Cataracts can develop from normal aging, from an eye injury, or if you have taken medications known as steroids. Cataracts may cause blurred vision, dulled vision, sensitivity to light and glare, and/or ghost images. If the cataract changes vision so much that it interferes with your daily life, the cataract may needto be removed. Surgery is the only way to remove a cataract. You can decide not to have the cataract removed. If you don't have the surgery, your vision loss from the cataract will continue to get worse. HOW WILL REMOVING THE CATARACT AFFECT MY VISION? ? The goal of cataract surgery is to correct the decreased vision that was caused by the cataract. During the surgery, the bulk pigment reducer (eye surgeon) removes the cataract and puts in a new artificial lens called an intraocular lens or IOL. Cataract surgery will not correct other causes of decreased vision, such as glaucoma, diabetes, or age-related macular degeneration. Most people still need towear glasses or contact lens after cataract surgery for either near and/or distance vision and astigmatism. WHAT TYPES OF IOLs ARE AVAILABLE?? Your bulk pigment reducer will help you decide on the type of IOL that will replace your cloudy lens. IOLs that provide either near or distance vision, with a single focus are called Monofocal IOLs. Some newer IOLs can provide for near, intermediate, and distance vision: these multiple foci lenses are called Multifocal IOLs. In addition, all these IOLs can be upgraded to treat astigmatism, and these are called Toric IOLs. WHAT IS ASTIGMATISM? Patients with nearsightedness and farsightedness often also have astigmatism. An astigmatism is caused by a variant of the shape of the cornea: instead of being round like a basketball, the cornea isshaped like a football. This can make your vision blurry. When there is no cataract, astigmatism can be reduced by glasses, contact lenses, and refractive surgery (LASIK or PRK). A Toric intraocular lens can be implanted to correct astigmatism and minimize the need for spectacles for distance vision. When a monofocal toric intraocular lens is implanted, spectacles will be required for near vision tasks. Toric IOLs can also be selected in multifocal version (see below). It is important to note that any attempt at astigmatism reduction could result in over- or under-correction, in which case glasses, contact lenses, or another procedure may be needed for the best visual acuity. You have to pay an out of pocket extra cost for a Toric intraocular lens. Medicare and private insurances do not pay for this aspect of your surgery. WHAT IS PRESBYOPIA: Presbyopia makes it hard for the eye to focus on near vision. This happens to most people as they age. It can also happen after cataract surgery to people of any age if they have a monofocal intraocular lens (IOL) for distance vision. People with presbyopia might hold a book or menu at arm's lengthto see it more clearly. Reading glasses can improve vision problems caused by presbyopia. What are the options to correct presbyopia with cataract surgery: Your eye surgeon can correct presbyopia during cataract surgery. The goal is to reduce your need towear eyeglasses. There are two options for correcting presbyopia with cataract surgery. 1) Monovision using two different monofocal (single focus) IOLs. The eye surgeon can correct presbyopia by placing a monofocal IOL for near vision (at 14 -16 inches or 35 - 40 cm), or intermediate vision (at 28 - 32 inches or 70 to 80 cm) in one of the eyes having surgery. The eye surgeon will put in a monofocal IOL for distance vision in the other eye. The goal is to improve both near (or intermediate), and distance vision by having these two IOLs work together. Some patients do not like having two different monofocal IOLs. If you'd like to see if you will, your eye surgeon can have you try two contact lenses before your surgery. It is important to understand that even though this trial will provide an idea of the final result, the presence of the cataractstill interferes with your ability to accurately assess this option. 2) Multifocal IOL. Another option to correct presbyopia is for your eye surgeon to put in a multifocal IOL.This IOL will allow your eye to focus at more than one distance so that you do not have to wear glasses as much. Multifocal IOLs work best if put into both eyes. There are different types of Multifocal IOLs, and your eye surgeon will discuss them with you and helpe you decide which is best for you. You have to pay an out of pocket extra cost for a Multifocal IOL. Medicare and private insurancesdo not pay for this aspect of your surgery. As with all surgery, problems can happen. In addition to all the risks for cataract surgery, here are some common or serious risks for presbyopia correction: Monovision: You might have trouble with depth perception (seeing which of two objects is closer) or problems driving at night. You may need to wear glasses at all times or just for some activities, even after getting premium IOLs.You may experience mild difficulty with depth perception. Your distance vision will not be as sharp in the near or intermediate vision eye. Multifocal IOL You may see halos and ghost images. Or you could have night glare, double vision, or blurry vision. You might have trouble driving at night. Premium IOLs may not work well if you have certain eye problems or large pupils. You may need to wear glasses at all times or just for some activities, even after getting multifocal IOLs. You have to pay extra for a relaxing incision. Medicare and private insurance do not pay for this. WHAT ARE THE MAJOR RISKS OF CATARACT SURGERY?? All operations and procedures are risky and can result in unsuccessful results, complications, injury, or even , from both known and unknown causes. The major risks of cataract surgery include, but are not limited to bleeding; infection; injury to parts of the eye and nearby structures from the anesthesia, the operation itself, or pieces of the lens that cannot be removed; high eye pressure;a detached retina, and a droopy eyelid. The major risks of a limbal relaxing incision are similar to those for cataract surgery, but also include loss of vision, damage to the cornea, and scarring; under- or over-correction could occur. Depending upon your eye and the type of IOL, you may have increased night glare or halos, double vision, ghost images, impaired depth perception, blurry vision, and trouble driving at night. The bulk pigment reducer might not be able to put in the IOL you choose. In addition, the IOL may later need to be repositioned or replaced. Depending upon the type of anesthesia, other risks are possible, including cardiac and respiratory problems, and, in rare cases, . There is no guarantee that cataract surgery or astigmatism reduction will improve your vision. As aresult of the surgery and/or anesthesia, it is possible that your vision could be made worse. In some cases, complications may occur weeks, months or even years later. These and other complications may result in poor vision, total loss of vision, or even loss of the eye in rare situations. You may need additional treatment or surgery to treat these complications. This additional treatment is not included in the fee for this procedure. In addition to the risks associated with cataract surgery, here are some common or serious risks for the FS laser. The cornea could be scratched. You could have an infection, bleeding, damage to your eye, fluid leakage from the eye, or increased eye pressure. More time may be needed to perform the surgery. You may need to be taken to two different locationsor two different rooms to perform the surgery. The cuts into the cornea and the cataract might be off-center, incomplete, or broken up. If this happens, the FS laser can be used again or the eye surgeon could use a blade to cut the cornea. The sack containing the cataract might tear, allowing pieces of the cataract to move into the back of the eye. If this happens, you may need another surgery called a vitrectomy to remove the cataractpieces. There may be more risk if the FS laser is used after refractive surgery. Refractive surgery is a procedure that makes you see better (improves your refraction) by changing the shape of the cornea, the clear front of the eye. The FS laser uses suction. If you have had a type of refractive surgery called LASIK, the suction could open up or move the flap. If you have had other refractive surgeries called AK or RK, the suction could open up the old wound. If the flap or the wound is opened up or moved, this could cause leaking, astigmatism, or scarring. The use of the FS laser on patients who have had refractive surgery is considered off-label. This means that the U.[place]. Food and Drug Administration (FDA) approved the laser for cataract surgery on theeyes of patients who have not already had refractive surgery. When eye surgeons use the laser during cataract surgery on patients who have had refractive eye surgery, its use is considered off-label . Your visual outcome after surgery may not be as good if these problems happen. INTRAOCULAR LENSES PRICING Revised 11/08/2023 Standard intraocular lens no additional cost Toric intraocular lens for astigmatism correction = $1,400 per eye Presbyopia correcting intraocular lens (Multifocal intraocular lens, Extended depth of focus intraocular lens) = $ 2,900 per eye For Patients with Upcoming Eye Surgery who are taking Medications for Diabetes and/or Weight Loss The two types of medications, GLP-1 agonists and SGLT2 inhibitors, can cause problems with surgery and anesthesia. If you take these medications, you will need to stop them before surgery. Please discuss this with your surgeon or with Romy Ojeda in the Pre-anesthesia Consultation Clinic ([phone]) to get instructions on their use before stopping them. GLP-1 agonists can cause your stomach to empty more slowly. If you stomach is not empty at the timeof surgery, it increases the risk of vomiting during anesthesia and surgery can be dangerous. Usually, injectable GLP-1 agonists that are used weekly should be stopped at least 7 days prior to surgery. GLP-1 agonists that are taken orally should be stopped the day before surgery. If you do not stop taking these medications as directed, your surgery may be cancelled or delayed. Example of these medications (but not limited to) include the following: GLP-1 agonists Injectable - Dulaglutide (Trulicity ) Semaglutide (Rybelsus ) - Exenatide (Byeta , Bydureon ) - Liraglutide (Victoza , Saxenda ) - Tirzepatide (Mounjaro , Zepbound ) Oral Semaglutide (Ozempic , Wegovy ) SGLT-2 inhibitors can cause blood chemistry problems in patients who stop eating. Because surgery patients are asked to stop eating before surgery, you will need to stop taking these medications 3-4 days before surgery. SGLT2 Inhibitors include: Oral Bexagliflozin (Benzavvy ) Canagliflozin (Invokana ) Dapagliflozin (Farziga ) Empagliflozin (Jardiance ) Ertugliflozin (Steglatro ) If you have any questions regarding these presurgical instructions on when to hold these medications, please call your surgeon s office or call Romy Ojeda or a Pre-Anesthesia Testing engineer steam [phone]. documented in this encounterSumma Health10-24-2024 NoteDate of Procedure 05/15/2024. Shoe Repairer Apprentice Information Digital Analyst: DOMINIC. Very difficult measurements. Low reliability. Poor cooperation. . Notes Measurements only - see Procedure Record under Scanned Documents for signed results. 1. Have you ever had surgery in your eyes before? No 2. Have you ever had a refractive procedure performed on your eyes? No 3. Have you worn contact lenses in the last 3 months? No [id number] Telephone encounter Note* Telephone Encounter - Nadira Alvarez - 05/13/2024 11:01 AM EDT LM for patient to call back for previsit cat eval questions. [facility]10-22-2024 Miscellaneous Notes* Telephone Encounter - Nadira Alvarez - 05/13/2024 11:01 AM EDT LM for patient to call back for previsit cat eval questions. documented in this encounterSumma Health06-20-2023 Consult note Author Lorraine Garcia [facility] January 10, 2023 7:59amNote Date/TimeJun2022 8:48[place] [address] Podiatry Consult Note Signed Patient: Carl Reinoso MR#: [id number] : 1955 Acct:[id number] Age/Sex: 67 / M Adm Date: 3 Loc: Room: [address] [place] [address] Type: DIS IN Attending Dr: Phoenix Grant MD Copies to: MD Lorraine Viera DPNuzhat Glover MD~ HPI Data of Consult Consult Date: 01/08/23 Requesting Physician: Phoenix Grant MD Primary Care Provider: Sylvia Glover MD Consult Narrative Reason for consult: nailcare History of present illness: Mr. Reinoso is a 67 year old male who I am seeing for significantly elongated fungal toenails. Patient does not answer any questions at the bedside and does not provide much history, there is no family in the room. Review of Systems Review of Systems Review of systems: unable to be completely assessed PMFSH Vaccinated for COVID-19?: Unknown Medical History (Updated 01/10/23 @ 07:58 by Lroraine Garcia DPM) Seizures Social History Smoking Status: Current every day smoker Tobacco Type: cigarettes Substance Use Type: Unknown Meds Medications and Allergies Allergies No Known Allergies Allergy (Verified 01/04/23 13:29) Home Medications lamotrigine 100 mg tablet (Lamictal) 100 mg PO BID 08/14/18 [History Confirmed 01/04/23] tamsulosin 0.4 mg capsule 0.4 mg PO DAILY #30 caps 08/14/18 [Rx Confirmed 01/04/23] apixaban 5 mg tablet (Eliquis) 5 mg PO BID #60 tabs 09/09/21 [Rx Confirmed 01/04/23] levetiracetam 250 mg tablet 750 mg PO BID #60 tabs 09/09/21 [Rx Confirmed 01/04/23] omeprazole 20 mg capsule,delayed release 20 mg PO DAILY #30 caps 09/09/21 [Rx Confirmed 01/04/23] Exam Physical Exam Vital Signs: Temp Pulse Resp BP Pulse Ox O2 Del Method 97.6 F 74 16 127/77 96 Room Air 01/09/23 07:17 01/09/23 07:17 01/09/23 07:17 01/09/23 07:17 01/09/23 07:17 01/09/23 07:18 Narrative: General: Patient is seen at bedside and is awake and oriented in no acute distress. Vascular: DP and PT pulses are palpable to the bilateral lower extremity. CFT is intact. neurology: Patient does appear to have intact light touch sensation to the plantar feet bilateral. Dermatology: Nails 1 through 5 bilateral are significantly elongated, thickened and discolored. There is evidence of subungual debris and dystrophic appearanceto the toenails. No evidence of tinea pedis or maceration between the webspaces. There is no evidence of hyperkeratosis,. Orthopedic: Patient does have intact muscle strength with 5 out of 5 assessment to the bilateral lower extremity. Results Labs 01/08/23 05:57 01/08/23 05:57 Hemoglobin A1c 5.5 % (4.3-5.6) 01/04/23 14:03 Microbiology Microbiology: Microbiology - Results from entire visit 01/04/23 15:04 Urine - Straight Cath Urine Culture - Final Enterobacter cloacae complex Assessment/Plan (1) Onychomycosis: Plan: nails 1 through 5 bilaterally debrided in length and thickness by manual means. I did instruct the patient on continued importance of proper foot care. I did offer that he can follow up in the officeon a routine basis for nail care viewshaving difficulty trimming the nails. No other pedal issues are noted. Please consult podiatry if any other problems arise. Code(s): B35.1 - Tinea unguium (2) Foot pain, right: Code(s): M79.671 - Pain in right foot (3) Foot pain, left: Code(s): M79.672 - Pain in left foot Documented By: Lorraine Garcia DPM 01/09/23 0 847 Signed By: <Electronically signed by ANGEL Garcia> 01/10/23 0759 [facility] Work Phone: 1(757) 381-817306-19-2023 Progress note Author Kelly Abhi [facility] January 08, 2023 5:09pmNote Date/TimeJune 2022 8:54[place] [address] Neurology Progress Note Signed Patient: Carl Reinoso MR#: [id number] : 1955 Acct:[id number] Age/Sex: 67 / M Adm Date: 3 Loc: Room: [address] [place] [address] Type: ADM IN Attending Dr: Phoenix Grant MD Copies to: ~ Date of Service: 01/08/2023 Subjective Subjective Narrative: The patient is up in chair. He denies any confusion. He denies any seizure-like episodes. The patient states that he is at his baseline. He is oriented x3. This afternoon patient has not had any new events. He appears to be tolerating the Keppra well. He denies any new numbness tingling or weakness. He denies any headaches chest pain shortness of breathno nausea or vomiting. He appears to be back to his baseline. Review of Systems Cardiovascular Cardiovascular: Denies chest pain Respiratory Respiratory: Denies dyspnea Gastrointestinal Gastrointestinal: Denies nausea and Denies vomiting Musculoskeletal Musculoskeletal: Denies myalgias Neurologic Neurologic: Denies confusion, Denies convulsions, Denies localized weakness, Denies headache(s) andDenies sensory deficit Exam Physical Exam Vital Signs: Temp Pulse Resp BP Pulse Ox O2 Del Method 97.5 F L 79 16 109/67 97 Room Air 01/08/23 08:00 01/08/23 08:00 01/08/23 08:00 01/08/23 08:00 01/08/23 08:00 01/08/23 08:00 Narrative: GENERAL EXAM: * Constitutional - Patient appears well nourished and well groomed * Patient is alert and oriented x3. * Apical is regular rate and rhythm. No murmur was appreciated. No edema noted. Pulses are normal * Lung sounds are clear to auscultation NEURO EXAM: * * [id number] and alternating movements are intact and normal in bilateral upper extremities * Alternating movements are intact and normal in lower extremities REFLEX EXAM: * 2/4 throughout * Patient is sitting in the chair he is alert and awake he is oriented to person and place he knows the month he knows the president No apparent distress Speech is primarily clear and fluent appears to be his baseline Memory is below average due to TBI Fund of knowledge is below average due to TBI Cranial nerves II through XII are intact without any asymmetry Pronator drift is negative Coordination shows no signs of dysmetria Tone is for the most part physiologic Motor examination shows some generalized mild weakness but no focal findings Objective Vital Signs Vital Signs: Vital Signs - 24 hr 01/07/23 12:00 01/07/23 16:00 01/07/23 20:00 Temperature 97.4 F L 98.0 F 98.0 F Pulse Rate 89 85 79 Respiratory Rate 18 18 20 Blood Pressure 121/80 116/71 120/73 02 Sat by Pulse Oximetry 98 95 94 L Oxygen Delivery Method Room Air Room Air Room Air 01/08/23 00:00 01/08/23 00:00 01/08/23 03:39 Temperature 97.7 F 98.0 F Pulse Rate 80 89 Respiratory Rate 16 20 Blood Pressure 118/73 109/67 02 Sat by Pulse Oximetry 93 L 93 L Oxygen Delivery Method Room Air Room Air Room Air 01/08/23 08:00 Temperature 97.5 F L Pulse Rate 79 Respiratory Rate 16 Blood Pressure 109/67 02 Sat by Pulse Oximetry 97 Oxygen Delivery Method Room Air Labs 01/08/23 05:57 01/08/23 05:57 Therapy Recommendations Therapy Recommendations: OT Recommendations OT Recommended Discharge Snf Facility Location OT Recommended Services at Physical Therapy,Occupational Therapy Discharge PT Recommendations PT Recommended Discharge Snf Facility Location PT Recommended Services at Physical Therapy,Home Health Aide,Homemaker,Home Discharge Delivered Meals,12/02 Supervision PT Discharge Comment recomend dc to SNF in light of cognitive limitations for self care Assessment/Plan (1) Altered mental status: Assessment/Problem Details: The patient is a 67-year-old male with 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 The patient was found confused and homeless found in a dumpster. His family last saw him a month ago. He was brought to ER and admittedto the hospital for further evaluation. The patient had a CT scan of the brain which revealed remote encephalomalacia without evidence of obvious new intracranial process. The patient likely has not been taking seizure medications including Keppra and Lamictal. The patient appears to me to be at his previous baseline from evaluation in the office in the past. Interval history: No further seizures reported. Patient states he feels like his normal self. He isalert and oriented x3 and follows all directions. He isunder review for placement. 1. CT scan of the brain nonacute. MRI brain is nonacute. Gliosis and encephalomalacia bilateral frontal and temporal lobes consistent with previous TBI. 2. Continue Keppra 750 mg p.o. twice daily and Lamictal 100 mg p.o. twice dailyfor secondary seizure prevention. 3. MRA of the head is negative for stenosis 4. Okay to discharge from neurological standpoint to appropriate disposition Plan: Patient was personally seen by me on the day of the encounter. I performed the history and performed the mcgowan elements of the physical examination. I formulated the plan of care and confirmed this with the Fellow/Nurse Practitioner/Resident/Tetryl Dissolver Operator/Physician Special Assets Officer as noted below. 67-year-old male with a history of traumatic brain injury and seizure disorder that is bifrontal and temporal structural abnormalities was found homeless in a dumpster. It is suspected that he may have had a breakthrough seizure as he wasunable to take his medications. His CT did show the remote encephalomalacia butno new intracranial process. His Keppra was restarted at 750 mg twice a day along with Lamictal 100 mg twice a day and he has not had any new events. He appears to be tolerating the medications well. His MRA of the head is negative for any stenosis. At this time we are awaiting discharge to a facility Plan Work-up as above Continue the Keppra as above Continue Lamictal as above Seizure precautions Awaiting discharge to a facility This was all discussed with the patient he agreed with the treatment plan Code(s): R41.82 - Altered mental status, unspecified Status: Acute Documented By: Kelly Moe DO 01/08/23 0851 Signed By: <Electronically signed by DO Kelly Moe> 01/08/23 1709 <Electronically signed by MERLINE Romero> 01/08/23 1259 [facility] Work Phone: 1(462) 360-414706-19-2023 Progress note Author Phoenix Grant [facility] January 08, 2023 1:19pmNote Date/TimeJune 2022 1:09[place] [address] Hospitalist Progress Note Signed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 Order apixaban (ELIQUIS) tablet 5 mg (CANCELED) 5 mg, Oral, 2 TIMES DAILY, First dose on Sun07/30/24 at 0900, Until Discontinued, Indication of Use:A Fib/A Flutter, ANTICOAGULANT * 1119 (Given - Provider: Kiki Polanco, CATRINA) busPIRone (BUSPAR) tablet 5 mg 5 mg, Oral, 2 TIMES DAILY, First dose on Sun07/30/24 at 0930, Until Discontinued * 1118 (Given - Provider: Kiki Polanco, CATRINA) * 2131 (Given - Provider: Kiki Polanco, CATRINA) * 0814 (Given - Provider: Amada Ledesma RN) * 2046 (Given - Provider: Lorin Cespedes RN) cefTRIAXone (ROCEPHIN) 1,000 mg in sodium chloride 0.9 % 50 mL IVPB (mini-bag) (COMPLETED) 1,000 mg, IntraVENous, at 100 mL/hr, Administer over 30 Minutes, ONCE, On Sun07/29/24 at 1822, For 1dose * 1855 (New Bag - Provider: Angelina Malcolm RN) * 2011 (Stopped - Provider: Angela Brownlee RN) cefTRIAXone (ROCEPHIN) 1,000 mg in sterile water 10 mL IV syringe 1,000 mg, IntraVENous, EVERY 24 HOURS, First dose (after last reorder) on Sun07/30/24 at 1800, For 4doses, Administer as slow IV Push over 5 mins Reconstitute 1 g vials with 9.6 mL of designated diluent to produce a 100 mg/mL solution. * 1850 (Given - Provider: Kiik Polanco RN) * 184 (Not Given - Provider: Amada Ledesma RN - Reason: Loss of IV access) divalproex (DEPAKOTE) DR tablet 250 mg 250 mg, Oral, 2 times daily, First dose on Sun07/30/24 at 0930, Until Discontinued, Do not crush or break. * 1117 (Given - Provider: Kiki Polanco RN) * 2130 (Given - Provider: Kiki Polanco RN) * 0814 (Given - Provider: Amada Ledesma, CATRINA) * 2046 (Given - Provider: Lorin Cespedes RN) enoxaparin (LOVENOX) injection 80 mg (CANCELED) 80 mg (rounded from 80.7 mg = 1 mg/kg 80.7 kg), SubCUTAneous, 2 TIMES DAILY, First dose on Sun07/29/24 at 2100, Until Discontinued, Indication of Use: A Fib/A Flutter, Administer by deep subCUTAneous injection with pt lying down. Alternate injection sites on abdominal wall. Do not rub site after injection. Check with provider prior to any invasive procedure. * 2035 (Given - Provider: Angela Brownlee RN) enoxaparin (LOVENOX) injection 80 mg 80 mg (rounded from 80.7 mg = 1 mg/kg 80.7 kg), SubCUTAneous, 2 TIMES DAILY, First dose on Sun07/30/24 at 2100, Until Discontinued, Indication of Use: A Fib/A Flutter, Administer by deep subCUTAneous injection with pt lying down. Alternate injection sites on abdominal wall. Do not rub site after injection. Check with provider prior to any invasive procedure. * 2130 (Given - Provider: Kiki Polanco RN) * 08 (Given - Provider: Amada Ledesma, CATRINA) * 2043 (Given - Provider: Lorin Cespedes RN) furosemide (LASIX) injection 20 mg (COMPLETED) 20 mg, IntraVENous, ONCE, 1 dose, On Sun07/30/24 at 0700 * 0532 (Given - Provider: Angela Brownlee RN) lamoTRIgine (LAMICTAL) tablet 100 mg 100 mg, Oral, 2 TIMES DAILY, First dose on Sun07/30/24 at 0930, Until Discontinued * 1118 (Given - Provider: Kiki Polanco RN) * 2130 (Given - Provider: Kiki Polanco RN) * 813 (Given - Provider: Amada Ledesma, CATRINA) * 2045 (Given - Provider: Lorin Cespedes, RN) levETIRAcetam (KEPPRA) tablet 750 mg 750 mg, Oral, 2 TIMES DAILY, First dose on Sun07/30/24 at 0930, Until Discontinued, Do not crush or chew. * 1117 (Given - Provider: Kiki Polanco RN) * 2130 (Given - Provider: Kiki Polanco, CATRINA) * 08 (Given - Provider: Amada Ledesma, CATRINA) * 2046 (Given - Provider: Lorin Cespedes RN) magnesium sulfate 2000 mg in 50 mL IVPB premix (COMPLETED) 2,000 mg, IntraVENous, at 50 mL/hr, Administer over 1 Hours, ONCE, On Sun07/29/24 at 1425, For 1 dose, Recommended infusion rate not to exceed 1,000 mg (milligrams) per hour. * 1516 (New Bag - Provider: Angelina Malcolm RN) * 1616 (Due: Stopped - Provider: Angelina Malcolm RN) melatonin tablet 3 mg 3 mg, Oral, NIGHTLY, First dose on Sun07/29/24 at 2100, Until Discontinued * 2034 (Given - Provider: Angela Brownlee RN) * 2130 (Given - Provider: Kiki Polanco RN) * 2045 (Given - Provider: Lorin Cespedes RN) metoprolol succinate (TOPROL XL) extended release tablet 25 mg (CANCELED) 25 mg, Oral, DAILY, First dose on Sun07/29/24 at 2130, Until Discontinued, Hold for systolic BP <110 Do not crush or chew. * 221 (Given - Provider: Angela Brownlee RN) metoprolol succinate (TOPROL XL) extended release tablet 25 mg 25 mg, Oral, 2 times daily, First dose (after last modification) on Sun07/30/24 at 0900, Until Discontinued, Hold for systolic BP < 110 Do not crush or chew. * 1117 (Given - Provider: Kiki Polanco RN) * 213 (Given - Provider: Kiki Polanco RN) * 0814 (Given - Provider: Amada Ledesma, RN) * 2032 (Given - Provider: Lorin Cespedes, RN) pantoprazole (PROTONIX) tablet 40 mg 40 mg, Oral, DAILY, First dose on Sun07/30/24 at 0930, Until Discontinued, Do not crush or break. * 1118 (Given - Provider: Kiki Polanco RN) * 0814 (Given - Provider: Amada Ledesma RN) primidone (MYSOLINE) tablet 50 mg 50 mg, Oral, NIGHTLY, First dose on Sun07/30/24 at 2100, Until Discontinued * 213 (Given - Provider: Kiki Polanco RN) * 2045 (Given - Provider: Lorin Cespedes RN) sacubitril-valsartan (ENTRESTO) 24-26 MG per tablet 1 tablet 1 tablet, Oral, 2 TIMES DAILY, First dose on Sun07/31/24 at 0900, Until Discontinued * 0814 (Given - Provider: Amada Ledesma RN) * 2046 (Given - Provider: Lorin Cespedes RN) sertraline (ZOLOFT) tablet 50 mg 50 mg, Oral, DAILY, First dose on Sun07/30/24 at 0930, Until Discontinued * 1117 (Given - Provider: Kiki Polanco RN) * 0814 (Given - Provider: Amada Ledesma RN) sodium chloride 0.9 % bolus 500 mL (COMPLETED) 500 mL (6.2 mL/kg), IntraVENous, at 491.8 mL/hr, Administer over 61 Minutes, ONCE, On Sun07/29/24 [id number], For 1 dose * 1516 (New Bag - Provider: Angelina Malcolm, RN) * 1617 (Due: Stopped - Provider: Angelina Malcolm RN) sodium chloride flush 0.9 % injection 5-40 mL 5-40 mL, IntraVENous, EVERY 12 HOURS SCHEDULED (2 times per day), First dose on Sun07/29/24 at 2100,Until Discontinued, For Line Patency: Peripheral IV = 5 mL; Midline or Central Line = 10 mL/lumen. If following IV push medication, administer flush at same rate as the IV push. Flush volume is determined by type of infusion therapy being given. For non-viscous solutions use: Peripheral IV = 5 mL Midline or Central Line = 10 mL/lumen For viscous solutions (i.e. blood components, parenteral nutrition, contrast media, or after obtaining blood sample) use: Peripheral IV = 10 mL Midline or Central Line = 20 mL/lumen * 2036 (Given - Provider: Angela Brownlee RN) * 1118 (Given - Provider: Kiki Polanco RN) * 2131 (Given - Provider: Kiki Polanco RN) * 08 (Given - Provider: Amada Ledesma, CATRINA) * 2033 (Not Given - Provider: Lorin Cespedes RN - Reason: Loss of IV access) spironolactone (ALDACTONE) tablet 25 mg 25 mg, Oral, DAILY, First dose on Sun07/30/24 at 1700, Until Discontinued * 1850 (Given - Provider: Kiki Polanco RN) * 0814 (Given - Provider: Amada Ledesma, CATRINA) tamsulosin (FLOMAX) capsule 0.4 mg 0.4 mg, Oral, Nightly, First dose on Sun07/30/24 at 2100, Until Discontinued, Do not crush or break.Give 30 minutes after a full meal to limit risk of orthostatic hypotension/falls. * 2130 (Given - Provider: Kiki Polanco RN) * 2045 (Given - Provider: Lorin Cespedes, RN) traZODone (DESYREL) tablet 12.5 mg 12.5 mg, Oral, 2 times daily, First dose on Sun07/30/24 at 0930, Until Discontinued * 1118 (Given - Provider: Kiki Polanco RN) * 2130 (Given - Provider: Kiki Polanco RN) * 0817 (Given - Provider: Amada Ledesma, CATRINA) * 2045 (Given - Provider: Lorin Cespedes, RN) Medication Order07/29/894142//03/2025 0.9 % sodium chloride infusion IntraVENous, at 5-250 mL/hr, PRN, if patient receiving piggyback infusions and maintenance fluids are not ordered, Starting on Sun07/29/24 at 1901, For piggyback infusion, administer at same rate as piggyback for a total of 25 mL. Enter 25 mL into dose field and piggyback rate into rate field of order. If piggyback is infusing at a rate less than 100 mL/hr, enter 25 mL into dose field and 100 mL/hr into rate field of order. acetaminophen (TYLENOL) suppository 650 mg(Linked Group 1) 650 mg, Rectal, EVERY 6 HOURS PRN, Starting on Sun07/29/24 at 1901, Until Discontinued, Pain Mild (1-3), Fever, For temp greater than 100.4 F (38 C), Administer if oral route cannot be used. acetaminophen (TYLENOL) tablet 650 mg(Linked Group 1) 650 mg, Oral, EVERY 6 HOURS PRN, Starting on Sun07/29/24 at 1901, Until Discontinued, Pain Mild (1-3), Fever, For temp greater than 100.4 F (38 C), Maximum dose of acetaminophen is 4000 mg from all sources in 24 hours. magnesium sulfate 2000 mg in 50 mL IVPB premix 2,000 mg, IntraVENous, at 25 mL/hr, Administer over 2 Hours, PRN, Other, Magnesium Replacement, Starting on Sun07/29/24 at 1901, Mag Lab Replacement Action 1.4-1.6 mg/dL 2,000 mg Total Dose Given as 1,000 mg IVPB x 2 doses or 2,000 mg IVPB x 1 dose 1.0-1.3 mg/dL 4,000 mg Total Dose Given as 1,000 mgIVPB x 4 doses or 2,000 mg IVPB x 2 doses Less than 1.0 mg/dL CALL PHYSICIAN and give 4,000 mg Total Dose Given as 1,000 mg IVPB x 4 doses or 2,000 mg IVPB x 2 doses Infuse at 1,000 mg/hr Repeat Mag level 1 hour after final administration Protocol not for use in Patients with CrCl less than 30ml/min ondansetron (ZOFRAN) injection 4 mg(Linked Group 2) 4 mg, IntraVENous, EVERY 6 HOURS PRN, Starting on Sun07/29/24 at 1901, Until Discontinued, Nausea, Vomiting, Administer if oral route cannot be used. ondansetron (ZOFRAN-ODT) disintegrating tablet 4 mg(Linked Group 2) 4 mg, Oral, EVERY 8 HOURS PRN, Starting on Sun07/29/24 at 1901, Until Discontinued, Nausea, Vomiting polyethylene glycol (GLYCOLAX) packet 17 g 17 g, Oral, DAILY PRN, Starting on Sun07/29/24 at 190, Until Discontinued, Constipation, First linetherapy for constipation potassium bicarb-citric acid (EFFER-K) effervescent tablet 40 mEq(Linked Group 3) 40 mEq, Oral, PRN, Starting on Sun07/29/24 at 1901, Until Discontinued, Per Potassium Replacement Protocol, Administer as alternative if patient unable to tolerate oral tablet. K Lab Replacement Action 3.1 to 3.5 40 mEq ORAL x 1 Under 3.1 Refer to IV replacement protocol Recheck K level in AM. Protocol not for use in patients with CrCl less than 30 mL/min. Do not chew or crush. Dissolve flavored tablets completely in 3 to 4 ounces of cold water; unflavored tablets may be dissolved in 3 to 4 ounces of cold juice. Patient to sip slowly over a 5 to 10 minute period. May further dilute if GI adverse effects occur. potassium chloride (KLOR-CON M) extended release tablet 40 mEq(Linked Group 3) 40 mEq, Oral, PRN, Starting on Sun07/29/24 at 1901, Until Discontinued, Potassium Replacement, May give alternative linked oral order (ordered as effervescent, packet, or liquid solution) if patient unable to tolerate tablet. K Lab Replacement Action 3.1 to 3.5 40 mEq ORAL x 1 Under 3.1 Refer to IV replacement protocol Recheck K level in AM. Protocol not for use in patients with CrCl less than 30 mL/min. Do not crush, chew, or suck on tablet. Tablet may also be broken in half and each half swallowed separately. potassium chloride 10 mEq/100 mL IVPB (Peripheral Line)(Linked Group 3) 10 mEq, IntraVENous, PRN, Starting on Sun07/29/24 at 1901, Until Discontinued, at 100 mL/hr, Potassium Replacement, K Lab Replacement Action 2.7 to 3.0 10 mEq IVPB x 6 doses (60 mEq Total) Under 2.7 CALL PROVIDER and administer 10 mEq IVPB x 6 doses (60 mEq Total) Infuse at 10 mEq/hr. Repeat Potassium lab 1 hour after final administration. Protocol not for use in patients with CrCl less than 30 mL/min. sodium chloride flush 0.9 % injection 5-40 mL 5-40 mL, IntraVENous, PRN, Starting on Sun07/29/24 at 1901, Until Discontinued, Line Care, After every IV line use, For Line Patency: Peripheral IV = 5 mL; Midline or Central Line = 10 mL/lumen. If following IV push medication, administer flush at same rate as the IV push. Flush volume is determinedby type of infusion therapy being given. For non-viscous solutions use: Peripheral IV = 5 mL Midline or Central Line = 10 mL/lumen For viscous solutions (i.e. blood components, parenteral nutrition, contrast media, or after obtaining blood sample) use: Peripheral IV = 10 mL Midline or Central Line = 20 mL/lumen Order Group 1: acetaminophen (TYLENOL) tablet 650 mgJump to med 650 mg, Oral, EVERY 6 HOURS PRN, Starting on Sun07/29/24 at 1901, Until Discontinued, Pain Mild (1-3), Fever, For temp greater than 100.4 F (38 C), Maximum dose of acetaminophen is 4000 mg from all sources in 24 hours. Or acetaminophen (TYLENOL) suppository 650 mgJump to med 650 mg, Rectal, EVERY 6 HOURS PRN, Starting on Sun07/29/24 at 1901, Until Discontinued, Pain Mild (1-3), Fever, For temp greater than 100.4 F (38 C), Administer if oral route cannot be used. Group 2: ondansetron (ZOFRAN-ODT) disintegrating tablet 4 mgJump to med 4 mg, Oral, EVERY 8 HOURS PRN, Starting on Sun07/29/24 at 1901, Until Discontinued, Nausea, Vomiting Or ondansetron (ZOFRAN) injection 4 mgJump to med 4 mg, IntraVENous, EVERY 6 HOURS PRN, Starting on Sun07/29/24 at 1901, Until Discontinued, Nausea, Vomiting, Administer if oral route cannot be used. Group 3: potassium chloride (KLOR-CON M) extended release tablet 40 mEqJump to med 40 mEq, Oral, PRN, Starting on Sun07/29/24 at 1901, Until Discontinued, Potassium Replacement, May give alternative linked oral order (ordered as effervescent, packet, or liquid solution) if patient unable to tolerate tablet. K Lab Replacement Action 3.1 to 3.5 40 mEq ORAL x 1 Under 3.1 Refer to IV replacement protocol Recheck K level in AM. Protocol not for use in patients with CrCl less than 30 mL/min. Do not crush, chew, or suck on tablet. Tablet may also be broken in half and each half swallowed separately. Or potassium bicarb-citric acid (EFFER-K) effervescent tablet 40 mEqJump to med 40 mEq, Oral, PRN, Starting on Sun07/29/24 at 1901, Until Discontinued, Per Potassium Replacement Protocol, Administer as alternative if patient unable to tolerate oral tablet. K Lab Replacement Action 3.1 to 3.5 40 mEq ORAL x 1 Under 3.1 Refer to IV replacement protocol Recheck K level in AM. Protocol not for use in patients with CrCl less than 30 mL/min. Do not chew or crush. Dissolve flavored tablets completely in 3 to 4 ounces of cold water; unflavored tablets may be dissolved in 3 to 4 ounces of cold juice. Patient to sip slowly over a 5 to 10 minute period. May further dilute if GI adverse effects occur. Or potassium chloride 10 mEq/100 mL IVPB (Peripheral Line)Jump to med 10 mEq, IntraVENous, PRN, Starting on Sun07/29/24 at 1901, Until Discontinued, at 100 mL/hr, Potassium Replacement, K Lab Replacement Action 2.7 to 3.0 10 mEq IVPB x 6 doses (60 mEq Total) Under 2.7 CALL PROVIDER and administer 10 mEq IVPB x 6 doses (60 mEq Total) Infuse at 10 mEq/hr. Repeat Potassium lab 1 hour after final administration. Protocol not for use in patients with CrCl less than 30 mL/min. FOR RECORDS PERTAINING TO PATIENTS WHO ARE OR HAVE BEEN ENROLLED IN A CHEMICAL DEPENDENCY/SUBSTANCEABUSE PROGRAM, SOME INFORMATION MAY BE OMITTED. This clinical summary was aggregated from multiple sources. Caution should be exercised in using it in the provision of clinical care. This summary normalizes information from multiple sources, and as a consequence, information in this document may materially change the coding, format and clinical context of patient data. In addition, data may be omitted in some cases. CLINICAL DECISIONS SHOULD BE BASED ON THE PRIMARY CLINICAL RECORDS. Other [employer] provides no warranty or guarantee of the accuracy or completeness of information in this document.
[2025-06-05 13:24] LABS: Hematocrit 42.9 % (42.0-54.0); Hemoglobin 14.0 g/dL (14.0-18.0); Immature Granulocytes Abs Auto 0.06 10^3/uL (0.00-0.03); Immature Granulocytes Pct Auto 0.4 % (0.0-0.5); Lymphocytes Absolute Auto 4.8 10^3/uL (1.2-3.8); Mean Corpuscular HGB Conc 32.6 g/dL (29.9-35.2); Mean Corpuscular Hemoglobin 32.0 pg (25.9-34.0); Mean Corpuscular Volume 97.9 fL (80.0-94.0); Platelet Count 327 10^3/uL (150-450); Red Blood Count 4.38 10^6/uL (4.70-6.10); White Blood Count 13.9 10^3/uL (4.0-11.0)
[2025-06-05] MEDS: DILTIAZEM HCL 25 MG/5 ML VIAL 10 MG IV ×2 (13:29→16:21)
[2025-06-05 13:51] LABS: Albumin Globulin Ratio 1.3; Albumin Level 3.9 g/dL (3.4-5.0); Alkaline Phosphatase 59 U/L (46-116); Anion Gap 21.0; Blood Urea Nitrogen 39.0 mg/dL (7.0-18.0); Calcium 9.1 mg/dL (8.5-10.1); Carbon Dioxide 23.5 mmol/L (21.0-32.0); Chloride 105 mmol/L (98-107); Estimated GFR (African America 50 (>=60 mL/min/1.73m^2); Estimated GFR (Non-African Ame 41 (>=60 mL/min/1.73m^2); Globulin 3.1 g/dL; Glucose 122 mg/dL (74-106); Potassium 4.5 mmol/L (3.5-5.1); Sodium 145 mmol/L (136-145); Total Protein 7.0 g/dL (6.4-8.2)
--- NOTE | 2025-06-05 13:51 | ED_ITS ---
HPI - SOB/Dyspnea General Chief Complaint: Shortness of Breath/Dyspnea Stated Complaint: SOB Time Seen by Provider: 06/05/25 12:49 Source: medical record Mode of arrival: ambulance Limitations: altered mental status Limitations comment: dementia/psych History of Present Illness HPI Narrative: The patient have a history of traumatic brain injury and history of seizure disorder due to that, in addition to A-fib history on Eliquis and metoprolol for that and also history of congestive heart failure Presenting to the ER after the staff in the group home facility noted that he has been short of breath for the last 2 days and struggling to breathe The patient himself denies any complain and denies any shortness of breath, but he does present to us with a heart rate above 120 and A-fib. He denies any chest pain no nausea no vomiting he denies any abdominal pain Related Data Home Medications ?Medication ?Instructions ?Recorded ?Confirmed apixaban 5 mg tablet (Eliquis) 5 mg PO BID 12/28/23 buspirone 5 mg tablet 5 mg PO BID 12/28/23 5 divalproex 250 mg tablet,delayed 250 mg PO Q12H 06/05/25 release (Depakote) lamotrigine 100 mg tablet 100 mg PO BID 12/28/2306/05 (Lamictal) levetiracetam 750 mg tablet 750 mg PO BID 12/28/23 pantoprazole 40 mg tablet,delayed 40 mg PO DAILY 12/2706/05/25 release sertraline 50 mg tablet (Zoloft) 50 mg PO DAILY 06/05/25 tamsulosin 0.4 mg capsule (Flomax) 0.4 mg PO DAILY 02/1206/05/25 trazodone 50 mg tablet 12.5 mg PO BID PRN agitation 12/28/23 06/05/25 magnesium hydroxide 400 mg/5 mL 5 ml PO DAILY PRN cons tipation 06/05/25 06/05/25 oral suspension (Dulcolax (magnesium hydroxide)) metoprolol tartrate 25 mg tablet 25 mg PO DAILY 06/05/25 primidone 50 mg tablet 50 mg PO .QHS 06/05/2506/05 sacubitril 24 mg-valsartan 26 mg 1 tab PO BID 06/05/25 06/05/25 tablet senna-docusate sodium tablet 1 tab PO BID 06/05/25 spironolactone 25 mg tablet 25 mg PO DAILY 06/05/25 Allergies Allergy/AdvReac Type Severity Reaction Status Date / Time No Known Drug Allergies Allergy Verified 06/05/25 12:46 Review of Systems ROS Status of ROS 10 or more systems reviewed and unremark able except as noted in history and below [facility] Medical History (Updated 06/05/25 @ 17:14 by Chelsey Bartholomew MD) Benign prostatic hyperplasia ?N40.0 - Benign prostatic hyperplasia without lower urinary tract symptoms (ICD-10) Encephalopathy ?G93.40 - Encephalopathy, unspecified (ICD-10) Pulmonary edema ?J81.1 - Chronic pulmonary edema (ICD-10) H/O: pneumonia ?Z87.01 - Personal history of pneumonia (recurrent) (ICD-10) Cardiomegaly ?I51.7 - Cardiomegaly (ICD-10) Nicotine dependence ?F17.200 - Nicotine dependence, unspecified, uncomplicated (ICD-10) History of pulmonary embolism ?Z86.711 - Personal history of pulmonary embolism (ICD-10) Seizure disorder ?G40.909 - Epilepsy, unspecified, not intractable, without status epilepticus (ICD-10) Traumatic brain injury ?S06.9XAA - Unspecified intracranial injury with loss of consciousness status unknown, initial encounter (ICD-10) Atrial fibrillation with rapid ventricular response ?I48.91 - Unspecified atrial fibrillation (ICD-10) Pulmonary embolus ?I26.99 - Other pulmonary embolism without acute cor pulmonale (ICD-10) Altered mental status ?R41.82 - Altered mental status, unspecified (ICD-10) UTI (urinary tract infection) ?N39.0 - Urinary tract infection, site not specified (ICD-10) New onset a-fib ?I48.91 - Unspecified atrial fibrillation (ICD-10) Epilepsy ?G40.909 - Epilepsy, unspecified, not intractable, without status epilepticus (ICD-10) Family History (Updated 12/28/23 @ 22:19 by Monica Galloway) Other Family history of myocardial infarction Social History (Updated 12/28/23 @ 22:20 by Monica Galloway) Within the past year, how often did you have a drink containing alcohol: never Score interpretation: A score less than 4 is consistent with normal alcohol consumption. Smoking status: Former smoker Non-prescribed substance use: denies use Previous occupational history: na Highest level of school completed/degree received: high school graduate Are you now , , , , never or living with a partner: don't know In a typical week, how many times do you talk on the telephone with family, friends, or neighbors: twice per week How often do you get together with friends or relatives: twice per week How often do you attend adventist or moravian services: never Little interest or pleasure in doing things: not at all Feeling down, depressed, or hopeless: not at all Feel stressed/tense/nervous/anxious/difficulty sleeping: not at all Do you think of yourself as: straight/heterosexual Gender Identity: male Exam Narrative Exam Narrative: Nurses notes and vital signs reviewed and patient is not hypoxic. General: Well-appearing and in no apparent distress. Skin: Warm, dry, no pallor noted. No rash. Head: , atraumatic. Cardiovascular: Irregular rate and Rhythm without murmur, gallop or rub. Respiratory: No accessory muscle use or respiratory distress. Lungs there is obvious decreased entry in the bases and possible crackles sides mostly the left side Musculoskeletal: Have some mild edema to the right lower extremity, significant bilateral lower extremity edema GI: Abdomen is soft, non-distended. Normal bowel sounds. No masses appreciated. No tenderness to palpation. No rebound, guarding, or rigidity noted. Neurological: A&O x2 No cranial nerve dysfunction observed. No truncal ataxia. Moves all extremities. Sensation intact. Psychiatric: Cooperative and interactive. Normal mood and affect. Constitutional Vital Signs, click to edit/add: Last Vital Signs Temp 98.8 F 06/05/25 12:46 Pulse 72 06/05/25 17:20 Resp 20 06/05/25 17:20 BP 113/85 06/05/25 17:15 Pulse Ox 94 L 06/05/25 17:22 O2 Del Method Room Air 06/05/25 12:46 Course Vital Signs Vital signs: Vital Signs Temperature 98.8 F 06/05/25 12:46 Pulse Rate 135 H 06/05/25 12:46 Respiratory Rate 20 06/05/25 12:46 Blood Pressure 103/73 06/05/25 12:46 Pulse Oximetry 94 L 06/05/25 12:46 Oxygen Delivery Method Room Air 06/05/25 12:46 Temperature 98.8 F 06/05/25 12:46 Pulse Rate 72 06/05/25 17:20 Respiratory Rate 20 06/05/25 17:20 Blood Pressure 113/85 06/05/25 17:15 Pulse Oximetry 94 L 06/05/25 17:22 Oxygen Delivery Method Room Air 06/05/25 12:46 MDM - SOB/Dyspnea MDM Narrative Medical decision making narrative: EKG upon arrival showing A-fib with a heart rate [address] elevation or depression Patient second EKG done after he was provide initially with Cardizem 10 mg showing a more controlled rate of a flutter heart rate was 84 --- started on Cardizem drip Will provide with Lasix 20 mg IV initially then he had a Plata catheter placed which shows yamila looking urine and the analysis shows some nitrite there is no history of urinary symptoms The chest x-ray shows a picture of pulmonary edema with a small effusion to the left lung The patient CBC shows mild leukocytosis of 13 there is no signs of infection at the moment the patient have no right upper quadrant tenderness US of the liver showed that the patient have multiple cysts in addition to no picture of acute cholecystitis with stone but there is no thickening of the gallbladder or any positive Katz sign Chemistry showing elevated BNP above 17,000 but also his AST and ALT elevated at The patient will have a CAT scan without contrast for further evaluation as per recommendation by radiology The patient case also discussed with cardiology from [facility] it was noted in the group home facility paper that the patient was admitted there before although her last admission was from [facility], as per discussion the patient did not have any echo done in [facility] except for 2021 when he had a PE at that time and he and having a normal echo. Such elevation in the LFTs is mostly secondary to liver injury not cardiac Case discussed initially with Dr. Samuel and he recommended the patient to be transferred due to the elevated AST and ALT 1200 and 1700 respectively with possible liver injury and need for evaluation by gastroenterology The patient case was discussed with Dr. Neely was covered with ceftriaxone for the nitrite he having his urine and the mild white blood cell Patient blood pressure is right now 116/68 and heart rate is 68 rated control still in A-fib pt was accepted to be transferred to [facility] under Dr Neely brother at bedside , he was informed of the plan and the understand that and agree with it. And getting more history from the family the patient from had a lot of cognitive issues but at the age of 40s apparently had a fall at work and that was causing him to more deterioration after that, as a baseline he is able to do his daily activity and walk with a walker with help because sometime he would just hit the wall while walking even with a walker. He oriented x 1 only most of the time and he recognized them as well. And usually is not vocal regarding complaints mostly yes or no questions. Repeated troponin was not showing elevation and the patient magnesium was normal and his gamma GT was also not elevated The patient CAT scan without contrast showed the below mentioned results: FINDINGS: Lung Bases: [Cardiomegaly. Trace pericardial fluid. Small right-sided and trace left-sided effusion with bibasilar atelectasis and interstitial edema.] Organs:1.6 x 1.3 cm right hepatic lobe hypodensity likely a cyst. Right posterior liver hypodensity as well. Layering debris within the gallbladder. Question slight nodular contour of the liver. Otherwise the adrenals, spleen, pancreas unremarkable. Mild perinephric fluid. No hydronephrosis. No nephrolithiasis.[ GI: Mild to moderate retained stool throughout the colon. No bowel obstruction. Distal duodenal diverticulum identified. Distal colonic diverticulosis. There are no CT findings acute appendicitis appendix is not identified. Pelvis:[Bladder is collapsed around a Plata catheter balloon. Mild prominence of both distal ureters. No obstructing calculi identified. Prostate unremarkable.] Peritoneum/Retroperitoneum:No free air or fluid. Mild haziness involving retroperitoneal fat. No retroperitoneal fluid collections. [id number] plaque involving the nonaneurysmal aorta.[ Abd wall/Bones:Facet arthropathy. No suspicious osseous lesion.[ CT/CT abdomen pelvis wo con IMPRESSION: Retroperitoneal haziness may relate to nonspecific third spacing of fluid. Please correlate with clinical exam findings such as urinalysis findings as well. Suspected debris within the gallbladder. Cardiomegaly with effusions and interstitial edema may raise possibility for CHF. Right now the patient have an obvious CHF exacerbation picture with the pulmonary edema and the presentation is not concerning at the moment for sepsis but the patient was covered with ceftriaxone Lab Data Labs: Lab Results 06/05/25 06/05/25 06/05/25 Range/Units 12:57 15:07 16:05 WBC 13.9 H (4.0-11.0) 10^3/uL RBC 4.38 L (4.70-6.10) 10^6/uL Hgb 14.0 (14.0-18.0) g/dL Hct 42.9 (42.0-54.0) % MCV 97.9 H (80.0-94.0) fL MCH 32.0 (25.9-34.0) pg MCHC 32.6 (29.9-35.2) g/dL RDW 14.7 (11.0-15.0) % Plt Count 327 (150-450) 10^3/uL MPV 10.2 (9.5-13.5) fL Neut % (Auto) 56.7 (43.0-75.0) % Lymph % (Auto) 34.7 (20.5-60.0) % Collin % (Auto) 7.5 (1.7-12.0) % Eos % (Auto) 0.3 L (0.9-7.0) % Baso % (Auto) 0.4 (0.2-2.0) % Neut # (Auto) 7.9 H (1.4-6.5) 10^3/uL Lymph # (Auto) 4.8 H (1.2-3.8) 10^3/uL Collin # (Auto) 1.0 H (0.3-0.8) 10^3/uL Eos # (Auto) 0.0 (0.0-0.7) 10^3/uL Baso # (Auto) 0.1 (0.0-0.1) 10^3/uL Abs Immat Gran (auto) 0.06 H (0.00-0.03) 10^3/uL Imm/Tot Granulo (auto) 0.4 (0.0-0.5) % PT 15.1 H (9.0-11.6) sec INR 1.48 Sodium 145 (136-145) mmol/L Potassium 4.5 (3.5-5.1) mmol/L Chloride 105 (98-107) mmol/L Carbon Dioxide 23.5 (21.0-32.0) mmol/L Anion Gap 21.0 BUN 39.0 H (7.0-18.0) mg/dL Creatinine 1.67 H (0.70-1.30) mg/dL Est GFR ( Amer) 50 L (>=60 mL/min/1.73m^2) Est GFR (Non-Af Amer) 41 L (>=60 mL/min/1.73m^2) BUN/Creatinine Ratio 23.4 Glucose 122 H (74-106) mg/dL Calcium 9.1 (8.5-10.1) mg/dL Magnesium 2.3 (1.8-2.4) mg/dL Total Bilirubin 1.3 H (0.2-1.0) mg/dL GGT 52 (15-85) U/L AST 1287 H* (15-37) U/L ALT 1700 H* (16-63) U/L Alkaline Phosphatase 59 (46-116) U/L Troponin I High Sens 27.6 29.4 (4.0-76.1) pg/mL NT-Pro-B Natriuret Pep 92728.0 H* (<=900.0) pg/mL Total Protein 7.0 (6.4-8.2) g/dL Albumin 3.9 (3.4-5.0) g/dL Globulin 3.1 g/dL Albumin/Globulin Ratio 1.3 Lipase 10.0 L (16.0-77.0) U/L Urine Color Dk. yellow (YELLOW) Urine Clarity Clear (CLEAR) Urine pH 5.5 (5.0-9.0) Ur Specific [place] >=1.030 A (1.005-1.025) Urine Protein 100 A (NEG/TRACE) mg/dL Urine Glucose (UA) Negative (NEGATIVE) mg/dL Urine Ketones Trace A (NEGATIVE) mg/dL Urine Occult Blood Small A (NEGATIVE) Urine Nitrite Positive A (NEGATIVE) Urine Bilirubin Small A (NEGATIVE) Urine Urobilinogen 0.2 (0.2-1.0) EU/dL Ur Leukocyte Esterase Trace A (NEGATIVE) Urine RBC 2-5 A (0-2) #/HPF Urine WBC 5-10 A (NONE SEEN) #/HPF Ur Squamous Epith Cells Few A (NONE/RARE) #/LPF Urine Crystals None seen (None Seen) #/HPF Urine Bacteria Moderate A (NONE SEEN) #/HPF Urine Casts None seen (NONE SEEN) #/LPF Urine Mucus Trace A (NONE SEEN) Ur Culture Indicated? Yes-[facility] [place] Discharge Plan Discharge Chief Complaint: Shortness of Breath/Dyspnea Clinical Impression: Atrial fibrillation with RVR, Acute exacerbation of congestive heart failure, Elevated liver enzymes Patient Disposition: [facility] Time of Disposition Decision: 17:14 Discharge location: [facility]
[2025-06-05 13:54] LABS: Alanine Aminotransferase 1700 U/L (16-63); Aspartate Amino Transferase 1287 U/L (15-37)
--- NOTE | 2025-06-05 13:54 | ECG_ITS ---
The [facility] Test Date: 2025-06-05 Pat Name: CARL REINOSO Department: Room: - Gender: Male Regional Hr Manager: : 1955 Requested By: [id number] Order Number: [id number] Reading MD: STAN WHATLEY Measurements Intervals [place] Rate: 84 P: -[id number] MD: -[id number] QRS: -80 QRSD: 136 T: 37 QT: 424 QTc: 465 Interpretive Statements ATRIAL FIBRILLATION 2450 Right bundle branch block 2630 Left anterior fascicular block 4364 Twave abnormality, possible anterolateral ischemia 9150 abnormal ECG Compared to ECG 06/05/2025 12:48:09 Possible ischemia now present Myocardial infarct finding no longer present Electronically Signed On 06-05-2025 14:24:22 EST by STAN WHATLEY
--- NOTE | 2025-06-05 14:10 | US_ITS ---
The [address] [address] Patient Name: CARL REINOSO MRN: [id number] date: 1955 Sex: M Assigned Patient Location: ED.MAIN Current Patient Location: ED.MAIN Accession/Order Number: [id number] Exam Date: 06/05/2025 14:40 Report Date: 06/05/2025 16:22 At the request of: ALEJANDRO CHILDRESS MD Procedure: US right upper quadrant Ultrasound right upper quadrant INDICATION: Elevated liver enzymes FINDINGS: Evaluation is challenged due to body habitus and difficulty with breath holds. Multiple scattered cysts throughout the liver. Large within the right liver 2.1 x 1.7 x 1.9 cm in size. Echogenic lesion right liver 1.6 x 2.3 x 1.6 cm in size. Gallbladder demonstrates multiple layering gallstones largest 1.2 cm in size. Pancreas is obscured due to bowel gas. Right kidney without hydronephrosis. Common bile duct measures 1.8 mm. US/US right upper quadrant IMPRESSION: Cholelithiasis. No definite gallbladder wall thickening or positive Katz's sign. Multifocal liver lesions suggestive cysts. Echogenic lesion within the liver noted could represent hemangioma versus focal fatty replacement.. This can be further characterize with cross-sectional imaging such as contrast-enhanced CT or MRI as clinically warranted. Obscured pancreas Impression dictated by: Horace Mendez M.D. 06/05/2025 4:22 PM Dictation Location: [place] [address] Electronically authenticated by: [id number] Y Date: 06/05/2025 16:22
[2025-06-05] MEDS: FUROSEMIDE 20 MG/2 ML VIAL IVP ×2 (15:22→16:21)
[2025-06-05 15:26] LABS: INR 1.48; Prothrombin Time 15.1 sec (9.0-11.6)
[2025-06-05 15:31] LABS: Magnesium 2.3 mg/dL (1.8-2.4)
--- NOTE | 2025-06-05 15:34 | PC.NURSE ---
pt back in Afib with RVR at this time HR 122
[2025-06-05 16:10] LABS: Gamma Glutamyl Transpeptidase 52 U/L (15-85)
[2025-06-05 16:11] LABS: Lipase 10.0 U/L (16.0-77.0)
[2025-06-05 16:24] LABS: Glucose Urine UA NEGATIVE (NEGATIVE)
[2025-06-05 16:47] LABS: Cast Seen? NONE SEEN #/LPF (NONE SEEN); Crystals Seen? None Seen #/HPF (None Seen); Urine Culture Indicated YES-FRMC
--- NOTE | 2025-06-05 16:50 | CT_ITS ---
The [address] [address] Patient Name: CARL REINOSO MRN: [facility]:[id number] date: 1955 Sex: M Assigned Patient Location: ER Current Patient Location: ED.MAIN Accession/Order Number: [id number] Exam Date: 06/05/2025 16:39 Report Date: 06/05/2025 17:52 At the request of: ALEJANDRO CHILDRESS MD Procedure: CT abdomen pelvis wo con CT ABDOMEN AND PELVIS WITHOUT INTRAVENOUS CONTRAST: CLINICAL HISTORY: elevated liver enzymes COMPARISON: None TECHNIQUE: Spiral images were obtained through the abdomen and pelvis without intravenous contrast. This CT exam was performed using one or more following dose reduction techniques: Automated exposure control, adjustment of the mA and/or kV according to patient size, or use of iterative reconstruction technique. FINDINGS: Lung Bases: [Cardiomegaly. Trace pericardial fluid. Small right-sided and trace left-sided effusion with bibasilar atelectasis and interstitial edema.] Organs:1.6 x 1.3 cm right hepatic lobe hypodensity likely a cyst. Right posterior liver hypodensity as well. Layering debris within the gallbladder. Question slight nodular contour of the liver. Otherwise the adrenals, spleen, pancreas unremarkable. Mild perinephric fluid. No hydronephrosis. No nephrolithiasis.[ GI: Mild to moderate retained stool throughout the colon. No bowel obstruction. Distal duodenal diverticulum identified. Distal colonic diverticulosis. There are no CT findings acute appendicitis appendix is not identified. Pelvis:[Bladder is collapsed around a Plata catheter balloon. Mild prominence of both distal ureters. No obstructing calculi identified. Prostate unremarkable.] Peritoneum/Retroperitoneum:No free air or fluid. Mild haziness involving retroperitoneal fat. No retroperitoneal fluid collections. [id number] plaque involving the nonaneurysmal aorta.[ Abd wall/Bones:Facet arthropathy. No suspicious osseous lesion.[ CT/CT abdomen pelvis wo con IMPRESSION: Retroperitoneal haziness may relate to nonspecific third spacing of fluid. Please correlate with clinical exam findings such as urinalysis findings as well. Suspected debris within the gallbladder. Cardiomegaly with effusions and interstitial edema may raise possibility for CHF. Impression dictated by: Horace Mendez M.D. 06/05/2025 5:52 PM Dictation Location: [place] [address] Electronically authenticated by: [id number] Y Date: 06/05/2025 17:52
--- NOTE | 2025-06-05 18:08 | PC.NURSE ---
Phone report given to [address] will call pt's brother with transfer information
--- NOTE | 2025-06-05 18:11 | PC.NURSE ---
spoke with pt's brother and SIMON on phone to give them update on transfer to [facility]
--- NOTE | 2025-06-05 18:46 | PC.NURSE ---
placed on 2L NC -- pt was dropping to 88% while sleeping. pt SpO2 now93%
--- NOTE | 2025-06-05 19:08 | PC.NURSE ---
1700ml of urine expelled from venegas catheter since placement
== END 2025-06-05 19:05 | disposition short-term general hospital (02) ==
PROVIDERS: Emergency Provider Emergency Medicine; PCP Family Medicine
DX: I50.9 Heart failure, unspecified (principal); I48.91 Unspecified atrial fibrillation; R74.8 Abnormal levels of other serum enzymes; R06.02 Shortness of breath; Z87.820 Personal history of traumatic brain injury; G40.909 Epilepsy, unspecified, not intractable, without status epilepticus; Z79.01 Long term (current) use of anticoagulants; Z79.899 Other long term (current) drug therapy; Z87.891 Personal history of nicotine dependence
CPT/HCPCS: 36415; 51701; 71045; 74176; 76705; 80053; 81001; 82977; 83690; 83735; 83880; 84484; 85025; 85610; 87040; 87086; 93005; 96365; 96366; 96368; 96375; 96376; 99285; J0696; J1938